=== PATIENT | female | born 1980 | race Caucasian/White ===

== ENCOUNTER 2016-12-29 05:55 | Day surgery (SDC) | payer OTHER ==
[~2016-12-29] VITALS: Ht 160 cm; Wt 85.3 kg
[~2016-12-29 05:55] MED LIST: CIPROFLOXACIN250 MG PO; DICYCLOMINE HCL10 MG PO; ESTRADIOL1 MG PO; FLOMAX0.4 MG PO; IMITREX100 MG PO; MIRENA1 EACH IY; MOTRIN800 MG PO; NORCO 5-325 TA1 EACH PO; NORCO 7.5-3251 EACH PO; NORTRIPTYLINE H10 MG PO; NUVARING VAGIN1 EACH VG; PERCOCET 5-3251 EACH PO; PRILOSEC20 MG PO; REMICADE100 MG/10 IV; SERTRALINE HCL100 MG PO; TRAMADOL HCL50 MG PO; VICODIN ES 7.51 EAC1 PO; ZOFRAN ODT4 MG SL
--- NOTE | 2016-12-29 08:59 | NUR ---
12/29/16 0859 Sally Lopez PT REPORTS REPORTS PAIN 12, TREATED WITH VERSED 2 MG PER ANESTESIA
--- NOTE | 2016-12-29 10:04 | NUR ---
PT TO DAY SURGERY WITH C/O 8-9\10 PAIN IN ABD. MORPHINE 4MG IV GIVEN SLOW PUSH.
[2016-12-29] MEDS ORDERED: PERCOCET 7.5-31 EACH PO (10:08)
[2016-12-29] MEDS ORDERED: IBUPROFEN800 MG PO (10:08)
--- NOTE | 2016-12-29 10:09 | NUR ---
PAIN RATED 6-7/10 IN ABD. PT STATES "IT GETTING BETTER."
--- NOTE | 2016-12-29 10:19 | NUR ---
PT EATING PUDDING AND DRINKS OF WATER TOLERATED.
--- NOTE | 2016-12-29 10:57 | NUR ---
ICE PACK PLACED TO LEFT ABD PER PT REQUEST. STATES "I HURT ON THE LEFT SIDE"
--- NOTE | 2016-12-29 12:22 | NUR ---
1200 SPOKE WITH LEIGH MELTON REGARDING PT LACK OF PAIN CONTROL. 1223 LEIGH IN WITH PT. PT PLACED ON THE MONITOR AND MOVED TO ROOM 11 FOR INFUSION.
--- NOTE | 2016-12-29 12:25 | NUR ---
PT RATES PAIN 9/10. CONSTANT, THROBBING PAIN THAT IS IN THE ABD, LEFT SIDE AND DOWN THE LEFT LEG.
--- NOTE | 2016-12-29 12:31 | NUR ---
INFUSION STARTED BY FAMILY CONSUMER SCIENCE FCS TEACHER
--- NOTE | 2016-12-29 12:49 | NUR ---
DR DIAZ IN TO SEE PATIENT AND . ORDER RECIEVED AND FAXED TO PHARMACY.
--- NOTE | 2016-12-29 12:52 | NUR ---
PT DROWSY TALKING WITH . RATES PAIN 07/23. STATES I FEEL SO GOOD.
--- NOTE | 2016-12-29 13:04 | NUR ---
PT RESTING IN BED ATTEMPTING TO USE PHONE. APPEARS DROWZY. RATES PAIN A 1-2/10.
--- NOTE | 2016-12-29 13:23 | NUR ---
INFUSION COMPLETED. PT RESTING WITH EYES CLOSED. RESP EVEN AND UNLABORED.
--- NOTE | 2016-12-29 13:28 | NUR ---
POWER SYSTEM DISPATCHER AT BEDSIDE
--- NOTE | 2016-12-29 14:20 | NUR ---
LEIGH IN TALKING WITH PT ABOUT INFUSION AND PAIN MEDICATIONS WHEN PT GOES HOME.
--- NOTE | 2016-12-29 15:02 | NUR ---
[address] DIAZ, UPDATED ON PT PAIN LEVEL AFTER INFUSION, CURRENT PAIN LEVEL OF 3/10. VOID, TOLERATING FOOD AND WATER. PT REQUESTING DC HOME. OKAY TO DC HOME. 1445 SPOKE WITH PT REGARDING KETAMINE INFUSION AND SIDE EFFECTS OF HALLUCINATION, DREAM LIKE STATE, LOSS OF APPETINE, NAUSEA, DOUBLE VISION AND THAT SHE SHOULD NOT DO ANYTHING OF IMPORTANCE. PT VERBALIZED UNDERSTANDING.
--- NOTE | 2017-01-22 07:55 | OR ---
[facility] [address] [place], [place] [address] Signed DATE OF SERVICE: 12/29/2016 SURGEON: Yoselin Garcia MD. SALES PROJECT ENGINEER: Frederick Guerrero DO. PREOPERATIVE DIAGNOSIS: Pelvic pain. POSTOPERATIVE DIAGNOSES: Pelvic pain, pelvic endometriosis. PROCEDURE PERFORMED: Laparoscopy with left oophorectomy, fulguration of endometriosis, and excision of endometriosis. ANESTHESIA: General ET. ESTIMATED BLOOD LOSS: Minimal. DRAINS: None. INDICATIONS AND FINDINGS: The patient is a 36-year-old female, who has been having worsening left-sided pelvic pain over the last 8 months. She is now requiring narcotics on a daily basis to manage her pain. She also has a history of ulcerative colitis, though it is not felt that her colitis has been active and she is on ongoing medication. Ultrasounds have not been helpful. She has undergone prior hysterectomy for benign indications. At the time of surgery, exam under anesthesia was completely normal. At the time of laparoscopy, the left ovary appeared normal. There was some endometriosis in the posterior cul-de-sac. There was also some endometriosis on the right posterior broad ligament. There also appeared to be endometriosis over both distal ureters. The right ovary appeared normal. DESCRIPTION OF PROCEDURE: The patient was prepped and draped in the dorsal lithotomy position. Sponge stick was placed in the vagina and a Aguilar catheter was placed at the beginning of the case. Attention was directed to the abdomen. The infraumbilical area was injected with 0.5% Marcaine plain. Incision made with a knife and each layer was then serially elevated and incised until the fascia could be opened and identified. Sutures of 0 Vicryl were placed. The peritoneum was then opened bluntly and a Roge cannula placed and tied into place. Placing the scope confirmed proper positioning. CO2 was then introduced into the abdomen. A 2nd port was placed just below the level of the umbilicus on the left side. This was placed fairly far laterally. This area was transilluminated and injected with the Marcaine and an incision made with a knife and the trocar placed under direct Electronically Signed By: YOSELIN GARCIA MD 01/22/17 0755 PATIENT NAME: JOSELIN FROST OPERATIVE REPORT DATE OF : 76 PHYSICIAN: YOSELIN GARCIA MD REPORT #: [id number] REPORT IS CONFIDENTIAL AND NOT TO BE RELEASED WITHOUT AUTHORIZATION [facility] [address] [place] [id number] Signed vision. The pelvis was visualized and the endometriosis was noted. The decision was made to proceed with the planned operation. A 2nd port was placed on the right side in the same area. This area was injected with the Marcaine incision made with a knife and then the Veress needle with the expandable trocar placed. This was followed by placement of a 10 port. Following this, the patient's left ovary was identified and was removed. The ureter could easily be seen at this level. The infundibulopelvic ligament was cauterized multiple times with [place] device and then excised and dropped to the posterior cul-de-sac. An Endoloop of 0 PDS was then placed to ensure hemostasis. Two loops were required as the 1st, unfortunately, trapped the forceps. Following this, the area appeared to be completely hemostatic and the ureter undamaged. Following this, the endometriosis of the cul-de-sac was treated with cautery using the Dolphin tip forceps. This was in central cul-de-sac as well as more on the right cul-de-sac below the uterosacral ligament. The endometriosis on the right posterior broad ligament was excised using the EndoShear. The specimen was sent. Unfortunately, there also appeared to be endometriosis overlying both ureters in the distal portions. This was not felt to be amenable for excision at this point. Following this, the pelvis was completely irrigated and inspected and there was no evidence of ongoing bleeding. Evicel was placed over the defects on the right posterior broad ligament to assist in hemostasis. The instruments were then removed from the abdomen after allowing as much CO2 as possible to escape. It should be noted that the left ovary was pulled through the 10 port prior to removal of the instruments. The fascial incision at the umbilicus was reidentified and closed with running suture of 0 Vicryl. The stay sutures had come out. The skin incisions were closed with subcuticular sutures of 3-0 Vicryl Rapide. Following this, the Aguilar catheter was removed as was the sponge stick. All sponge and needle counts were correct. She tolerated the procedure well and was taken to the recovery room in good condition. Yoselin Garcia MD PJW/Modl /[id number] cc: DO Dr. Sharif Still Electronically Signed By: YOSELIN GARCIA MD 01/22/17 0755 PATIENT NAME: JOSELIN FROST OPERATIVE REPORT DATE OF : 76 PHYSICIAN: YOSELIN GARCIA MD REPORT #: [id number] REPORT IS CONFIDENTIAL AND NOT TO BE RELEASED WITHOUT AUTHORIZATION
== END 2016-12-29 15:00 | disposition home or self-care (01) ==
LOC: DS 05:55
PROVIDERS: Obstetrics & Gynecology
PROC: 0U5B4ZZ Destruction of Endometrium, Percutaneous Endoscopic Approach (ICD-10-PCS; 2016-12-29)
PROC: 0UT14ZZ Resection of Left Ovary, Percutaneous Endoscopic Approach (ICD-10-PCS; principal; 2016-12-29 06:45)
DX: N80.3 Endometriosis of pelvic peritoneum (principal); N83.202 Unspecified ovarian cyst, left side; K58.9 Irritable bowel syndrome, unspecified; E66.9 Obesity, unspecified; F32.9 Major depressive disorder, single episode, unspecified; K21.9 Gastro-esophageal reflux disease without esophagitis; G43.009 Migraine without aura, not intractable, without status migrainosus; Z88.2 Allergy status to sulfonamides; Z87.442 Personal history of urinary calculi; Z90.49 Acquired absence of other specified parts of digestive tract; Z98.890 Other specified postprocedural states; Z79.899 Other long term (current) drug therapy; Z87.891 Personal history of nicotine dependence; Z68.33 Body mass index [BMI] 33.0-33.9, adult
CPT/HCPCS: 00840; J1100; J1170; J1644; J1885; J2250; J2270; J2370; J2405; J2704; J3010; J3475; J7120

== ENCOUNTER 2018-02-02 07:37 | Day surgery (SDC) | payer BC ==
[~2018-02-02] VITALS: Ht 160 cm; Wt 87.1 kg
[~2018-02-02 07:37] MED LIST changes: +IBUPROFEN800 MG PO; +MONO-LINYAH1 EACH PO; +PERCOCET 7.5-31 EACH PO; +PRILOSEC OTC20 MG PO
--- NOTE | 2018-02-02 08:04 | NUR ---
HEADACHE ONLY 5/10 PAIN
--- NOTE | 2018-02-02 08:18 | NUR ---
PT IS ALERT, ORIENTED AND SUPPORTED BY HER . SHE HAS HAD MANY SCOPES-WE AGREED THAT THIS ONE WELL WOULD SIMPLY BE "ROUTINE". EXTENDED A BLESSING, AND WILL FOLLOW NEEDED
--- NOTE | 2018-02-02 09:24 | NUR ---
02/02/18 0924 Rasheeda Armenta 6664-PATIENT ARRIVED TO PACU ON 3L OM O2 SAT 100% LAYING LEFT LATERAL. ABDOMEN ROUND AND SOFT. PATIENT REACTIVE TO VOICE SHAKES HEAD NO TO PAIN EYES CLOSED. GIVES THUMBS UP. RR EVEN.
--- NOTE | 2018-02-03 08:20 | OR ---
[facility] [address] [place], [place] [address] Signed DATE OF OPERATION: 02/02/2018 SURGEON: Alexander Pollock MD PREOPERATIVE DIAGNOSES: 1. Ulcerative colitis. 2. A paternal cousin with ulcerative colitis. 3. A maternal uncle with colon cancer and/or polyps. POSTOPERATIVE DIAGNOSIS: Unremarkable colonoscopy. PROCEDURES: Colonoscopy with multiple four quadrant cold biopsies throughout the colon and rectum. ESTIMATED BLOOD LOSS: None. INDICATIONS: Kami is a 37-year-old female, who was diagnosed with ulcerative colitis at age 11. It has been quite severe. She tried every drug including steroids and nothing was working. Finally, Remicade was started and she has been doing well ever since then. She continues to follow up with her operations officer afloat at [facility]. She continues to come every year for a colonoscopy with four-quadrant biopsies about every 10 cm or so looking for dysplasia. She returns this year and says she is doing great. This is the 3rd year she has used the Prepopik bowel prep with good results. Although, she had little cramping this year. Otherwise, she has been feeling well. She also understands the need for IV conscious sedation. She does do well with Versed and fentanyl, but she always needs a significant amount. She had expressed understanding and wished to proceed. PROCEDURE NOTE: Kami was taken into our endoscopy suite and placed in the left lateral decubitus position. She was given a total of 15 mg of Versed and 250 mcg of fentanyl to cover the entire case. A digital rectal exam was performed and this was unremarkable. The adult colonoscope was introduced and advanced all around into the cecum under direct visualization of the camera. Initially, our water was running through the scope and it was given some trouble. Once we amended that issue, it was much easier to pass the scope obviously. After this, we started withdrawal of the scope and we took multiple four quadrant biopsies throughout the entire colon and rectum. However, I saw no Electronically Signed By: ALEXANDER POLLOCK MD 02/03/18 0820 PATIENT NAME: KAMI FROST OPERATIVE REPORT DATE OF : 76 REPORT #: [id number] PHYSICIAN: ALEXANDER POLLOCK MD PCP: MONTY PATRICIO MD REPORT IS CONFIDENTIAL AND NOT TO BE RELEASED WITHOUT AUTHORIZATION [address] [address] Signed evidence of any inflammatory changes in her colon or rectum on this occasion. She often has an area in her left colon that bothers her. Upon retroflexion of the scope, there was no pathology above the anal canal. After this, the gas was suctioned out and the colonoscope removed. Kami tolerated the procedure quite well. RECOMMENDATIONS: I will see Kami back in my office in 7 to 14 days to review her results. MD CHRIS Kirby/BASIA /[id number] cc: MD Monty Salvador MD Andrew L Bower, MD Copies: Stevo Hart MD, RUSSELL BARR MD BOWER, ANDREW L MD ~ Electronically Signed By: ALEXANDER POLLOCK MD 02/03/18 0820 PATIENT NAME: KAMI FROST OPERATIVE REPORT DATE OF : 76 REPORT #: [id number] PHYSICIAN: ALEXANDER POLLOCK MD PCP: MONTY PATRICIO MD REPORT IS CONFIDENTIAL AND NOT TO BE RELEASED WITHOUT AUTHORIZATION
== END 2018-02-02 10:28 | disposition home or self-care (01) ==
LOC: DS 07:37 → OPS 07:37
PROVIDERS: Colon & Rectal Surgery
PROC: 0DBE8ZX Excision of Large Intestine, Via Natural or Artificial Opening Endoscopic, Diagnostic (ICD-10-PCS; 2018-02-02)
PROC: 0DBL8ZX Excision of Transverse Colon, Via Natural or Artificial Opening Endoscopic, Diagnostic (ICD-10-PCS; 2018-02-02)
PROC: 0DBP8ZX Excision of Rectum, Via Natural or Artificial Opening Endoscopic, Diagnostic (ICD-10-PCS; 2018-02-02)
PROC: 0DBH8ZX Excision of Cecum, Via Natural or Artificial Opening Endoscopic, Diagnostic (ICD-10-PCS; 2018-02-02)
PROC: 0DBK8ZX Excision of Ascending Colon, Via Natural or Artificial Opening Endoscopic, Diagnostic (ICD-10-PCS; principal; 2018-02-02 09:00)
DX: K51.90 Ulcerative colitis, unspecified, without complications (principal); F32.9 Major depressive disorder, single episode, unspecified; G43.909 Migraine, unspecified, not intractable, without status migrainosus; J32.9 Chronic sinusitis, unspecified; K21.9 Gastro-esophageal reflux disease without esophagitis; Z98.890 Other specified postprocedural states; Z87.891 Personal history of nicotine dependence; Z88.2 Allergy status to sulfonamides; Z79.899 Other long term (current) drug therapy
CPT/HCPCS: 99153; G0500; J2250; J3010

== ENCOUNTER 2019-10-11 08:36 | Emergency (ER) | payer BC ==
[~2019-10-11] VITALS: Ht 157.5 cm; Wt 87.1 kg
--- OUTSIDE RECORDS SUMMARY | ~2019-10-11 | XMS | Encounter Summary ---
Demographics + + + | Address | [address] | | | [place] [address] | + + + | Home Phone | | + + + | Preferred Language | Unknown | + + + | Marital Status | | + + + | Sikh Affiliation | Unknown | + + + | Race | White | + + + | Ethnic Group | Not or | + + + Author + + + | Author | [facility] | + + + | Organization | [facility] | + + + | Address | Unknown | + + + | Phone | Unavailable | + + + Support + + + + + | Name | Relationship | Address | Phone | + + + + + | Bob Benites | ECON | [address] | | | | | [place] | | | | | [address] | | + + + + + Care Team Providers + +------+ + | Care Energy Sales Broker Name | Role | Phone | + +------+ + | Rohit Ogluin MD | PCP | | + +------+ + Reason for Visit + + + | Reason | Comments | + + + | Medical Records | [facility] - OUTSIDE RECORDS: Progress Note 04/16/2014 (f/u colonoscopy) | | Review | | + + + Encounter Details +--------+ + + + + | Date | Type | Department | Care Team | Description | +--------+ + + + + | 04/19/ | Abstract | [facility]ive [facility] | Stevo Hart, | Medical Records | | 2013 | | [place] at [facility] [address] | MD | Review ([facility] - | | | | [address] | | OUTSIDE RECORDS: | | | | Mailcode: Center | | Progress Note | | | | for Health and | | 04/16/2014 (f/u | | | | Healing, [address] | | colonoscopy)) | | | | [place], [place] | | | | | | [address] | | | | | | [phone] | | | +--------+ + + + + Social History + +-------+ +--------+------+ | Tobacco Use | Types | Packs/Day | Years | Date | | | | | Used | | + +-------+ +--------+------+ | Former Smoker | | | | | + +-------+ +--------+------+ + +---+---+---+ | Smokeless Tobacco: | | | | | Never Used | | | | + +---+---+---+ + + | Comments: quit for 7 years; quit 6 years ago | + + + + +---------+ + | Alcohol Use | Drinks/Week | oz/Week | Comments | + + +---------+ + | Yes | | | rare | + + +---------+ + + + + | Sex Assigned at | Date Recorded | | | | + + + | Not on file | | + + + + + + + | Job Start Date | Occupation | Industry | + + + + | Not on file | Not on file | Not on file | + + + + + + + + | Travel History | Travel Start | Travel End | + + + + + + | No recent travel history available. | + + documented as of this encounter Plan of Treatment Not on filedocumented as of this encounter Visit Diagnoses Not on filedocumented in this encounter"
--- OUTSIDE RECORDS SUMMARY | ~2019-10-11 | XMS | Encounter Summary ---
Demographics + + + | Address | [address] | | | [place] [address] | + + + | Home Phone | | + + + | Preferred Language | Unknown | + + + | Marital Status | | + + + | Evangelical Affiliation | Unknown | + + + | Race | White | + + + | Ethnic Group | Not or | + + + Author + + + | Author | [facility] | + + + | Organization | [facility] | + + + | Address | Unknown | + + + | Phone | Unavailable | + + + Support + + + + + | Name | Relationship | Address | Phone | + + + + + | Bob Benites | ECON | [address] | | | | | [place] | | | | | [address] | | + + + + + Care Team Providers + +------+ + | Care Burial Vault Deliverer And Installer Name | Role | Phone | + +------+ + | Rohit Olguin MD | PCP | | + +------+ + Reason for Visit + + + | Reason | Comments | + + + | Refill Request | nortriptyline | + + + Encounter Details +--------+--------+ + + + | Date | Type | Department | Care Team | Description | +--------+--------+ + + + | 08/30/ | Refill | Dig[facility]ive Health | Stevo Hart, | Refill Request | | 2013 | | Center at [facility] [address] | MD | (nortriptyline ) | | | | [address] | | | | | | Mailcode: [place] | | | | | | [facility] and | | | | | | [place] [address] | | | | | | [place], [place] | | | | | | [address] | | | | | | [phone] | | | +--------+--------+ + + + Social History + +-------+ [...]
--- OUTSIDE RECORDS SUMMARY | ~2019-10-11 | XMS | Encounter Summary ---
Demographics + + + | Address | [address] | | | [place] [address] | + + + | Home Phone | | + + + | Preferred Language | Unknown | + + + | Marital Status | | + + + | Spiritism Affiliation | Unknown | + + + | Race | White | + + + | Ethnic Group | Not or | + + + Author + + + | Author | [facility] | + + + | Organization | [facility] | + + + | Address | Unknown | + + + | Phone | Unavailable | + + + Support + + + + + | Name | Relationship | Address | Phone | + + + + + | Bob Benites | ECON | [address] | | | | | [place] | | | | | [address] | | + + + + + Care Team Providers + +------+ + | Care Magazine Designer Name | Role | Phone | + [...] Description | +--------+--------+ + + + | 08/14/ | Refill | [facility]ive [facility] | Stevo Hart, | Refill Request | | 2016 | | Center at [facility] [address] | MD | (nortriptyline) | | | | [address] | | | | | | Mailcode: [place] | | | | | | [facility] and | | | | | | [facility], [place] [address] | | | | | | [place], [place] | | | | | | [address] | | | | | | [phone] | | | +--------+--------+ + + + [...]
--- OUTSIDE RECORDS SUMMARY | ~2019-10-11 | XMS | Encounter Summary ---
Demographics + + + | Address | [address] | | | [place] [address] | + + + | Home Phone | | + + + | Preferred Language | Unknown | + + + | Marital Status | | + + + | Yazdanism Affiliation | Unknown | + + + | Race | White | + + + | Ethnic Group | Not or | + + + Author + + + | Author | [facility] | + + + | Organization | [facility] | + + + | Address | Unknown | + + + | Phone | Unavailable | + + + Support + + + + + | Name | Relationship | Address | Phone | + + + + + | Bob Benites | ECON | [address] | | | | | [place] | | | | | [address] | | + + + + + Care Team Providers + +------+ + | Care Supervisor Product Inspection Name | Role | Phone | + +------+ + | Rohit Olguin MD | PCP | | + +------+ + Encounter Details +--------+ + + + + | Date | Type | Department | Care Team | Description | +--------+ + + + + | 09/20/ | Orders Only | Dig[facility]ive Health | Alcon Malcolm, | | | 2017 | | Center at [address] | SURFACE HYDROLOGIST [address] | | | | | [address] | [place], [place] | | | | | Mailcode: [place] | [address] | | | | | for Health and | [phone] | | | | | Healing, [address] | | | | | | [place], [place] | | | | | | [address] | | | | | | [phone] | | | +--------+ + + + [...]
--- OUTSIDE RECORDS SUMMARY | ~2019-10-11 | XMS | Encounter Summary ---
Demographics + + + | Address | [address] | | | [place] [address] | + + + | Home Phone | | + + + | Preferred Language | Unknown | + + + | Marital Status | | + + + | Uatsdin Affiliation | Unknown | + + + | Race | White | + + + | Ethnic Group | Not or | + + + Author + + + | Author | [facility] | + + + | Organization | [facility] | + + + | Address | Unknown | + + + | Phone | Unavailable | + + + Support + + + + + | Name | Relationship | Address | Phone | + + + + + | Bob Benites | ECON | [address] | | | | | [place] | | | | | [address] | | + + + + + Care Team Providers + +------+ + | Care Branch Assistant Name | Role | Phone | + +------+ + | Rohit Olguin MD | PCP | | + +------+ + Encounter Details +--------+ + + + + | Date | Type | Department | Care Team | Description | +--------+ + + + + | 06/13/ | MyChart | Dig[facility]ive Health | Stevo Hart, | RE: Blood work | | 2014 | Encounter | Center at [facility] [address] | MD | | | | | [address] | | | | | | Mailcode: [place] | | | | | | for Health and | | | | | | Healing, [address] | | | | | | [place], [place] | | | | | | [address] | | | | | | [phone] | | | +--------+ + + + [...]
--- OUTSIDE RECORDS SUMMARY | ~2019-10-11 | XMS | Encounter Summary ---
Demographics + + + | Address | [address] | | | [place] [address] | + + + | Home Phone | | + + + | Preferred Language | Unknown | + + + | Marital Status | | + + + | Bahai Affiliation | Unknown | + + + | Race | White | + + + | Ethnic Group | Not or | + + + Author + + + | Author | [facility] | + + + | Organization | [facility] | + + + | Address | Unknown | + + + | Phone | Unavailable | + + + Support + + + + + | Name | Relationship | Address | Phone | + + + + + | Bob Benites | ECON | [address] | | | | | [place] | | | | | [address] | | + + + + + Care Team Providers + +------+ + | Care Retail Banking Manager Name | Role | Phone | + +------+ + | Rohit Olguin MD | PCP | | + +------+ + Reason for Visit + + + | Reason | Comments | + + + | Insurance | Remicade approval - [employer] | | Authorization | | + + + Encounter Details +--------+ + + + + | Date | Type | Department | Care Team | Description | +--------+ + + + + | 06/28/ | Abstract | Dig[facility]ive Health | Briana Tellez MD | Insurance | | 2018 | | Center at [facility] [address] | [address] | Authorization | | | | [address] | [place], [place] | (Remicade approval - | | | | Mailcode: [place] | [phone] | [employer]) | | | | for Health and | [phone] | | | | | [place] [address] | | | | | | [place], [place] | | | | | | [address] | | | | | | [phone] | | | +--------+ + + + [...]
--- OUTSIDE RECORDS SUMMARY | ~2019-10-11 | XMS | Encounter Summary ---
Demographics + + + | Address | [address] | | | [place] [address] | + + + | Home Phone | | + + + | Preferred Language | Unknown | + + + | Marital Status | | + + + | Anglican Affiliation | Unknown | + + + | Race | White | + + + | Ethnic Group | Not or | + + + Author + + + | Author | [facility] | + + + | Organization | [facility] | + + + | Address | Unknown | + + + | Phone | Unavailable | + + + Support + + + + + | Name | Relationship | Address | Phone | + + + + + | Bob Benites | ECON | [address] | | | | | [place] | | | | | [address] | | + + + + + Care Team Providers + +------+ + | Care Product Marketing Analyst Name | Role | Phone | + +------+ + | Rohit Olguin MD | PCP | | + +------+ + Reason for Visit + + + | Reason | Comments | + + + | Blood Test Results | 11/07/2015 CRP, ESR - [facility] | + + + | Lab Results | 11/07/2015 Calprotectin - [facility] | + + + Encounter Details +--------+ + + + + | Date | Type | Department | Care Team | Description | +--------+ + + + + | 12/17/ | Documentati | Digestive Health | Stevo Hart, | Blood Test Results | | 2016 | on | Center at [facility] [address] | MD | (11/07/2015 CRP, ESR | | | | [address] | | - [facility]); Lab | | | | Mailcode: Center | | Results (11/07/2015 | | | | for Health and | | Calprotectin - [facility]) | | | | [place], [facility] | | | | | | [place], [place] | | | | | | [address] | | | | | | [phone] | | | +--------+ + + + [...] Not on filedocumented as of this encounter Procedures + +--------+ + + + | Procedure Name | Priori | Date/Time | Associated Diagnosis | Comments | | | ty | | | | + +--------+ + + + | C-REACTIVE PROTEIN | Routin | 11/07/2015 | | Results for this | | | e | 10:15 AM | | procedure are in the | | | | PDT | | results section. | + +--------+ + + + | SEDIMENTATION RATE | Routin | 11/07/2015 | | Results for this | | | e | 10:15 AM | | procedure are in the | | | | PDT | | results section. | + +--------+ + + + | CALPROTECTIN, FECAL | Routin | 11/07/2015 | | Results for this | | | e | 10:00 AM | | procedure are in the | | | | PDT | | results section. | + +--------+ + + + documented in this encounter Results SEDIMENTATION RATE (11/07/2015 10:15 AM PDT) + +-------+ + + + | Component | Value | Ref Range | Performed | Pathologist | | | | | At | Signature | + +-------+ + + + | SEDIMENTATI | 12 | 0 - 20 mm/hr | [facility] | | | ON RATE | | | LAB - | | | | | | [place] | | + +-------+ + + + + + | Specimen | + + | Blood - Blood | + + + + + + + | Performing | Address | City/State/Zipcode | Phone Number | | Organization | | | | + + + + + | [facility] - | [address] | [place], [place] | [phone] | | [place] | | | | + + + + + C-REACTIVE PROTEIN (11/07/2015 10:15 AM PDT) + +-------+ + + + | Component | Value | Ref Range | Performed | Pathologist | | | | | At | Signature | + +-------+ + + + | C-REACTIVE | 3.0 | 0 - 5 mg/dl | [facility] | | | PROTEIN | | | LAB - | | | | | | [place] | | + +-------+ + + + + + | Specimen | + + | Blood - Blood | + + + + + + + | Performing | Address | City/State/Zipcode | Phone Number | | Organization | | | | + + + + + | [facility] - | [address] | [place], [place] | [phone] | | [place] | | | | + + + + + CALPROTECTIN, FECAL (11/07/2015 10:00 AM PDT) + +-------+ + + + | Component | Value | Ref Range | Performed | Pathologist | | | | | At | Signature | + +-------+ + + + | CALPROTECTI | <16 | 0 - 50 ug/g | [facility] | | | N, FECAL | | | LABORATORIE | | | | | | S | | + +-------+ + + + + + | Specimen | + + | Stool - Rectum | + + + + + + + | Performing | Address | City/State/Zipcode | Phone Number | | Organization | | | | + + + + + | [facility] | [address] | [place], [place] | [phone] | | | | [address] | | + + + + + documented in this encounter Visit Diagnoses Not on filedocumented in this encounter"
--- OUTSIDE RECORDS SUMMARY | ~2019-10-11 | XMS | Encounter Summary ---
Demographics + + + | Address | [address] | | | [place] [address] | + + + | Home Phone | | + + + | Preferred Language | Unknown | + + + | Marital Status | | + + + | Worship Affiliation | Unknown | + + + | Race | White | + + + | Ethnic Group | Not or | + + + Author + + + | Author | [facility] | + + + | Organization | [facility] | + + + | Address | Unknown | + + + | Phone | Unavailable | + + + Support + + + + + | Name | Relationship | Address | Phone | + + + + + | Bob Benites | ECON | [address] | | | | | [place] | | | | | [address] | | + + + + + Care Team Providers + +------+ + | Care Photonics Engineer Name | Role | Phone | + [...] Description | +--------+--------+ + + + | 05/21/ | Refill | Digestive Health | Stevo Hart, | Refill Request | | 2015 | | Center at [facility] [address] | MD | (nortriptyline) | | | | [address] | | | | | | Mailcode: [place] | | | | | | [facility] and | | | | | | [facility], [place] [address] | | | | | | [place], [place] | | | | | | [address] | | | | | | [phone] | | | +--------+--------+ + + + [...]
--- OUTSIDE RECORDS SUMMARY | ~2019-10-11 | XMS | Encounter Summary ---
Demographics + + + | Address | [address] | | | [place] [address] | + + + | Home Phone | | + + + | Preferred Language | Unknown | + + + | Marital Status | | + + + | Adventism Affiliation | Unknown | + + + | Race | White | + + + | Ethnic Group | Not or | + + + Author + + + | Author | [facility] | + + + | Organization | [facility] | + + + | Address | Unknown | + + + | Phone | Unavailable | + + + Support + + + + + | Name | Relationship | Address | Phone | + + + + + | Bob Benites | ECON | [address] | | | | | [place] | | | | | [address] | | + + + + + Care Team Providers + +------+ + | Care Cell Phone Repair Technician Name | Role | Phone | + [...] Description | +--------+--------+ + + + | 08/27/ | Refill | Digestive Health | Stevo Hart, | Refill Request | | 2014 | | Center at [facility] [address] | MD | (nortriptyline) | | | | [address] | | | | | | Mailcode: [place] | | | | | | [facility] and | | | | | | [facility], [place] [address] | | | | | | [place], [place] | | | | | | [address] | | | | | | [phone] | | | +--------+--------+ + + + [...]
--- OUTSIDE RECORDS SUMMARY | ~2019-10-11 | XMS | Encounter Summary ---
Demographics + + + | Address | [address] | | | [place] [address] | + + + | Home Phone | | + + + | Preferred Language | Unknown | + + + | Marital Status | | + + + | Latter-Day Affiliation | Unknown | + + + | Race | White | + + + | Ethnic Group | Not or | + + + Author + + + | Author | [facility] | + + + | Organization | [facility] | + + + | Address | Unknown | + + + | Phone | Unavailable | + + + Support + + + + + | Name | Relationship | Address | Phone | + + + + + | Bob Benites | ECON | [address] | | | | | [place] | | | | | [address] | | + + + + + Care Team Providers + +------+ + | Care Traffic Recorder Name | Role | Phone | + +------+ + | Rohit Olguin MD | PCP | | + +------+ + Reason for Visit + + + | Reason | Comments | + + + | Insurance | Telma Tavares/CHANCE | | Authorization | | + + + Encounter Details +--------+ + + + + | Date | Type | Department | Care Team | Description | +--------+ + + + + | 03/18/ | Abstract | Digestive Health | Stevo Hart, | Insurance | | 2016 | | Center at [facility] [address] | MD | Authorization | | | | [address] | | (Remicade approval - | | | | Mailcode: [place] | | Anusha/CHANCE) | | | | for Health and | | | | | | [facility], [address] | | | | | | [place], [place] | | | | | | [address] | | | | | | [phone] | | | +--------+ + + + [...]
--- OUTSIDE RECORDS SUMMARY | ~2019-10-11 | XMS | Encounter Summary ---
Demographics + + + | Address | [address] | | | [place] [address] | + + + | Home Phone | | + + + | Preferred Language | Unknown | + + + | Marital Status | | + + + | Church Affiliation | Unknown | + + + | Race | White | + + + | Ethnic Group | Not or | + + + Author + + + | Author | [facility] | + + + | Organization | [facility] | + + + | Address | Unknown | + + + | Phone | Unavailable | + + + Support + + + + + | Name | Relationship | Address | Phone | + + + + + | Bob Benites | ECON | [address] | | | | | [place] | | | | | [address] | | + + + + + Care Team Providers + +------+ + | Care Assembly Inspector Name | Role | Phone | + +------+ + | Rohit Olguin MD | PCP | | + +------+ + Encounter Details +--------+ + + + + | Date | Type | Department | Care Team | Description | +--------+ + + + + | 03/26/ | MyChart | Digestive Health | Stevo Hart, | RE:RE: Cramping/Pain | | 2012 | Encounter | Center at [facility] [address] | MD | | | | | [address] | | | | | | Mailcode: Center | | | | | | for Health and | | | | | | Healing, [address] | | | | | | [place], [place] | | | | | | [address] | | | | | | [phone] | | | +--------+ + + + [...]
--- OUTSIDE RECORDS SUMMARY | ~2019-10-11 | XMS | Encounter Summary ---
Demographics + + + | Address | [address] | | | [place] [address] | + + + | Home Phone | | + + + | Preferred Language | Unknown | + + + | Marital Status | | + + + | Anabaptism Affiliation | Unknown | + + + | Race | White | + + + | Ethnic Group | Not or | + + + Author + + + | Author | [facility] | + + + | Organization | [facility] | + + + | Address | Unknown | + + + | Phone | Unavailable | + + + Support + + + + + | Name | Relationship | Address | Phone | + + + + + | Bob Benites | ECON | [address] | | | | | [place] | | | | | [address] | | + + + + + Care Team Providers + +------+ + | Care Bus And Trolley Dispatcher Name | Role | Phone | + +------+ + | Rohit Olguin MD | PCP | | + +------+ + Encounter Details +--------+ + + + + | Date | Type | Department | Care Team | Description | +--------+ + + + + | 11/01/ | MyChart | Digestive Health | Alcon Malcolm, | Remicade level | | 2018 | Encounter | Center at [facility] [address] | VENEER JOINER [address] | | | | | [address] | [place], [place] | | | | | Mailcode: Center | [address] | | | | | for Health and | [phone] | | | | | [facility] 2 | | | | | | [place], [place] | | | | | | [address] | | | | | | [phone] | | | +--------+ + + + [...]
--- OUTSIDE RECORDS SUMMARY | ~2019-10-11 | XMS | Encounter Summary ---
Demographics + + + | Address | [address] | | | [place] [address] | + + + | Home Phone | | + + + | Preferred Language | Unknown | + + + | Marital Status | | + + + | Samaritan Affiliation | Unknown | + + + | Race | White | + + + | Ethnic Group | Not or | + + + Author + + + | Author | [facility] | + + + | Organization | [facility] | + + + | Address | Unknown | + + + | Phone | Unavailable | + + + Support + + + + + | Name | Relationship | Address | Phone | + + + + + | Bob Benites | ECON | [address] | | | | | [place] | | | | | [address] | | + + + + + Care Team Providers + +------+ + | Care Face Hardener Name | Role | Phone | + +------+ + | Rohit Olguin MD | PCP | | + +------+ + Reason for Visit + + + | Reason | Comments | + + + | Refill Request | | + + + Encounter Details +--------+--------+ + + + | Date | Type | Department | Care Team | Description | +--------+--------+ + + + | 08/23/ | Refill | Digestive Health | Alcon Malcolm, | Refill Request | | 2020 | | Center at [facility] [address] | LANDSCAPE ARCHITECT [address] | | | | | [address] | [place], [place] | | | | | Mailcode: Center | [address] | | | | | for Health and | [phone] | | | | | [place] [address] | | | | | | [place], [place] | | | | | | [address] | | | | | | [phone] | | | +--------+--------+ + + + [...] filedocumented as of this encounter Visit Diagnoses + + | Diagnosis | + + | Other ulcerative colitis without complication (HCC) | + + | Encounter for long-term (current) use of high-risk medication Encounter for long-term | | (current) use of other medications | + + documented in this encounter"
--- OUTSIDE RECORDS SUMMARY | ~2019-10-11 | XMS | Encounter Summary ---
Demographics + + + | Address | [address] | | | [place] [address] | + + + | Home Phone | | + + + | Preferred Language | Unknown | + + + | Marital Status | | + + + | Presybeterian Affiliation | Unknown | + + + | Race | White | + + + | Ethnic Group | Not or | + + + Author + + + | Author | [facility] | + + + | Organization | [facility] | + + + | Address | Unknown | + + + | Phone | Unavailable | + + + Support + + + + + | Name | Relationship | Address | Phone | + + + + + | Bob Benites | ECON | [address] | | | | | [place] | | | | | [address] | | + + + + + Care Team Providers + +------+ + | Care Chief Catalyst Operator Name | Role | Phone | + [...] Description | +--------+--------+ + + + | 05/20/ | Refill | Digestive Health | Alcon Malcolm, | Refill Request | | 2019 | | Center at [facility] [address] | CORPORATION SECRETARY [address] | | | | | [address] | [place], [place] | | | | | Mailcode: Center | [address] | | | | | for Health and | [phone] | | | | | [place] [address] | | | | | | [place], [place] | | | | | | [address] | | | | | | [phone] | | | +--------+--------+ + + + [...]
--- OUTSIDE RECORDS SUMMARY | ~2019-10-11 | XMS | Encounter Summary ---
Demographics + + + | Address | [address] | | | [place] [address] | + + + | Home Phone | | + + + | Preferred Language | Unknown | + + + | Marital Status | | + + + | Confucianist Affiliation | Unknown | + + + | Race | White | + + + | Ethnic Group | Not or | + + + Author + + + | Author | [facility] | + + + | Organization | [facility] | + + + | Address | Unknown | + + + | Phone | Unavailable | + + + Support + + + + + | Name | Relationship | Address | Phone | + + + + + | Bob Benites | ECON | [address] | | | | | [place] | | | | | [address] | | + + + + + Care Team Providers + +------+ + | Care Horse Stud Worker Name | Role | Phone | + +------+ + | Rohit Olguin MD | PCP | | + +------+ + Encounter Details +--------+ + + + + | Date | Type | Department | Care Team | Description | +--------+ + + + + | 12/08/ | MyChart | Digestive Health | Stevo Hart, | RE: Severe Abdominal | | 2017 | Encounter | Center at [facility] [address] | MD | pain | | | | [address] | | | | | | Mailcode: Center | | | | | | for Health and | | | | | | Healing, [address] | | | | | | [place], [place] | | | | | | [address] | | | | | | [phone] | | | +--------+ + + + [...]
--- OUTSIDE RECORDS SUMMARY | ~2019-10-11 | XMS | Encounter Summary ---
Demographics + + + | Address | [address] [place] [address] | | | [place] [address] | + + + | Home Phone | | + + + | Preferred Language | Unknown | + + + | Marital Status | | + + + | Mosque Affiliation | Unknown | + + + | Race | White | + + + | Ethnic Group | Not or | + + + Author + + + | Author | [facility] | + + + | Organization | [facility] | + + + | Address | Unknown | + + + | Phone | Unavailable | + + + Support + + + + + | Name | Relationship | Address | Phone | + + + + + | Bob Benites | ECON | [address] | | | | | [place] | | | | | [address] | | + + + + + Care Team Providers + +------+ + | Care Asic Engineer Name | Role | Phone | + +------+ + | Rohit Olguin MD | PCP | | + +------+ + Reason for Visit + + + | Reason | Comments | + + + | Medical Records | 03/27/2015 Colonoscopy and pathology report - [facility] | | Review | Hospital | + + + Encounter Details +--------+ + + + + | Date | Type | Department | Care Team | Description | +--------+ + + + + | 04/02/ | Abstract | Digestive Health | Stevo Hart, | Medical Records | | 2014 | | [place] at [facility] [address] | MD | Review (03/27/2015 | | | | [address] | | Colonoscopy and | | | | Mailcode: Center | | pathology report - | | | | for [facility] and | | [facility] | | | | [facility] | | [facility]) | | | | [place], [place] | | | | | | [address] | | | | | | [phone] | | | +--------+ + + + [...]
--- OUTSIDE RECORDS SUMMARY | ~2019-10-11 | XMS | Encounter Summary ---
Demographics + + + | Address | [address] | | | [place] [address] | + + + | Home Phone | | + + + | Preferred Language | Unknown | + + + | Marital Status | | + + + | Jehovah'S Witness Affiliation | Unknown | + + + | Race | White | + + + | Ethnic Group | Not or | + + + Author + + + | Author | [facility] | + + + | Organization | [facility] | + + + | Address | Unknown | + + + | Phone | Unavailable | + + + Support + + + + + | Name | Relationship | Address | Phone | + + + + + | Bob Benites | ECON | [address] | | | | | [place] | | | | | [address] | | + + + + + Care Team Providers + +------+ + | Care Hogshead Inspector Name | Role | Phone | [...] | | 2013 | | Center at [facility] [address] | MD | (nortriptyline ) | | | | [address] | | | | | | Mailcode: [place] | | | | | | [facility] Health and | | | | | | [place] [address] | | | | | | [place], [place] | | | | | | [address] | | | | | | [phone] | | | +--------+--------+ + + + [...]
--- OUTSIDE RECORDS SUMMARY | ~2019-10-11 | XMS | Encounter Summary ---
Demographics + + + | Address | [address] | | | [place] [address] | + + + | Home Phone | | + + + | Preferred Language | Unknown | + + + | Marital Status | | + + + | Yarsanism Affiliation | Unknown | + + + | Race | White | + + + | Ethnic Group | Not or | + + + Author + + + | Author | [facility] | + + + | Organization | [facility] | + + + | Address | Unknown | + + + | Phone | Unavailable | + + + Support + + + + + | Name | Relationship | Address | Phone | + + + + + | Bob Benites | ECON | [address] | | | | | [place] | | | | | [address] | | + + + + + Care Team Providers + +------+ + | Care Hook Puller Name | Role | Phone | + +------+ + | Rohit Olguin MD | PCP | | + +------+ + Encounter Details +--------+ + + + + | Date | Type | Department | Care Team | Description | +--------+ + + + + | 09/30/ | Telephone | Digestive Health | Stevo Hart, | | | 2015 | | [place] at [facility] [address] | | | | | | [address] | | | | | | Mailcode: [place] | | | | | | for Health and | | | | | | [facility], [facility] 2 | | | | | | [place], [place] | | | | | | [address] | | | | | | [phone] | | | +--------+ + + + [...] + | Diagnosis | + + | Irritable bowel syndrome without diarrhea - Primary Irritable bowel syndrome | + + | Other ulcerative colitis without complication (HCC) | + + documented in this encounter"
--- OUTSIDE RECORDS SUMMARY | ~2019-10-11 | XMS | Encounter Summary ---
Demographics + + + | Address | [address] | | | [place] [address] | + + + | Home Phone | | + + + | Preferred Language | Unknown | + + + | Marital Status | | + + + | Episcopal Affiliation | Unknown | + + + [...] + | Bob Benites | ECON | [address] | | | | | [place] | | | | | [address] | | + + + + + Care Team Providers + +------+ + | Care Investigative Research Specialist Name | Role | Phone | + +------+ + | Rohit Olguin MD | PCP | | + +------+ + Encounter Details +--------+ + + + + | Date | Type | Department | Care Team | Description | +--------+ + + + + | 01/19/ | MyChart | Digestive Health | Alcon Malcolm, | Boat load of labs | | 2019 | Encounter | Center at [facility] [address] | COAT ROOM ATTENDANT [address] | | | | | [address] | [facility] [place] | | | | | Mailcode: Center | [address] | | | | | for Health and | [phone] | | | | | [facility] 2 | | | | | | [place], [place] | | | | | | [address] | | | | | | [phone] | | | +--------+ + + + [...]
--- OUTSIDE RECORDS SUMMARY | ~2019-10-11 | XMS | Encounter Summary ---
Demographics + + + | Address | [address] | | | [place] [address] | + + + | Home Phone | | + + + | Preferred Language | Unknown | + + + | Marital Status | | + + + | Hindu Affiliation | Unknown | + + + | Race | White | + + + | Ethnic Group | Not or | + + + Author + + + | Author | [facility] | + + + | Organization | [facility] | + + + | Address | Unknown | + + + | Phone | Unavailable | + + + Support + + + + + | Name | Relationship | Address | Phone | + + + + + | Bob Benites | ECON | [address] | | | | | [place] | | | | | [address] | | + + + + + Care Team Providers + +------+ + | Care Hvac Designer Name | Role | Phone | + +------+ + | Rohit Olguin MD | PCP | | + +------+ + Reason for Visit + + + | Reason | Comments | + + + | Medical Records | | | Review | | + + + Encounter Details +--------+ + + + + | Date | Type | Department | Care Team | Description | +--------+ + + + + | 03/19/ | Abstract | Digestive Health | Stevo Hart, | Medical Records | | 2016 | | [place] at [facility] [address] | | Review | | | | [address] | | | | | | Mailcode: [place] | | | | | | for Health and | | | | | | [facility], [facility] 2 | | | | | | [place], [place] | | | | | | [address] | | | | | | [phone] | | | +--------+ + + + [...]
--- OUTSIDE RECORDS SUMMARY | ~2019-10-11 | XMS | Encounter Summary ---
Demographics + + + | Address | [address] | | | [place] [address] | + + + | Home Phone [...] + + | Author | [facility] | + + + | Organization | [facility] | + + + | Address | Unknown | + + + | Phone | Unavailable | + + + Support + + + + + | Name | Relationship | Address | Phone | + + + + + | Bob Benites | ECON | [address] | | | | | [place] | | | | | [address] | | + + + + + Care Team Providers + +------+ + | Care Change Control Analyst Name | Role | Phone | + +------+ + | Rohit Olguin MD | PCP | | + +------+ + Reason for Visit + + + | Reason | Comments | + + + | Blood Test Results | 08/06/2015 HgA1c, CRP, ESR - [facility] | + + + Encounter Details +--------+ + + + + | Date | Type | Department | Care Team | Description | +--------+ + + + + | 08/12/ | Documentati | Digestive Health | Stevo Hart, | Blood Test Results | | 2016 | on | Center at [facility] [address] | MD | (08/06/2015 HgA1c, | | | | [address] | | CRP, ESR - | | | | Mailcode: Center | | [facility]) | | | | for Health and | | | | | | [facility], [facility] | | | | | | [place], [place] | | | | | | [address] | | | | | | [phone] | | | +--------+ + + + [...] + | C-REACTIVE PROTEIN | Routin | 08/06/2015 | | Results for this | | | e | 11:34 AM | | procedure are in the | | | | PDT | | results section. | + +--------+ + + + | SEDIMENTATION RATE | Routin | 08/06/2015 | | Results for this | | | e | 11:34 AM | | procedure are in the | | | | PDT | | results section. | + +--------+ + + + | HEMOGLOBIN A1C, | Routin | 08/06/2015 | | Results for this | | BLOOD | e | 11:34 AM | | procedure are in the | | | | PDT | | results section. | + +--------+ + + + | ALBUMIN, PLASMA | Routin | 08/06/2015 | | Results for this | | | e | 11:34 AM | | procedure are in the | | | | PDT | | results section. | + +--------+ + + + documented in this encounter Results ALBUMIN, PLASMA (08/06/2015 11:34 AM PDT) + +-------+ + + + | Component | Value | Ref Range | Performed | Pathologist | | | | | At | Signature | + +-------+ + + + | ALBUMIN, | 4.6 | 3.5 - 5.0 g/dL | [facility] | | | PLASMA | | | LAB - | | | (LAB) | | | [place] | | + +-------+ + + + + + | Specimen | + + | Blood - Blood | + + + + + + + | Performing | Address | City/State/Zipcode | Phone Number | | Organization | | | | + + + + + | [facility] - | [address] | [place] | [phone] | | [place] | | | | + + + + + SEDIMENTATION RATE (08/06/2015 11:34 AM PDT) + +-------+ + + + | Component | Value | Ref Range | Performed | Pathologist | | | | | At | Signature | + +-------+ + + + | SEDIMENTATI | 4 | 0 - 20 mm/hr | [facility] [...] + + | [facility] - | [address] | [place] | [phone] | | [place] | | | | + + + + + C-REACTIVE PROTEIN (08/06/2015 11:34 AM PDT) + +-------+ + + + | Component | Value | Ref Range | Performed | Pathologist | | | | | At | Signature | + +-------+ + + + | C-REACTIVE | 1.9 | 0 - 5 mg/dl | [facility] [...] + + | [facility] - | [address] | [place], [place] | [phone] | | [place] | | | | + + + + + HEMOGLOBIN A1C, BLOOD (08/06/2015 11:34 AM PDT) + +-------+ + + + | Component | Value | Ref Range | Performed | Pathologist | | | | | At | Signature | + +-------+ + + + | HEMOGLOBIN | 5.6 | 5.7 % | [facility] | | | A1C | | | LAB - | | [...] - | [address] | [place] | [phone] | | [place] | | | | + + + + + documented in this encounter Visit Diagnoses Not on filedocumented in this encounter"
--- OUTSIDE RECORDS SUMMARY | ~2019-10-11 | XMS | Encounter Summary ---
Demographics + + + | Address | [address] | | | [place] [address] | + + + | Home Phone [...] + | Bob Benites | ECON | [address] | | | | | [place] | | | | | [address] | | + + + + + Care Team Providers + +------+ + | Care Fisher Weir Name | Role | Phone | + [...] Description | +--------+--------+ + + + | 09/17/ | Refill | Digestive Health | Alcon Malcolm, | Refill Request | | 2020 | | Center at [facility] [address] | MENTAL TELEPATHIST [address] | | | | | [address] | [place], [place] | | | | | Mailcode: Center | [address] | | | | | for Health and | [phone] | | | | | [place] [address] | | | | | | [place], [place] | | | | | | [address] | | | | | | [phone] | | | +--------+--------+ + + + [...]
--- OUTSIDE RECORDS SUMMARY | ~2019-10-11 | XMS | Encounter Summary ---
Demographics + + + | Address | [address] | | | [place] [address] | + + + | Home Phone | | + + + | Preferred Language | Unknown | + + + | Marital Status | | + + + | Latter Day Affiliation | Unknown | + + + | Race | White | + + + | Ethnic Group | Not or | + + + Author + + + | Author | [facility] | + + + | Organization | [facility] | + + + | Address | Unknown | + + + | Phone | Unavailable | + + + Support + + + + + | Name | Relationship | Address | Phone | + + + + + | Bob Benites | ECON | [address] | | | | | [place] | | | | | [address] | | + + + + + Care Team Providers + +------+ + | Care Director Sterile Processing Name | Role | Phone | + +------+ + | Rohit Olguin MD | PCP | | + +------+ + Encounter Details +--------+ + + + + | Date | Type | Department | Care Team | Description | +--------+ + + + + | 03/21/ | MyChart | Digestive Health | Briana Tellez MD | RE: Authorization | | 2018 | Encounter | Center at [facility] [address] | [address] | for Remicade | | | | [address] | [place], [place] | | | | | Mailcode: Center | [address] | | | | | for Health and | [phone] | | | | | [facility] 2 | | | | | | [place], [place] | | | | | | [address] | | | | | | [phone] | | | +--------+ + + + [...]
--- OUTSIDE RECORDS SUMMARY | ~2019-10-11 | XMS | Encounter Summary ---
Demographics + + + | Address | [address] | | | [place] [address] | + + + | Home Phone | | + + + | Preferred Language | Unknown | + + + | Marital Status | | + + + | Caodaism Affiliation | Unknown | + + + | Race | White | + + + | Ethnic Group | Not or | + + + Author + + + | Author | [facility] | + + + | Organization | [facility] | + + + | Address | Unknown | + + + | Phone | Unavailable | + + + Support + + + + + | Name | Relationship | Address | Phone | + + + + + | Bob Benites | ECON | [address] | | | | | [place] | | | | | [address] | | + + + + + Care Team Providers + +------+ + | Care Ball Maker Name | Role | Phone | + +------+ + | Rohit Olguin MD | PCP | | + +------+ + Reason for Referral Consultation (Routine) + +--------+ + + + + | Status | Reason | Specialty | Diagnoses / | Referred By | Referred To | | | | | Procedures | Contact | Contact | + +--------+ + + + + | New Request | | Cardiology | Diagnoses | Gold, | | | | | | Chest pain, | [place] | | | | | | unspecified | [address] | | | | | | type | [address] | | | | | | Fatigue, | [place], [place] | | | | | | unspecified | [address] | | | | | | type SOB | Phone: | | | | | | (shortness | [phone] | | | | | | of breath) | Fax: | | | | | | on exertion | [phone] | | | | | | Procedures | | | | | | | CONSULT TO | | | | | | | CARDIOLOGY | | | + +--------+ + + + + Encounter Details +--------+ + + + + | Date | Type | Department | Care Team | Description | +--------+ + + + + | 01/12/ | 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, | 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, | | 2019 | | Center at [facility] [address]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
--- OUTSIDE RECORDS SUMMARY | ~2019-10-11 | XMS | Encounter Summary ---
Demographics + + + | Address | [address] | | | [place] [address] | + + + | Home Phone | | + + + | Preferred Language | Unknown | + + + | Marital Status | | + + + | Judaism Affiliation | Unknown | + + + | Race | White | + + + | Ethnic Group | Not or | + + + Author + + + | Author | [facility] | + + + | Organization | [facility] | + + + | Address | Unknown | + + + | Phone | Unavailable | + + + Support + + + + + | Name | Relationship | Address | Phone | + + + + + | Bob Benites | ECON | [address] | | | | | [place] | | | | | [address] | | + + + + + Care Team Providers + +------+ + | Care Body Die Maker Name | Role | Phone | + +------+ + | Rohit Olguin MD | PCP | | + +------+ + Reason for Visit + + + | Reason | Comments | + + + | Insurance | Telma magana - Tenzin | | Authorization | | + + + Encounter Details +--------+ + + + + | Date | Type | Department | Care Team | Description | +--------+ + + + + | 09/13/ | Abstract | Digestive Health | Stevo Hart, | Insurance | | 2017 | | Center at [facility] | MD | Authorization | | | | [address] | | (Remicade approval - | | | | Mailcode: Center | | [place]) | | | | for Health and | | | | | | [facility], [facility] 2 | | | | | | [place], [place] | | | | | | [address] | | | | | | [phone] | | | +--------+ + + + [...]
--- OUTSIDE RECORDS SUMMARY | ~2019-10-11 | XMS | Encounter Summary ---
Demographics + + + | Address | [address] | | | [place] [address] | + + + | Home Phone | | + + + | Preferred Language | Unknown | + + + | Marital Status | | + + + | Sabianism Affiliation | Unknown | + + + | Race | White | + + + | Ethnic Group | Not or | + + + Author + + + | Author | [facility] | + + + | Organization | [facility] | + + + | Address | Unknown | + + + | Phone | Unavailable | + + + Support + + + + + | Name | Relationship | Address | Phone | + + + + + | Bob Benites | ECON | [address] | | | | | [place] | | | | | [address] | | + + + + + Care Team Providers + +------+ + | Care Emergency Department Coordinator Name | Role | Phone | + +------+ + | Rohit Olguin MD | PCP | | + +------+ + Encounter Details +--------+------+ + + + | Date | Type | Department | Care Team | Description | +--------+------+ + + + | 09/19/ | Lab | Laboratory at [facility] | | Other ulcerative | | 2018 | | [address] | | colitis without | | | | [place], [place] | | complication (HCC); | | | | [address] | | Encounter for | | | | [phone] | | long-term (current) | | | | | | use of high-risk | | | | | | medication; Fatigue, | | | | | | unspecified type | +--------+------+ + + + Social History + +-------+ [...] | + +--------+ + + + | VITAMIN D, | Routin | 09/19/2017 | Other ulcerative | Results for this | | 25-HYDROXY, SERUM | e | 2:03 PM | colitis without | procedure are in the | | | | PDT | complication (HCC) | results section. | | | | | Encounter for | | | | | | long-term (current) | | | | | | use of high-risk | | | | | | medication | | + +--------+ + + + | C-REACTIVE PROTEIN | Routin | 09/19/2017 | Other ulcerative | Results for this | | | e | 2:03 PM | colitis without | procedure are in the | | | | PDT | complication (HCC) | results section. | | | | | Encounter for | | | | | | long-term (current) | | | | | | use of high-risk | | | | | | medication | | + +--------+ + + + | SEDIMENTATION RATE | Routin | 09/19/2017 | Other ulcerative | Results for this | | | e | 2:03 PM | colitis without | procedure are in the | | | | PDT | complication (HCC) | results section. | | | | | Encounter for | | | | | | long-term (current) | | | | | | use of high-risk | | | | | | medication | | + +--------+ + + + | FERRITIN | Routin | 09/19/2017 | Other ulcerative | Results for this | | | e | 2:03 PM | colitis without | procedure are in the | | | | PDT | complication ([facility]) | results section. | | | | | Encounter for | | | | | | long-term (current) | | | | | | use of high-risk | | | | | | medication Fatigue, | | | | | | unspecified type | | + +--------+ + + + | TSH | Routin | 09/19/2017 | Other ulcerative | Results for this | | | e | 2:03 PM | colitis without | procedure are in the | | | | PDT | complication (HCC) | results section. | | | | | Encounter for | | | | | | long-term (current) | | | | | | use of high-risk | | | | | | medication Fatigue, | | | | | | unspecified type | | + +--------+ + + + documented in this encounter Results TSH (09/19/2017 2:03 PM PDT) + +-------+ + + + | Component | Value | Ref Range | Performed | Pathologist | | | | | At | Signature | + +-------+ + + + | TSH | 1.08 | 0.44 - 4.75 | [facility] | | | | | mIU/L | LABORATORY | | | | | | SERVICES, | | | | | | CORE | | + +-------+ + + + + + | Specimen | + + | Blood - Blood | | (substance) | + + + + + | Narrative | Performed At | + + + | TSH reference ranges are influenced by a variety of environmental | [facility] | | influences, age, gender and ethnicity. The supplied reference limits | LABORATORY | | are based on published values utilizing a similar TSH assay, and | SERVICES, CORE | | should be interpreted with caution. | | + + + + + + + + | Performing | Address | City/State/Zipcode | Phone Number | | Organization | | | | + + + + + | [facility] | [address] | [place] [address] | | | SERVICES, CORE | [address] | | | + + + + + FERRITIN (09/19/2017 2:03 PM PDT) + + + + + + | Component | Value | Ref Range | Performed | Pathologist | | | | | At | Signature | + + + + + + | FERRITIN | 86Comment: Male and | 50 - 200 ng/mL | [facility] | | | | Female >18 years: | | LABORATORY | | | | <20 ng/mL: | | SERVICES, | | | | Consistant with iron | | CORE | | | | deficiency 21-50 | | | | | | ng/mL: Possible | | | | | | iron deficiency 51-99 | | | | | | ng/mL: Iron | | | | | | deficiency unlikely | | | | | | unless inflammation | | | | | | present or | | | | | | patient | | | | | | >65 years of age | | | | | | 100-200 ng/mL: | | | | | | Normal, not consistent | | | | | | with iron deficiency | | | | | | >200 ng/mL: If | | | | | | transferrin saturation | | | | | | >45%, consider | | | | | | hemochromatosis | | | | + + + + + + + + | Specimen | + + | Blood - Blood | | (substance) | + + + + + + + | Performing | Address | City/State/Zipcode | Phone Number | | Organization | | | | + + + + + | [facility] | [address] | [place] [address] | | | SERVICES, CORE | [address] | | | + + + + + VITAMIN D, 25-HYDROXY, SERUM (09/19/2017 2:03 PM PDT) + + + + + + | Component | Value | Ref Range | Performed | Pathologist | | | | | At | Signature | + + + + + + | VITAMIN D | 10.9 (L) | 30 - 80 ng/mL | [facility] | | | 25 HYDROXY | | | LABORATORY | | | | | | SERVICES, | | | | | | CORE | | + + + + + + + + | Specimen | + + | Blood - Blood | | (substance) | + + + + + | Narrative | Performed At | + + + | Reference Interval: 0-18years: Deficiency: <20 ng/mL | [facility] | | Optimum level: >or=20 ng/mL | LABORATORY | | >18years: Deficiency: <20 | SERVICES, CORE | | ng/mL Insufficiency: 20-29 ng/mL | | | Optimum Level: 30-80 ng/mL High: | | | 81-150 ng/ml Toxic: >150 ng/mL | | + + + + + + + + | Performing | Address | City/State/Zipcode | Phone Number | | Organization | | | | + + + + + | [facility] | [address] | [place] [address] | | | SERVICES, CORE | [address] | | | + + + + + C-REACTIVE PROTEIN (09/19/2017 2:03 PM PDT) + +-------+ + + + | Component | Value | Ref Range | Performed | Pathologist | | | | | At | Signature | + +-------+ + + + | C-REACTIVE | <2.9 | <10.0 mg/L | [facility] | | | PROTEIN | | | LABORATORY | | | | | | SERVICES, | | | | | | CORE | | + +-------+ + + + + + | Specimen | + + | Blood - Blood | | (substance) | + + + + + | Narrative | Performed At | + + + | New method, new reference range and new reporting units as of | [facility] | | 10/17/2013. | LABORATORY | | | SERVICES, CORE | + + + + + + + + | Performing | Address | City/State/Zipcode | Phone Number | | Organization | | | | + + + + + | [facility] | [address] | [place] [address] | | | SERVICES, CORE | [address] | | | + + + + + SEDIMENTATION RATE (09/19/2017 2:03 PM PDT) + +--------+ + + + | Component | Value | Ref Range | Performed | Pathologist | | | | | At | Signature | + +--------+ + + + | SEDIMENTATI | 24 (H) | 0 - 20 mm/hr | [facility] | | | ON RATE | | | LABORATORY | | | | | | SERVICES, | | | | | | CORE | | + +--------+ + + + + + | Specimen | + + | Blood - Blood | | (substance) | + + + + + | Narrative | Performed At | + + + | Conditions such as cold agglutinins, anemia, hemolysis, icterus or | [facility] | | lipemia may affect sedimentation rate. | LABORATORY | | | [facility] | + + + + + + + + | Performing | Address | City/State/Zipcode | Phone Number | | Organization | | | | + + + + + | [facility] | [address] | [place] [address] | | | SERVICES, JAH | [address] | | | + + + + + documented in this encounter Visit Diagnoses + + | Diagnosis | + + | Other ulcerative colitis without complication (HCC) | + + | Encounter for long-term (current) use of high-risk medication Encounter for long-term | | (current) use of other medications | + + | Fatigue, unspecified type | + + documented in this encounter"
--- OUTSIDE RECORDS SUMMARY | ~2019-10-11 | XMS | Encounter Summary ---
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
--- OUTSIDE RECORDS SUMMARY | ~2019-10-11 | XMS | Encounter Summary ---
Demographics + + + | Address | [address] | | | [place] [address] | + + + | Home Phone | | + + + | Preferred Language | Unknown | + + + | Marital Status | | + + + | Adventism Affiliation | Unknown | + + + | Race | White | + + + | Ethnic Group | Not or | + + + Author + + + | Author | [facility] | + + + | Organization | [facility] | + + + | Address | Unknown | + + + | Phone | Unavailable | + + + Support + + + + + | Name | Relationship | Address | Phone | + + + + + | Bob Benites | ECON | [address] | | | | | [place] | | | | | [address] | | + + + + + Care Team Providers + +------+ + | Care Equal Employment Opportunity Officer Name | Role | Phone | + +------+ + | Rohit Olguin MD | PCP | | + +------+ + Encounter Details +--------+ + + + + | Date | Type | Department | Care Team | Description | +--------+ + + + + | 11/11/ | MyChart | Digestive Health | Stevo Hart, | RE:lab results | | 2015 | Encounter | Center at [facility] [address] | MD | | | | | [address] | | | | | | Mailcode: Center | | | | | | for Health and | | | | | | Healing, Building [address] | | | | | | [place], [place] | | | | | | [address] | | | | | | [phone] | | | +--------+ + + + [...]
--- OUTSIDE RECORDS SUMMARY | ~2019-10-11 | XMS | Encounter Summary ---
Demographics + + + | Address | [address] | | | [place] [address] | + + + | Home Phone [...] + + + | Author | [facility] | + + + | Organization | [facility] | + + + | Address | Unknown | + + + | Phone | Unavailable | + + + Support + + + + + | Name | Relationship | Address | Phone | + + + + + | Bob Benites | ECON | [address] | | | | | [place] | | | | | [address] | | + + + + + Care Team Providers + +------+ + | Care Straddle Bug Name | Role | Phone | + +------+ + | Rohit Olguin MD | PCP | | + +------+ + Reason for Visit + + + | Reason | Comments | + + + | Refill Request | nortriptyline 10 mg oral capsule | + + + Encounter Details +--------+--------+ + + + | Date | Type | Department | Care Team | Description | +--------+--------+ + + + | 11/19/ | Refill | Digestive Health | Stevo Hart, | Refill Request | | 2015 | | Center at [facility] [address] | MD | (nortriptyline 10 mg | | | | [address] | | oral capsule) | | | | Mailcode: [place] | | | | | | [facility] Health and | | | | | | [facility], [place] [address] | | | | | | [place], [place] | | | | | | [address] | | | | | | [phone] | | | +--------+--------+ + + + [...]
--- OUTSIDE RECORDS SUMMARY | ~2019-10-11 | XMS | Encounter Summary ---
Demographics + + + | Address | [address] | | | [place] [address] | + + + | Home Phone | | + + + | Preferred Language | Unknown | + + + | Marital Status | | + + + | Congregational Affiliation | Unknown | + + + | Race | White | + + + | Ethnic Group | Not or | + + + Author + + + | Author | [facility] | + + + | Organization | [facility] | + + + | Address | Unknown | + + + | Phone | Unavailable | + + + Support + + + + + | Name | Relationship | Address | Phone | + + + + + | Bob Benites | ECON | [address] | | | | | [place] | | | | | [address] | | + + + + + Care Team Providers + +------+ + | Care Meter Maker Name | Role | Phone | [...] | +--------+ + + + + | 03/04/ | Abstract | Digestive Health | Stevo Hart, | Medical Records | | 2014 | | [place] [facility] [address] | | Review | | | | [address] | | | | | | Mailcode: [place] | | | | | | for Health and | | | | | | [facility] | | | | | | [place], [place] | | | | | | [address] | | | | | | [phone] | | | +--------+ + + + [...]
--- OUTSIDE RECORDS SUMMARY | ~2019-10-11 | XMS | Encounter Summary ---
Demographics + + + | Address | [address] | | | [place] [address] | + + + | Home Phone | | + + + | Preferred Language | Unknown | + + + | Marital Status | | + + + | Evangelical Affiliation | Unknown | + + + | Race | White | + + + | Ethnic Group | Not or | + + + Author + + + | Author | [facility] | + + + | Organization | [facility] | + + + | Address | Unknown | + + + | Phone | Unavailable | + + + Support + + + + + | Name | Relationship | Address | Phone | + + + + + | Bob Benites | ECON | [address] | | | | | [place] | | | | | [address] | | + + + + + Care Team Providers + +------+ + | Care Etl Developer Name | Role | Phone | + +------+ + | Rohit Olguin MD | PCP | | + +------+ + Reason for Visit +--------+ + | Reason | Comments | +--------+ + | Other | | +--------+ + Encounter Details +--------+ + + + + | Date | Type | Department | Care Team | Description | +--------+ + + + + | 02/03/ | Telephone | Digestive Health | Briana Tellez MD | Other | | 2017 | | Center at [facility] [address] | [address] | | | | | [address] | [place], [place] | | | | | Mailcode: [place] | [address] | | | | | for Health and | [phone] | | | | | [facility] 2 | | | | | | [place], [place] | | | | | | [address] | | | | | | [phone] | | | +--------+ + + + [...]
--- OUTSIDE RECORDS SUMMARY | ~2019-10-11 | XMS | Encounter Summary ---
Demographics + + + | Address | [address] | | | [place] [address] | + + + | Home Phone | | + + + | Preferred Language | Unknown | + + + | Marital Status | | + + + | Spiritism Affiliation | Unknown | + + + | Race | White | + + + | Ethnic Group | Not or | + + + Author + + + | Author | [facility] | + + + | Organization | [facility] | + + + | Address | Unknown | + + + | Phone | Unavailable | + + + Support + + + + + | Name | Relationship | Address | Phone | + + + + + | Bob Benites | ECON | [address] | | | | | [place] | | | | | [address] | | + + + + + Care Team Providers + +------+ + | Care Bioinformatics Support Specialist Name | Role | Phone | + +------+ + | Rohit Olguin MD | PCP | | + +------+ + Encounter Details +--------+ + + + + | Date | Type | Department | Care Team | Description | +--------+ + + + + | 08/13/ | MyChart | Digestive Health | Stevo Hart, | RE: Authorization | | 2013 | Encounter | Center at [facility] [address] | MD | for Remicade | | | | [address] | | | | | | Mailcode: Center | | | | | | for Health and | | | | | | Healing, [address] | | | | | | [place], [place] | | | | | | [address] | | | | | | [phone] | | | +--------+ + + + [...]
--- OUTSIDE RECORDS SUMMARY | ~2019-10-11 | XMS | Encounter Summary ---
Demographics + + + | Address | [address] | | | [place] [address] | + + + | Home Phone | | + + + | Preferred Language | Unknown | + + + | Marital Status | | + + + | Sikhism Affiliation | Unknown | + + + | Race | White | + + + | Ethnic Group | Not or | + + + Author + + + | Author | [facility] | + + + | Organization | [facility] | + + + | Address | Unknown | + + + | Phone | Unavailable | + + + Support + + + + + | Name | Relationship | Address | Phone | + + + + + | Bob Benites | ECON | [address] | | | | | [place] | | | | | [address] | | + + + + + Care Team Providers + +------+ + | Care [employer] Name | Role | Phone | + [...] Description | +--------+--------+ + + + | 11/28/ | Refill | Digestive Health | Stevo Hart, | Refill Request | | 2012 | | Center at [facility] [address] | MD | (nortriptyline ) | | | | [address] | | | | | | Mailcode: [place] | | | | | | [facility] Health and | | | | | | [place] [address] | | | | | | [place], [place] | | | | | | [address] | | | | | | [phone] | | | +--------+--------+ + + + [...]
--- OUTSIDE RECORDS SUMMARY | ~2019-10-11 | XMS | Encounter Summary ---
Demographics + + + | Address | [address] | | | [place] [address] | + + + | Home Phone [...] + | Bob Benites | ECON | [address] | | | | | [place] | | | | | [address] | | + + + + + Care Team Providers + +------+ + | Care Gear Setter Name | Role | Phone | + +------+ + | Rohit Olguin MD | PCP | | + +------+ + Reason for Visit + + + | Reason | Comments | + + + | Follow-up visit | ulcerative colitis | + + + Office Visit - E/M Services (Routine) +--------+ + + + + + | Status | Reason | Specialty | Diagnoses / | Referred By | Referred To | | | | | Procedures | Contact | Contact | +--------+ + + + + + | Closed | Specialty | Gastroenterol | Diagnoses | Sharif, | Hailey, | | | Services | ogandrea | Ulcerative | Rohit Aguilar, | MD Stevo | | | Required | | colitis | MD [address] | | | | | Procedures | [address] | | | | | [place] | [address] | [place], [place] | | | | | OFFICE/OUTPT | [place], | [address] | | | | | | [place] [address] | | | | | | VISIT,EST,LE | Phone: | | | | | | VL IV | [phone] | | | | | | | Fax: | | | | | | | [phone] | | +--------+ + + + + + Encounter Details +--------+---------+ + + + | Date | Type | Department | Care Team | Description | +--------+---------+ + + + | 10/18/ | Office | Digestive Health | Stevo Hart, | Other ulcerative | | 2017 | Visit | Center at [facility] [address] | MD | colitis without | | | | [address] | | complication (HCC) | | | | Mailcode: Center | | (Primary Dx); | | | | for Health and | | Irritable bowel | | | | Healing, [address] | | syndrome without | | | | [place], [place] | | diarrhea; Encounter | | | | [address] | | for long-term | | | | [phone] | | (current) use of | | | | | | medications | +--------+---------+ + + + Social History + +-------+ [...] + + documented as of this encounter Last Filed Vital Signs + + + + + | Vital Sign | Reading | Time Taken | Comments | + + + + + | Blood Pressure | 133/79 | 10/18/2016 1:27 PM | | | | | PDT | | + + + + + | Pulse | 91 | 10/18/2016 1:27 PM | | | | | PDT | | + + + + + | Temperature | 36.8 C (98.3 F) | 10/18/2016 1:27 PM | | | | | PDT | | + + + + + | Respiratory Rate | 18 | 10/18/2016 1:27 PM | | | | | PDT | | + + + + + | Oxygen Saturation | - | - | | + + + + + | Inhaled Oxygen | - | - | | | Concentration | | | | + + + + + | Weight | 85.3 kg (188 lb 1.6 | 10/18/2016 1:27 PM | | | | oz) | PDT | | + + + + + | Height | 160 cm (5' 3") | 10/18/2016 1:27 PM | | | | | PDT | | + + + + + | Body Mass Index | 33.32 | 10/18/2016 1:27 PM | | | | | PDT | | + + + + + documented in this encounter Progress Notes Stevo Hart MD - 10/18/2016 1:30 PM PDTFormatting of this note might be different fro m the original. [facility] ~ Follow-Up Visit Note Patient Identification: Kami Benites is a 36 y.o. female with a history of ulcerative c olitis and IBS who presents to the [facility] for right sided back an d flank pain. History of Present Illness: Kami was seen in clinic on 09/29/15 with flank/abdominal pain though secondary to breakthro ugh symptoms. Plans were made for routine labs. She was subsequently given nortriptyline. Colonoscopy 03/11/16: - no inflammation throughout entire colon or rectum BIOPSIES: no dysplasia Today, Kami reports stable GI symptoms and is happy with result of last colonoscopy. Feels her sxs have been in remission for 3.5 years since diagnosis 25 years ago. Continues Q 8 we ek Remicade infusions and tolerates this well aside from fatigue. She takes benadryl and tyl enol with each infusion (h/x of anaphylactic shock with infusions in the past). Had decreased flank pain in past 6 mo. Had 3 cm ovarian cyst in 04/30 that was found on sirisha ging for monitoring of kidney stone. Ovarian cyst ruptured and resolved on its own. Imaging noted scar tissue between ovary and sigmoid colon. Was having cyclic pain but this is well c ontrolled by OCP's. Pills have prevented ovulation which has silenced her pain. Has since started and trialed food elimination diets in order to identify triggering foods. By doing this she has lost weight but had improvement in GI symptoms. Does eat most foods i n moderation and doesn't feel like she's "missing out" on any foods. Did cut out all soda. Current GI/IBD Symptoms: Bowel Habits: 1 formed BM/day Abdominal Pain: resolved flank pain Weight loss: intentionally lost 25 lbs Nausea/vomiting: none Appetite: good Perianal symptoms: none Oral symptoms: none Fevers/chills/sweats: none NSAID Use: none Extraintestinal Symptoms (Joint, Eye,Skin): +joint pain in knees and ankles - unchanged fro m baseline; no rashes; no jaundice; no eye issues Past Medical History: I reviewed the history below with the patient and made any relevant u pdates or changes. 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 Allergies Allergen Reactions Sulfa (Sulfonamide Antibiotics) Physical Exam: BP 133/79 | Pulse 91 | Temp (Src) 36.8 C (98.3 F) (Oral) | RR 18 | Ht 1.6 m (5' 3") | W t 85.3 kg (188 lb 1.6 oz) | BMI 33.32 kg/(m^2) Appearance: no apparent distress. Psychological: Appropriate mood and affect. Lungs: breathing easily Abdomen: tender in bilateral flanks without rebound/guarding Skin: no rashes Back: no paraspinous pain, no palpable muscle spasm, no vertebral pain to palp Lymph: No neck lymphadenopathy. Eyes: Sclera anicteric without injection. IBD History and Data Review: The following history is maintained up-to-date for the purposes of medical decision making. Relevant sections were reviewed and updated as appropriate on today's visit. 1. Presentation, historic symptoms, previous endoscopic procedures and imaging, surgeries, recent hospitalizations: Kami was diagnosed at age 11 after she presented with abdominal pain and bloody stools aft er an episode of flu. Per the patient, her disease was prednisone dependent (particularly af ter her second 6 years ago) and she was doing very poorly by 02/2012. She reports a colonoscopy that showed severe disease. Biopsies, available to use in the form of a report , showed chronic active colitis at splenic flexure and rectum, with no activity at left colo n. Colectomy was discussed given severity of disease but Remicade was finally begun. Colonoscopy in 2012: By patient report and review of pictures by Dr. Hart, it showed quiescent disease with only subtle blurring of vasculature in certain segments. Biopsies, av ailable to us in the form of a report, showed normal right-sided and transverse colon biopsi es, with chronic IBD and no dysplasia in the left-sided biopsies. Colonoscopy 03/2014: Minimal inflammation in rectum and moderate inflammation from 35 to 4 5-cm. All path specimens were normal except for 35-45cm which showed chronic active colitis negative for dysplasia. Bxs from 5 to 25-cm showed mild surface erosion and early hyperpla stic changes, negative for colitis and dyplasia Colonoscopy 03/27/15- Imaging CT A/P w contrast 07/31/15 CT Abdomen w/contrast 04/09/15- 2. Current and prior therapies. Current IBD Meds: Remicade [id number] (started in 04/2012, was initially on it every 4 weeks b ut went to q8 weeks in August 2012; immediate response during induction doses; infusion react ion with second infusion; no breakthrough symptoms) Previously Tried: prednisone (1.5 years, last course of 4-5 months that stopped 2 weeks ago ; regularly for past 6 years); history of Asacol, Canasa, Rowasa, Hydrocortisone enemas, cor tifoam (last a few months ago); 6MP (when younger; for some time); no history of injectables 3. Labs: 11/08/15 CRP 3.0 ESR 12 Calprotectin <16 IFX 7.50 ug/mL Antibody negative Labs 08/09/15- CMP 07/18/15- Normal ESR- 9 Assessment: Kami Benites is a 36 y.o. female, who returns to the Infl[facility] Disease Clinic f or ongoing management of UC and IBS. Kami continues Q 8 week Remicade infusions and premedi cates with benadryl and tylenol. She has had decreased flank pain in the past 6 months and f eels her GI symptoms are very stable. Recently started OCP's to treat cyclic ovarian pain se condary to cyst. Most recent colonoscopy in 02/28 showed no inflammation throughout entire c olon or rectum and biopsies showed no dysplasia. She will continue Q 8 week Remicade for now . Discussed possible causes of joint pain and offer for referral to rheumatology, which she stephen an consider. Plan and Recommendations: A. IBD Diagnostics. 1. No further diagnostics at this time - repeat surveillance exam in 2-3 years B. IBD Therapy. 1. Continue Remicade q 8 weeks In addition, given Kami's current use of Remicade, yearly evaluation for Tb risk factors ( with subsequent repeat testing if any risk of exposure is noted) would be recommended. We previously discussed ways to reduce flares, including avoidance of NSAIDs and avoidance of antibiotics without clearly documented bacterial infection, and avoidance of tobacco. C. IBD-Specific Health Maintenance. Recommendations for PCP: 1. Vaccination: Patients should follow standard vaccination protocols for their age group. Patients on biologics should not receive live vaccines. --IBD patients should be vaccinated against hepatitis A and B --IBD patients should receive annual influenza vaccination --IBD patients should receive pneumococcal vaccination. Those who have not prev iously received PCV13 or PPSV23, should receive a dose of PCV13 first followed by a dose of PPSV23 at least 8 weeks later. A second PPSV23 dose is recommended 5 years after the first P PSV23 dose for persons aged 19 through 64 years with immunocompromising conditions --Tdap should be up to date with Td every 10 years --Zoster vaccination should be considered in all older patients with IBD who ar e not on biologic therapy or prednisone (> 20 mg daily). 2. Dermatologic examination: Patients with IBD, especially those on immunosuppressants an d biologics, are at increased risk for melanomas and non melanomatous skin cancers and shoul d have their skin checked annually and limit sun exposure. They should use appropriate sun p rotection at all times 3. Pap smears: Women on immunosuppressant and biologic therapy should have pap smears per ACOG guidelines for immunosuppressed patients. Men and women at risk should have anal pap sm ears. 4. Nutrition and Bone Health: --Bone density scans are recommended for patients with exposure to corticosteroids and non traumatic fractures as well as IBD patients over the age of 50. --Periodic monitoring of vitamin D levels should be done in patients with IBD. 5. Need for dysplasia surveillance colonoscopies: After 8 years of disease, patients with Ulcerative colitis and patients with Crohn's colitis should have surveillance colonoscopies every 1-2 years with biopsies or chromoendoscopy. The risk of colorectal cancer increases in patients who have had the disease at a younger age, and based on extent of disease, duratio n of disease, and family history of colorectal cancer. A history of primary sclerosing chola ngitis also increases risk and these patients need annual colonoscopy from diagnosis 6. Laboratory examinations: IBD patients should have annual labs including CRP, CBC, liver enzymes and creatinine. Patients on mesalamine should have annual renal function monitorin g. Patients on stable doses of biologic therapy, methotrexate or azathioprine/6MP should conroy ve at least every 3-6 month CBC, liver enzymes testing D. Joint pain: 1. Consider referral to rheumatology if symptoms worsen Follow-Up: [address] Tellez I am Hilda Cobb functioning as a scribe for Dr. Stevo Hart. I have reviewed, edited, and verified the above scribed note of my visit with this patient as recorded by Hilda Cobb. Stevo Hart MD [employer] teacher Division of Gastroenterology & Hepatology [facility] documented in this en counter Plan of Treatment Not on filedocumented as of this encounter Visit Diagnoses + + | Diagnosis | + + | Other ulcerative colitis without complication (HCC) - Primary | + + | Irritable bowel syndrome without diarrhea Irritable bowel syndrome | + + | Encounter for long-term (current) use of medications Encounter for long-term | | (current) use of other medications | + + documented in this encounter
--- OUTSIDE RECORDS SUMMARY | ~2019-10-11 | XMS | Encounter Summary ---
Demographics + + + | Address | [address] | | | [place] [address] | + + + | Home Phone | | + + + | Preferred Language | Unknown | + + + | Marital Status | | + + + | Protestant Affiliation | Unknown | + + + | Race | Unknown | + + + | Ethnic Group | Unknown | + + + Author + + + | Author | [facility] | | | and [place] | + + + | Organization | [facility] | | | and [place] | + + + | Address | Unknown | + + + | Phone | Unavailable | + + + Support + + +---------+ + | Name | Relationship | Address | Phone | + + +---------+ + | Bob Benites | ECON | Unknown | | + + +---------+ + Care Team Providers + +------+ + | Care Supervisor Hanging And Trimming Name | Role | Phone | + +------+ + PCP | Unavailable | + +------+ + Encounter Details +--------+ + + + + | Date | Type | Department | Care Team | Description | +--------+ + + + + | 11/15/ | Hospital | [facility] | [facility] | JOINT PAIN-FOREARM | | 2002 | Encounter | CONVERSION [address] | [address] | | | | | [address] | [place] [address] | | | | | [place], [place] | [phone] | | | | | [address] | | | | | | [phone] | | | +--------+ + + + + Social History + +-------+ +--------+------+ | Tobacco Use | Types | Packs/Day | Years | Date | | | | | Used | | + +-------+ +--------+------+ | Never Assessed | | | | | + +-------+ +--------+------+ + + + | Sex Assigned at [...] + | Diagnosis | + + | Pain in joint, forearm | + + documented in this encounter"
--- OUTSIDE RECORDS SUMMARY | ~2019-10-11 | XMS | Encounter Summary ---
Demographics + + + | Address | [address] | | | [place] [address] | + + + | Home Phone | | + + + | Preferred Language | Unknown | + + + | Marital Status | | + + + | Advent Affiliation | Unknown | + + + | Race | White | + + + | Ethnic Group | Not or | + + + Author + + + | Author | [facility] | + + + | Organization | [facility] | + + + | Address | Unknown | + + + | Phone | Unavailable | + + + Support + + + + + | Name | Relationship | Address | Phone | + + + + + | Bob Benites | ECON | [address] | | | | | [place] | | | | | [address] | | + + + + + Care Team Providers + +------+ + | Care Yolk Spray Drier Name | Role | Phone | + [...] Description | +--------+--------+ + + + | 11/26/ | Refill | Digestive Health | Stevo Hart, | Refill Request | | 2014 | | Center at [facility] [address] | MD | (nortriptyline) | | | | [address] | | | | | | Mailcode: [place] | | | | | | [facility] Health and | | | | | | [facility] [place] [address] | | | | | | [place], [place] | | | | | | [address] | | | | | | [phone] | | | +--------+--------+ + + + [...]
--- OUTSIDE RECORDS SUMMARY | ~2019-10-11 | XMS | Encounter Summary ---
Demographics + + + | Address | [address] | | | [place] [address] | + + + | Home Phone | | + + + | Preferred Language | Unknown | + + + | Marital Status | | + + + | Shinto Affiliation | Unknown | + + + | Race | White | + + + | Ethnic Group | Not or | + + + Author + + + | Author | [facility] | + + + | Organization | [facility] | + + + | Address | Unknown | + + + | Phone | Unavailable | + + + Support + + + + + | Name | Relationship | Address | Phone | + + + + + | Bob Benites | ECON | [address] | | | | | [place] | | | | | [address] | | + + + + + Care Team Providers + +------+ + | Care Crane Operator Cab Name | Role | Phone | + +------+ + | Rohit Olguin MD | PCP | | + +------+ + Encounter Details +--------+------+ + + + | Date | Type | Department | Care Team | Description | +--------+------+ + + + | 09/19/ | Lab | Laboratory at [facility] | | Other ulcerative | | 2018 | | [address] | | colitis without | | | | [place], [place] | | complication (HCC); | | | | [address] | | Encounter for | | | | [phone] | | long-term (current) | | | [...] | | | | PDT | complication ([facility]) | results section. | | | | [...] + + | [facility] | [address] | [place] [address] | | | SERVICES, CORE | PARK [...] [facility] | [address] | [place] [address] | | | SERVICES, CORE | PARK [...] [facility] | [address] | [place] [address] | | | SERVICES, CORE | PARK [...] [facility] | [address] | [place] [address] | | | SERVICES, CORE | PARK [...] [facility] | [address] | [place] [address] | | | SERVICES, JAH | GIOVANY [...]
--- OUTSIDE RECORDS SUMMARY | ~2019-10-11 | XMS | Encounter Summary ---
Demographics + + + | Address | [address] | | | [place] [address] | + + + | Home Phone | | + + + | Preferred Language | Unknown | + + + | Marital Status | | + + + | Temple Affiliation | Unknown | + + + | Race | White | + + + | Ethnic Group | Not or | + + + Author + + + | Author | [facility] | + + + | Organization | [facility] | + + + | Address | Unknown | + + + | Phone | Unavailable | + + + Support + + + + + | Name | Relationship | Address | Phone | + + + + + | Bob Benites | ECON | [address] | | | | | [place] | | | | | [address] | | + + + + + Care Team Providers + +------+ + | Care Workday Senior Associate Name | Role | Phone | + [...] 2019 | | Center at [facility] [address] | BATCH MAKER [address] | | | | | [address] | [place], [place] | | | | | Mailcode: Center | [address] | | | | | for Health and | [phone] | | | | | [place] [address] | | | | | | [place], [place] | | | | | | [address] | | | | | | [phone] | | | +--------+--------+ + + + [...]
--- OUTSIDE RECORDS SUMMARY | ~2019-10-11 | XMS | Encounter Summary ---
Demographics + + + | Address | [address] | | | [place] [address] | + + + | Home Phone | | + + + | Preferred Language | Unknown | + + + | Marital Status | | + + + | Christian Affiliation | Unknown | + + + [...] + | Bob Benites | ECON | [address] | | | | | [place] | | | | | [address] | | + + + + + Care Team Providers + +------+ + | Care Patient Coordinator Name | Role | Phone | [...] Description | +--------+--------+ + + + | 01/14/ | Refill | Digestive Health | Alcon Malcolm, | Refill Request | | 2018 | | Center at [facility] [address] | CORPORATE EVENTS DIRECTOR [address] | | | | | [address] | [place], [place] | | | | | Mailcode: Center | [address] | | | | | for Health and | [phone] | | | | | [place] [address] | | | | | | [place], [place] | | | | | | [address] | | | | | | [phone] | | | +--------+--------+ + + + [...]
--- OUTSIDE RECORDS SUMMARY | ~2019-10-11 | XMS | Encounter Summary ---
Demographics + + + | Address | [address] | | | [place] [address] | + + + | Home Phone | | + + + | Preferred Language | Unknown | + + + | Marital Status | | + + + | Orthodoxy Affiliation | Unknown | + + + | Race | White | + + + | Ethnic Group | Not or | + + + Author + + + | Author | [facility] | + + + | Organization | [facility] | + + + | Address | Unknown | + + + | Phone | Unavailable | + + + Support + + + + + | Name | Relationship | Address | Phone | + + + + + | Bob Benites | ECON | [address] | | | | | [place] | | | | | [address] | | + + + + + Care Team Providers + +------+ + | Care Armed Guard Name | Role | Phone | + +------+ + | Rohit Olguin MD | PCP | | + +------+ + Encounter Details +--------+ + + + + | Date | Type | Department | Care Team | Description | +--------+ + + + + | 09/02/ | MyChart | Digestive Health | Stevo Hart, | RE: Remicade | | 2016 | Encounter | Center at [facility] [address] | MD | Authorization and | | | | [address] | | orders | | | | Mailcode: Center | | | | | | for Health and | | | | | | Healing, [address] | | | | | | [place], [place] | | | | | | [address] | | | | | | [phone] | | | +--------+ + + + [...]
--- OUTSIDE RECORDS SUMMARY | ~2019-10-11 | XMS | Encounter Summary ---
Demographics + + + | Address | [address] | | | [place] [address] | + + + | Home Phone | | + + + | Preferred Language | Unknown | + + + | Marital Status | | + + + | Faith Affiliation | Unknown | + + + | Race | White | + + + | Ethnic Group | Not or | + + + Author + + + | Author | [facility] | + + + | Organization | [facility] | + + + | Address | Unknown | + + + | Phone | Unavailable | + + + Support + + + + + | Name | Relationship | Address | Phone | + + + + + | Bob Benites | ECON | [address] | | | | | [place] | | | | | [address] | | + + + + + Care Team Providers + +------+ + | Care Lab Rn Name | Role | Phone | + +------+ + | Rohit Olguin MD | PCP | | + +------+ + Reason for Visit + + + | Reason | Comments | + + + | Scheduling | | + + + | Prior Authorization | Infusion | | Request | | + + + Encounter Details +--------+ + + + + | Date | Type | Department | Care Team | Description | +--------+ + + + + | 09/07/ | Telephone | [facility] | Stevo Hart, | Scheduling; Prior | | 2016 | | [place] at [facility] [address] | MD | Authorization | | | | [address] | | Request (Infusion) | | | | Mailcode: [place] | | | | | | for Health and | | | | | | [facility], [facility] | | | | | | [place], [place] | | | | | | [address] | | | | | | [phone] | | | +--------+ + + + [...]
--- OUTSIDE RECORDS SUMMARY | ~2019-10-11 | XMS | Encounter Summary ---
Demographics + + + | Address | [address] | | | [place] [address] | + + + | Home Phone | | + + + | Preferred Language | Unknown | + + + | Marital Status | | + + + | Buddhism Affiliation | Unknown | + + + [...] + | Bob Benites | ECON | [address] | | | | | [place] | | | | | [address] | | + + + + + Care Team Providers + +------+ + | Care Circular Saw Operator Name | Role | Phone | + +------+ + | Rohit Olguin MD | PCP | | + +------+ + Reason for Visit + + + | Reason | Comments | + + + | Insurance | Remicade approval - [employer] | | Authorization | | + + + | Insurance | Updated Remicade approval - [employer] | | Authorization | | + + + Encounter Details +--------+ + + + + | Date | Type | Department | Care Team | Description | +--------+ + + + + | 03/09/ | Abstract | Dig[facility]ive [facility] | Briana Tellez MD | Insurance | | 2017 | | Center at [facility] [address] | [address] | Authorization | | | | [address] | [place], [place] | (Remicade approval - | | | | Mailcode: [place] | [phone] | Abhijeet/Carla); | | | | for Health and | [phone] | Insurance | | | | [place] [address] | | Authorization | | | | [place], [place] | | (Updated Remicade | | | | [address] | | approval - | | | | [phone] | | [employer]) | +--------+ + + + + Social [...]
--- OUTSIDE RECORDS SUMMARY | ~2019-10-11 | XMS | Encounter Summary ---
Demographics + + + | Address | [address] | | | [place] [address] | + + + | Home Phone | | + + + | Preferred Language | Unknown | + + + | Marital Status | | + + + | Adventism Affiliation | Unknown | + + + | Race | White | + + + | Ethnic Group | Not or | + + + Author + + + | Author | [facility] | + + + | Organization | [facility] | + + + | Address | Unknown | + + + | Phone | Unavailable | + + + Support + + + + + | Name | Relationship | Address | Phone | + + + + + | Bob Benites | ECON | [address] | | | | | [place] | | | | | [address] | | + + + + + Care Team Providers + +------+ + | Care Airplane Technician Name | Role | Phone | + +------+ + | Rohit Olguin MD | PCP | | + +------+ + Reason for Visit + + + | Reason | Comments | + + + | Follow-up visit | | + + + Encounter Details +--------+---------+ + + + | Date | Type | Department | Care Team | Description | +--------+---------+ + + + | 09/19/ | Office | Dig[facility]ive Health | Alcon Malcolm, | Other ulcerative | | 2018 | Visit | Center at [facility] [address] | CASHIER PAYMENTS RECEIVED [address] | colitis without | | | | [address] | [place], [place] | complication (HCC) | | | | Mailcode: Center | [address] | (Primary Dx); | | | | for Health and | [phone] | Encounter for | | | | Healing, Building [address] | | long-term (current) | | | | [place], [place] | | use of high-risk | | | | [address] | | medication; Fatigue, | | | | [phone] | | unspecified type | +--------+---------+ + + + Social History [...] + + + | Blood Pressure | 153/87 | 09/19/2017 1:00 PM | | | | | PDT | | + + + + + | Pulse | 101 | 09/19/2017 1:00 PM | | | | | PDT | | + + + + + | Temperature | 36.9 C (98.4 F) | 09/19/2017 1:00 PM | | | | | PDT | | + + + + + | Respiratory Rate | 16 | 09/19/2017 1:00 PM | | | | | PDT | | + + + + + | Oxygen Saturation | - | - | | + + + + + | Inhaled Oxygen | - | - | | | Concentration | | | | + + + + + | Weight | 87.5 kg (193 lb) | 09/19/2017 1:00 PM | | | | | PDT | | + + + + + | Height | 160 cm (5' 3") | 09/19/2017 1:00 PM | | | | | PDT | | + + + + + | Body Mass Index | 34.19 | 09/19/2017 1:00 PM | | | | | PDT | | + + + + + documented in this encounter Patient Instructions Patient Instructions Alcon Malcolm FNP - 09/19/2017 1:10 PM PDTIt was very nice to see you today! 1. We should check some blood work today 2. I will ask Tangela to work on getting a Remicade level before your next infusion 3. We should plan on getting your next colonoscopy sometime this Summer, both for cancer zavala rveillance and to look at disease activity - I will have our recommendations sent out for th em 4. Let's try omeprazole for your evening time pill problems and see if that helps 5. I will send a message to Dr. Olguin to have a bone density scan done as well as the va ccinations we recommend documented in this encounter Progress Notes Alcon Malcolm FNP - 09/19/2017 1:10 PM PDTFormatting of this note might be different f rom the original. Inflammatory Bowel Disease Clinic [facility] ~ Follow-Up Visit Note 09/19/2017 Patient Identification: Kami Benites is a 37 y.o. female with right-sided ulcerative co litis and IBS. History of Present Illness: Interval History: Kami was last seen in IBD clinic on 10/18/2016. At that time she was doing well on Remicade 5mg/kg q8w for her UC,and nortriptyline for flank/abdominal pain. She gets her colonoscopies closer to home with Dr. 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 H er most recent was on 03/25/2016, which didn't show inflammation or any dysplasia on biopsy. Today Kami is doing relatively well, although she has noticed worse symptoms over the past 3 weeks. Her last infusion was 08/26/2017. She's noticed more frequency (up to 2 from a very stable one BM a day) and a lot more urgency with BMs. She's backed off on foods to safer ch oices for her. She notes that her body knows the Remicade cycle very well, and that 3 weeks before infusio ns she goes from her regular level of fatigue to much worse. She gets infusions on Tuesday, a nd is even more run down all weekend. Fatigue has been very bothersome, and makes it hard to do extra things like exercise. 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 Kami also notes that over the past 2 months she's noticed that her evening nortriptyline p ills sometimes get caught in her throat if she doesn't drink a lot of water before swallowin g and after. She feels burning in her sinuses from the medication refluxing up. She has had some reflux in the past, and been on Prilosec, but nothing recent. She doesn't have this sen sation of sticking with food, fluids, or other medications. Kami also reports that she continues to have chronic kidney stones, one about every 15 mon ths. She says that they're quite painful, but have always passed without intervention. Current GI/IBD Symptoms reviewed with the patient today: Bowel Habits: 2x/day (significant change), looser, urgency, some blood with wiping BRB, no nocturnal Abdominal Pain: side cramping, more tender Weight loss: none - hard to have energy to be active Nausea/vomiting: none, never had with UC Appetite/Diet: good; going back to "be careful" - avoiding dairy, breads (big trigger), daniel ons Perianal Symptoms: none Oral ulcers: none Other Symptoms: F/C/Sweats: none Extraintestinal Symptoms: Joint pain (any change from baseline): ankles - also hurt when started Eye pain, redness, or visual changes: none New rashes or skin lesions: none Meds: Missed doses: none NSAIDs: try to avoid Habits: Alcohol: none Tobacco: none Marijuana: none Ilicit: none Review of Systems: Comprehensive ROS performed, with pertinent findings as per HPI. All or carroll systems negative except as noted. Past Medical History: I reviewed the history below with the patient and made any relevant u pdates or changes. 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 Current Outpatient Prescriptions Medication INFLIXIMAB (REMICADE IV) MONO-LINYAH 0.25-35 mg-mcg oral tablet nortriptyline 50 mg oral capsule omeprazole 40 mg oral capsule,delayed release(DR/EC) SUMATRIPTAN 100 mg Oral tablet No current facility-administered medications for this visit. Allergies: Allergies Allergen Reactions Sulfa (Sulfonamide Antibiotics) Headache Physical Exam: BP 153/87 | Pulse 101 | Temp (Src) 36.9 C (98.4 F) (Oral) | RR 16 | Ht 1.6 m (5' 3") | Wt 87.5 kg (193 lb) | BMI 34.19 kg/(m^2) Appearance: Pleasant female who appears comfortable and in no apparent distress. Psychological: Appropriate mood and affect. Eyes: Sclera anicteric without injection. HENT: Oropharynx visualized and benign without visible ulceration. Neck: No cervical lymphadenopathy. Lung: Clear to Auscultation Bilaterally. CV: Regular Rate and Rhythm. Extremities: No edema. Musculoskeletal: No joint induration or tenderness appreciated. Skin: No lesions or rashes noted. Abdomen: + Bowel Sounds, Soft, Nondistended, Nontender to palpation IBD History and Data Review: The following history is maintained up-to-date for the purposes of medical decision making. Relevant sections were reviewed and updated as appropriate on today's visit. 1. Presentation, historic symptoms, surgeries, recent hospitalizations: Kami was diagnosed at age 11 after she presented with abdominal pain and bloody stools aft er an episode of flu. Per the patient, her disease was prednisone dependent (particularly af ter her second 6 years ago) and she was doing very poorly by 02/2012. She reports a colonoscopy that showed severe disease. Biopsies showed chronic active colitis at splenic flexure and rectum, with no activity at left colon. Colectomy was discussed given severity o f disease but Remicade was finally begun. 2. Current IBD Meds: Remicade [id number] (started in 04/2012, was initially on it every 4 week s but went to q8 weeks in August 2012; immediate response during induction doses; infusion re action with second infusion; no breakthrough symptoms) Previously Tried: prednisone (1.5 years, last course of 4-5 months that stopped 2 weeks ago ; regularly for past 6 years); history of Asacol, Canasa, Rowasa, Hydrocortisone enemas, cor tifoam (last a few months ago); 6MP (when younger; for some time); no history of injectables 3. Endoscopic Evaluation and Surgical Pathology: 03/25/2016 Colonoscopy: no evidence of inflammation in entire colon and rectum Path: 03/27/15 Colonoscopy: Unremarkable colonoscopy except small erythematous patch at 10cm in r ectum Path: 03/2014 Colonoscopy: Minimal inflammation in rectum and moderate inflammation from 35 to 4 5-cm. All path specimens were normal except for 35-45cm which showed chronic active colitis negative for dysplasia. Bxs from 5 to 25-cm showed mild surface erosion and early hyperpla stic changes, negative for colitis and dyplasia 2012 Colonoscopy: By patient report and review of pictures by Dr. Hart, it showed christiano escent disease with only subtle blurring of vasculature in certain segments. Biopsies, avail able to us in the form of a report, showed normal right-sided and transverse colon biopsies, with chronic IBD and no dysplasia in the left-sided biopsies. 4. Imagin07/30/2015 CT Abdomen/Pelvis: 04/09/2015 CT Abdomen w/contrast: 2. Current and prior therapies. 5. Labs: Include Historic labs: (ie, ESR, CRP, calprotectin, Albumin, WBC/bands, HGB, MCV, IBD serol ogies, QuantiFERON, Hep B, Celiac panel, stool studies, vitamin D) Historical labs: 11/08/15 IFX 7.50 ug/mL Antibody negative 08/26/2017: Inflammatory markers: CALPROTECTIN, FECAL (ug/g) Date Value 11/07/2015 <16 C-REACTIVE PROTEIN Date Value 11/07/2015 3.0 mg/dl 08/06/2015 1.9 mg/dl 03/30/2013 0.7 mg/dL SEDIMENTATION RATE (mm/hr) Date Value 11/07/2015 12 08/06/2015 4 03/30/2013 21 (H) ESR (SED RATE) (mm/hr) Date Value 07/18/2015 9 Iron studies: FERRITIN (ng/mL) Date Value 03/30/2013 21 (L) Assessment: Kami Benites is a 37 y.o. female, who presents to the Inflammatory [facility]el Disease Clinic for evaluation and management of right-sided ulcerative colitis and IBS. Her recent weeks of worsening symptoms (frequency, urgency, ankle pain) are concerning for potentially losing s ome response to her Remicade, as is her recent history of worsening fatigue 3 weeks before i nfusions. Will get a Remicade level before her next infusion to see where she is at and if s he has developed neutralizing antibodies. She is due for dysplasia surveillance, and this wi ll be a good opportunity to see disease activity as well, so will prefer to get that done so ramiro rather than later. I'm unclear as to the cause of her nortyptaline problems, but there aren't any red flags th at would push for a EGD to evaluate. Will try a trial of PPI and see if that improves this t o start with. With her ongoing fatigue, will also check a TSH and ferritin along with the routine inflamm ation markers and vitamin D level. She's never had a DEXA and could benefit from some recommended vaccinations, so will send t hose to her PCP to get done closer to home. Plan and Recommendations: A. IBD Diagnostics. 1. Annual IBD labs: CRP, ESR, vitamin D today 2. Check Remicade level before next infusion 3. Colonoscopy this summer for dysplasia surveillance and disease activity 4. Needs q3-6month CBC, LFTs while on Remicade. B. IBD Therapy. 1. Continue Remicade 5mg/kg q8w C. Other. 1. Continue nortriptyline 100mg gHS 2. TSH, ferratin for fatigue D. IBD-Specific Health Maintenance - recommendations for PCP 1. Vaccinations: - Annual seasonal influenza when available - Hepatitis A series - Hepatitis B series - done - Prevnar (PCV13) followed by Pneumovax (PSV23) 8 weeks later, with Pneumovax booster 5y after - Tetanus booster every 10y - needs next year - No live vaccines 2. Nutrition and bone health: - Recommend DEXA given steroid exposure - Recommend vitamin D3 supplementation, pending level 3. Skin cancer screening: recommend yearly skin exam by PCP or dermatology 4. Colon dysplasia surveillance: 1-3y surveillance colonoscopies, next this summer Follow-Up: 6-12 months Counseling Time: I spent a total of 50 minutes with this patient, of which greater than 50 % of the time was spent in counseling. Specific issues that were discussed included medical management of ulcerative colitis, loss of response to biologic medications, dysplasia surve illance, and health maintenance recommendations for IBD patients. Glenn Malcolm DNP, AUDELIA-C Instructor, Division of Gastroenterology and Hepatology [facility] documented in this encounter Plan of Treatment Not on filedocumented as of this encounter Results TSH (09/19/2017 2:03 PM [...] | + + + + + | [facility] | [address] | [place] [address] | | | JAH URBINA | [address] | | | + [...] | + + + + + | [facility] | [address] | [place] [address] | | | SERVICES, CORE | [address] | | | + + + + [...] LABORATORY | | >18years: Deficiency: <20 | CIARA, CORE | | ng/mL Insufficiency: 20-29 ng/mL | | | Optimum Level: 30-80 ng/mL High: | | | 81-150 ng/ml Toxic: >150 ng/mL | | + + + + + + + + | Performing | Address | City/State/Zipcode | Phone Number | | Organization | | | | + + + + + | [facility] | [address] | [place] [address] | | | JAH URBINA | [address] | | | + [...] and new reporting units as of | [facility] | | 10/17/2013. | LABORATORY | | | SERVICES, CORE | + + + + + + + + | Performing | Address | City/State/Zipcode | Phone Number | | Organization | | | | + + + + + | [facility] | [address] | [place] [address] | | | SERVICES, CORE | [address] | | | + [...] sedimentation rate. | LABORATORY | | | SERVICES, CORE | + + + + + + + + | Performing | Address | City/State/Zipcode | Phone Number | | Organization | | | | + + + + + | [facility] | [address] | [place] [address] | | | SERVICES, CORE | [address] | | | + + + + + documented in this encounter Visit Diagnoses + + | Diagnosis | + + | Other ulcerative colitis without complication (HCC) - Primary | + + | Encounter for long-term (current) use of high-risk medication Encounter for long-term | | (current) use of other medications | + + | Fatigue, unspecified type | + + documented in this encounter
--- OUTSIDE RECORDS SUMMARY | ~2019-10-11 | XMS | Encounter Summary ---
Demographics + + + | Address | [address] | | | [place] [address] | + + + | Home Phone | | + + + | Preferred Language | Unknown | + + + | Marital Status | | + + + | Shinto Affiliation | Unknown | + + + | Race | White | + + + | Ethnic Group | Not or | + + + Author + + + | Author | [facility] | + + + | Organization | [facility] | + + + | Address | Unknown | + + + | Phone | Unavailable | + + + Support + + + + + | Name | Relationship | Address | Phone | + + + + + | Bob Benites | ECON | [address] | | | | | [place] | | | | | [address] | | + + + + + Care Team Providers + +------+ + | Care Italian Teacher Name | Role | Phone | + [...] | 2013 | Encounter | Center at [facility] [address] | MD | for Remicade | | | | [address] | | | | | | Mailcode: Center | | | | | | for Health and | | | | | | Healing, Building [address] | | | | | | [place], [place] | | | | | | [address] | | | | | | [phone] | | | +--------+ + + + [...]
--- OUTSIDE RECORDS SUMMARY | ~2019-10-11 | XMS | Encounter Summary ---
Demographics + + + | Address | [address] | | | [place] [address] | + + + | Home Phone | | + + + | Preferred Language | Unknown | + + + | Marital Status | | + + + | Congregation Affiliation | Unknown | + + + | Race | White | + + + | Ethnic Group | Not or | + + + Author + + + | Author | [facility] | + + + | Organization | [facility] | + + + | Address | Unknown | + + + | Phone | Unavailable | + + + Support + + + + + | Name | Relationship | Address | Phone | + + + + + | Bob Benites | ECON | [address] | | | | | [place] | | | | | [address] | | + + + + + Care Team Providers + +------+ + | Care Rotary Drum Tanner Name | Role | Phone | + [...] | 2016 | on | Center at [facility] [address] | MD | (08/06/2015 HgA1c, | | | | [address] | | CRP, ESR - | | | | Mailcode: Center | | [facility]) | | | | for Health and | | | | | | [facility] | | | | | | [place], [place] | | | | | | [address] | | | | | | [phone] | | | +--------+ + + + [...] [address] | [place] | [phone] | | [place] | | | | [...] + + | [facility] - | [address] | [place] | [phone] | | [place] | | | | [...] + + | [facility] - | [address] | [place], [place] | [phone] | | [place] | | | | [...] [address] | [place] | [phone] | | [place] | | | | + + + + + documented in this encounter Visit Diagnoses Not on filedocumented in this encounter"
--- OUTSIDE RECORDS SUMMARY | ~2019-10-11 | XMS | Encounter Summary ---
Demographics + + + | Address | [address] | | | [place] [address] | + + + | Home Phone | | + + + | Preferred Language | Unknown | + + + | Marital Status | | + + + | Sabianist Affiliation | Unknown | + + + | Race | White | + + + | Ethnic Group | Not or | + + + Author + + + | Author | [facility] | + + + | Organization | [facility] | + + + | Address | Unknown | + + + | Phone | Unavailable | + + + Support + + + + + | Name | Relationship | Address | Phone | + + + + + | Bob Benites | ECON | [address] | | | | | [place] | | | | | [address] | | + + + + + Care Team Providers + +------+ + | Care Hem Marker Name | Role | Phone | + +------+ + | Rohit Olguin MD | PCP | | + +------+ + Reason for Visit + + + | Reason | Comments | + + + | Blood Test Results | | + + + Encounter Details +--------+ + + + + | Date | Type | Department | Care Team | Description | +--------+ + + + + | 10/25/ | Abstract | Dig[facility]ive Health | Briana Tellez MD | Blood Test Results | | 2018 | | Center at [facility] [address] | [address] | | | | | [address] | [place], [place] | | | | | Mailcode: Center | [address] | | | | | for Health and | [phone] | | | | | [place] [address] | | | | | | [facility] [place] | | | | | | [address] | | | | | | [phone] | | | +--------+ + + + [...]
--- OUTSIDE RECORDS SUMMARY | ~2019-10-11 | XMS | Encounter Summary ---
Demographics + + + | Address | [address] | | | [place] [address] | + + + | Home Phone [...] + | Bob Benites | ECON | [address] | | | | | [place] | | | | | [address] | | + + + + + Care Team Providers + +------+ + | Care Legal Support Assistant Name | Role | Phone | + +------+ + | Rohit Olguin MD | PCP | | + +------+ + Encounter Details +--------+ + + + + | Date | Type | Department | Care Team | Description | +--------+ + + + + | 10/17/ | MyChart | Digestive Health | Alcon Malcolm, | RE:Remicade Level | | 2018 | Encounter | Center at [facility] [address] | TIPPLE WORKER [address] | | | | | [address] | [facility] [place] | | | | | Mailcode: Center | [address] | | | | | for Health and | [phone] | | | | | [facility] | | | | | | [place], [place] | | | | | | [address] | | | | | | [phone] | | | +--------+ + + + [...]
--- OUTSIDE RECORDS SUMMARY | ~2019-10-11 | XMS | Encounter Summary ---
Demographics + + + | Address | [address] | | | [place] [address] | + + + | Home Phone [...] + | Bob Benites | ECON | [address] | | | | | [place] | | | | | [address] | | + + + + + Care Team Providers + +------+ + | Care Aviation Project Engineer Name | Role | Phone | + +------+ + | Rohit Olguin MD | PCP | | + +------+ + Encounter Details +--------+ + + + + | Date | Type | Department | Care Team | Description | +--------+ + + + + | 04/18/ | MyChart | Digestive Health | Zelda Hinojosa, | Appt 04/19 | | 2013 | Encounter | Center at [facility] [address] | [address] | | | | | [address] | | | | | | Mailcode: Center | | | | | | for Health and | | | | | | Healing, Building [address] | | | | | | [place], [place] | | | | | | [address] | | | | | | [phone] | | | +--------+ + + + [...]
--- OUTSIDE RECORDS SUMMARY | ~2019-10-11 | XMS | Encounter Summary ---
Demographics + + + | Address | [address] | | | [place] [address] | + + + | Home Phone | | + + + | Preferred Language | Unknown | + + + | Marital Status | | + + + | Scientologist Affiliation | Unknown | + + + | Race | White | + + + | Ethnic Group | Not or | + + + Author + + + | Author | [facility] | + + + | Organization | [facility] | + + + | Address | Unknown | + + + | Phone | Unavailable | + + + Support + + + + + | Name | Relationship | Address | Phone | + + + + + | Bob Benites | ECON | [address] | | | | | [place] | | | | | [address] | | + + + + + Care Team Providers + +------+ + | Care Tower Climber Name | Role | Phone | + [...] and | | | | | | [facility] | | | | | | [place], [place] | | | | | | [address] | | | | | | [phone] | | | +--------+ + + + [...]
--- OUTSIDE RECORDS SUMMARY | ~2019-10-11 | XMS | Encounter Summary ---
Demographics + + + | Address | [address] | | | [place] [address] | + + + | Home Phone | | + + + | Preferred Language | Unknown | + + + | Marital Status | | + + + | Mandaeism Affiliation | Unknown | + + + | Race | White | + + + | Ethnic Group | Not or | + + + Author + + + | Author | [facility] | + + + | Organization | [facility] | + + + | Address | Unknown | + + + | Phone | Unavailable | + + + Support + + + + + | Name | Relationship | Address | Phone | + + + + + | Bob Benites | ECON | [address] | | | | | [place] | | | | | [address] | | + + + + + Care Team Providers + +------+ + | Care Lens Cutter Name | Role | Phone | + +------+ + | Rohit Olguin MD | PCP | | + +------+ + Reason for Visit + + + | Reason | Comments | + + + | Discussion | New auth for Remicade | + + + Encounter Details +--------+ + + + + | Date | Type | Department | Care Team | Description | +--------+ + + + + | 08/27/ | Telephone | Digestive Health | Stevo Hart, | Discussion (New auth | | 2015 | | Center at [facility] [address] | MD | for Remicade) | | | | [address] | | | | | | Mailcode: [place] | | | | | | for Health and | | | | | | Healing, [address] | | | | | | [place], [place] | | | | | | [address] | | | | | | [phone] | | | +--------+ + + + [...]
--- OUTSIDE RECORDS SUMMARY | ~2019-10-11 | XMS | Clinical Summary ---
Demographics + + + | Address | [address] | | | [place] [address] | + + + | Home Phone | | + + + | Preferred Language | Unknown | + + + | Marital Status | | + + + | Worship Affiliation | Unknown | + + + | Race | White | + + + | Ethnic Group | Not or | + + + Author + + + | Author | [facility] | + + + | Organization | [facility] | + + + | Address | Unknown | + + + | Phone | Unavailable | + + + Support + + + + + | Name | Relationship | Address | Phone | + + + + + | Bob Benites | ECON | [address] | | | | | [place] | | | | | [address] | | + + + + + Care Team Providers + +------+ + | Care Last Marker Name | Role | Phone | + +------+ + | Rohit Olguin MD | PCP | | + +------+ + Source Comments ANNALISE is fully live on both EpicCare Ambulatory and EpicCare InPatient[facility] Allergies + + + + + + | Active Allergy | Reactions | Severity | Noted | Comments | | | | | Date | | + + + + + + | Sulfa (Sulfonamide | Headache | Medium | 11/07/19 | | | Antibiotics) | | | 13 | | + + + + + + Medications + + + +---------+------+------+-------+ | Medication | Sig | Dispensed | Refills | Star | End | Statu | | | | | | t | Date | s | | | | | | Date | | | + + + +---------+------+------+-------+ | SUMATRIPTAN 100 mg | | | 0 | 06/0 | | Activ | | Oral tablet | | | | 7/20 | | e | | | | | | 13 | | | + + + +---------+------+------+-------+ | INFLIXIMAB | Inject into the | | 0 | | | Activ | | (REMICADE IV) | vein (IV) every | | | | | e | | | eight weeks. | | | | | | + + + +---------+------+------+-------+ | MONO-LINYAH | | | 0 | 06/0 | | Activ | | 0.25-35 mg-mcg oral | | | | 2/20 | | e | | tablet | | | | 17 | | | + + + +---------+------+------+-------+ | nortriptyline 50 | 100 mg. | | 0 | 04/1 | | Activ | | mg oral capsule | | | | 120 | | e | | | | | | 18 | | | + + + +---------+------+------+-------+ | CHOLECALCIFEROL | take 1 capsule by | 30 | 5 | 11/0 | | Activ | | (VITAMIN D3) 5,000 | mouth once daily | capsule | | 420 | | e | | unit oral capsule | | | | 19 | | | + + + +---------+------+------+-------+ | OMEPRAZOLE 40 mg | take 1 capsule by | 30 | 3 | 05/0 | | Activ | | oral capsule,delayed | mouth once daily | capsule | | 5/20 | | e | | | | | | 20 | | | | release(DR/EC)Indica | | | | | | | | tions: Other | | | | | | | | ulcerative colitis | | | | | | | | without complication | | | | | | | | (HCC), Encounter | | | | | | | | for long-term | | | | | | | | (current) use of | | | | | | | | high-risk medication | | | | | | | + + + +---------+------+------+-------+ Active Problems + + + | Problem | Noted Date | + + + | Irritable bowel syndrome (IBS) | 11/06/2012 | + + + | Ulcerative colitis | 11/06/2012 | + + + | Encounter for long-term (current) use of medications | 11/06/2012 | + + + + + | Overview: ICD10 | + + Encounters +--------+ + + + + | Date | Type | Specialty | Care Team | Description | +--------+ + + + + | 09/17/ | Refill | Gastroenterology | Alcon Malcolm, | Refill Request | | 2020 | | | LOGISTIC SPECIALIST | | +--------+ + + + + | 08/23/ | Refill | Gastroenterology | Alcon Malcolm, | Refill Request | | 2020 | | | LOGISTIC SPECIALIST | | +--------+ + + + + | 08/02/ | MyChart | Gastroenterology | Alcon Malcolm, | RE: Should I be | | 2020 | Encounter | | LOGISTIC SPECIALIST | concerned? | +--------+ + + + + from Last 3 Months Family History + + +------+ + | Medical History | Relation | Name | Comments | + + +------+ + | GI | Sister | | UC, diagnosed ~2015 | + + +------+ + + +------+--------+ + | Relation | Name | Status | Comments | + +------+--------+ + | Sister | | | | + +------+--------+ + Social History + +-------+ +--------+------+ | [...] recent travel history available. | + + Last Filed Vital Signs + + + + + | Vital Sign | Reading | Time Taken | Comments | + + + + + | Blood Pressure | 130/84 | 01/10/2019 1:08 PM | | | | | PDT | | + + + + + | Pulse | 106 | 01/10/2019 1:08 PM | | | | | PDT | | + + + + + | Temperature | 36.9 C (98.4 F) | 01/10/2019 1:08 PM | | | | | PDT | | + + + + + | Respiratory Rate | 16 | 01/10/2019 1:08 PM | | | | | PDT | | + + + + + | Oxygen Saturation | 97% | 01/10/2019 1:08 PM | | | | | PDT | | + + + + + | Inhaled Oxygen | - | - | | | Concentration | | | | + + + + + | Weight | 91.6 kg (202 lb) | 01/10/2019 1:08 PM | | | | | PDT | | + + + + + | Height | 160 cm (5' 3") | 01/10/2019 1:08 PM | | | | | PDT | | + + + + + | Body Mass Index | 35.78 | 01/10/2019 1:08 PM | | | | | PDT | | + + + + + Plan of Treatment + + + + + | Health Maintenance | Due Date | Last Done | Comments | + + + + + | Pneumococcal | | | | | vaccination (1 of 3 | 5 | | | | - PCV13) | | | | + + + + + | Influenza (Flu) | | | | | vaccination (Season | 0 | | | | Ended) | | | | + + + + + Results Not on filefrom Last 3 Months Insurance + +--------+ +--------+ + +------+ | Payer | Benefi | Subscriber | Effect | Phone | Address | Type | | | t Plan | ID | vega | | | | | | / | | Dates | | | | | | Group | | | | | | + +--------+ +--------+ + +------+ | [employer] | PREMER | [phone] | 05/16/19 | [phone] | [address] | PPO | | | A OF | x | 18-Pre | 1 | [id number] | | | | [place] | | sent | | [place], | | | | [place] | | | | [place] [address] | | + +--------+ +--------+ + +------+ + +--------+ +--------+ + + | Guarantor Name | Accoun | Relation to | Date | Phone | Billing Address | | | t Type | Patient | of | | | | | | | | | | + +--------+ +--------+ + + | Kami Benites | Person | Self [birth year] | [address] | | | al/Fam | | 1981 | [phone] | [place] | | | jarrett | | | 2 (Home) | [address] | | | | | | [phone] | | | | | | | 4 (Work) | | + +--------+ +--------+ + +
--- OUTSIDE RECORDS SUMMARY | ~2019-10-11 | XMS | Encounter Summary ---
Demographics + + + | Address | [address] | | | [place] [address] | + + + | Home Phone | | + + + | Preferred Language | Unknown | + + + | Marital Status | | + + + | Religion Affiliation | Unknown | + + + | Race | White | + + + | Ethnic Group | Not or | + + + Author + + + | Author | [facility] | + + + | Organization | [facility] | + + + | Address | Unknown | + + + | Phone | Unavailable | + + + Support + + + + + | Name | Relationship | Address | Phone | + + + + + | Bob Benites | ECON | [address] | | | | | [place] | | | | | [address] | | + + + + + Care Team Providers + +------+ + | Care Oxyacetylene Welder Name | Role | Phone | + +------+ + | Rohit Olguin MD | PCP | | + +------+ + Encounter Details +--------+ + + + + | Date | Type | Department | Care Team | Description | +--------+ + + + + | 09/14/ | MyChart | Digestive Health | Stevo Hart, | RE: Side effect of | | 2016 | Encounter | Center at [facility] [address] | MD | Remicade? | | | | [address] | | | | | | Mailcode: Center | | | | | | for Health and | | | | | | Healing, [address] | | | | | | [place], [place] | | | | | | [address] | | | | | | [phone] | | | +--------+ + + + [...]
--- OUTSIDE RECORDS SUMMARY | ~2019-10-11 | XMS | Encounter Summary ---
Demographics + + + | Address | [address] | | | [place] [address] | + + + | Home Phone [...] + | Bob Benites | ECON | [address] | | | | | [place] | | | | | [address] | | + + + + + Care Team Providers + +------+ + | Care Library Acquisitions Technician Name | Role | Phone | + +------+ + | Rohit Olguin MD | PCP | | + +------+ + Reason for Referral Consultation (Routine) +--------+--------+ + + + + | Status | Reason | Specialty | Diagnoses / | Referred By | Referred To | | | | | Procedures | Contact | Contact | +--------+--------+ + + + + | Closed | | Pain | Diagnoses | Micaela | Amandeep, | | | | Management | Ulcerative | Zelda Goodman PA-C | SOFI Mcarthur | | | | | colitis | [address] | | | | | ([facility]) | [address] | [address] | | | | | Abdominal | [place], [place] | [place], [place] | | | | | pain | [address] | [address] | | | | | Irritable | | | | | | | bowel | | | | | | | syndrome | | | | | | | (IBS) | | | | | | | Procedures | | | | | | | CONSULT TO | | | | | | | PAIN CENTER | | | +--------+--------+ + + + + Reason for Visit + + + | Reason | Comments | + + + | Follow-up visit | | + + + Office Visit - E/M Services (Routine) +--------+ + + + + + | Status | Reason | Specialty | Diagnoses / | Referred By | Referred To | | | | | Procedures | Contact | Contact | +--------+ + + + + + | Closed | Specialty | Gastroenterol | Diagnoses | Sharif, | Gas [facility] | | | Services | ogy | Ulcerative | Rohit Aguilar, | [facility] [address] | | | Required | | colitis | MD [address] | | | | | Procedures | [place] | Mailcode: | | | | | CONSULT TO | [address] | Center for | | | | | GASTROENTERO | STEVE, | Health and | | | | | [place] | [place] [address] | Healing, | | | | | Consult for | Phone: | [address] | | | | | 2nd opinion | [phone] | [place], [place] | | | | | | Fax: | [address] | | | | | | [phone] | Phone: | | | | | | | [phone] | | | | | | | Fax: | | | | | | | [phone] | +--------+ + + + + + Encounter Details +--------+---------+ + + + | Date | Type | Department | Care Team | Description | +--------+---------+ + + + | 03/30/ | Office | Digestive Health | Zelda Hinojosa, | Abdominal pain | | 2012 | Visit | Center at [facility] [address] | PA-C | (Primary Dx); | | | | [address] | | Ulcerative colitis | | | | Mailcode: Center | | ([facility]); Irritable | | | | for Health and | | bowel syndrome (IBS) | | | | [facility] [address] | | | | | | [place], [place] | | | | | | [address] | | | | | | [phone] | | | +--------+---------+ + + + Social History [...] + + + | Blood Pressure | 116/71 | 03/30/2013 11:59 AM | | | | | PST | | + + + + + | Pulse | 88 | 03/30/2013 11:59 AM | | | | | PST | | + + + + + | Temperature | 36.9 C (98.4 F) | 03/30/2013 11:59 AM | | | | | PST | | + + + + + | Respiratory Rate | 16 | 03/30/2013 11:59 AM | | | | | PST | | + + + + + | Oxygen Saturation | - | - | | + + + + + | Inhaled Oxygen | - | - | | | Concentration | | | | + + + + + | Weight | 95.5 kg (210 lb 9.6 | 03/30/2013 11:59 AM | | | | oz) | PST | | + + + + + | Height | 160 cm (5' 3") | 03/30/2013 11:59 AM | | | | | PST | | + + + + + | Body Mass Index | 37.31 | 03/30/2013 11:59 AM | | | | | PST | | + + + + + documented in this encounter Progress Notes Zelda Hinojosa PA-C - 03/30/2013 12:09 PM PSTFormatting of this note might be different fro m the original. Inflammatory Bowel Disease Clinic [facility] ~ Follow-Up Visit Note Patient Identification: Kami Benites is a 32 year old female with a history of ulcerati ve colitis and IBS who presents to the [facility] Disease Clinic on an urgent basis due to persistent and increasing abdominal pain. History of Present Illness: Interval History: Since establishing care with Dr. Hart in October she seemed to do carmen r from an IBS standpoint, upon reflection noting that a boss at work who caused her a lot of stress left in November. However she still has dealt with daily abdominal pain that she has tr eated with 2 Vicodin per day. She is having trouble getting this prescription which is part ially why she is here today. She is on the verge of going to the ED given the pain level. Her bowel habits haven't changed in the past 5 months and they remain non-bloody. She does note new left-sided abd pain that she attributes to her colitis, so this visit was also made to determine etiology of her current pain. She denies recent antibiotics or NSAIDs. She p assed 3 kidney stones since last seen (December). Current GI/IBD Symptoms reviewed with the patient today: Bowel Habits: ranges from 2-3 to 10x per day. Rare nocturnal episodes. No bleeding. Abdominal Pain: Two types. One is right sided and is very typical of her IBS pain. This c omes and goes but will peak and has almost caused her to go to ED. She uses vicodin (2 pill s per day/night) for this. Over the past 2 weeks a new pain has started on her left side, w hich she states is typical of her colitis pain. Weight loss: No N/V/F/C/Sweats: No f/c. Very fatigued x 2 weeks. Notices several weeks of vaginal bleedin g - seeing ROUTE SERVICE MANAGER for this. Other - Perianal, oral, etc.: No NSAID Use: No Extraintestinal Symptoms (Joint, Eye,Skin): No oral ulcers, eye complaints or rashes, and n o new joint issues Review of Systems: Comprehensive ROS performed, with pertinent findings as per HPI. All or carroll systems negative except as noted. Past Medical History: I reviewed the history below with the patient and made any relevant u pdates or changes. 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 Current Outpatient Prescriptions Medication DICYCLOMINE 10 mg Oral capsule HYDROCODONE-ACETAMINOPHEN 7.5-325 mg Oral tablet nortriptyline 10 mg Oral capsule OMEPRAZOLE 20 mg Oral capsule,delayed release(DR/EC) SERTRALINE 100 mg Oral tablet SUMATRIPTAN 100 mg Oral tablet No current facility-administered medications for this visit. Allergies: Allergies Allergen Reactions Sulfa (Sulfonamide Antibiotics) Physical Exam: BP 116/71 | Pulse 88 | Temp (Src) 36.9 C (98.4 F) (Oral) | RR 16 | Ht 1.6 m (5' 3") | W t 95.528 kg (210 lb 9.6 oz) | BMI 37.32 kg/(m^2) Appearance: Actually appears quite well and in no apparent distress. Psychological: Appropriate mood and affect. Eyes: Sclera anicteric without injection. Extremities: No edema. Skin: No lesions or rashes noted. Abdomen: + Bowel Sounds, Soft, Nondistended, exquisitely tender to very light palpation ove r mid-right abd really preventing me from doing a good exam. Less TTP over left abd but sti ll tender. No epigastric or periumbilical tenderness. IBD History and Data Review: The following [...] of disease but Remicade was finally begun. Kami reports that her last colonoscopy was one week ago. I do not have the report for revi ew but the pictures show quiescent disease with only subtle blurring of vasculature in certa in segments. Biopsies, available to us in the form of a report, showed normal right-sided an d transverse colon biopsies, with chronic IBD and no dysplasia in the left-sided biopsies. 2. Current and prior therapies. Current IBD Meds: Remicade q3lumgt (started in 04/2012, was initially on it [...] for some time); no history of injectables For IBS: Pt placed on nortriptyline 20mg (titrated up from 10mg) by Dr. Hart after la st visit. She contacted the office one month later stating she developed intense cramping a nd worsening diarrhea so she stopped it. She is using dicyclomine 10mg 2x per day and this does help her - she tolerates it well. She has always used Imodium and doesn't get much teja efit from it, though does use it before going out to an event, etc. 3. Labs: None available for review, though pt states a "general panel and thyroid test" was done 3 w eeks ago and she was told she was almost anemic but otherwise tests were normal. Assessment: Kami Benites is a 32 y.o. female, who returns to the Inflammatory Bowel Disease Clinic f or ongoing management of ulcerative colitis and superimposed IBS. The patient is here on an urgent basis due to abdominal pain. Her exam suggests her pain is largely due to IBS as ve ry light palpation caused her to wince in pain. Over the past week or two she is having a n ew left-sided pain which she reports is more like her colitis pain, however she denies any b lood per rectum which has been present with pervious UC flares. She is having diarrhea but it is watery with mucous (likely IBS). We will do some testing as we need to document evide nce of colitis activity to help with treatment decisions. Extensive discussion was held wit h her about her chronic pain and IBS. She wants it to be known that she is not addicted to narcotics but feels she really needs them to stay out of the ED, and I explained that our go al is for her to manage her IBS pain in a non-narcotic fashion and a pain center consult was suggested to help determine the best way to do this. Plan and Recommendations: A. IBD Diagnostics. 1. ESR, CRP, fecal calprotectin, CBC, ferritin (the CBC and ferritin are for severe fatigu e x 2-3 weeks, which may be due to iron deficiency from blood loss secondary to 15+ weeks of vaginal bleeding) 2. Needs intermittent monitoring of CBC, LFTs while on stable dose of Remicade. Patient d oes not believe these labs are being drawn with Remicade infusion. Would recommend that MD that is ordering Remicade locally make sure that these labs are drawn every infusion or at m inimum every other infusion. B. IBD Therapy. 1. Continue Remicade every 8 weeks. If studies today reveal inflammatory activity, will c onsider decreasing Remicade infusion interval to q6 or 7 weeks. C. IBD-Specific Health Maintenance. 1. Did not discuss today D. Other / non-IBD. For IBS, she should: 1. continue to use dicyclomine prn. 2. Use prn Imodium 3. Retry nortriptyline 20mg qhs. Her reported side effects of diarrhea and increase in ab dominal pain when trying this sounds more likely to be related to IBS exacerbation than TCA side effect. Of course she should stop this if again she has these symptoms after taking it . She has chronic abd pain for which she is using Vicodin and she also has difficulty sleep ing at night. As such, nortriptyline would be an excellent alternative to hopefully treat I BS-related chronic abd pain as well as her sleep difficulties. 4. Consult to pain center will be entered. She is unsure she wants to pursue this but I w ill enter it any way. They can make some other suggestions in terms of pain management that is non-narcotic (our preference). Follow-Up: Dr. Hart in 3-6 months. She has local GI provider that she can see for [facility] care. Counseling Time: I spent a total of 30 minutes with this patient, of which greater than 50 % of the time was spent in counseling and coordination of care. Specific issues that were d iscussed included difference between IBS and IBD, need for modification of her pain regimen, possible need for modification of Remicade infusions. documented in this en counter Plan of Treatment Not on filedocumented as of this encounter Results C-REACT PRTN (FOR INFLAMMATION) (03/30/2013 12:47 PM PST) + +-------+ + + + | Component | Value | Ref Range | Performed | Pathologist | | | | | At | Signature | + +-------+ + + + | C-REACTIVE | 0.7 | <=0.8 mg/dL | [facility] | | | [facility] | | | [facility] | | | | | | [place] | | + +-------+ + + + + + | Specimen | + + | Blood - Blood | + + + + + + + | Performing | Address | City/State/Zipcode | Phone Number | | Organization | | | | + + + + + | [facility] | [address] | [place] [address] | | | [place] | | | | + + + + + SEDIMENTATION RATE (03/30/2013 12:47 PM PST) + +--------+ + + + | Component | Value | Ref Range | Performed | Pathologist | | | | | At | Signature | + +--------+ + + + | [facility] | 21 (H) | 0 - 20 mm/hr | [...] | + + + + + | [facility] | [address] | [place] [address] | | | SERVICES, CORE | [address] | | | + + + + + FERRITIN, SERUM (03/30/2013 12:47 PM PST) + + + + + + | Component | Value | Ref Range | Performed | Pathologist | | | | | At | Signature | + + + + + + | [facility] | 21 (L)Comment: Male and | 50 - 200 ng/mL [...] Blood | + + + + + | Narrative | Performed At | + + + | New reporting units and pediatric reference ranges effective | [facility] | | 10/04/2012. | LABORATORY | | | [facility] | + + + + + + + + | Performing | Address | City/State/Zipcode | Phone Number | | Organization | | | | + + + + + | [facility] | [address] | [place] [address] | | | [facility] | [address] | | | + + + + + documented in this encounter Visit Diagnoses + + | Diagnosis | + + | Abdominal pain - Primary | + + | Ulcerative colitis (HCC) Ulcerative colitis, unspecified | + + | Irritable bowel syndrome (IBS) Irritable bowel syndrome | + + documented in this encounter
--- OUTSIDE RECORDS SUMMARY | ~2019-10-11 | XMS | Encounter Summary ---
Demographics + + + | Address | [address] | | | [place] [address] | + + + | Home Phone [...] + | Bob Benites | ECON | [address] | | | | | [place] | | | | | [address] | | + + + + + Care Team Providers + +------+ + | Care Vp Product Management Name | Role | Phone | + +------+ + | Rohit Olguin MD | PCP | | + +------+ + Encounter Details +--------+---------+ + + + | Date | Type | Department | Care Team | Description | +--------+---------+ + + + | 02/09/ | Office | Digestive Health | Stevo Hart, | Other ulcerative | | 2016 | Visit | Center at [facility] [address] | MD | colitis without | | | | [address] | | complication (HCC) | | | | Mailcode: Center | | (Primary Dx) | | | | for Health and | | | | | | Healing, [address] | | | | | | [place], [place] | | | | | | [address] | | | | | | [phone] | | | +--------+---------+ + + + [...] + + documented as of this encounter Progress Notes Stevo Hart MD - 02/10/2016 3:58 PM PDTNo show documented in this encounter Plan of Treatment Not on filedocumented as of this encounter Visit Diagnoses + + | Diagnosis | + + | Other ulcerative colitis without complication (HCC) - Primary | + + documented in this encounter"
--- OUTSIDE RECORDS SUMMARY | ~2019-10-11 | XMS | Encounter Summary ---
Demographics + + + | Address | [address] | | | [place] [address] | + + + | Home Phone [...] + | Bob Benites | ECON | [address] | | | | | [place] | | | | | [address] | | + + + + + Care Team Providers + +------+ + | Care Airport Traffic Controller Name | Role | Phone | + [...] Description | +--------+--------+ + + + | 02/24/ | Refill | Digestive Health | Stevo Hart, | Refill Request | | 2014 | | Center at [facility] [address] | MD | (nortriptyline) | | | | [address] | | | | | | Mailcode: [place] | | | | | | [facility] | | | | | | [facility], [place] [address] | | | | | | [place], [place] | | | | | | [address] | | | | | | [phone] | | | +--------+--------+ + + + [...]
--- OUTSIDE RECORDS SUMMARY | ~2019-10-11 | XMS | Encounter Summary ---
Demographics + + + | Address | [address] | | | [place] [address] | + + + | Home Phone | | + + + | Preferred Language | Unknown | + + + | Marital Status | | + + + | Nondenominational Affiliation | Unknown | + + + [...] + | Bob Benites | ECON | [address] | | | | | [place] | | | | | [address] | | + + + + + Care Team Providers + +------+ + | Care Real Estate Recruiter Name | Role | Phone | + [...] | +--------+ + + + + | 09/08/ | Abstract | Digestive Health | Briana Tellez MD | Insurance | | 2018 | | Center at [facility] [address] | [address] | Authorization | | | | [address] | [place], [place] | (Remicade approval - | | | | Mailcode: [place] | [phone] | [employer]) | | | | for Health and | [phone] | | | | | [place] [address] | | | | | | [place], [place] | | | | | | [address] | | | | | | [phone] | | | +--------+ + + + [...]
--- OUTSIDE RECORDS SUMMARY | ~2019-10-11 | XMS | Encounter Summary ---
Demographics + + + | Address | [address] | | | [place] [address] | + + + | Home Phone | | + + + | Preferred Language | Unknown | + + + | Marital Status | | + + + | Muslim Affiliation | Unknown | + + + | Race | White | + + + | Ethnic Group | Not or | + + + Author + + + | Author | [facility] | + + + | Organization | [facility] | + + + | Address | Unknown | + + + | Phone | Unavailable | + + + Support + + + + + | Name | Relationship | Address | Phone | + + + + + | Bob Benites | ECON | [address] | | | | | [place] | | | | | [address] | | + + + + + Care Team Providers + +------+ + | Care Mobility Scooter Repairer Name | Role | Phone | + [...] | | 2016 | | Center at [facility] [address] | MD | Authorization | | | | [address] | | (Remicade approval - | | | | Mailcode: [place] | | [facility]) | | | | for Health and | | | | | | [facility], [address] | | | | | | [place], [place] | | | | | | [address] | | | | | | [phone] | | | +--------+ + + + [...]
--- OUTSIDE RECORDS SUMMARY | ~2019-10-11 | XMS | Encounter Summary ---
Demographics + + + | Address | [address] | | | [place] [address] | + + + | Home Phone | | + + + | Preferred Language | Unknown | + + + | Marital Status | | + + + | Gnosticism Affiliation | Unknown | + + + [...] + | Bob Benites | ECON | [address] | | | | | [place] | | | | | [address] | | + + + + + Care Team Providers + +------+ + | Care Seaming Machine Operator Name | Role | Phone | [...] 2019 | Encounter | Center at [facility] [address] | DATABASE DEVELOPMENT PROJECT MANAGER [address] | Authorization | | | | [address] | [place], [place] | | | | | Mailcode: Center | [address] | | | | | for Health and | [phone] | | | | | [facility] [address] | | | | | | [place], [place] | | | | | | [address] | | | | | | [phone] | | | +--------+ + + + [...]
--- OUTSIDE RECORDS SUMMARY | ~2019-10-11 | XMS | Encounter Summary ---
Demographics + + + | Address | [address] | | | [place] [address] | + + + | Home Phone | | + + + | Preferred Language | Unknown | + + + | Marital Status | | + + + | Zoroastrianism Affiliation | Unknown | + + + | Race | White | + + + | Ethnic Group | Not or | + + + Author + + + | Author | [facility] | + + + | Organization | [facility] | + + + | Address | Unknown | + + + | Phone | Unavailable | + + + Support + + + + + | Name | Relationship | Address | Phone | + + + + + | Bob Benites | ECON | [address] | | | | | [place] | | | | | [address] | | + + + + + Care Team Providers + +------+ + | Care Sleeping Room Cleaner Name | Role | Phone | + [...] | | | | | Procedures | [place] | Ave | | | | | CONSULT TO | [address] | [place], [place] | | | | | [place] | [place], | [address] | | | | | [place] | [place] [address] | | | | | | Consult for | Phone: | | | | | | 2nd opinion | [phone] | | | | | | | Fax: | | | | | | | [phone] | | +--------+ + + + + + Encounter Details +--------+---------+ + + + | Date | Type | Department | Care Team | Description | +--------+---------+ + + + | 09/28/ | Office | Digestive Health | Stevo Hart, | Other ulcerative | | 2016 | Visit | Center at [facility] [address] | MD | colitis without | | | | [address] | | complication (HCC) | | | | Mailcode: Center | | (Primary Dx); | | | | for Health and | | Encounter for | | | | Healing, [address] | | long-term (current) | | | | [place], [place] | | use of medications; | | | | [address] | | Flank pain | | | | [phone] | | | +--------+---------+ + + + [...] + + + | Blood Pressure | 142/81 | 09/29/2015 9:47 AM | | | | | PDT | | + + + + + | Pulse | 96 | 09/29/2015 9:47 AM | | | | | PDT | | + + + + + | Temperature | 37.1 C (98.8 F) | 09/29/2015 9:47 AM | | | | | PDT | | + + + + + | Respiratory Rate | 18 | 09/29/2015 9:47 AM | | | | | PDT | | + + + + + | Oxygen Saturation | 100% | 09/29/2015 9:47 AM | | | | | PDT | | + + + + + | Inhaled Oxygen | - | - | | | Concentration | | | | + + + + + | Weight | 96.8 kg (213 lb 4.8 | 09/29/2015 9:47 AM | | | | oz) | PDT | | + + + + + | Height | 158.8 cm (5' 2.5") | 09/29/2015 9:47 AM | | | | | PDT | | + + + + + | Body Mass Index | 38.39 | 09/29/2015 9:47 AM | | | | | PDT | | + + + + + documented in this encounter Progress Notes Stevo Hart MD - 09/29/2015 9:50 AM PDTFormatting of this note might be different fro m the original. [facility] ~ Follow-Up Visit Note Patient Identification: Kami Benites is a 35 y.o. female with a history of ulcerative c olitis and IBS who presents to the [facility] for right sided back an d flank pain. History of Present Illness: Kami was seen in clinic on 08/11/15 with new onset right back pain radiating to flank and R UQ, particularly in association with Remicade infusions. The pain was felt to be possible b e neuropathic or musculoskeletal. Her nortriptyline was increased to 30mg daily. Kami received Remicade on 09/12/15 (after delaying infusion for 2 weeks due to insurance au thorization). She subsequently noted worsened right flank and stomach/rib pain. This appoi ntment was made to follow-up. Today, Kami notes continued flank/abdominal pain. Her stools are more formed with nortrip tyline 30mg daily and she wishes to maintain this dose. Current GI/IBD Symptoms: Bowel Habits: 1 formed BM/day (routinely between 3-5pm) Abdominal Pain: bilateral flank pain Weight loss: none Nausea/vomiting: none Appetite: somewhat diminished since recent Remicade infusion Perianal symptoms: none Oral symptoms: none Fevers/chills/sweats: none NSAID Use: none Extraintestinal Symptoms (Joint, Eye,Skin): achy joints; no rashes; no jaundice; no eye iss ues Past Medical History: I reviewed the history below with the patient and made any relevant u pdates or changes. 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 Allergies Allergen Reactions Sulfa (Sulfonamide Antibiotics) Physical Exam: BP 142/81 | Pulse 96 | Temp (Src) 37.1 C (98.8 F) (Oral) | RR 18 | Ht 1.588 m (5' 2.5") | Wt 96.752 kg (213 lb 4.8 oz) | SpO2 100% | BMI 38.37 kg/(m^2) Appearance: no apparent distress. Psychological: Appropriate mood and affect. Lungs: CTA Heart: RRR Abdomen: tender in bilateral flanks without rebound/guarding [...] and prior therapies. Current IBD Meds: Remicade b2mgmrs (started in 04/2012, was initially on it [...] time); no history of injectables 3. Labs: Labs 08/09/15- CMP 07/18/15- Normal ESR- 9 Assessment: Kami Benites is a 35 y.o. female, who returns to the [facility] f or ongoing management of UC and IBS and for further evaluation of new onset right back pain that radiates around her flank to RUQ x 5 weeks, worsened by Remicade. Kami's symptoms cou ld reflect an unusual reaction to Remicade. The other possibility is breakthrough inflammat ion given symptoms at the end of Remicade infusions. To evaluate further, we can consider e valuations of inflammation and Remicade status (levels/antibodies) at trough of Remicade. Plan and Recommendations: A. IBD Diagnostics. 1. Labs before next Remicade: ESR, CRP, calprotectin, IFX level/antibody B. IBD Therapy. 1. Continue Remicade q 8 weeks C. IBD-Specific Health Maintenance. 1. Patient is Immunosuppressed - Recommendations for PCP: Vaccination: Pneumovax (2 shots by 5 years), Annual Flu Shot, and ensure up-t o-date on Tetanus. Strong consideration for Hep A/B vaccination. Avoid live vaccines. Recommend annual skin exam by PCP or application penetration tester, and use of sunscreen. PAP screening per ACOG guidelines for immunosuppressed patients. 2. Need for dysplasia surveillance colonoscopies: up to date D. Other / non-IBD. 1. IBS is well-controlled. Follow-Up: 7 weeks documented in this en counter Plan of Treatment Not on filedocumented as of this encounter Visit Diagnoses + + | Diagnosis | + + | Other ulcerative colitis without complication (HCC) - Primary | + + | Encounter for long-term (current) use of medications Encounter for long-term | | (current) use of other medications | + + | Flank pain Abdominal pain, unspecified site | + + documented in this encounter
--- OUTSIDE RECORDS SUMMARY | ~2019-10-11 | XMS | Encounter Summary ---
Demographics + + + | Address | [address] | | | [place] [address] | + + + | Home Phone | | + + + | Preferred Language | Unknown | + + + | Marital Status | | + + + | Christianity Affiliation | Unknown | + + + | Race | White | + + + | Ethnic Group | Not or | + + + Author + + + | Author | [facility] | + + + | Organization | [facility] | + + + | Address | Unknown | + + + | Phone | Unavailable | + + + Support + + + + + | Name | Relationship | Address | Phone | + + + + + | Bob Benites | ECON | [address] | | | | | [place] | | | | | [address] | | + + + + + Care Team Providers + +------+ + | Care Head Well Puller Name | Role | Phone | + +------+ + | Rohit Olguin MD | PCP | | + +------+ + Encounter Details +--------+ + + + + | Date | Type | Department | Care Team | Description | +--------+ + + + + | 09/03/ | MyChart | Digestive Health | Stevo Hart, | RE:RE: Authorization | | 2013 | Encounter | Center at [facility] [address] | MD | for Remicade | | | | [address] | | | | | | Mailcode: Center | | | | | | for Health and | | | | | | Healing, [address] | | | | | | [place], [place] | | | | | | [address] | | | | | | [phone] | | | +--------+ + + + [...]
--- OUTSIDE RECORDS SUMMARY | ~2019-10-11 | XMS | Encounter Summary ---
Demographics + + + | Address | [address] | | | [place] [address] | + + + | Home Phone | | + + + | Preferred Language | Unknown | + + + | Marital Status | | + + + | Synagogue Affiliation | Unknown | + + + | Race | White | + + + | Ethnic Group | Not or | + + + Author + + + | Author | [facility] | + + + | Organization | 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 | Role | Phone | + +------+ + | Rohit Olguin MD | PCP | | + +------+ + Encounter Details +--------+ + + + + | Date | Type | Department | Care Team | Description | +--------+ + + + + | 12/18/ | MyChart | [facility] | Alcon Malcolm, | RE: Side effects | | 2019 | Encounter | [facility] | 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 [address] | | | | | [address] | [place], [place] | | | | | Mailcode: Center | [address] | | | | | for [facility] and | [phone] | | | | | [facility] | | | | | | [place], [place] | | | | | | [address] | | | | | | [phone] | | | +--------+ + + + [...] as of this encounter Plan of Treatment + +------+--------+ + + | Name | Type | Priori | Associated Diagnoses | Order Schedule | | | | ty | | | + +------+--------+ + + | CBC, WITH | Lab | Routin | Other ulcerative | Expected: 12/22/2018 | | DIFFERENTIAL | | e | colitis without | (Approximate), | | | | | complication (HCC) | Expires: 01/23/2020 | | | | | Fatigue, unspecified | | | | | | type | | + +------+--------+ + + | COMPLETE METABOLIC | Lab | Routin | Other ulcerative | Expected: 12/22/2018 | | SET | | e | colitis without | (Approximate), | | (NA,K,CL,CO2,BUN,CRE | | | complication (HCC) | Expires: 01/23/2020 | | AT,GLUC,CA,AST,ALT,B | | | Fatigue, unspecified | | | JARRED TOTAL,ALK | | | type | | | PHOS,ALB,PROT TOTAL) | | | | | + +------+--------+ + + | SEDIMENTATION RATE | Lab | Routin | Other ulcerative | Expected: 12/22/2018 | | | | e | colitis without | (Approximate), | | | | | complication (HCC) | Expires: 01/23/2020 | | | | | Fatigue, unspecified | | | | | | type | | + +------+--------+ + + | C-REACTIVE PROTEIN | Lab | Routin | Other ulcerative | Expected: 12/22/2018 | | | | e | colitis without | (Approximate), | | | | | complication (HCC) | Expires: 01/23/2020 | | | | | Fatigue, unspecified | | | | | | type | | + +------+--------+ + + | VITAMIN D, | Lab | Routin | Other ulcerative | Expected: 12/22/2018 | | 25-HYDROXY, SERUM | | e | colitis without | (Approximate), | | | | | complication (HCC) | Expires: 01/23/2020 | | | | | Fatigue, unspecified | | | | | | type | | + +------+--------+ + + | FERRITIN | Lab | Routin | Other ulcerative | Expected: 12/22/2018 | | | | e | colitis without | (Approximate), | | | | | complication (HCC) | Expires: 01/23/2020 | | | | | Fatigue, unspecified | | | | | | type | | + +------+--------+ + + | TSH | Lab | Routin | Other ulcerative | Expected: 12/22/2018 | | | | e | colitis without | (Approximate), | | | | | complication (HCC) | Expires: 01/23/2020 | | | | | Fatigue, unspecified | | | | | | type | | + +------+--------+ + + documented as of this encounter Procedures + +--------+ + + + | Procedure Name | Priori | Date/Time | Associated Diagnosis | Comments | | | ty | | | | + +--------+ + + + | CBC, WITH | Routin | 12/28/2018 | | Results for this | | DIFFERENTIAL | e | 7:11 AM | | procedure are in the | | | | PDT | | results section. | + +--------+ + + + | VITAMIN D, | Routin | 12/28/2018 | | Results for this | | 25-HYDROXY, SERUM | e | 7:11 AM | | procedure are in the | | | | PDT | | results section. | + +--------+ + + + | COMPLETE METABOLIC | Routin | 12/28/2018 | | Results for this | | SET | e | 7:11 AM | | procedure are in the | | (NA,K,CL,CO2,BUN,CRE | | PDT | | results section. | | AT,GLUC,CA,AST,ALT,B | | | | | | JARRED TOTAL,ALK | | | | | | PHOS,ALB,PROT TOTAL) | | | | | + +--------+ + + + | C-REACTIVE PROTEIN | Routin | 12/28/2018 | | Results for this | | | e | 7:11 AM | | procedure are in the | | | | PDT | | results section. | + +--------+ + + + | SEDIMENTATION RATE | Routin | 12/28/2018 | | Results for this | | | e | 7:11 AM | | procedure are in the | | | | PDT | | results section. | + +--------+ + + + | FERRITIN | Routin | 12/28/2018 | | Results for this | | | e | 7:11 AM | | procedure are in the | | | | PDT | | results section. | + +--------+ + + + | TSH | Routin | 12/28/2018 | | Results for this | | | e | 7:11 AM | | procedure are in the | | | | PDT | | results section. | + +--------+ + + + | CBC, WITH | Routin | 10/20/2018 | | Results for this | | DIFFERENTIAL | e | 10:15 AM | | procedure are in the | | | | PDT | | results section. | + +--------+ + + + | COMPLETE METABOLIC | Routin | 10/20/2018 | | Results for this | | SET | e | 10:15 AM | | procedure are in the | | (NA,K,CL,CO2,BUN,CRE | | PDT | | results section. | | AT,GLUC,CA,AST,ALT,B | | | | | | JARRED TOTAL,ALK | | | | | | PHOS,ALB,PROT TOTAL) | | | | | + +--------+ + + + | CBC, WITH | Routin | 08/18/2018 | | Results for this | | DIFFERENTIAL | e | 1:10 PM | | procedure are in the | | | | PDT | | results section. | + +--------+ + + + | COMPLETE METABOLIC | Routin | 08/18/2018 | | Results for this | | SET | e | 1:10 PM | | procedure are in the | | (NA,K,CL,CO2,BUN,CRE | | PDT | | results section. | | AT,GLUC,CA,AST,ALT,B | | | | | | JARRED TOTAL,ALK | | | | | | PHOS,ALB,PROT TOTAL) | | | | | + +--------+ + + + | CBC, WITH | Routin | 06/23/2018 | | Results for this | | DIFFERENTIAL | e | 11:15 AM | | procedure are in the | | | | PST | | results section. | + +--------+ + + + | COMPLETE METABOLIC | Routin | 06/23/2018 | | Results for this | | SET | e | 11:15 AM | | procedure are in the | | (NA,K,CL,CO2,BUN,CRE | | PST | | results section. | | AT,GLUC,CA,AST,ALT,B | | | | | | JARRED TOTAL,ALK | | | | | | PHOS,ALB,PROT TOTAL) | | | | | + +--------+ + + + documented in this encounter Results COMPLETE METABOLIC SET (NA,K,CL,CO2,BUN,CREAT,GLUC,CA,AST,ALT,BILI TOTAL,ALK PHOS,ALB,PROT TOTAL) (12/28/2018 7:11 AM PDT) + +---------+ + + + | Component | Value | Ref Range | Performed | Pathologist | | | | | At | Signature | + +---------+ + + + | GLUCOSE, | 102 (A) | 70 - 100 mg/dL | [facility] | | | [facility] | | | LAB - | | | (LAB) | | | [place] | | + +---------+ + + + | BUN, PLASMA | 18 | 6 - 23 mg/dL | [facility] | | | (LAB) | | | LAB - | | | | | | [place] | | + +---------+ + + + | CREATININE | 0.90 | 0.60 - 1.35 | [facility] | | | [facility] | | mg/dL | LAB - | | | (LAB) | | | [place] | | + +---------+ + + + | ALBUMIN, | 4.6 | 3.5 - 5.0 g/dL | [facility] | | | PLASMA | | | LAB - | | | (LAB) | | | [place] | | + +---------+ + + + | BILIRUBIN | 0.4 | 0.0 - 1.2 | [facility] | | | TOTAL | | Transcutaneous | LAB - | | | | | Bilirubinometer | [place] | | + +---------+ + + + | ALK PHOS | 63 | 31 - 130 U/L | [facility] | | | | | | LAB - | | | | | | [place] | | + +---------+ + + + | AST(SGOT) | 28 | 13 - 39 U/L | [facility] | | | | | | LAB - | | | | | | [place] | | + +---------+ + + + | SODIUM, | 137 | 132 - 143 | [facility] | | | PLASMA | | mmol/L | LAB - | | | (LAB) | | | [place] | | + +---------+ + + + | POTASSIUM, | 4.3 | 3.6 - 5.1 | [facility] | | | PLASMA | | mmol/L | LAB - | | | (LAB) | | | [place] | | + +---------+ + + + | ALT (SGPT) | 47 | 7 - 52 U/L | [facility] | | | | | | LAB - | | | | | | [place] | | + +---------+ + + + + + | Specimen | + + | Blood - Blood | | (substance) | + + + + + + + | Performing | Address | City/State/Zipcode | Phone Number | | Organization | | | | + + + + + | [facility] - | [address] | [place] | [phone] | | [place] | | | | + + + + + FERRITIN (12/28/2018 7:11 AM PDT) + +-------+ + + + | Component | Value | Ref Range | Performed | Pathologist | | | | | At | Signature | + +-------+ + + + | FERRITIN | 130.4 | 13 - 150 ng/mL | [facility] | | | | | | LAB - | | [address] | [place], [place] | [phone] | | [place] | | | | + + + + + TSH (12/28/2018 7:11 AM PDT) + +-------+ + + + | Component | Value | Ref Range | Performed | Pathologist | | | | | At | Signature | + +-------+ + + + | TSH | 1.10 | 0.270 - 4.20 | [facility] | | | | | uIU/ml | LAB - | | | | [...] | [facility] - | [address] | [place], [place] | [phone] | | [place] | | | | + + + + + C-REACTIVE PROTEIN (12/28/2018 7:11 AM PDT) + +-------+ + + + | Component | Value | Ref Range | Performed | Pathologist | | | | | At | Signature | + +-------+ + + + | C-REACTIVE | 3.1 | 0 - 5 mg/dl | [facility] [...] [address] | [place] | [phone] | | [place] | | | | + + + + + VITAMIN D, 25-HYDROXY, SERUM (12/28/2018 7:11 AM PDT) + +-------+ + + + | Component | Value | Ref Range | Performed | Pathologist | | | | | At | Signature | + +-------+ + + + | VITAMIN D | 42 | 30 - 100 ng/mL | [facility] | | | 25 HYDROXY | | | LAB - | | [...] [address] | [place], [place] | [phone] | | [place] | | | | + + + + + CBC, WITH DIFFERENTIAL (12/28/2018 7:11 AM PDT) + + + + + + | Component | Value | Ref Range | Performed | Pathologist | | | | | At | Signature | + + + + + + | WHITE CELL | 6.8 | 4.5 - 11.0 K/cu | [facility] | | | COUNT | | mm | LAB - | | | | | | [place] | | + + + + + + | HEMOGLOBIN | 13.2 | 12.0 - 16.0 | [facility] | | | | | g/dL | LAB - | | | | | | [place] | | + + + + + + | HEMATOCRIT | 39.6 | 35 - 45 % | [facility] | | | | | | LAB - | | | | | | [place] | | + + + + + + | PLATELET | 339 | 140 - 440 K/cu | [facility] | | | COUNT | | mm | LAB - | | | | | | [place] | | + + + + + + | NEUTROPHIL | 47.4 | 39 - 80 % | [facility] | | | % | | | LAB - | | | | | | [place] | | + + + + + + | LYMPHOCYTE | 45.0 (A) | 24 - 44 % | [facility] | | | % | | | LAB - | | | | | | [place] | | + + + + + + + + | Specimen | + + | Blood - Blood | | (substance) | + + + + + + + | Performing | Address | City/State/Zipcode | Phone Number | | Organization | | | | + + + + + | [facility] - | [address] | [place], [place] | [phone] | | [place] | | | | + + + + + SEDIMENTATION RATE (12/28/2018 7:11 AM PDT) + +-------+ + + + | Component | Value | Ref Range | Performed | Pathologist | | | | | At | Signature | + +-------+ + + + | SEDIMENTATI | 15 | 0 - 20 mm/hr | [facility] [...] - | [address] | [place] | [phone] | | [place] | | | | + + + + + CBC, WITH DIFFERENTIAL (10/20/2018 10:15 AM PDT) + +-------+ + + + | Component | Value | Ref Range | Performed | Pathologist | | | | | At | Signature | + +-------+ + + + | WHITE CELL | 7.3 | 4.5 - 11.0 K/cu | [facility] | | | COUNT | | mm | [facility]OSPITAL | | + +-------+ + + + | HEMOGLOBIN | 12.5 | 12.0 - 16.0 | [facility] | | | | | g/dL | HOSPITAL | | + +-------+ + + + | HEMATOCRIT | 38.1 | 35 - 45 % | [facility] | | | | | | [facility] | | + +-------+ + + + | PLATELET | 335 | 140 - 440 K/cu | [facility] | | | COUNT | | mm | HOSPITAL | | + +-------+ + + + | NEUTROPHIL | 48.5 | 39 - 80 % | [facility] | | | % | | | [facility] | | + +-------+ + + + | LYMPHOCYTE | 42.6 | 24 - 44 % | [facility] | | | % | | | [facility] | | + +-------+ + + + + + | Specimen | + + | Blood - Blood | | (substance) | + + + +---------+ + + | Performing | Address | City/State/Zipcode | Phone Number | | Organization | | | | + +---------+ + + | [facility] | | | [phone] | | [facility] | | | | + +---------+ + + | [facility] | | [place], [place] | [phone] | | [facility]OSPITAL | | | | + +---------+ + + COMPLETE METABOLIC SET (NA,K,CL,CO2,BUN,CREAT,GLUC,CA,AST,ALT,BILI TOTAL,ALK PHOS,ALB,PROT TOTAL) (10/20/2018 10:15 AM PDT) + +---------+ + + + | Component | Value | Ref Range | Performed | Pathologist | | | | | At | Signature | + +---------+ + + + | GLUCOSE, | 109 (A) | 70 - 100 mg/dL | [facility] | | | [facility] | | | [facility] | | | (LAB) | | | | | + +---------+ + + + | BUN, PLASMA | 15 | 6 - 23 mg/dL | [facility] | | | (LAB) | | | [facility] | | + +---------+ + + + | CREATININE | 0.77 | 0.60 - 1.35 | [facility] | | | [facility] | | mg/dL | [facility]OSPITAL | | | (LAB) | | | | | + +---------+ + + + | ALBUMIN, | 4.5 | 3.5 - 5.0 g/dL | [facility] | | | [facility] | | | [facility] | | | (LAB) | | | | | + +---------+ + + + | BILIRUBIN | 0.3 | 0.0 - 1.2 | [facility] | | | TOTAL | | Transcutaneous | HOSPITAL | | | | | Bilirubinometer | | | + +---------+ + + + | ALK PHOS | 65 | 31 - 130 U/L | [facility] | | | | | | [facility] | | + +---------+ + + + | AST(SGOT) | 25 | 13 - 39 U/L | [facility] | | | | | | [facility] | | + +---------+ + + + | SODIUM, | 136 | 132 - 143 | [facility] | | | PL[facility] | | mmol/L | HOSPITAL | | | (LAB) | | | | | + +---------+ + + + | POTASSIUM, | 4.6 | 3.6 - 5.1 | [facility] | | | [facility] | | mmol/L | HOSPITAL | | | (LAB) | | | | | + +---------+ + + + | ALT (SGPT) | 35 | 7 - 52 U/L | [facility] | | | | | | [facility] | | + +---------+ + + + + + | Specimen | + + | Blood - Blood | | (substance) | + + + +---------+ + + | Performing | Address | City/State/Zipcode | Phone Number | | Organization | | | | + +---------+ + + | [facility] | | | [phone] | | [facility] | | | | + +---------+ + + | [facility] | | [place] | [phone] | | HOSPITAL | | | | + +---------+ + + COMPLETE METABOLIC SET (NA,K,CL,CO2,BUN,CREAT,GLUC,CA,AST,ALT,BILI TOTAL,ALK PHOS,ALB,PROT TOTAL) (08/18/2018 1:10 PM PDT) + +-------+ + + + | Component | Value | Ref Range | Performed | Pathologist | | | | | At | Signature | + +-------+ + + + | GLUCOSE, | 98 | 70 - 100 mg/dL | [facility] | | | [facility] | | | [facility] | | | (LAB) | | | | | + +-------+ + + + | BUN, PLASMA | 17 | 6 - 23 mg/dL | [facility] | | | (LAB) | | | [facility] | | + +-------+ + + + | CREATININE | 0.79 | 0.60 - 1.35 | [facility] | | | PL[facility] | | mg/dL | HOSPITAL | | | (LAB) | | | | | + +-------+ + + + | ALBUMIN, | 4.7 | 3.5 - 5.0 g/dL | [facility] | | | [facility] | | | [facility] | | | (LAB) | | | | | + +-------+ + + + | BILIRUBIN | 0.3 | 0.0 - 1.2 | [facility] | | | TOTAL | | Transcutaneous | HOSPITAL | | | | | Bilirubinometer | | | + +-------+ + + + | ALK PHOS | 74 | 31 - 130 U/L | [facility] | | | | | | [facility] | | + +-------+ + + + | AST(SGOT) | 24 | 13 - 39 U/L | [facility] | | | | | | [facility] | | + +-------+ + + + | SODIUM, | 135 | 132 - 143 | [facility] | | | PL[facility]MA | | mmol/L | HOSPITAL | | | (LAB) | | | | | + +-------+ + + + | POTASSIUM, | 3.9 | 3.6 - 5.1 | [facility] | | | PL[facility] | | mmol/L | HOSPITAL | | | (LAB) | | | | | + +-------+ + + + | ALT (SGPT) | 47 | 7 - 52 U/L | [facility] | | | | | | [facility] | | + +-------+ + + + + + | Specimen | + + | Blood - Blood | | (substance) | + + + +---------+ + + | Performing | Address | City/State/Zipcode | Phone Number | | Organization | | | | + +---------+ + + | [facility] | | | [phone] | | [facility] | | | | + +---------+ + + | [facility] | | [place], [place] | [phone] | | [facility]OSPITAL | | | | + +---------+ + + CBC, WITH DIFFERENTIAL (08/18/2018 1:10 PM PDT) + +-------+ + + + | Component | Value | Ref Range | Performed | Pathologist | | | | | At | Signature | + +-------+ + + + | WHITE CELL | 8.7 | 4.5 - 11.0 K/cu | [facility] | | | COUNT | | mm | HOSPITAL | | + +-------+ + + + | HEMOGLOBIN | 13.1 | 12.0 - 16.0 | [facility] | | | | | g/dL | HOSPITAL | | + +-------+ + + + | HEMATOCRIT | 39.7 | 35 - 45 % | [facility] | | | | | | [facility] | | + +-------+ + + + | PLATELET | 346 | 140 - 440 K/cu | [facility] | | | COUNT | | mm | HOSPITAL | | + +-------+ + + + | NEUTROPHIL | 50.9 | 39 - 80 % | [facility] | | | % | | | [facility]OS[facility]ITAL | | + +-------+ + + + | LYMPHOCYTE | 41.3 | 24 - 44 % | [facility] | | | % | | | [facility] | | + +-------+ + + + + + | Specimen | + + | Blood - Blood | | (substance) | + + + +---------+ + + | Performing | Address | City/State/Zipcode | Phone Number | | Organization | | | | + +---------+ + + | [facility] | | | [phone] | | [facility]ITAL | | | | + +---------+ + + | [facility] | | [place] | [phone] | | HOSPITAL | | | | + +---------+ + + COMPLETE METABOLIC SET (NA,K,CL,CO2,BUN,CREAT,GLUC,CA,AST,ALT,BILI TOTAL,ALK PHOS,ALB,PROT TOTAL) (06/23/2018 11:15 AM PST) + +---------+ + + + | Component | Value | Ref Range | Performed | Pathologist | | | | | At | Signature | + +---------+ + + + | GLUCOSE, | 104 (A) | 70 - 100 mg/dL | [facility] | | | [facility] | | | [facility] | | | (LAB) | | | | | + +---------+ + + + | BUN, PLASMA | 17 | 6 - 23 mg/dL | [facility] | | | (LAB) | | | [facility] | | + +---------+ + + + | CREATININE | 0.81 | 0.60 - 1.35 | [facility] | | | PL[facility] | | mg/dL | HOSPITAL | | | (LAB) | | | | | + +---------+ + + + | ALBUMIN, | 4.5 | 3.5 - 5.0 g/dL | [facility] | | | PL[facility] | | | [facility] | | | (LAB) | | | | | + +---------+ + + + | BILIRUBIN | 0.3 | 0.0 - 1.2 | [facility] | | | TOTAL | | Transcutaneous | HOSPITAL | | | | | Bilirubinometer | | | + +---------+ + + + | ALK PHOS | 67 | 31 - 130 U/L | [facility] | | | | | | [facility] | | + +---------+ + + + | AST(SGOT) | 19 | 13 - 39 U/L | [facility] | | | | | | [facility] | | + +---------+ + + + | SODIUM, | 137 | 132 - 143 | [facility] | | | PL[facility] | | mmol/L | HOSPITAL | | | (LAB) | | | | | + +---------+ + + + | POTASSIUM, | 3.9 | 3.6 - 5.1 | [facility] | | | [facility] | | mmol/L | HOSPITAL | | | (LAB) | | | | | + +---------+ + + + | ALT (SGPT) | 28 | 7 - 52 U/L | [facility] | | | | | | [facility] | | + +---------+ + + + + + | Specimen | + + | Blood - Blood | | (substance) | + + + +---------+ + + | Performing | Address | City/State/Zipcode | Phone Number | | Organization | | | | + +---------+ + + | [facility] | | | [phone] | | [facility]ITAL | | | | + +---------+ + + | [facility] | | [place], [place] | [phone] | | HOSPITAL | | | | + +---------+ + + CBC, WITH DIFFERENTIAL (06/23/2018 11:15 AM PST) + + + + + + | Component | Value | Ref Range | Performed | Pathologist | | | | | At | Signature | + + + + + + | WHITE CELL | 6.6 | 4.5 - 11.0 K/cu | [facility] | | | COUNT | | mm | HOSPITAL | | + + + + + + | HEMOGLOBIN | 12.6 | 12.0 - 16.0 | [facility] | | | | | g/dL | HOSPITAL | | + + + + + + | HEMATOCRIT | 38.2 | 35 - 45 % | [facility] | | | | | | [facility] | | + + + + + + | PLATELET | 345 | 140 - 440 K/cu | [facility] | | | COUNT | | mm | HOSPITAL | | + + + + + + | NEUTROPHIL | 43.0 | 39 - 80 % | [facility] | | | % | | | [facility]OS[facility]ITAL | | + + + + + + | LYMPHOCYTE | 50.1 (A) | 24 - 44 % | [facility] | | | % | | | [facility] | | + + + + + + + + | Specimen | + + | Blood - Blood | | (substance) | + + + +---------+ + + | Performing | Address | City/State/Zipcode | Phone Number | | Organization | | | | + +---------+ + + | [facility] | | | [phone] | | [facility]ITAL | | | | + +---------+ + + | [facility] | | [place] | [phone] | | HOSPITAL | | | | + +---------+ + + documented in this encounter Visit Diagnoses + + | Diagnosis | + + | Other ulcerative colitis without complication (HCC) - Primary | + + | Fatigue, unspecified type | + + documented in this encounter"
--- OUTSIDE RECORDS SUMMARY | ~2019-10-11 | XMS | Encounter Summary ---
Demographics + + + | Address | [address] | | | [place] [address] | + + + | Home Phone | | + + + | Preferred Language | Unknown | + + + | Marital Status | | + + + | Christianity Affiliation | Unknown | + + + | Race | White | + + + | Ethnic Group | Not or | + + + Author + + + | Author | [facility] | + + + | Organization | [facility] | + + + | Address | Unknown | + + + | Phone | Unavailable | + + + Support + + + + + | Name | Relationship | Address | Phone | + + + + + | Bob Benites | ECON | [address] | | | | | [place] | | | | | [address] | | + + + + + Care Team Providers + +------+ + | Care Coffee Roaster Helper Name | Role | Phone | + +------+ + | Rohit Olguin MD | PCP | | + +------+ + Reason for Visit + + + | Reason | Comments | + + + | Insurance | Remicade approval - [employer] | | Authorization | | + + + Encounter Details +--------+ + + + + | Date | Type | Department | Care Team | Description | +--------+ + + + + | 09/08/ | Abstract | [facility] | Stevo Hart, | Insurance | | 2015 | | [facility] at [facility] [id number] | MD | Authorization | | | | [address] | | (Remicade approval - | | | | Mailcode: Center | | [employer]) | | | | for Health and | | | | | | [facility] [address] | | | | | | [place], [place] | | | | | | [address] | | | | | | [phone] | | | +--------+ + + + [...]
--- OUTSIDE RECORDS SUMMARY | ~2019-10-11 | XMS | Encounter Summary ---
Demographics + + + | Address | [address] | | | [place] [address] | + + + | Home Phone | | + + + | Preferred Language | Unknown | + + + | Marital Status | | + + + | Alevism Affiliation | Unknown | + + + [...] + | Bob Benites | ECON | [address] | | | | | [place] | | | | | [address] | | + + + + + Care Team Providers + +------+ + | Care Car Tracer Name | Role | Phone | + +------+ + | Rohit Olguin MD | PCP | | + +------+ + Reason for Visit + + + | Reason | Comments | + + + | Medical Records | 07/28/2015 UA; 07/18/2015 CMP, ESR; 07/31/2015 CT A/P, 07/15/2015 XR | | Review | Abdomen, 04/09/2015 CT Abdomen - [facility] | + + + | Blood Test Results | HERMAN#[id number] | + + + Encounter Details +--------+ + + + + | Date | Type | Department | Care Team | Description | +--------+ + + + + | 08/05/ | Abstract | [facility] | Stevo Hart, | Medical Records | | 2016 | | [facility] at [facility] [address] | MD | Review (07/28/2015 | | | | [address] | | UA; 07/18/2015 CMP, | | | | Mailcode: [place] | | ESR; 07/31/2015 CT | | | | for Health and | | A/P, 07/15/2015 XR | | | | Healing, [address] | | Abdomen, 04/09/2015 | | | | [place], [place] | | CT Abdomen - St | | | | [address] | | [place]; Blood Test | | | | [phone] | | Results | | | | | | (IA#[id number]) | +--------+ + + + + Social [...] + | COMPLETE METABOLIC | Routin | 07/18/2015 | | Results for this | | SET | e | 9:47 AM | | procedure are in the | | (NA,K,CL,CO2,BUN,CRE | | PST | | results section. | | AT,GLUC,CA,AST,ALT,B | | | | | | JARRED TOTAL,ALK | | | | | | PHOS,ALB,PROT TOTAL) | | | | | + +--------+ + + + | SEDIMENTATION RATE | Routin | 07/18/2015 | | Results for this | | | e | 9:47 AM | | procedure are in the | | | | PST | | results section. | + +--------+ + + + documented in this encounter Results SEDIMENTATION RATE (07/18/2015 9:47 AM PST) + +-------+ + + + | Component | Value | Ref Range | Performed | Pathologist | | | | | At | Signature | + +-------+ + + + | ESR (SED | 9 | 0 - 20 mm/hr | [facility] | | | RATE) | | | [facility] | | + +-------+ + + + + + | Specimen | + + | Blood - Blood | + + + +---------+ + + | Performing | Address | City/State/Zipcode | Phone Number | | Organization | | | | + +---------+ + + | [facility] | | | [phone] | | [facility] | | | | + +---------+ + + | [facility] | | [place], [place] | [phone] | | [facility]OSPITAL | | | | + +---------+ + + COMPLETE METABOLIC SET (NA,K,CL,CO2,BUN,CREAT,GLUC,CA,AST,ALT,BILI TOTAL,ALK PHOS,ALB,PROT TOTAL) (07/18/2015 9:47 AM PST) + +---------+ + + + | Component | Value | Ref Range | Performed | Pathologist | | | | | At | Signature | + +---------+ + + + | GLUCOSE, | 101 (A) | 70 - 100 mg/dL | [facility] | | | PLASMA | | | [facility]OSPITAL | | | (LAB) | | | | | + +---------+ + + + | BUN, PLASMA | 13 | 6 - 23 mg/dL | [facility] | | | (LAB) | | | [facility]OS[facility]ITAL | | + +---------+ + + + | CREATININE | 0.74 | 0.60 - 1.35 | [facility] | | | PLASMA | | mg/dL | HOSPITAL | | | (LAB) | | | | | + +---------+ + + + | ALBUMIN, | 4.8 | 3.5 - 5.0 g/dL | [facility] | | | PLASMA | | | HOSPITAL | | | (LAB) | | | | | + +---------+ + + + | BILIRUBIN | 0.4 | 0.0 - 1.2 | [facility] | | | TOTAL | | Transcutaneous | HOSPITAL | | | | | Bilirubinometer | | | + +---------+ + + + | ALK PHOS | 58 | 30 - 128 U/L | [facility] | | | | | | [facility]OS[facility] | | + +---------+ + + + | AST(SGOT) | 20 | 13 - 39 U/L | [facility] | | | | | | [facility]ITAL | | + +---------+ + + + | SODIUM, | 136 | 132 - 143 | [facility] | | | PLASMA | | mmol/L | HOSPITAL | | | (LAB) | | | | | + +---------+ + + + | POTASSIUM, | 4.1 | 3.6 - 5.1 | [facility] | | | PLASMA | | mmol/L | HOSPITAL | | | (LAB) | | | | | + +---------+ + + + | ALT (SGPT) | 22 | 7 - 52 U/L | [facility] | | | | | | [facility] | | + +---------+ + + + + + | Specimen | + + | Blood - Blood | + + + +---------+ + + | Performing | Address | City/State/Zipcode | Phone Number | | Organization | | | | + +---------+ + + | [facility] | | | [phone] | | [facility] | | | | + +---------+ + + | [facility] | | [place], [place] | [phone] | | HOSPITAL | | | | + +---------+ + + documented in this encounter Visit Diagnoses Not on filedocumented in this encounter"
--- OUTSIDE RECORDS SUMMARY | ~2019-10-11 | XMS | Encounter Summary ---
Demographics + + + | Address | [address] | | | [place] [address] | + + + | Home Phone | | + + + | Preferred Language | Unknown | + + + | Marital Status | | + + + | Judaism Affiliation | Unknown | + + + | Race | White | + + + | Ethnic Group | Not or | + + + Author + + + | Organization | Unknown | + + + | Address | Unknown | + + + | Phone | Unavailable | + + + Support + + + + + | Name | Relationship | Address | Phone | + + + + + | Bob Benites | ECON | [address] | | | | | [place] | | | | | [address] | | + + + + + Care Team Providers + +------+ + | Care Oil Expert Name | Role | Phone | + +------+ + | Rohit Olguin MD | PCP | | + +------+ + Encounter Details +--------+--------+ + + + | Date | Type | Department | Care Team | Description | +--------+--------+ + + + | 01/10/ | Travel | | | | | 2019 | | | | | +--------+--------+ + + + [...]
--- OUTSIDE RECORDS SUMMARY | ~2019-10-11 | XMS | Encounter Summary ---
Demographics + + + | Address | [address] | | | [place] [address] | + + + | Home Phone [...] + | Bob Benites | ECON | [address] | | | | | [place] | | | | | [address] | | + + + + + Care Team Providers + +------+ + | Care Brazing Machine Tender Name | Role | Phone | + [...] | | 2014 | | Center at [facility] [address] | MD | (nortriptyline) | | | | [address] | | | | | | Mailcode: [place] | | | | | | [facility] Health and | | | | | | [facility], [place] [address] | | | | | | [place], [place] | | | | | | [address] | | | | | | [phone] | | | +--------+--------+ + + + [...]
--- OUTSIDE RECORDS SUMMARY | ~2019-10-11 | XMS | Encounter Summary ---
Demographics + + + | Address | [address] | | | [place] [address] | + + + | Home Phone | | + + + | Preferred Language | Unknown | + + + | Marital Status | | + + + | Amish Affiliation | Unknown | + + + [...] + | Bob Benites | ECON | [address] | | | | | [place] | | | | | [address] | | + + + + + Care Team Providers + +------+ + | Care Political Science Instructor Name | Role | Phone | + +------+ + | Rohit Olguin MD | PCP | | + +------+ + Reason for Visit + + + | Reason | Comments | + + + | Prior Authorization | | | Request - Medication | | + + + Encounter Details +--------+ + + + + | Date | Type | Department | Care Team | Description | +--------+ + + + + | 11/03/ | Telephone | Digestive Health | Stevo Hart, | Prior Authorization | | 2017 | | Center at [facility] [address] | MD | Request - Medication | | | | [address] | | | | | | Mailcode: [place] | | | | | | [facility] Health and | | | | | | [facility] [address] | | | | | | [place], [place] | | | | | | [address] | | | | | | [phone] | | | +--------+ + + + [...]
--- OUTSIDE RECORDS SUMMARY | ~2019-10-11 | XMS | Encounter Summary ---
Demographics + + + | Address | [address] | | | [place] [address] | + + + | Home Phone | | + + + | Preferred Language | Unknown | + + + | Marital Status | | + + + | Quaker Affiliation | Unknown | + + + | Race | White | + + + | Ethnic Group | Not or | + + + Author + + + | Author | [facility] | + + + | Organization | [facility] | + + + | Address | Unknown | + + + | Phone | Unavailable | + + + Support + + + + + | Name | Relationship | Address | Phone | + + + + + | Bob Benites | ECON | [address] | | | | | [place] | | | | | [address] | | + + + + + Care Team Providers + +------+ + | Care Client Support Administrator Name | Role | Phone | + +------+ + | Rohit Olguin MD | PCP | | + +------+ + Encounter Details +--------+------+ + + + | Date | Type | Department | Care Team | Description | +--------+------+ + + + | 03/30/ | Lab | Laboratory at [facility] | | Ulcerative colitis | | 2012 | | [address] | | [facility] Abdominal | | | | [place], [place] | | pain | | | | [address] | | | | | | [phone] | | | +--------+------+ + + + Social History [...] | + +--------+ + + + | CBC AND AUTO DIFF | Routin | 03/30/2013 | Ulcerative colitis | Results for this | | | e | 12:47 PM | (HCC) Abdominal | procedure are in the | | | | PST | pain | results section. | + +--------+ + + + | CBC, WITH | Routin | 03/30/2013 | Ulcerative colitis | Results for this | | DIFFERENTIAL | e | 12:47 PM | (HCC) Abdominal | procedure are in the | | | | PST | pain | results section. | + +--------+ + + + | C-REACTIVE PROTEIN | Routin | 03/30/2013 | Ulcerative colitis | Results for this | | | e | 12:47 PM | ([facility] Abdominal | procedure are in the | | | | PST | pain | results section. | + +--------+ + + + | SEDIMENTATION RATE | Routin | 03/30/2013 | Ulcerative colitis | Results for this | | | e | 12:47 PM | ([facility]) Abdominal | procedure are in the | | | | PST | pain | results section. | + +--------+ + + + | FERRITIN | Routin | 03/30/2013 | Ulcerative colitis | Results for this | | | e | 12:47 PM | (HCC) Abdominal | procedure are in the | | | | PST | pain | results section. | + +--------+ + + + documented in this encounter Results CBC AND AUTO DIFF (03/30/2013 12:47 PM PST) + + + + + + | Component | Value | Ref Range | Performed | Pathologist | | | | | At | Signature | + + + + + + | WHITE CELL | 10.15 | 4.40 - 11.00 | [facility] | | | COUNT | | K/cu mm | LABORATORY | | | | | | SERVICES, | | | | | | CORE | | + + + + + + | RED CELL | 4.82 | 4.00 - 5.20 | [facility] | | | COUNT | | M/cu mm | LABORATORY | | | | | | SERVICES, | | | | | | CORE | | + + + + + + | HEMOGLOBIN | 12.6 | 12.0 - 16.0 | [facility] | | | | | g/dL | LABORATORY | | | | | | SERVICES, | | | | | | CORE | | + + + + + + | HEMATOCRIT | 39.8 | 36.0 - 46.0 % | [facility] | | | | | | LABORATORY | | | | | | SERVICES, | | | | | | CORE | | + + + + + + | MCV | 82.6 | 80.0 - 96.0 fL | [facility] | | | | | | LABORATORY | | | | | | SERVICES, | | | | | | CORE | | + + + + + + | MCHC | 31.7 (L) | 33.0 - 35.5 | [facility] | | | | | g/dL | LABORATORY | | | | | | SERVICES, | | | | | | CORE | | + + + + + + | RDW SD | 42.0 | 35.1 - 46.3 fL | [facility] | | | | | | LABORATORY | | | | | | SERVICES, | | | | | | CORE | | + + + + + + | PLATELET | 336 | 150 - 400 K/cu | [facility] | | | COUNT | | mm | LABORATORY | | | | | | SERVICES, | | | | | | CORE | | + + + + + + | MPV | 10.1 | 9.7 - 12.3 fL | [facility] | | | | | | LABORATORY | | | | | | SERVICES, | | | | | | CORE | | + + + + + + | NRBC% | 0.0 | 0.0 - 0.3 % | [facility] | | | | | | LABORATORY | | | | | | SERVICES, | | | | | | CORE | | + + + + + + | NRBC# | 0.00 | 0.00 - 0.02 | [facility] | | | | | K/cu mm | LABORATORY | | | | | | SERVICES, | | | | | | CORE | | + + + + + + | NEUTROPHIL | 47.0 (L) | 50.0 - 70.0 % | [facility] | | | % | | | LABORATORY | | | | | | SERVICES, | | | | | | CORE | | + + + + + + | LYMPHOCYTE | 43.9 (H) | 18.0 - 42.0 % | [facility] | | | % | | | LABORATORY | | | | | | SERVICES, | | | | | | CORE | | + + + + + + | MONOCYTE % | 7.2 | 3.5 - 9.0 % | [facility] | | | | | | LABORATORY | | | | | | SERVICES, | | | | | | CORE | | + + + + + + | EOS % | 1.2 | 1.0 - 3.0 % | [facility] | | | | | | LABORATORY | | | | | | SERVICES, | | | | | | CORE | | + + + + + + | BASO % | 0.4 | 0.0 - 2.0 % | [facility] | | | | | | LABORATORY | | | | | | SERVICES, | | | | | | CORE | | + + + + + + | IG% | 0.3 | 0.0 - 0.6 % | [facility] | | | | | | LABORATORY | | | | | | SERVICES, | | | | | | CORE | | + + + + + + | NEUTROPHIL | 4.77 | 1.80 - 7.70 | [facility] | | | # | | K/cu mm | LABORATORY | | | | | | SERVICES, | | | | | | CORE | | + + + + + + | LYMPHOCYTE | 4.46 | 1.00 - 4.80 | [facility] | | | # | | K/cu mm | LABORATORY | | | | | | SERVICES, | | | | | | CORE | | + + + + + + | MONOCYTE # | 0.73 | 0.10 - 0.90 | [facility] | | | | | K/cu mm | LABORATORY | | | | | | SERVICES, | | | | | | CORE | | + + + + + + | EOS # | 0.12 | 0.00 - 0.50 | [facility] | | | | | K/cu mm | LABORATORY | | | | | | SERVICES, | | | | | | CORE | | + + + + + + | BASO # | 0.04 | 0.00 - 0.10 | [facility] | | | | | K/cu mm | LABORATORY | | | | | | SERVICES, | | | | | | CORE | | + + + + + + | IG# | 0.03 | 0.00 - 0.03 | [facility] | | | | | K/cu mm | LABORATORY | | | | | | SERVICES, | | | | | | CORE | | + + + + + + + + | Specimen | + + | Blood - Blood | + + + + + | Narrative | Performed At | + + + | Immature Granulocyes (IG) include metamyelocytes, myelocytes | [facility] | | and promyelocytes. Bands are not included in the IG count. New | LABORATORY | | methodology and reference ranges for some CBC/Differential analytes in | [facility], CORE | | effect on 12/01/12. | | + + + + + + + + | Performing | Address | City/State/Zipcode | Phone Number | | Organization | | | | + + + + + | [facility] | [address] | [place] [address] | | | SERVICES, CORE | [address] | | | + + + + + C-REACT PRTN (FOR INFLAMMATION) (03/30/2013 12:47 PM [...] + | [facility] - | [address] | [place] [address] | | | [place] | | | | + + + [...] | + + + + + | [facility] | [address] | [place] [address] | | | SERVICES, CORE | [address] [...] [facility] | [address] | [place] [address] | | | [address] | [address] | | | + + + + + documented in this encounter Visit Diagnoses + + | Diagnosis | + + | Ulcerative colitis (HCC) Ulcerative colitis, unspecified | + + | Abdominal pain | + + documented in this encounter"
--- OUTSIDE RECORDS SUMMARY | ~2019-10-11 | XMS | Encounter Summary ---
Demographics + + + | Address | [address] | | | [place] [address] | + + + | Home Phone [...] + | Bob Benites | ECON | [address] | | | | | [place] | | | | | [address] | | + + + + + Care Team Providers + +------+ + | Care Community Services Manager Name | Role | Phone | + +------+ + | Rohit Olguin MD | PCP | | + +------+ + Encounter Details +--------+ + + + + | Date | Type | Department | Care Team | Description | +--------+ + + + + | 09/19/ | Abstract | Dig[facility]ive Health | Clinic, | | | 2012 | | [facility] [address] | Gastroenterology | | | | | [address] | | | | | | Mailcode: [facility] | | | | | | for Health and | | | | | | Healing, [address] | | | | | | [place], [place] | | | | | | [address] | | | | | | [phone] | | | +--------+ + + + [...]
--- OUTSIDE RECORDS SUMMARY | ~2019-10-11 | XMS | Clinical Summary ---
Demographics + + + | Address | [address] | | | [place] [address] | + + + | Home Phone | | + + + | Preferred Language | Unknown | + + + | Marital Status | | + + + | Gnosticism Affiliation | Unknown | + + + | Race | Unknown | + + + | Ethnic Group | Unknown | + + + Author + + + | Author | [facility] | | | and [place] | + + + | Organization | [facility] | | | and [...] Team Providers + +------+ + | Care Hot Repairman Name | Role | Phone | + +------+ + | Rohit Olguin MD | PCP | | + +------+ + Allergies Not on File Medications Not on file Active Problems Not on file Family History + + +------+ + | Medical History | Relation | Name | Comments | + + +------+ + | Diabetes, NIDDM | Father | | | + + +------+ + | Diabetes, NIDDM | Maternal | | | | | Grandfath | | | | | er | | | + + +------+ + | Other (see comment) | Maternal | | Renal Disease | | | Grandfath | | | | | er | | | + + +------+ + | Hypertension | Maternal | | | | | Grandmoth | | | | | er | | | + + +------+ + | Stroke | Maternal | | | | | Grandmoth | | | | | er | | | + + +------+ + | Anxiety disorder | Mother | | | + + +------+ + | Depression | Mother | | | + + +------+ + | Hypertension | Mother | | | + + +------+ + | Endometriosis | Sister | | | + + +------+ + | Urolithiasis | Sister | | | + + +------+ + | Endometriosis | Sister | | | + + +------+ + | Endometriosis | Sister | | | + + +------+ + | Endometriosis | Sister | | | + + +------+ + | Endometriosis | Sister | | | + + +------+ + + +------+ + + | Relation | Name | Status | Comments | + +------+ + + | Brother | | Alive | | + +------+ + + | Father | | Alive | | + +------+ + + | Father | | | | + +------+ + + | Maternal Grandfather | | | | + +------+ + + | Maternal Grandfather | | | | + +------+ + + | Maternal Grandmother | | | | + +------+ + + | Maternal Grandmother | | | | + +------+ + + | Mother | | Alive | | + +------+ + + | Mother | | | | + +------+ + + | Paternal Grandfather | | | | + +------+ + + | Paternal Grandmother | | | | + +------+ + + | Sister | | Alive | | + +------+ + + | Sister | | Alive | | + +------+ + + | Sister | | Alive | | + +------+ + + | Sister | | Alive | | + +------+ + + | Sister | | Alive | | + +------+ + + | Sister | | | | + +------+ + + | Sister | | | | + +------+ + + | Sister | | | | + +------+ + + | Sister | | | | + +------+ + + | Sister | | | | + +------+ + + | Son | | Alive | | + +------+ + + | Son | | Alive | | + +------+ + + Social History + +-------+ +--------+------+ | Tobacco Use | Types | Packs/Day | Years | Date | | | | | Used | | + +-------+ +--------+------+ | Never Smoker | | | | | + [...] + + + | Blood Pressure | 127/82 | 10/08/2015 11:29 AM | | | | | PDT | | + + + + + | Pulse | 91 | 10/08/2015 11:29 AM | | | | | PDT | | + + + + + | Temperature | 36.4 C (97.5 F) | 10/08/2015 11:29 AM | | | | | PDT | | + + + + + | Respiratory Rate | - | - | | + + + + + | Oxygen Saturation | - | - | | + + + + + | Inhaled Oxygen | - | - | | | Concentration | | | | + + + + + | Weight | 95.7 kg (211 lb) | 10/08/2015 11:29 AM | | | | | PDT | | + + + + + | Height | - | - | | + + + + + | Body Mass Index | - | - | | + + + + + Plan of Treatment + + + + + | Health Maintenance | Due Date | Last Done | Comments | + + + + + | Vaccine: | | | | | Dtap/Tdap/Td (1 - | 0 | | | | Tdap) | | | | + + + + + | Cervical Cancer | | | | | Screening (Pap) | 9 | | | + + + + + | Vaccine: Influenza | | | | | (Season Ended) | 0 | | | + + + + + Results Not on filefrom Last 3 Months Insurance +---------+--------+ +--------+ +---------+------+ | Payer | Benefi | Subscriber | Effect | Phone | Address | Type | | | t Plan | ID | vega | | | | | | / | | Dates | | | | | | Group | | | | | | +---------+--------+ +--------+ +---------+------+ | PREMERA | PREMER | [id number] | 05/16/19 | [phone] | | PPO | | | A | 3 | 18-Pre | 0 | | | | | PREFER | | sent | | | | | | RED | | | | | | +---------+--------+ +--------+ +---------+------+ | BCBS | BCBS | [id number] | 05/16/19 | | | PPO | | | OOS | 3 | 18-Pre | | | | | | PPO | | sent | | | | +---------+--------+ +--------+ +---------+------+ + +--------+ +--------+ + + | Guarantor Name | Accoun | Relation to | Date | Phone | Billing Address | | | t Type | Patient | of | | | | | | | | | | + +--------+ +--------+ + + | Kami Benites | Person | Self [birth year] | [address] | | | al/Fam | | 1980 | | [place] | | | [place] | | | 2 (Home) | [phone] | + +--------+ +--------+ + + | Kami Benites | Person | Self | [birth year] | [address] | | | al/Fam | | 1980 | | [place] | | | [place] | | | 2 (Home) | [phone] | | | | | | [phone] | | | | | | | 4 (Work) | | + +--------+ +--------+ + + Advance Directives + + + + + | Type | Date Recorded | Patient | Explanation | | | | Local [employer] | | + + + + + | Power of | | | | | Sandblast [employer] Shotblast Equipment Tender | | | | + + + + + | Advance | | | | | Directive | | | | + + + + +"
--- OUTSIDE RECORDS SUMMARY | ~2019-10-11 | XMS | Encounter Summary ---
Demographics + + + | Address | [address] | | | [place] [address] | + + + | Home Phone | | + + + | Preferred Language | Unknown | + + + | Marital Status | | + + + | Sikh Affiliation | Unknown | + + + | Race | Unknown | + + + | Ethnic Group | Unknown | + + + Author + + + | Author | [facility] | | | and [place] | + + + | Organization | [facility] | | | and [...] Team Providers + +------+ + | Care Regional Sales Director Name | Role | Phone | + +------+ + PCP | Unavailable | + +------+ + Encounter Details +--------+ + + + + | Date | Type | Department | Care Team | Description | +--------+ + + + + | 09/27/ | Hospital | [facility] | | | | 2007 | Encounter | MED CTR GENERIC OP | | | | | | CONV DEPT [address] | | | | | | [address], | | | | | | [place] [address] | | | | | | [phone] | | | +--------+ + + + [...]
--- OUTSIDE RECORDS SUMMARY | ~2019-10-11 | XMS | Encounter Summary ---
Demographics + + + | Address | [address] | | | [place] [address] | + + + | Home Phone [...] + | Bob Benites | ECON | [address] | | | | | [place] | | | | | [address] | | + + + + + Care Team Providers + +------+ + | Care Instructor Dramatic Arts Name | Role | Phone | + [...] | 2016 | on | Center at [facility] [address] | MD | (11/07/2015 CRP, ESR | | | | [address] | | - [facility]); Lab | | | | Mailcode: Center | | Results (11/07/2015 | | | | for Health and | | Calprotectin - [facility]) | | | | [place], [facility] [address] | | | | | | [place], [place] | | | | | | [address] | | | | | | [phone] | | | +--------+ + + + [...] - | [address] | [place], [place] | [phone] | | [place] | | | | [...] [address] | [place], [place] | [phone] | | [place] | | | | [...] | + + + + + | [facility] | [address] | [place], [place] | [phone] | | | | [address] | | + + + + + documented in this encounter Visit Diagnoses Not on filedocumented in this encounter"
--- OUTSIDE RECORDS SUMMARY | ~2019-10-11 | XMS | Encounter Summary ---
Demographics + + + | Address | [address] | | | [place] [address] | + + + | Home Phone | | + + + | Preferred Language | Unknown | + + + | Marital Status | | + + + | Evangelical Affiliation | Unknown | + + + | Race | White | + + + | Ethnic Group | Not or | + + + Author + + + | Author | [facility] | + + + | Organization | [facility] | + + + | Address | Unknown | + + + | Phone | Unavailable | + + + Support + + + + + | Name | Relationship | Address | Phone | + + + + + | Bob Benites | ECON | [address] | | | | | [place] | | | | | [address] | | + + + + + Care Team Providers + +------+ + | Care Renal Medicine Specialist Name | Role | Phone | [...] Description | +--------+--------+ + + + | 03/17/ | Refill | Digestive Health | [place], | Refill Request | | 2018 | | Center at [facility] [address] | TOOL RADIAL DRILL PRESS SET UP OPERATOR [address] | | | | | [address] | [place], [place] | | | | | Mailcode: Center | [address] | | | | | for Health and | [phone] | | | | | [place] [address] | | | | | | [place], [place] | | | | | | [address] | | | | | | [phone] | | | +--------+--------+ + + + [...]
--- OUTSIDE RECORDS SUMMARY | ~2019-10-11 | XMS | Encounter Summary ---
Demographics + + + | Address | [address] | | | [place] [address] | + + + | Home Phone [...] + | Bob Benites | ECON | [address] | | | | | [place] | | | | | [address] | | + + + + + Care Team Providers + +------+ + | Care Community Health Promoter Name | Role | Phone | + +------+ + | Rohit Olguin MD | PCP | | + +------+ + Reason for Visit + + + | Reason | Comments | + + + | Medical Records | 04/02/2014 Surgical Pathology Report - [facility] | | Review | | + + + Encounter Details +--------+ + + + + | Date | Type | Department | Care Team | Description | +--------+ + + + + | 04/18/ | Abstract | Digestive Health | Stevo Hart, | Medical Records | | 2013 | | [place] [id number] | MD | Review (04/02/2014 | | | | Jose Roman | | Surgical Pathology | | | | Mailcode: [facility] | | Report - Blue | | | | for Health and | | [facility]) | | | | [facility], [address] | | | | | | [place], [place] | | | | | | [address] | | | | | | [phone] | | | +--------+ + + + [...]
--- OUTSIDE RECORDS SUMMARY | ~2019-10-11 | XMS | Encounter Summary ---
Demographics + + + | Address | [address] | | | [place] [address] | + + + | Home Phone | | + + + | Preferred Language | Unknown | + + + | Marital Status | | + + + | Mosque Affiliation | Unknown | + + + | Race | Unknown | + + + | Ethnic Group | Unknown | + + + Author + + + | Author | [facility] | | | and Damionana | + + + | Organization | [facility] | | | and [...] Team Providers + +------+ + | Care Abseiling Instructor Name | Role | Phone | [...] | | | | [address] | [place] [address] | | | | | [place], [place] | [phone] | | | | | [address] | | | | | | [phone] | | | +--------+ + + + [...]
--- OUTSIDE RECORDS SUMMARY | ~2019-10-11 | XMS | Encounter Summary ---
Demographics + + + | Address | [address] | | | [place] [address] | + + + | Home Phone [...] Author | [facility] | + + + | Organization | [facility] | + + + | Address | Unknown | + + + | Phone | Unavailable | + + + Support + + + + + | Name | Relationship | Address | Phone | + + + + + | Bob Benites | ECON | [address] | | | | | [place] | | | | | [address] | | + + + + + Care Team Providers + +------+ + | Care Kiln Remover Name | Role | Phone | + +------+ + | Rohit Olguin MD | PCP | | + +------+ + Reason for Visit + + + | Reason | Comments | + + + | Refill Request | Nortriptyline | + + + Encounter Details +--------+--------+ + + + | Date | Type | Department | Care Team | Description | +--------+--------+ + + + | 02/15/ | Refill | Digestive Health | Stevo Hart, | Refill Request | | 2015 | | Center at [facility] [address] | MD | (Nortriptyline) | | | | [address] | | | | | | Mailcode: [place] | | | | | | [facility] Health and | | | | | | [facility], [place] [address] | | | | | | [place], [place] | | | | | | [address] | | | | | | [phone] | | | +--------+--------+ + + + [...]
--- OUTSIDE RECORDS SUMMARY | ~2019-10-11 | XMS | Encounter Summary ---
Demographics + + + | Address | [address] | | | [place] [address] | + + + | Home Phone [...] + + + | Author | [facility] | + + + | Organization | 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
--- OUTSIDE RECORDS SUMMARY | ~2019-10-11 | XMS | Encounter Summary ---
Demographics + + + | Address | [address] | | | [place] [address] | + + + | Home Phone | | + + + | Preferred Language | Unknown | + + + | Marital Status | | + + + | Mandaen Affiliation | Unknown | + + + | Race | White | + + + | Ethnic Group | Not or | + + + Author + + + | Author | [facility] | + + + | Organization | [facility] | + + + | Address | Unknown | + + + | Phone | Unavailable | + + + Support + + + + + | Name | Relationship | Address | Phone | + + + + + | Bob Benites | ECON | [address] | | | | | [place] | | | | | [address] | | + + + + + Care Team Providers + +------+ + | Care Reel Tender Name | Role | Phone | [...] | 2013 | Encounter | Center at [facility] [address] | MD | for Remicade | | | | [address] | | | | | | Mailcode: Center | | | | | | for Health and | | | | | | Healing, [address] | | | | | | [place], [place] | | | | | | [address] | | | | | | [phone] | | | +--------+ + + + [...]
--- OUTSIDE RECORDS SUMMARY | ~2019-10-11 | XMS | Encounter Summary ---
Demographics + + + | Address | [address] | | | [place] [address] | + + + | Home Phone [...] + | Bob Benites | ECON | [address] | | | | | [place] | | | | | [address] | | + + + + + Care Team Providers + +------+ + | Care Steel Heater Name | Role | Phone | + +------+ + | Rohit Olguin MD | PCP | | + +------+ + Encounter Details +--------+ + + + + | Date | Type | Department | Care Team | Description | +--------+ + + + + | 11/04/ | MyChart | Digestive Health | Stevo Hart, | RE: Flank pain | | 2015 | Encounter | Center at [facility] [address] | MD | | | | | [address] | | | | | | Mailcode: Center | | | | | | for Health and | | | | | | Healing, [address] | | | | | | [facility] [place] | | | | | | [address] | | | | | | [phone] | | | +--------+ + + + [...]
--- OUTSIDE RECORDS SUMMARY | ~2019-10-11 | XMS | Encounter Summary ---
Demographics + + + | Address | [address] | | | [place] [address] | + + + | Home Phone [...] + | Bob Benites | ECON | [address] | | | | | [place] | | | | | [address] | | + + + + + Care Team Providers + +------+ + | Care Data Communications Technician Name | Role | Phone | [...] 2019 | Encounter | Center at [facility] [address] | BACTERIOLOGIST SOIL [address] | | | | | [address] | [facility] [place], [place] | | | | | Mailcode: Center | [address] | | | | | for Health and | [phone] | | | | | [facility] [address] | | | | | | [place], [place] | | | | | | [address] | | | | | | [phone] | | | +--------+ + + + [...]
--- OUTSIDE RECORDS SUMMARY | ~2019-10-11 | XMS | Encounter Summary ---
Demographics + + + | Address | [address] | | | [place] [address] | + + + | Home Phone [...] + | Bob Benites | ECON | [address] | | | | | [place] | | | | | [address] | | + + + + + Care Team Providers + +------+ + | Care Engineer Automated Equipment Name | Role | Phone | + +------+ + | Rohit Olguin MD | PCP | | + +------+ + Encounter Details +--------+ + + + + | Date | Type | Department | Care Team | Description | +--------+ + + + + | 03/17/ | MyChart | Digestive Health | Stevo Hart, | RE: Prior | | 2016 | Encounter | Center at [facility] [address] | MD | Authorization | | | | [address] | | | | | | Mailcode: Center | | | | | | for Health and | | | | | | Healing, [address] | | | | | | [place], [place] | | | | | | [address] | | | | | | [phone] | | | +--------+ + + + [...]
--- OUTSIDE RECORDS SUMMARY | ~2019-10-11 | XMS | Encounter Summary ---
Demographics + + + | Address | [address] | | | [place] [address] | + + + | Home Phone [...] + + + | Author | [facility] | + + + | Organization | [facility] | + + + | Address | Unknown | + + + | Phone | Unavailable | + + + Support + + + + + | Name | Relationship | Address | Phone | + + + + + | Bob Benites | ECON | [address] | | | | | [place] | | | | | [address] | | + + + + + Care Team Providers + +------+ + | Care Armature Tester Name | Role | Phone | + [...] 2015 | | Center at [facility] [address] | MD | Authorization | | | | [address] | | (Remicade approval - | | | | Mailcode: Center | | [facility]) | | | | for Health and | | | | | | [facility] [address] | | | | | | [place], [place] | | | | | | [address] | | | | | | [phone] | | | +--------+ + + + [...]
--- OUTSIDE RECORDS SUMMARY | ~2019-10-11 | XMS | Encounter Summary ---
Demographics + + + | Address | [address] | | | [place] [address] | + + + | Home Phone | | + + + | Preferred Language | Unknown | + + + | Marital Status | | + + + | Druze Affiliation | Unknown | + + + [...] + | Bob Benites | ECON | [address] | | | | | [place] | | | | | [address] | | + + + + + Care Team Providers + +------+ + | Care E Business Project Manager Name | Role | Phone | + +------+ + | Rohit Olguin MD | PCP | | + +------+ + Reason for Visit + + + | Reason | Comments | + + + | Lab Results | 08/26/2017-11/04/2016 lab results - [facility] | + + + | Blood Test Results | FRANCOISIA#[id number] | + + + Encounter Details +--------+ + + + + | Date | Type | Department | Care Team | Description | +--------+ + + + + | 09/19/ | Abstract | Digestive Health | Alcon Malcolm, | Lab Results | | 2018 | | Center at [facility] [address] | [facility] [address] | (08/26/2017-11/04/2016 | | | | [address] | [facility] [place] | lab results - | | | | Mailcode: Center | [id number] | [facility] ); Blood | | | | for Health and | [phone] | Test Results | | | | [facility], [address] | | ([facility]#[id number]) | | | | [place], [place] | | | | | | [address] | | | | | | [phone] | | | +--------+ + + + [...] + | COMPLETE METABOLIC | Routin | 08/26/2017 | | Results for this | | SET | e | 1:58 PM | | procedure are in the | | (NA,K,CL,CO2,BUN,CRE | | PDT | | results section. | | AT,GLUC,CA,AST,ALT,B | | | | | | JARRED TOTAL,ALK | | | | | | PHOS,ALB,PROT TOTAL) | | | | | + +--------+ + + + | CBC ONLY | Routin | 08/26/2017 | | Results for this | | | e | 1:58 PM | | procedure are in the | | | | PDT | | results section. | + +--------+ + + + | CBC, WITH | Routin | 07/01/2017 | | Results for this | | DIFFERENTIAL | e | 12:45 PM | | procedure are in the | | | | PST | | results section. | + +--------+ + + + | COMPLETE METABOLIC | Routin | 07/01/2017 | | Results for this | | SET | e | 12:45 PM | | procedure are in the | | (NA,K,CL,CO2,BUN,CRE | | PST | | results section. | | AT,GLUC,CA,AST,ALT,B | | | | | | JARRED TOTAL,ALK | | | | | | PHOS,ALB,PROT TOTAL) | | | | | + +--------+ + + + | COMPLETE METABOLIC | Routin | 04/29/2017 | | Results for this | | SET | e | 2:20 PM | | procedure are in the | | (NA,K,CL,CO2,BUN,CRE | | PST | | results section. | | AT,GLUC,CA,AST,ALT,B | | | | | | JARRED TOTAL,ALK | | | | | | PHOS,ALB,PROT TOTAL) | | | | | + +--------+ + + + | CBC ONLY | Routin | 04/29/2017 | | Results for this | | | e | 2:20 PM | | procedure are in the | | | | PST | | results section. | + +--------+ + + + | COMPLETE METABOLIC | Routin | 01/06/2017 | | Results for this | | SET | e | 10:00 AM | | procedure are in the | | (NA,K,CL,CO2,BUN,CRE | | PDT | | results section. | | AT,GLUC,CA,AST,ALT,B | | | | | | JARRED TOTAL,ALK | | | | | | PHOS,ALB,PROT TOTAL) | | | | | + +--------+ + + + | CBC ONLY | Routin | 01/06/2017 | | Results for this | | | e | 10:00 AM | | procedure are in the | | | | PDT | | results section. | + +--------+ + + + | COMPLETE METABOLIC | Routin | 12/20/2016 | | Results for this | | SET | e | 2:52 PM | | procedure are in the | | (NA,K,CL,CO2,BUN,CRE | | PDT | | results section. | | AT,GLUC,CA,AST,ALT,B | | | | | | JARRED TOTAL,ALK | | | | | | PHOS,ALB,PROT TOTAL) | | | | | + +--------+ + + + | CBC ONLY | Routin | 12/20/2016 | | Results for this | | | e | 2:52 PM | | procedure are in the | | | | PDT | | results section. | + +--------+ + + + | COMPLETE METABOLIC | Routin | 11/04/2016 | | Results for this | | SET | e | 12:50 PM | | procedure are in the | | (NA,K,CL,CO2,BUN,CRE | | PDT | | results section. | | AT,GLUC,CA,AST,ALT,B | | | | | | JARRED TOTAL,ALK | | | | | | PHOS,ALB,PROT TOTAL) | | | | | + +--------+ + + + | CBC ONLY | Routin | 11/04/2016 | | Results for this | | | e | 12:50 PM | | procedure are in the | | | | PDT | | results section. | + +--------+ + + + documented in this encounter Results CBC ONLY (08/26/2017 1:58 PM PDT) + + + + + + | Component | Value | Ref Range | Performed | Pathologist | | | | | At | Signature | + + + + + + | WHITE CELL | 7.5 | 4.5 - 11.0 K/cu | [facility] | | | COUNT | | mm | LAB - | | | | | | [place] | | + + + + + + | HEMOGLOBIN | 13.1 | 12.0 - 16.0 | [facility] | | | | | g/dL | LAB - | | | | | | [place] | | + + + + + + | HEMATOCRIT | 38.9 | 35 - 45 % | [facility] | | | | | | LAB - | | | | | | [place] | | + + + + + + | PLATELET | 380 | 140 - 440 K/cu | [facility] | | | COUNT | | mm | LAB - | | | | | | [place] | | + + + + + + | NEUTROPHIL | 41.9 | 39 - 80 % | [facility] | | | % | | | LAB - | | | | | | [place] | | + + + + + + | LYMPHOCYTE | 49.7 (A) | 24 - 44 % | [...] [address] | [place], [place] | [phone] | | [place] | | | | + + + + + COMPLETE METABOLIC SET (NA,K,CL,CO2,BUN,CREAT,GLUC,CA,AST,ALT,BILI TOTAL,ALK PHOS,ALB,PROT TOTAL) (08/26/2017 1:58 PM PDT) + +-------+ + + + | Component | Value | Ref Range | Performed | Pathologist | | | | | At | Signature | + +-------+ + + + | GLUCOSE, | 97 | 70 - 100 mg/dL | [facility] | | | PLASMA | | | LAB - | | | (LAB) | | | [place] | | + +-------+ + + + | BUN, PLASMA | 16 | 6 - 23 mg/dL | [facility] | | | (LAB) | | | LAB - | | | | | | [place] | | + +-------+ + + + | CREATININE | 0.77 | 0.60 - 1.36 | [facility] | | | PLASMA | | mg/dL | LAB - | | | (LAB) | | | [place] | | + +-------+ + + + | ALBUMIN, | 4.1 | 3.5 - 5.0 g/dL | [facility] | | | PLASMA | | | LAB - | | | (LAB) | | | [place] | | + +-------+ + + + | BILIRUBIN | 0.3 | 0.0 - 1.2 | [facility] | | | TOTAL | | Transcutaneous | LAB - | | | | | Bilirubinometer | [place] | | + +-------+ + + + | ALK PHOS | 47 | 31 - 130 U/L | [facility] | | | | | | LAB - | | | | | | [place] | | + +-------+ + + + | AST(SGOT) | 20 | 13 - 39 U/L | [facility] | | | | | | LAB - | | | | | | [place] | | + +-------+ + + + | SODIUM, | 135 | 132 - 143 | [facility] | | | PLASMA | | mmol/L | LAB - | | | (LAB) | | | [place] | | + +-------+ + + + | POTASSIUM, | 4.5 | 3.6 - 5.1 | [facility] | | | PLASMA | | mmol/L | LAB - | | | (LAB) | | | [place] | | + +-------+ + + + | ALT (SGPT) | 23 | 7 - 52 U/L | [facility] [...] - | [address] | [place] | [phone] | | [place] | | | | + + + + + CBC, WITH DIFFERENTIAL (07/01/2017 12:45 PM PST) + + + + + + | Component | Value | Ref Range | Performed | Pathologist | | | | | At | Signature | + + + + + + | WHITE CELL | 7.4 | 4.5 - 11.0 K/cu | [facility] | | | COUNT | | mm | LAB - | | | | | | [place] | | + + + + + + | HEMOGLOBIN | 11.8 (A) | 12.0 - 16.0 | [facility] | | | | | g/dL | LAB - | | | | | | [place] | | + + + + + + | HEMATOCRIT | 33.7 (A) | 35 - 45 % | [facility] | | | | | | LAB - | | | | | | [place] | | + + + + + + | PLATELET | 360 | 140 - 440 K/cu | [facility] | | | COUNT | | mm | LAB - | | | | | | [place] | | + + + + + + | NEUTROPHIL | 43.1 | 39 - 80 % | [facility] [...] [address] | [place], [place] | [phone] | | [place] | | | | + + + + + COMPLETE METABOLIC SET (NA,K,CL,CO2,BUN,CREAT,GLUC,CA,AST,ALT,BILI TOTAL,ALK PHOS,ALB,PROT TOTAL) (07/01/2017 12:45 PM PST) + +--------+ + + + | Component | Value | Ref Range | Performed | Pathologist | | | | | At | Signature | + +--------+ + + + | GLUCOSE, | 85 | 70 - 100 mg/dL | [facility] | | | PLASMA | | | LAB - | | | (LAB) | | | [place] | | + +--------+ + + + | BUN, PLASMA | 12 | 6 - 23 mg/dL | [facility] | | | (LAB) | | | LAB - | | | | | | [place] | | + +--------+ + + + | CREATININE | 0.70 | 0.60 - 1.35 | [facility] | | | PLASMA | | mg/dL | LAB - | | | (LAB) | | | [place] | | + +--------+ + + + | ALBUMIN, | 4.0 | 3.5 - 5.0 g/dL | [facility] | | | PLASMA | | | LAB - | | | (LAB) | | | [place] | | + +--------+ + + + | BILIRUBIN | 0.3 | 0.0 - 1.2 | [facility] | | | TOTAL | | Transcutaneous | LAB - | | | | | Bilirubinometer | [place] | | + +--------+ + + + | ALK PHOS | 43 | 31 - 130 U/L | [facility] | | | | | | LAB - | | | | | | [place] | | + +--------+ + + + | AST(SGOT) | 10 (A) | 13 - 39 U/L | [facility] | | | | | | LAB - | | | | | | [place] | | + +--------+ + + + | SODIUM, | 136 | 132 - 143 | [facility] | | | PLASMA | | mmol/L | LAB - | | | (LAB) | | | [place] | | + +--------+ + + + | POTASSIUM, | 4.0 | 3.6 - 5.1 | [facility] | | | PLASMA | | mmol/L | LAB - | | | (LAB) | | | [place] | | + +--------+ + + + | ALT (SGPT) | 9 | 7 - 52 U/L | [facility] | | | | | | LAB - | | | | | | [place] | | + +--------+ + + + + + | Specimen | + + | Blood - Blood | | (substance) | + + + + + + + | Performing | Address | City/State/Zipcode | Phone Number | | Organization | | | | + + + + + | [facility] - | [address] | [place], [place] | [phone] | | [place] | | | | + + + + + CBC ONLY (04/29/2017 2:20 PM PST) + + + + + + | Component | Value | Ref Range | Performed | Pathologist | | | | | At | Signature | + + + + + + | WHITE CELL | 7.2 | 4.5 - 11.0 K/cu | [facility] | | | COUNT | | mm | LAB - | | | | | | [place] | | + + + + + + | HEMOGLOBIN | 13.1 | 12.0 - 16.0 | [facility] | | | | | g/dL | LAB - | | | | | | [place] | | + + + + + + | HEMATOCRIT | 40.2 | 35 - 45 % | [facility] | | | | | | LAB - | | | | | | [place] | | + + + + + + | PLATELET | 348 | 140 - 440 K/cu | [facility] | | | COUNT | | mm | LAB - | | | | | | [place] | | + + + + + + | NEUTROPHIL | 45.2 | 39 - 80 % | [facility] | | | % | | | LAB - | | | | | | [place] | | + + + + + + | LYMPHOCYTE | 47.7 (A) | 24 - 44 % | [...] - | [address] | [place], [place] | [phone] | | [place] | | | | + + + + + COMPLETE METABOLIC SET (NA,K,CL,CO2,BUN,CREAT,GLUC,CA,AST,ALT,BILI TOTAL,ALK PHOS,ALB,PROT TOTAL) (04/29/2017 2:20 PM PST) + +---------+ + + + | Component | Value | Ref Range | Performed | Pathologist | | | | | At | Signature | + +---------+ + + + | GLUCOSE, | 110 (A) | 70 - 100 mg/dL | [facility] | | | PLASMA | | | LAB - | | | (LAB) | | | [place] | | + +---------+ + + + | BUN, PLASMA | 15 | 6 - 23 mg/dL | [facility] | | | (LAB) | | | LAB - | | | | | | [place] | | + +---------+ + + + | CREATININE | 0.81 | 0.60 - 1.35 | [facility] | | | PLASMA | | mg/dL | LAB - | | | (LAB) | | | [place] | | + +---------+ + + + | ALBUMIN, | 4.4 | 3.5 - 5.0 g/dL | [facility] | | | PLASMA | | | LAB - | | | (LAB) | | | [place] | | + +---------+ + + + | BILIRUBIN | 0.3 | 0.0 - 1.2 | [facility] | | | TOTAL | | Transcutaneous | LAB - | | | | | Bilirubinometer | [place] | | + +---------+ + + + | ALK PHOS | 43 | 31 - 130 U/L | [facility] | | | | | | LAB - | | | | | | [place] | | + +---------+ + + + | AST(SGOT) | 15 | 13 - 39 U/L | [facility] | | | | | | LAB - | | | | | | [place] | | + +---------+ + + + | SODIUM, | 136 | 132 - 143 | [facility] | | | PLASMA | | mmol/L | LAB - | | | (LAB) | | | [place] | | + +---------+ + + + | POTASSIUM, | 3.7 | 3.6 - 5.1 | [facility] | | | PLASMA | | mmol/L | LAB - | | | (LAB) | | | [place] | | + +---------+ + + + | ALT (SGPT) | 16 | 7 - 52 U/L | [facility] [...] - | [address] | [place], [place] | [phone] | | [place] | | | | + + + + + CBC ONLY (01/06/2017 10:00 AM PDT) + +-------+ + + + | Component | Value | Ref Range | Performed | Pathologist | | | | | At | Signature | + +-------+ + + + | WHITE CELL | 7.2 | 4.5 - 11.0 K/cu | [facility] | | | COUNT | | mm | LAB - | | | | | | [place] | | + +-------+ + + + | HEMOGLOBIN | 12.4 | 12.0 - 16.0 | [facility] | | | | | g/dL | LAB - | | | | | | [place] | | + +-------+ + + + | HEMATOCRIT | 36.0 | 35 - 45 % | [facility] | | | | | | LAB - | | | | | | [place] | | + +-------+ + + + | PLATELET | 333 | 140 - 440 K/cu | [facility] | | | COUNT | | mm | LAB - | | | | | | [place] | | + +-------+ + + + | NEUTROPHIL | 55.8 | 39 - 80 % | [facility] | | | % | | | LAB - | | | | | | [place] | | + +-------+ + + + | LYMPHOCYTE | 37.2 | 24 - 44 % | [facility] [...] [address] | [place], [place] | [phone] | | [place] | | | | + + + + + COMPLETE METABOLIC SET (NA,K,CL,CO2,BUN,CREAT,GLUC,CA,AST,ALT,BILI TOTAL,ALK PHOS,ALB,PROT TOTAL) (01/06/2017 10:00 AM PDT) + +---------+ + + + | Component | Value | Ref Range | Performed | Pathologist | | | | | At | Signature | + +---------+ + + + | GLUCOSE, | 160 (A) | 70 - 100 mg/dL | [facility] | | | PLASMA | | | LAB - | | | (LAB) | | | [place] | | + +---------+ + + + | BUN, PLASMA | 9 | 6 - 23 mg/dL | [facility] | | | (LAB) | | | LAB - | | | | | | [place] | | + +---------+ + + + | CREATININE | 0.70 | 0.60 - 1.35 | [facility] | | | PLASMA | | mg/dL | LAB - | | | (LAB) | | | [place] | | + +---------+ + + + | ALBUMIN, | 4.0 | 3.5 - 5.0 g/dL | [facility] [...] + + + | ALK PHOS | 43 | 31 - 130 U/L | [facility] | | | | | | LAB - | | | | | | [place] | | + +---------+ + + + | AST(SGOT) | 12 (A) | 13 - 39 U/L | [facility] [...] +---------+ + + + | POTASSIUM, | 3.7 | 3.6 - 5.1 | [facility] | | | PLASMA | | mmol/L | LAB - | | | (LAB) | | | [place] | | + +---------+ + + + | ALT (SGPT) | 12 | 7 - 52 U/L | [facility] [...] - | [address] | [place], [place] | [phone] | | [place] | | | | + + + + + CBC ONLY (12/20/2016 2:52 PM PDT) + + + + + + | Component | Value | Ref Range | Performed | Pathologist | | | | | At | Signature | + + + + + + | WHITE CELL | 8.0 | 4.5 - 11.0 K/ul | [facility] | | | COUNT | | | LAB - | | | | | | [place] | | + + + + + + | HEMOGLOBIN | 12.6 | 12.0 - 16.0 | [facility] | | | | | g/dL | LAB - | | | | | | [place] | | + + + + + + | HEMATOCRIT | 37.2 | 35 - 45 % | [facility] | | | | | | LAB - | | | | | | [place] | | + + + + + + | PLATELET | 319 | 140 - 440 K/cu | [facility] | | | COUNT | | mm | LAB - | | | | | | [place] | | + + + + + + | NEUTROPHIL | 42.1 | 39 - 80 % | [facility] | | | % | | | LAB - | | | | | | [place] | | + + + + + + | LYMPHOCYTE | 51.8 (A) | 24 - 44 % | [address] | [place] | [phone] | | [place] | | | | + + + + + COMPLETE METABOLIC SET (NA,K,CL,CO2,BUN,CREAT,GLUC,CA,AST,ALT,BILI TOTAL,ALK PHOS,ALB,PROT TOTAL) (12/20/2016 2:52 PM PDT) + +---------+ + + + | [...] + + + | BUN, PLASMA | 10 | 6 - 23 mg/dL | [facility] | | | (LAB) | | | LAB - | | | | | | [place] | | + +---------+ + + + | CREATININE | 0.66 | 0.60 - 1.35 | [facility] | | | PLASMA | | mg/dL | LAB - | | | (LAB) | | | [place] | | + +---------+ + + + | ALBUMIN, | 4.2 | 3.5 - 5.0 g/dL | [facility] | | | PLASMA | | | LAB - | | | (LAB) | | | [place] | | + +---------+ + + + | BILIRUBIN | 0.2 | 0.0 - 1.2 | [facility] | | | TOTAL | | Transcutaneous | LAB - | | | | | Bilirubinometer | [place] | | + +---------+ + + + | ALK PHOS | 44 | 31 - 130 U/L | [facility] | | | | | | LAB - | | | | | | [place] | | + +---------+ + + + | AST(SGOT) | 13 | 13 - 39 U/L | [facility] [...] +---------+ + + + | POTASSIUM, | 3.7 | 3.6 - 5.1 | [facility] | | | PLASMA | | mmol/L | LAB - | | | (LAB) | | | [place] | | + +---------+ + + + | ALT (SGPT) | 11 | 7 - 52 U/L | [facility] [...] - | [address] | [place], [place] | [phone] | | [place] | | | | + + + + + CBC ONLY (11/04/2016 12:50 PM PDT) + + + + + + | Component | Value | Ref Range | Performed | Pathologist | | | | | At | Signature | + + + + + + | WHITE CELL | 7.3 | 4.5 - 11.0 K/cu | [facility] | | | COUNT | | mm | LAB - | | | | | | [place] | | + + + + + + | HEMOGLOBIN | 12.9 | 12.0 - 16.0 | [facility] | | | | | g/dL | LAB - | | | | | | [place] | | + + + + + + | HEMATOCRIT | 38.2 | 35 - 45 % | [facility] | | | | | | LAB - | | | | | | [place] | | + + + + + + | PLATELET | 311 | 140 - 440 K/cu | [facility] | | | COUNT | | mm | LAB - | | | | | | [place] | | + + + + + + | NEUTROPHIL | 45.4 | 39 - 80 % | [facility] | | | % | | | LAB - | | | | | | [place] | | + + + + + + | LYMPHOCYTE | 49.2 (A) | 24 - 44 % | [...] - | [address] | [place], [place] | [phone] | | [place] | | | | + + + + + COMPLETE METABOLIC SET (NA,K,CL,CO2,BUN,CREAT,GLUC,CA,AST,ALT,BILI TOTAL,ALK PHOS,ALB,PROT TOTAL) (11/04/2016 12:50 PM PDT) + +---------+ + + + | Component | Value | Ref Range | Performed | Pathologist | | | | | At | Signature | + +---------+ + + + | GLUCOSE, | 142 (A) | 70 - 100 mg/dL | [facility] | | | PLASMA | | | LAB - | | | (LAB) | | | [place] | | + +---------+ + + + | BUN, PLASMA | 14 | 6 - 23 mg/dL | [facility] | | | (LAB) | | | LAB - | | | | | | [place] | | + +---------+ + + + | CREATININE | 0.72 | 0.60 - 1.35 | [facility] | | | PLASMA | | mg/dL | LAB - | | | (LAB) | | | [place] | | + +---------+ + + + | ALBUMIN, | 4.0 | 3.5 - 5.0 g/dL | [facility] [...] + + + | ALK PHOS | 46 | 31 - 130 U/L | [facility] | | | | | | LAB - | | | | | | [place] | | + +---------+ + + + | AST(SGOT) | 13 | 13 - 39 U/L | [facility] | | | | | | LAB - | | | | | | [place] | | + +---------+ + + + | SODIUM, | 133 | 132 - 143 | [facility] | | | PLASMA | | mmol/L | LAB - | | | (LAB) | | | [place] | | + +---------+ + + + | POTASSIUM, | 3.7 | 3.6 - 5.1 | [facility] | | | PLASMA | | mmol/L | LAB - | | | (LAB) | | | [place] | | + +---------+ + + + | ALT (SGPT) | 11 | 7 - 52 U/L | [facility] [...] | + + + + + | [facility] - | [address] | [place], [place] | [phone] | | [place] | | | | + + + + + documented in this encounter Visit Diagnoses Not on filedocumented in this encounter"
--- OUTSIDE RECORDS SUMMARY | ~2019-10-11 | XMS | Encounter Summary ---
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 | | | | | | [facility] [place] [address] | | | | | | [place], [place] | | | | | | [address] | | | | | | [phone] | | | +--------+--------+ + + + [...]
--- OUTSIDE RECORDS SUMMARY | ~2019-10-11 | XMS | Encounter Summary ---
Demographics + + + | Address | [address] | | | [place] [address] | + + + | Home Phone | | + + + | Preferred Language | Unknown | + + + | Marital Status | | + + + | [employer] Affiliation | Unknown | + + + | Race | White | + + + | Ethnic Group | Not or | + + + Author + + + | Author | [facility] | + + + | Organization | [facility] | + + + | Address | Unknown | + + + | Phone | Unavailable | + + + Support + + + + + | Name | Relationship | Address | Phone | + + + + + | Bob Benites | ECON | [address] | | | | | [place] | | | | | [address] | | + + + + + Care Team Providers + +------+ + | Care Bar Captain Name | Role | Phone | + +------+ + | Rohit Olguin MD | PCP | | + +------+ + Encounter Details +--------+ + + + + | Date | Type | Department | Care Team | Description | +--------+ + + + + | 03/31/ | MyChart | [facility] | Zelda Hinojosa, | results | | 2012 | Encounter | Center at [facility] [address] | [address] | | | | | [address] | | | | | | Mailcode: Center | | | | | | [facility] | | | | | | [facility], [address] | | | | | | [place], [place] | | | | | | [address] | | | | | | [phone] | | | +--------+ + + + [...]
--- OUTSIDE RECORDS SUMMARY | ~2019-10-11 | XMS | Encounter Summary ---
Demographics + + + | Address | [address] | | | [place] [address] | + + + | Home Phone [...] + | Bob Benites | ECON | [address] | | | | | [place] | | | | | [address] | | + + + + + Care Team Providers + +------+ + | Care Bridge Tender Name | Role | Phone | + +------+ + | Rohit Olguin MD | PCP | | + +------+ + Reason for Visit + + + | Reason | Comments | + + + | New Patient Visit | Ulcerative colitis | + + + Consultation (Routine) +--------+ + + + + + | Status | Reason | Specialty | Diagnoses / | Referred By | Referred To | | | | | Procedures | Contact | Contact | +--------+ + + + + + | Closed | Specialty | Gastroenterol | Diagnoses | Sharif, | [facility] | | | Services | ogy | Ulcerative | Rohit B, | [address] | | | Required | | colitis | MD [address] | | | | | Procedures | [place] | Mailcode: | | | | | CONSULT TO | [address] | Center for | | | | | GASTROENTERO | ST[place], | [facility] and | | | | | [place] | [place] [address] | Healing, | | | | | Consult for | Phone: | [address] | | | | | 2nd opinion | [phone] | [place], [place] | | | | | | Fax: | [address] | | | | | | [phone] | Phone: | | | | | | | [phone] | | | | | | | Fax: | | | | | | | [phone] | +--------+ + + + + + Encounter Details +--------+---------+ + + + | Date | Type | Department | Care Team | Description | +--------+---------+ + + + | 11/06/ | Office | Digestive Health | Stevo Hart, | Irritable bowel | | 2012 | Visit | Center at [facility] [address] | MD | syndrome (IBS) | | | | [address] | | (Primary Dx); | | | | Mailcode: Center | | Ulcerative colitis | | | | for Health and | | ([facility]); Encounter for | | | | Healing, [address] | | long-term (current) | | | | [place], [place] | | use of other | | | | [address] | | medications | | | | [phone] | | | +--------+---------+ + + + [...] + + + | Blood Pressure | 97/60 | 11/06/2012 1:55 PM | | | | | PDT | | + + + + + | Pulse | 128 | 11/06/2012 1:55 PM | | | | | PDT | | + + + + + | Temperature | 36.9 C (98.4 F) | 11/06/2012 1:55 PM | | | | | PDT | | + + + + + | Respiratory Rate | 16 | 11/06/2012 1:55 PM | | | | | PDT | | + + + + + | Oxygen Saturation | - | - | | + + + + + | Inhaled Oxygen | - | - | | | Concentration | | | | + + + + + | Weight | 102.4 kg (225 lb | 11/06/2012 1:55 PM | | | | 11.2 oz) | PDT | | + + + + + | Height | 160 cm (5' 3") | 11/06/2012 1:55 PM | | | | | PDT | | + + + + + | Body Mass Index | 39.98 | 11/06/2012 1:55 PM | | | | | PDT | | + + + + + documented in this encounter Progress Notes Stevo Hart MD - 11/06/2012 2:06 PM PDTFormatting of this note might be different fro m the original. Inflammatory Bowel Disease Clinic [facility] ~ Initial Consultation Referring Physician: Rohit Olguin MD Primary Speech Professor: Joan Bhatia IV, MD Patient Identification: Kami Benites is a pleasant 32 year old female with a history of ulcerative colitis who presents to the Inflammatory [facility]el Disease Clinic for evaluation and treatment recommendations for pain and diarrhea, and to establish care in our clinic. History of Present Illness: Kami's IBD history will be reviewed below. More recently, she has achieved mucosal healin g with Remicade (per a recent endoscopy). However, she continues to have symptoms. Specifi onel, she notes abdominal pain for which she takes pain medications at night. In addition, she notes "whole body" aches, with pain in her hips, knees, ankles and back. This pain was present before she started Remicade. She has tried amitriptyline for pain and notes lethar gy. Dicyclomine appears to have improved the pain. In conjunction with pain, Kami notes significant bloating. She denies being a fast eater and also denies consumption of gum, artificial sweeteners. She denies any improvement with previous antibiotics though she notes intolerance to dairy and gluten. I have conducted the following review of systems relevant to IBD with the patient: Current GI Symptoms: Bowel Habits: no blood; 10/day (before dicyclomine taken immediately before eating), now 3- 6/day; energy is still poor Abdominal Pain: RUQ, LLQ/LUQ; constant; intensifies with BMs/eating Weight loss: 75# weight gain over 3 years (on prednisone) Nausea/vomiting: none Appetite: somewhat poor Perianal Symptoms: none Oral ulcers: none Other Symptoms: F/C/Sweats: no f/c; drenching night sweats (especially this past winter) Extraintestinal Symptoms: Joint pain (any change from baseline): knees, hips, ankles, back Eye pain, redness, or visual changes: none New rashes or skin lesions: none Liver disease/jaundice: none I have also reviewed the following symptoms with the patient: Review of Systems: Constitutional: poor energy level, with fatigue ENT: no pain with swallowing or problem swallowing CV: no murmur, chest pain, palpitations Resp: no cough, no shortness of breath GI: as above : nephrolithiasis, last > 1 year; history of calcium stones; no history of urology work-u p Hem/lymph: no LAD; no history of anemia or transfusions IBD Data Review: The following was obtained from the available medical records and reviewed in detail for th e purposes of decision-making. 1. Presentation, historic symptoms, previous endoscopic procedures and imaging, surgeries, recent hospitalizations: Kami was diagnosed at age 11 after she presented with abdominal pain and bloody stools aft er an episode of flu. Per the patient, her disease was prednisone dependent (particularly a fter her second 6 years ago) and she was doing very poorly by 02/2012. She report s a colonoscopy that showed severe disease. Biopsies, available to use in the form of a rep ort, showed chronic active colitis at splenic flexure and rectum, with no activity at left c olon. Colectomy was discussed given severity of disease but Remicade was finally begun. Kami reports that her last colonoscopy was one week ago. I do not have the report for rev iew but the pictures show quiescent disease with only subtle blurring of vasculature in cert ain segments. Biopsies, available to us in the form of a report, showed normal right-sided and transverse colon biopsies, with chronic IBD and no dysplasia in the left-sided biopsies. 2. Current and prior therapies. Current IBD Meds: Remicade [id number] (started in 04/2012, last on 09/30/12; immediate response during induction doses; infusion reaction with second infusion; no breakthrough symptoms) Previously Tried: prednisone (1.5 years, last course of 4-5 months that stopped 2 weeks ago ; regularly for past 6 years); history of Asacol, Canasa, Rowasa, Hydrocortisone enemas, cor tifoam (last a few months ago); 6MP (when younger; for some time); no history of injectables 3. Labs: None available for review Past Medical, Family & Social History: I reviewed the history below with the patient and made any relevant updates or changes in t he medical record. 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 Social History Main Topics Smoking status: Former Smoker Smokeless tobacco: Never Used Comment: quit for 7 years; quit 6 years ago Alcohol Use: Yes rare Drug Use: No Sexually Active: Not on file Other Topics Concern Not on file Social History Narrative with 2 children Allergies Allergen Reactions Sulfa (Sulfonamide Antibiotics) Current Outpatient Prescriptions Medication DICYCLOMINE 10 mg Oral capsule HYDROCODONE-ACETAMINOPHEN 7.5-325 mg Oral tablet nortriptyline 10 mg Oral capsule OMEPRAZOLE 20 mg Oral capsule,delayed release(DR/EC) PROPRANOLOL 40 mg Oral tablet SERTRALINE 100 mg Oral tablet SUMATRIPTAN 100 mg Oral tablet No current facility-administered medications for this visit. Physical Exam: BP 97/60 | Pulse 128 | Temp (Src) 36.9 C (98.4 F) (Oral) | RR 16 | Ht 1.6 m (5' 3") | W t 102.377 kg (225 lb 11.2 oz) | BMI 39.99 kg/(m^2) Appearance: Pleasant female who appears comfortable and in no apparent distress. Psychological: Appropriate mood and affect, occasionally tearful. Eyes: Sclera anicteric without injection. HENT: Oropharynx visualized and benign without visible ulceration. Neck: No cervical lymphadenopathy. Lung: Clear to Auscultation Bilaterally. CV: Regular Rate and Rhythm. No murmurs. Extremities: No edema. Musculoskeletal: No joint induration or tenderness appreciated. No SI joint tenderness. Skin: No lesions or rashes noted. Abdomen: Normoactive bowel Sounds, Soft, Obese; no hepatosplenomegaly, tender to palpation in LUQ, LLQ, RLQ without rebound/guarding Assessment: Kami Benites is a pleasant 32 year old female, who presents to the [facility] for evaluation of persistent symptoms. Per the recent colonoscopy biopsies (an d pictures), Kami appears to be in endoscopic remission. However, she continues to have ab dominal pain and diarrhea, that has somewhat responded to dicyclomine. I suspect that her s ymptoms are largely related to a functional disorder, with intestinal spasm, visceral hypers ensitivity, rapid transit, and mismanagement of gas. Plan and Recommendations: 1. IBD Diagnosis. Kami will not need any further diagnostic tests at this time. She will be due for a surveillance colonoscopy, as outlined below, in the next 1-1.5 years. I would recommend periodic monitoring of CBC and CRP as clues to recurrence. 2. IBD Therapy. Kami seems to have accomplished mucosal healing with Remicade. I recomme nd that she continue therapy every 8 weeks and stay on a fixed schedule to maintain remissio n. We briefly discussed the risks of Remicade therapy, including infusions reaction, infect ion risk, and minimally increase lymphoma risk. Given previous breakthrough symptoms, it ma y be reasonable to checks infliximab and iltlpepu-uq-asurrfujfx (ATI) levels before the next infusion. If ATIs are present (which I do not suspect, a switch to Humira may be considere d. The goal infliximab concentration should be above 10-12 mcg/mL. Given high likelihood of functional disorder (e.g. D-IBS), we discussed management includin g antispasmotics, mediations targeting visceral hypersensitivity, antidiarrheals, and gas ma nagement. We will begin low-dose nortriptyline (started 10mg qhs, ok to increased to 20mg q hs). Kami will also pursue dietary modification and will keep a food diary. We also discussed ways to reduce flares, including avoidance of NSAIDs and avoidance of ant ibiotics without clearly documented bacterial infection, and avoidance of tobacco. 3. Colorectal cancer surveillance. Given more than 8 years of colitis, I would recommend jennifer Mcclure continue to undergo dysplasia surveillance, with colonoscopies every 1-2 years. 4. Bone Health. Given extensive prednisone use, I would recommend a baseline DEXA scan if this has not already been done. Depending on the results, the patient may benefit from calc ium, vitamin D, or bisphosphonate supplementation, as well as repeat examination to evaluate improvement in bone density. 5. Nephrolithiasis. Kami has had multiple episodes of nephrolithiasis. While this could be secondary to hypercalciuria, she may also have hyperoxaluria (e.g. Possibly related to il eal inflammation though no evidence). If she has another episode, I would recommend work-up (including 24 hours urine collection and urology referral). 6. Nutrition. Given residence in the [facility], I would recommend periodic monitor ing of vitamin D levels. 7. Healthcare maintenance. While on Remicade, I recommend flu shots yearly and pneumovax ( 2 shots by 5 years) to reduce the risk of developing severe flu or pneumonia. Given history of IBD, I would also recommend yearly skin examinations by his PCP or by a de rmatologist given higher risk of non-melanoma skin cancer. In addition, given current use of Remicade, yearly evaluation for Tb risk factors (with sub sequent repeat testing if any risk of exposure is noted) would be recommended. 8. Fatigue. The cause of Kami's fatigue is unclear. I have no labs available but I would recommend monitoring CBC and TSH. It is unclear whether the vicodin or propranolol could be contributors. Follow-Up: 4 months Counseling Time: I spent a total of 60 minutes with this patient, of which greater than 50 % of the time was spent in counseling. Specific issues that were discussed included a revie w of the disease, diagnostic tools that help in our management plans for the patient's sympt oms, and goals for treatment. We discussed the prevalence of IBS in IBD and its management. We also discussed health maintenance. documented in this en counter Plan of Treatment Not on filedocumented as of this encounter Procedures + +--------+ + + + | Procedure Name | Priori | Date/Time | Associated Diagnosis | Comments | | | ty | | | | + +--------+ + + + | PATHOLOGY | | 10/30/2012 | | Results for this | | | | 12:00 AM | | procedure are in the | | | | PDT | | results section. | + +--------+ + + + documented in this encounter Results PATHOLOGY (10/30/2012 12:00 AM PDT) + + + | Narrative | Performed At | + + + | | | | | | + + + + + | Procedure Note | + + | Cale Wolff - 11/14/2012 1:00 PM PDT | + + documented in this encounter Visit Diagnoses + + | Diagnosis | + + | Irritable bowel syndrome (IBS) - Primary Irritable bowel syndrome | + + | Ulcerative colitis (HCC) Ulcerative colitis, unspecified | + + | Encounter for long-term (current) use of other medications | + + documented in this encounter
--- OUTSIDE RECORDS SUMMARY | ~2019-10-11 | XMS | Encounter Summary ---
Demographics + + + | Address | [address] | | | [place] [address] | + + + | Home Phone | | + + + | Preferred Language | Unknown | + + + | Marital Status | | + + + | Holiness Affiliation | Unknown | + + + [...] + | Bob Benites | ECON | [address] | | | | | [place] | | | | | [address] | | + + + + + Care Team Providers + +------+ + | Care Tank Operator Name | Role | Phone | [...] Medical Records | | 2016 | | [place] [facility] [address] | | Review | | | | [address] | | | | | | Mailcode: [place] | | | | | | for Health and | | | | | | [facility], [facility] | | | | | | [place], [place] | | | | | | [address] | | | | | | [phone] | | | +--------+ + + + [...]
--- OUTSIDE RECORDS SUMMARY | ~2019-10-11 | XMS | Encounter Summary ---
Demographics + + + | Address | [address] | | | [place] [address] | + + + | Home Phone [...] + | Bob Benites | ECON | [address] | | | | | [place] | | | | | [address] | | + + + + + Care Team Providers + +------+ + | Care Furnace Firer Name | Role | Phone | + +------+ + | Rohit Olguin MD | PCP | | + +------+ + Encounter Details +--------+ + + + + | Date | Type | Department | Care Team | Description | +--------+ + + + + | 11/29/ | MyChart | Digestive Health | Stevo Hart, | RE: Issues | | 2012 | Encounter | Center at [facility] [address] | MD | | | | | [address] | | | | | | Mailcode: Center | | | | | | for Health and | | | | | | Healing, [address] | | | | | | [place], [place] | | | | | | [address] | | | | | | [phone] | | | +--------+ + + + [...]
--- OUTSIDE RECORDS SUMMARY | ~2019-10-11 | XMS | Encounter Summary ---
Demographics + + + | Address | [address] | | | [place] [address] | + + + | Home Phone | | + + + | Preferred Language | Unknown | + + + | Marital Status | | + + + | Rastafari Affiliation | Unknown | + + + [...] + | Bob Benites | ECON | [address] | | | | | [place] | | | | | [address] | | + + + + + Care Team Providers + +------+ + | Care Cma Or Lpn Name | Role | Phone | + [...] | | 2019 | | Center at [facility] [address] | MINE INSPECTOR FEDERAL [address] | | | | | [address] | [place], [place] | | | | | Mailcode: Center | [address] | | | | | for Health and | [phone] | | | | | [place] [address] | | | | | | [place], [place] | | | | | | [address] | | | | | | [phone] | | | +--------+--------+ + + + [...]
--- OUTSIDE RECORDS SUMMARY | ~2019-10-11 | XMS | Encounter Summary ---
Demographics + + + | Address | [address] | | | [place] [address] | + + + | Home Phone | | + + + | Preferred Language | Unknown | + + + | Marital Status | | + + + | Sikh Affiliation | Unknown | + + + | Race | Unknown | + + + | Ethnic Group | Unknown | + + + Author + + + | Author | [facility] | | | and [place] | + + + | Organization | [facility] | | | [...] Team Providers + +------+ + | Care Echocardiography Tech Name | Role | Phone | + +------+ + | Rohit Olguin MD | PCP | | + +------+ + Encounter Details +--------+ + + + + | Date | Type | Department | Care Team | Description | +--------+ + + + + | 08/24/ | Orders Only | [facility] | Conversion | | | 2015 | | NEPRHOLOGY [place] | Transaction, | | | | | [address] | Provider Unknown | | | | | [address] | [phone] | | | | | [address] | | | | | | [phone] | | | +--------+ + + + [...] | + +--------+ + + + | EXTERNAL LAB: CBC | Routin | 08/25/2015 | | Results for this | | | e | 12:00 AM | | procedure are in the | | | | PDT | | results section. | + +--------+ + + + | BASIC METABOLIC | Routin | 08/25/2015 | | Results for this | | PANEL | e | 12:00 AM | | procedure are in the | | | | PDT | | results section. | + +--------+ + + + documented in this encounter Results External Lab: [facility] (08/25/2015 12:00 AM PDT) + + + + + + | Component | Value | Ref Range | Performed | Pathologist | | | | | At | Signature | + + + + + + | WBC | 6.8 | 4.5 - 11.0 10 | EXTERNAL | | | | | | LAB | | + + + + + + | Red Blood | 4.57 | 3.8 - 5.1 10 | EXTERNAL | | | Cells | | | LAB | | | Counted | | | | | + + + + + + | Hemoglobin | 12.5 | 12.0 - 16.0 | EXTERNAL | | | | | g/dL | LAB | | + + + + + + | Hematocrit, | 38.1 | 35 - 45 % | EXTERNAL | | | POC | | | LAB | | + + + + + + | MCV | 83.4 | 81 - 99 fL | EXTERNAL | | | | | | LAB | | + + + + + + | MCH | 27 | 27 - 33 pg | EXTERNAL | | | | | | LAB | | + + + + + + | MCHC | 33 | 30 - 36 g/dL | EXTERNAL | | | | | | LAB | | + + + + + + | Platelet | 300 | 140 - 440 K/ L | EXTERNAL | | | Count | | | LAB | | | Plasma | | | | | + + + + + + | RDW-CV | 14.2 | 10.5 - 15.0 % | EXTERNAL | | | | | | LAB | | + + + + + + | MPV | | fL | EXTERNAL | | | | | | LAB | | + + + + + + | Differentia | | | EXTERNAL | | | l Type | | | LAB | | + + + + + + | % Segmented | 48.2 | 39 - 80 % | EXTERNAL | | | | | | LAB | | | Neutrophils | | | | | + + + + + + | % | 44.5 (A) | 24 - 44 % | EXTERNAL | | | Lymphocytes | | | LAB | | + + + + + + | % Monocytes | 5.9 | 0 - 12 % | EXTERNAL | | | | | | LAB | | + + + + + + | % | 1.1 | 0 - 6 % | EXTERNAL | | | Eosinophils | | | LAB | | + + + + + + | % Basophils | 0.3 | 0 - 2 % | EXTERNAL | | | | | | LAB | | + + + + + + | Absolute | | / L | EXTERNAL | | | Segmented | | | LAB | | | Neutrophils | | | | | + + + + + + | Absolute | | / L | EXTERNAL | | | Lymphocytes | | | LAB | | + + + + + + | Absolute | | / L | EXTERNAL | | | Monocytes | | | LAB | | + + + + + + | Absolute | | / L | EXTERNAL | | | Eosinophils | | | LAB | | + + + + + + | Absolute | | / L | EXTERNAL | | | Basophils | | | LAB | | + + + + + + + + | Specimen | + + | Blood specimen | | (specimen) | + + + +---------+ + + | Performing | Address | City/State/Zipcode | Phone Number | | Organization | | | | + +---------+ + + | EXTERNAL LAB | | | | + +---------+ + + Basic Metabolic Panel (08/25/2015 12:00 AM PDT) + +-------+ + + + | Component | Value | Ref Range | Performed | Pathologist | | | | | At | Signature | + +-------+ + + + | Glucose, | 84 | 70 - 100 mg/dL | EXTERNAL | | | Fasting | | | LAB | | + +-------+ + + + | BUN | 15 | 6 - 23 mg/dL | EXTERNAL | | | | | | LAB | | + +-------+ + + + | Creatinine | 0.67 | 0.60 - 1.35 | EXTERNAL | | | | | mg/dL | LAB | | + +-------+ + + + | BUN/Creatin | 22.4 | 6.0 - 28.6 | EXTERNAL | | | ine Ratio | | | LAB | | + +-------+ + + + | Calcium | 10.0 | 8.4 - 10.2 | EXTERNAL | | | | | mg/dL | LAB | | + +-------+ + + + | Na | 135 | 132 - 143 | EXTERNAL | | | | | mmol/L | LAB | | + +-------+ + + + | K | 3.7 | 3.6 - 5.1 | EXTERNAL | | | | | mmol/L | LAB | | + +-------+ + + + | Cl | 102 | 95 - 112 mmol/L | EXTERNAL | | | | | | LAB | | + +-------+ + + + | CO2 | 23 | 19 - 31 mmol/L | EXTERNAL | | | | | | LAB | | + +-------+ + + + | Anion Gap | 13.7 | 7 - 21 mmol/L | EXTERNAL | | | | | | LAB | | + +-------+ + + + | Estimated | 99 | mg/dL | EXTERNAL | | | GFR | | | LAB | | + +-------+ + + + + + | Specimen | + + | Blood specimen | | (specimen) | + + + +---------+ + + | Performing | Address | City/State/Zipcode | Phone Number | | Organization | | | | + +---------+ + + | EXTERNAL LAB | | | | + +---------+ + + documented in this encounter Visit Diagnoses Not on filedocumented in this encounter"
--- OUTSIDE RECORDS SUMMARY | ~2019-10-11 | XMS | Encounter Summary ---
Demographics + + + | Address | [address] | | | [place] [address] | + + + | Home Phone [...] + + | Author | [facility] | + + + | Organization | [facility] | + + + | Address | Unknown | + + + | Phone | Unavailable | + + + Support + + + + + | Name | Relationship | Address | Phone | + + + + + | Bob Benites | ECON | [address] | | | | | [place] | | | | | [address] | | + + + + + Care Team Providers + +------+ + | Care In School Suspension Aide Name | Role | Phone | + +------+ + | Rohit Olguin MD | PCP | | + +------+ + Reason for Visit + + + | Reason | Comments | + + + | Insurance | Remicade Renewal | | Authorization | | + + + Encounter Details +--------+ + + + + | Date | Type | Department | Care Team | Description | +--------+ + + + + | 03/03/ | Documentati | Digestive Health | Briana Tellez MD | Insurance | | 2017 | on | Center at [facility] [address] | [address] | Authorization | | | | [address] | [place], [place] | (Remicade Renewal) | | | | Mailcode: Center | [address] | | | | | for Health and | [phone] | | | | | [facility] [address] | | | | | | [place], [place] | | | | | | [address] | | | | | | [phone] | | | +--------+ + + + [...]
--- OUTSIDE RECORDS SUMMARY | ~2019-10-11 | XMS | Encounter Summary ---
Demographics + + + | Address | [address] | | | [place] [address] | + + + | Home Phone | | + + + | Preferred Language | Unknown | + + + | Marital Status | | + + + | Jain Affiliation | Unknown | + + + | Race | White | + + + | Ethnic Group | Not or | + + + Author + + + | Author | [facility] | + + + | Organization | [facility] | + + + | Address | Unknown | + + + | Phone | Unavailable | + + + Support + + + + + | Name | Relationship | Address | Phone | + + + + + | Bob Benites | ECON | [address] | | | | | [place] | | | | | [address] | | + + + + + Care Team Providers + +------+ + | Care Carton Machine Operator Name | Role | Phone | + +------+ + | Rohit Olguin MD | PCP | | + +------+ + Encounter Details +--------+ + + + + | Date | Type | Department | Care Team | Description | +--------+ + + + + | 04/19/ | MyChart | Digestive Health | Zelda Hinojosa, | RE: Colored images | | 2013 | Encounter | Center at [facility] [address] | [place] | | | | | [address] | | | | | | Mailcode: Center | | | | | | for Health and | | | | | | Healing, [address] | | | | | | [place], [place] | | | | | | [address] | | | | | | [phone] | | | +--------+ + + + [...]
--- OUTSIDE RECORDS SUMMARY | ~2019-10-11 | XMS | Encounter Summary ---
Demographics + + + | Address | [address] | | | [place] [address] | + + + | Home Phone | | + + + | Preferred Language | Unknown | + + + | Marital Status | | + + + | Yazidi Affiliation | Unknown | + + + | Race | White | + + + | Ethnic Group | Not or | + + + Author + + + | Author | [facility] | + + + | Organization | [facility] | + + + | Address | Unknown | + + + | Phone | Unavailable | + + + Support + + + + + | Name | Relationship | Address | Phone | + + + + + | Bob Benites | ECON | [address] | | | | | [place] | | | | | [address] | | + + + + + Care Team Providers + +------+ + | Care Aviation Engineer Name | Role | Phone | + +------+ + | Rohit Olguin MD | PCP | | + +------+ + Encounter Details +--------+ + + + + | Date | Type | Department | Care Team | Description | +--------+ + + + + | 11/02/ | MyChart | Dig[facility]ive Health | Stevo Hart, | RE: Tests prior to | | 2016 | Encounter | Center at [facility] [address] | MD | Remicade | | | | [address] | | | | | | Mailcode: Center | | | | | | for Health and | | | | | | Healing, Building [address] | | | | | | [place], [place] | | | | | | [address] | | | | | | [phone] | | | +--------+ + + + [...]
--- OUTSIDE RECORDS SUMMARY | ~2019-10-11 | XMS | Encounter Summary ---
Demographics + + + | Address | [address] | | | [place] [address] | + + + | Home Phone | | + + + | Preferred Language | Unknown | + + + | Marital Status | | + + + | Jainism Affiliation | Unknown | + + + [...] + | Bob Benites | ECON | [address] | | | | | [place] | | | | | [address] | | + + + + + Care Team Providers + +------+ + | Care Electric Motor Repairman Name | Role | Phone | [...] | +--------+ + + + + | 03/11/ | Telephone | Dig[facility]ive Health | Stevo Hart, | Prior Authorization | | 2015 | | Center at [facility] 3485 | MD | Request - Medication | | | | [address] | | | | | | Mailcode: [place] | | | | | | [facility] Health and | | | | | | [facility], [facility] 2 | | | | | | [place], [place] | | | | | | [address] | | | | | | [phone] | | | +--------+ + + + [...]
--- OUTSIDE RECORDS SUMMARY | ~2019-10-11 | XMS | Encounter Summary ---
Demographics + + + | Address | [address] | | | [place] [address] | + + + | Home Phone | | + + + | Preferred Language | Unknown | + + + | Marital Status | | + + + | Pentecostal Affiliation | Unknown | + + + [...] [place] | | | | | [address] | | + + + + + Care Team Providers + +------+ + | Care Ob Tech Name | Role | Phone | + +------+ + | Rohit Olguin MD | PCP | | + +------+ + Encounter Details +--------+ + + + + | Date | Type | Department | Care Team | Description | +--------+ + + + + | 03/07/ | Telephone | Dig[facility]ive Health | Briana Tellez MD | | | 2017 | | Center at [facility] [address] | [address] | | | | | [address] | [place], [place] | | | | | Mailcode: [place] | [address] | | | | | for Health and | [phone] | | | | | [facility], [facility] 2 | | | | | | [place], [place] | | | | | | [address] | | | | | | [phone] | | | +--------+ + + + [...]
--- OUTSIDE RECORDS SUMMARY | ~2019-10-11 | XMS | Encounter Summary ---
Demographics + + + | Address | [address] | | | [place] [address] | + + + | Home Phone | | + + + | Preferred Language | Unknown | + + + | Marital Status | | + + + | Lutheran Affiliation | Unknown | + + + | Race | White | + + + | Ethnic Group | Not or | + + + Author + + + | Author | [facility] | + + + | Organization | [facility] | + + + | Address | Unknown | + + + | Phone | Unavailable | + + + Support + + + + + | Name | Relationship | Address | Phone | + + + + + | Bob Benites | ECON | [address] | | | | | [place] | | | | | [address] | | + + + + + Care Team Providers + +------+ + | Care Time Clock Inspector Name | Role | Phone | [...] Medical Records | | 2014 | | [place] at [facility] [address] | MD | Review (03/27/2015 | | | | [address] | | Colonoscopy and | | | | Mailcode: Center | | pathology report - | | | | for [facility] and | | [facility] | | | | [facility] 2 | | [facility]) | | | | [place], [place] | | | | | | [address] | | | | | | [phone] | | | +--------+ + + + [...]
--- OUTSIDE RECORDS SUMMARY | ~2019-10-11 | XMS | Encounter Summary ---
Demographics + + + | Address | [address] | | | [place] [address] | + + + | Home Phone [...] + | Bob Benites | ECON | [address] | | | | | [place] | | | | | [address] | | + + + + + Care Team Providers + +------+ + | Care Syrup Mixer Name | Role | Phone | + +------+ + | Rohit Olguin MD | PCP | | + +------+ + Reason for Visit + + + | Reason | Comments | + + + | Return Patient | | + + + Encounter Details +--------+---------+ + + + | Date | Type | Department | Care Team | Description | +--------+---------+ + + + | 08/10/ | Office | Digestive Health | Stevo Hart, | Right flank pain | | 2016 | Visit | Center at [facility] [address] | MD | (Primary Dx); Other | | | | [address] | | ulcerative colitis | | | | Mailcode: Center | | without complication | | | | for Health and | | ([facility]); Irritable | | | | Healing, Building 2 | | bowel syndrome | | | | [place], [place] | | without diarrhea | | | | [address] | | | | | | [phone] | | | +--------+---------+ + + + [...] + + + | Blood Pressure | 121/79 | 08/11/2015 4:02 PM | | | | | PDT | | + + + + + | Pulse | 89 | 08/11/2015 4:02 PM | | | | | PDT | | + + + + + | Temperature | 36.9 C (98.4 F) | 08/11/2015 4:02 PM | | | | | PDT | | + + + + + | Respiratory Rate | 16 | 08/11/2015 4:02 PM | | | | | PDT | | + + + + + | Oxygen Saturation | 99% | 08/11/2015 4:02 PM | | | | | PDT | | + + + + + | Inhaled Oxygen | - | - | | | Concentration | | | | + + + + + | Weight | 96.5 kg (212 lb 12.8 | 08/11/2015 4:02 PM | | | | oz) | PDT | | + + + + + | Height | 160 cm (5' 3") | 08/11/2015 4:02 PM | | | | | PDT | | + + + + + | Body Mass Index | 37.7 | 08/11/2015 4:02 PM | | | | | PDT | | + + + + + documented in this encounter Progress Notes Stefany Wilson PA-C - 08/11/2015 7:32 AM PDTFormatting of this note might be different fro m the original. [facility] ~ Follow-Up Visit Note Patient Identification: Kami Benites is a 35 y.o. female with a history of ulcerative c olitis and IBS who presents to the [facility] for right sided back an d flank pain. History of Present Illness: Interval History: Kami was last seen 05/03/14 5 weeks ago developed right low lumbar bear k pain that radiated to right flank, Lying on right side caused pain, no back injury or stre nous exercise, felt bloated, had hand swelling, thought she was passing a kidney stone ( has had 11 in the past), now radiates to epigastric region/ruq with skin sensitivity to touch, loss of appetite. Saw exploration driller had transvaginal told normal, normal CT A/P contrast scan, UA w as negative for blood or infection. Upped amitrypyline from 20 mg to 30 mg for 2 nights and that seemed to helped as well as heating pad Current GI/IBD Symptoms reviewed with the patient today: Bowel Habits: 1 formed, can be loose related to eating. Abdominal Pain: as above Weight loss: none N/V/F/C/Sweats: none Other - Perianal, oral, etc.: no NSAID Use: none Extraintestinal Symptoms (Joint, Eye,Skin): no Review of Systems: Comprehensive ROS performed, with [...] D&c (dilatation and curettage) 08/2011 Elbow surgery [id number] Relevant family or social history: no changes Family History Problem Relation GI Neg Hx [...] Data Review below. Current Outpatient Prescriptions Medication HYDROCODONE-ACETAMINOPHEN 7.5-325 mg Oral tablet INFLIXIMAB (REMICADE IV) nortriptyline 10 mg oral capsule SERTRALINE 100 mg Oral tablet SUMATRIPTAN 100 mg Oral tablet No current facility-administered medications for this visit. Allergies: Allergies Allergen Reactions Sulfa (Sulfonamide Antibiotics) Physical Exam: BP 121/79 | Pulse 89 | Temp (Src) 36.9 C (98.4 F) (Oral) | RR 16 | Ht 1.6 m (5' 3") | W t 96.525 kg (212 lb 12.8 oz) | SpO2 99% | BMI 37.71 kg/(m^2) Appearance: no apparent distress. Psychological: Appropriate mood and affect. Lungs: CTA Heart: RRR Abdomen; skin is tender to touch following approx T8 or T9 dermatome. No masses, rebound or gaurding Skin: no rashes Back: no paraspinous pain, [...] hyperpla stic changes, negative for colitis and dypslasia Colonoscopy 03/27/15- Imaging CT A/P w contrast 07/31/15 CT Abdomen w/contrast 04/09/15- 2. Current and prior therapies. Current IBD Meds: Remicade [id number] (started in 04/2012, was initially on it [...] around her flank to RUQ x [address]. [address] scan A/P did not show ev idence of colitis or obstruction, labs including inflammatory markers were normal, her colon oscopy back in 03/2015 showed mucosal healing and deep remission. She has no other symptoms outside of pain at this time that would suggest UC flare. Her pain temporarily resolved for 2 days by increasing nortriptyline from 20 mg to 30 mg suggesting some type of possible neur opathic pain and/or musculoskeletal etiology. Kidney stone remains on the ddx but I can not explain how skin hypersensitivity to touch relates to a kidney stone. She hasn't developed a ny rash such as zoster and this pain is different from her usually IBS pain. Given that her pain is improved on slightly higher dose of nortriptyline we decided on a 2 week trial at th e higher dose. If her pain persist consider non contrast renal colic CT. If her pain resolve s no further workup indicated. Plan and Recommendations: A. IBD Diagnostics. 1. Needs CBC, LFTs while on stable dose Remicade. B. IBD Therapy. 1. Continue Remicade q 8 weeks C. IBD-Specific Health Maintenance. 1. If Patient is Immunosuppressed - Recommendations for PCP: Vaccination: Pneumovax (2 shots by 5 years), Annual Flu Shot, and ensure up-t o-date on Tetanus. Strong consideration for Hep A/B vaccination. Avoid live vaccines. Recommend annual skin exam by PCP or carpentry foreman, and use of sunscreen. If Female--> PAP screening per ACOG guidelines for immunosuppressed patients. 2. Need for dysplasia surveillance colonoscopies: up to date D. Other / non-IBD. 1. IBS is well-controlled. Follow-Up: 6 months or sooner prn continued problems Counseling Time: I spent a total of 30 minutes with this patient, of which greater than 50 % of the time was spent in counseling. Specific issues that were discussed included changes to medication, discussing nerve pain and symptoms of colitis flare documented in this en counter Plan of Treatment Not on filedocumented as of this encounter Visit Diagnoses + + | Diagnosis | + + | Right flank pain - Primary Abdominal pain, unspecified site | + + | Other ulcerative colitis without complication (HCC) | + + | Irritable bowel syndrome without diarrhea Irritable bowel syndrome | + + documented in this encounter
--- OUTSIDE RECORDS SUMMARY | ~2019-10-11 | XMS | Encounter Summary ---
Demographics + + + | Address | [address] | | | [place] [address] | + + + | Home Phone | | + + + | Preferred Language | Unknown | + + + | Marital Status | | + + + | Judaism Affiliation | Unknown | + + + | Race | White | + + + | Ethnic Group | Not or | + + + Author + + + | Author | [facility] | + + + | Organization | [facility] | + + + | Address | Unknown | + + + | Phone | Unavailable | + + + Support + + + + + | Name | Relationship | Address | Phone | + + + + + | Bob Benites | ECON | [address] | | | | | [place] | | | | | [address] | | + + + + + Care Team Providers + +------+ + | Care Water Plant Maintenance Mechanic Name | Role | Phone | + +------+ + | Rohit Olguin MD | PCP | | + +------+ + Encounter Details +--------+ + + + + | Date | Type | Department | Care Team | Description | +--------+ + + + + | 01/22/ | MyChart | Dig[facility]ive Health | Alcon Malcolm, | RE:Lab results | | 2019 | Encounter | Center at [facility] [address] | SAMPLE HAND [address] | | | | | [address] | [place], [place] | | | | | Mailcode: Center | [address] | | | | | for Health and | [phone] | | | | | [facility] 2 | | | | | | [place], [place] | | | | | | [address] | | | | | | [phone] | | | +--------+ + + + [...]
--- OUTSIDE RECORDS SUMMARY | ~2019-10-11 | XMS | Encounter Summary ---
Demographics + + + | Address | [address] | | | [place] [address] | + + + | Home Phone | | + + + | Preferred Language | Unknown | + + + | Marital Status | | + + + | Methodist Affiliation | Unknown | + + + [...] + | Bob Benites | ECON | [address] | | | | | [place] | | | | | [address] | | + + + + + Care Team Providers + +------+ + | Care Natural History Collections Curator Name | Role | Phone | + +------+ + | Rohit Olguin MD | PCP | | + +------+ + Encounter Details +--------+ + + + + | Date | Type | Department | Care Team | Description | +--------+ + + + + | 02/02/ | MyChart | Dig[facility]ive Health | Alcon Malcolm, | RE: Contact info | | 2018 | Encounter | Center at [facility] [address] | AIR BRAKE RIGGER [address] | | | | | [address] | [place], [place] | | | | | Mailcode: Center | [address] | | | | | for Health and | [phone] | | | | | [facility] 2 | | | | | | [place], [place] | | | | | | [address] | | | | | | [phone] | | | +--------+ + + + [...]
--- OUTSIDE RECORDS SUMMARY | ~2019-10-11 | XMS | Encounter Summary ---
Demographics + + + | Address | [address] | | | [place] [address] | + + + | Home Phone [...] + | Bob Benites | ECON | [address] | | | | | [place] | | | | | [address] | | + + + + + Care Team Providers + +------+ + | Care Health Information Internship Name | Role | Phone | + +------+ + | Rohit Olguin MD | PCP | | + +------+ + Encounter Details +--------+ + + + + | Date | Type | Department | Care Team | Description | +--------+ + + + + | 02/08/ | MyChart | Dig[facility]ive Health | Alcon Malcolm, | RE:Your recent | | 2018 | Encounter | Center at [facility] [address] | FRONT OFFICE DIRECTOR [address] | colonoscopy | | | | [address] | [place], [place] | | | | | Mailcode: Center | [address] | | | | | for Health and | [phone] | | | | | [facility] 2 | | | | | | [place], [place] | | | | | | [address] | | | | | | [phone] | | | +--------+ + + + [...]
--- OUTSIDE RECORDS SUMMARY | ~2019-10-11 | XMS | Encounter Summary ---
Demographics + + + | Address | [address] | | | [place] [address] | + + + | Home Phone [...] + | Bob Benites | ECON | [address] | | | | | [place] | | | | | [address] | | + + + + + Care Team Providers + +------+ + | Care Material Planner Name | Role | Phone | + [...] | +--------+ + + + + | 06/22/ | MyChart | Dig[facility]ive Health | Briana Tellez MD | RE: Authorization | | 2018 | Encounter | Center at [facility] [address] | [address] | for Remicade needed. | | | | [address] | [place], [place] | Insurance changed | | | | Mailcode: Center | [address] | | | | | for Health and | [phone] | | | | | [facility] 2 | | | | | | [place], [place] | | | | | | [address] | | | | | | [phone] | | | +--------+ + + + [...]
--- OUTSIDE RECORDS SUMMARY | ~2019-10-11 | XMS | Encounter Summary ---
Demographics + + + | Address | [address] | | | [place] [address] | + + + | Home Phone | | + + + | Preferred Language | Unknown | + + + | Marital Status | | + + + | Roman Catholic Affiliation | Unknown | + + + [...] + | Bob Benites | ECON | [address] | | | | | [place] | | | | | [address] | | + + + + + Care Team Providers + +------+ + | Care Broom Handle Dipper Name | Role | Phone | + [...] Scheduling; Prior | | 2016 | | [facility] [address] | MD | Authorization | | | | [address] | | Request (Infusion) | | | | Mailcode: [place] | | | | | | for Health and | | | | | | [facility], [facility] 2 | | | | | | [place], [place] | | | | | | [address] | | | | | | [phone] | | | +--------+ + + + [...]
--- OUTSIDE RECORDS SUMMARY | ~2019-10-11 | XMS | Encounter Summary ---
Demographics + + + | Address | [address] | | | [place] [address] | + + + | Home Phone | | + + + | Preferred Language | Unknown | + + + | Marital Status | | + + + | Catholic Affiliation | Unknown | + + + | Race | White | + + + | Ethnic Group | Not or | + + + Author + + + | Author | [facility] | + + + | Organization | [facility] | + + + | Address | Unknown | + + + | Phone | Unavailable | + + + Support + + + + + | Name | Relationship | Address | Phone | + + + + + | Bob Benites | ECON | [address] | | | | | [place] | | | | | [address] | | + + + + + Care Team Providers + +------+ + | Care Processing Tech Name | Role | Phone | [...] | 2017 | Encounter | Center at [facility] [address] | MD | pain | | | | [address] | | | | | | Mailcode: Center | | | | | | for Health and | | | | | | Healing, Building 2 | | | | | | [place], [place] | | | | | | [address] | | | | | | [phone] | | | +--------+ + + + [...]
--- OUTSIDE RECORDS SUMMARY | ~2019-10-11 | XMS | Encounter Summary ---
Demographics + + + | Address | [address] | | | [place] [address] | + + + | Home Phone [...] + | Bob Benites | ECON | [address] | | | | | [place] | | | | | [address] | | + + + + + Care Team Providers + +------+ + | Care Professor Of Pathology Name | Role | Phone | + [...] | | | | | unspecified | [address] | | | | | | type SOB | Phone: | | | | | | (shortness | [phone] | | | | | | of breath) | Fax: | | | | | | on exertion | [phone] | | | | | | Procedures | | | | | | | CONSULT TO | | | | | | | CARDIOLOGY | | | + +--------+ + + + + Encounter Details +--------+ + + + + | Date | Type | Department | Care Team | Description | +--------+ + + + + | 01/12/ | Shift Lab Technician | Digestive Health | Alcon Malcolm, | Chest pain, | | 2019 | | Center at [facility] [address] | GAME FARM HELPER [address] | unspecified type | | | | [address] | [place], [place] | (Primary Dx); | | | | Mailcode: Center | [address] | Fatigue, unspecified | | | | for Health and | [phone] | type; SOB | | | | Healing, Building 2 | | (shortness of | | | | [place], [place] | | breath) on exertion | | | | [address] | | | | | | [phone] | | | +--------+ + + + [...]
--- OUTSIDE RECORDS SUMMARY | ~2019-10-11 | XMS | Encounter Summary ---
Demographics + + + | Address | [address] | | | [place] [address] | + + + | Home Phone [...] + + + | Author | [facility] | + + + | Organization | [facility] | + + + | Address | Unknown | + + + | Phone | Unavailable | + + + Support + + + + + | Name | Relationship | Address | Phone | + + + + + | Bob Benites | ECON | [address] | | | | | [place] | | | | | [address] | | + + + + + Care Team Providers + +------+ + | Care Drier Feeder Name | Role | Phone | + +------+ + | Rohit Olguin MD | PCP | | + +------+ + Encounter Details +--------+ + + + + | Date | Type | Department | Care Team | Description | +--------+ + + + + | 06/04/ | MyChart | Dig[facility]ive Health | Alcon Malcolm, | RE: Issues | | 2020 | Encounter | [facility] at [facility] [address] | CORPORATE JOB TITLES [address] | | | | | [address] | [place], [place] | | | | | Mailcode: Center | [address] | | | | | for Health and | [phone] | | | | | Healing, Building [address] | | | | | | [place], [place] | | | | | | [address] | | | | | | [phone] | | | +--------+ + + + [...]
--- OUTSIDE RECORDS SUMMARY | ~2019-10-11 | XMS | Encounter Summary ---
Demographics + + + | Address | [address] | | | [place] [address] | + + + | Home Phone | | + + + | Preferred Language | Unknown | + + + | Marital Status | | + + + | Adventist Affiliation | Unknown | + + + | Race | White | + + + | Ethnic Group | Not or | + + + Author + + + | Author | [facility] | + + + | Organization | [facility] | + + + | Address | Unknown | + + + | Phone | Unavailable | + + + Support + + + + + | Name | Relationship | Address | Phone | + + + + + | Bob Benites | ECON | [address] | | | | | [place] | | | | | [address] | | + + + + + Care Team Providers + +------+ + | Care Wholesale Representative Name | Role | Phone | + [...] Description | +--------+--------+ + + + | 09/19/ | Refill | Dig[facility]ive Health | Alcon Malcolm, | Refill Request | | 2019 | | Center at [facility] [address] | EXCELSIOR PICKER [address] | | | | | [address] | [place], [place] | | | | | Mailcode: Center | [address] | | | | | for Health and | [phone] | | | | | [place] [address] | | | | | | [place], [place] | | | | | | [address] | | | | | | [phone] | | | +--------+--------+ + + + [...]
--- OUTSIDE RECORDS SUMMARY | ~2019-10-11 | XMS | Encounter Summary ---
Demographics + + + | Address | [address] | | | [place] [address] | + + + | Home Phone | | + + + | Preferred Language | Unknown | + + + | Marital Status | | + + + | Moravian Affiliation | Unknown | + + + [...] + | Bob Benites | ECON | [address] | | | | | [place] | | | | | [address] | | + + + + + Care Team Providers + +------+ + | Care Checkout Operator Name | Role | Phone | [...] | 2013 | Encounter | Center at [facility] [address] | [facility] | | | | | [address] | | | | | | Mailcode: Center | | | | | | for Health and | | | | | | Healing, Building [address] | | | | | | [place], [place] | | | | | | [address] | | | | | | [phone] | | | +--------+ + + + [...]
--- OUTSIDE RECORDS SUMMARY | ~2019-10-11 | XMS | Encounter Summary ---
Demographics + + + | Address | [address] | | | [place] [address] | + + + | Home Phone | | + + + | Preferred Language | Unknown | + + + | Marital Status | | + + + | Episcopalian Affiliation | Unknown | + + + [...] + + + + + | Bob Bneites | ECON | [address] | | | | | [place] | | | | | [address] | | + + + + + Care Team Providers + +------+ + | Care Gas Station Cashier Name | Role | Phone | + [...] Center at [facility] [address] | MD | | | | | [address] | | | | | | Mailcode: Center | | | | | | for Health and | | | | | | Healing, Building [address] | | | | | | [place], [place] | | | | | | [address] | | | | | | [phone] | | | +--------+ + + + [...]
--- OUTSIDE RECORDS SUMMARY | ~2019-10-11 | XMS | Encounter Summary ---
Demographics + + + | Address | [address] | | | [place] [address] | + + + | Home Phone [...] + | Bob Benites | ECON | [address] | | | | | [place] | | | | | [address] | | + + + + + Care Team Providers + +------+ + | Care Light Truck Driver Name | Role | Phone | + +------+ + | Rohit Olguin MD | PCP | | + +------+ + Encounter Details +--------+ + + + + | Date | Type | Department | Care Team | Description | +--------+ + + + + | 11/19/ | MyChart | Dig[facility]ive Health | Stevo Hart, | Refill Nortryptline | | 2016 | Encounter | Center at [facility] [address] | MD | | | | | [address] | | | | | | Mailcode: Center | | | | | | for Health and | | | | | | Healing, Building [address] | | | | | | [place], [place] | | | | | | [address] | | | | | | [phone] | | | +--------+ + + + [...]
--- OUTSIDE RECORDS SUMMARY | ~2019-10-11 | XMS | Encounter Summary ---
Demographics + + + | Address | [address] | | | [place] [address] | + + + | Home Phone | | + + + | Preferred Language | Unknown | + + + | Marital Status | | + + + | Yarsanism Affiliation | Unknown | + + + | Race | White | + + + | Ethnic Group | Not or | + + + Author + + + | Author | [facility] | + + + | Organization | [facility] | + + + | Address | Unknown | + + + | Phone | Unavailable | + + + Support + + + + + | Name | Relationship | Address | Phone | + + + + + | Bob Benites | ECON | [address] | | | | | [place] | | | | | [address] | | + + + + + Care Team Providers + +------+ + | Care Bellmaker Name | Role | Phone | + +------+ + | Rohit Olguin MD | PCP | | + +------+ + Reason for Visit + + + | Reason | Comments | + + + | Medical Records | 02/02/2018 Colonoscopy - [facility] | | Review | | + + + | Medical Records | 02/02/2018 Pathology - [facility] | | Review | | + + + Encounter Details +--------+ + + + + | Date | Type | Department | Care Team | Description | +--------+ + + + + | 02/07/ | Abstract | Digestive Health | Alcon Malcolm, | Medical Records | | 2018 | | Center at [facility] | DATA DELIVERABLES MANAGER [address] | Review (02/02/2018 | | | | [address] | [place], [place] | Colonoscopy - [facility] | | | | Mailcode: Center | [address] | [facility]); | | | | for Health and | [phone] | Medical Records | | | | [facility], [address] | | Review (02/02/2018 | | | | [place], [place] | | Pathology - [facility] | | | | [address] | | [facility]ostics) | | | | [phone] | | | +--------+ + + + [...]
--- OUTSIDE RECORDS SUMMARY | ~2019-10-11 | XMS | Encounter Summary ---
Demographics + + + | Address | [address] | | | [place] [address] | + + + | Home Phone | | + + + | Preferred Language | Unknown | + + + | Marital Status | | + + + | Hinduism Affiliation | Unknown | + + + | Race | White | + + + | Ethnic Group | Not or | + + + Author + + + | Author | [facility] | + + + | Organization | [facility] | + + + | Address | Unknown | + + + | Phone | Unavailable | + + + Support + + + + + | Name | Relationship | Address | Phone | + + + + + | Bob Benites | ECON | [address] | | | | | [place] | | | | | [address] | | + + + + + Care Team Providers + +------+ + | Care Senior Corporate Strategy Manager Name | Role | Phone | [...] | Encounter | Center at [facility] [address] | MD | | | | | [address] | | | | | | Mailcode: Center | | | | | | for Health and | | | | | | Healing, [address] | | | | | | [place], [place] | | | | | | [address] | | | | | | [phone] | | | +--------+ + + + [...]
--- OUTSIDE RECORDS SUMMARY | ~2019-10-11 | XMS | Encounter Summary ---
Demographics + + + | Address | [address] | | | [place] [address] | + + + | Home Phone [...] + | Bob Benites | ECON | [address] | | | | | [place] | | | | | [address] | | + + + + + Care Team Providers + +------+ + | Care Painter And Decorator Apprentice Name | Role | Phone | + [...] | +--------+ + + + + | 03/16/ | Abstract | Digestive Health | Gold, Al[place], | Insurance | | 2018 | | Center at [facility] [address] | BATCH TRUCKER [address] | Authorization | | | | [address] | [place], [place] | (Remicade approval - | | | | Mailcode: [place] | [phone] | [employer]) | | | | for Health and | [phone] | | | | | [place] [address] | | | | | | [place], [place] | | | | | | [address] | | | | | | [phone] | | | +--------+ + + + [...]
--- OUTSIDE RECORDS SUMMARY | ~2019-10-11 | XMS | Encounter Summary ---
Demographics + + + | Address | [address] | | | [place] [address] | + + + | Home Phone | | + + + | Preferred Language | Unknown | + + + | Marital Status | | + + + | Orthodox Affiliation | Unknown | + + + | Race | White | + + + | Ethnic Group | Not or | + + + Author + + + | Author | [facility] | + + + | Organization | [facility] | + + + | Address | Unknown | + + + | Phone | Unavailable | + + + Support + + + + + | Name | Relationship | Address | Phone | + + + + + | Bob Benites | ECON | [address] | | | | | [place] | | | | | [address] | | + + + + + Care Team Providers + +------+ + | Care Sap Business Objects Developer Name | Role | Phone | [...] | [address] | | ([facility]); Abdominal | | | | [place], [place] | | pain | | | | [address] | | | | | | [phone] | | | +--------+------+ + + + [...] | | e | 12:47 PM | ([facility]) Abdominal | procedure are in the | | | | PST | pain | results section. | + +--------+ + + + | SEDIMENTATION RATE | Routin | 03/30/2013 | Ulcerative colitis | Results for this | | | e | 12:47 PM | ([facility]) Abdominal | procedure are in the | [...] ranges for some CBC/Differential analytes in | [facility], CORE | | effect on 12/01/12. | | + + + + + + + + | Performing | Address | City/State/Zipcode | Phone Number | | Organization | | | | + + + + + | [facility] | [address] | [place] [address] | | | SERVICES, CORE | [address] [...] + | MORIN - AIRPORT - | [address] | [place] [address] | | | MANASSAS | | | | + + + [...] + + + + + | [facility] | [address] | [place] [address] | | | SERVICES, CORE | [address]OV[address] [...] [facility] | [address] | [place] [address] | | | JAH URBINA | [address] | | | + + + + + documented in this encounter Visit Diagnoses + + | Diagnosis | + + | Ulcerative colitis (HCC) Ulcerative colitis, unspecified | + + | Abdominal pain | + + documented in this encounter"
--- OUTSIDE RECORDS SUMMARY | ~2019-10-11 | XMS | Encounter Summary ---
Demographics + + + | Address | [address] | | | [place] [address] | + + + | Home Phone [...] + + + | Author | [facility] | + + + | Organization | [facility] | + + + | Address | Unknown | + + + | Phone | Unavailable | + + + Support + + + + + | Name | Relationship | Address | Phone | + + + + + | Bob Benites | ECON | [address] | | | | | [place] | | | | | [address] | | + + + + + Care Team Providers + +------+ + | Care Marketing Information Manager Name | Role | Phone | [...] | 2017 | on | Center at [facility] [address] | [address] | Authorization | | | | [address] | [place], [place] | (Remicade Renewal) | | | | Mailcode: Center | [address] | | | | | for Health and | [phone] | | | | | [facility] 2 | | | | | | [place], [place] | | | | | | [address] | | | | | | [phone] | | | +--------+ + + + [...]
--- OUTSIDE RECORDS SUMMARY | ~2019-10-11 | XMS | Encounter Summary ---
Demographics + + + | Address | [address] | | | [place] [address] | + + + | Home Phone [...] + | Bob Benites | ECON | [address] | | | | | [place] | | | | | [address] | | + + + + + Care Team Providers + +------+ + | Care Cdl Dedicated Truck Driver Name | Role | Phone [...] 2018 | Encounter | Center at [facility] [address] | AUTOMATION QA TESTER [address] | | | | | [address] | [place], [place] | | | | | Mailcode: Center | [address] | | | | | for Health and | [phone] | | | | | [facility] 2 | | | | | | [place], [place] | | | | | | [address] | | | | | | [phone] | | | +--------+ + + + [...]
--- OUTSIDE RECORDS SUMMARY | ~2019-10-11 | XMS | Encounter Summary ---
Demographics + + + | Address | [address] | | | [place] [address] | + + + | Home Phone [...] + | Bob Benites | ECON | [address] | | | | | [place] | | | | | [address] | | + + + + + Care Team Providers + +------+ + | Care Garage Hand Name | Role | Phone | + +------+ + | Rohit Olguin MD | PCP | | + +------+ + Reason for Visit + + + | Reason | Comments | + + + | Medical Records | 02/02/2018 Colonoscopy - [facility] | | Review | | + + [...] | | 2018 | | Center at [facility] 3485 | STRAPPER OPERATOR [address] | Review (02/02/2018 | | | | [address] | [place], [place] | Colonoscopy - [facility] | | | | Mailcode: Center | [address] | [facility]); | | | | for Health and | [phone] | Medical Records | | | | [facility], [address] | | Review (02/02/2018 | | | | [place], [place] | | Pathology - [facility] | | | | [address] | | Diagnostics) | | | | [phone] | | | +--------+ + + + [...]
--- OUTSIDE RECORDS SUMMARY | ~2019-10-11 | XMS | Encounter Summary ---
Demographics + + + | Address | [address] | | | [place] [address] | + + + | Home Phone [...] + | Bob Benites | ECON | [address] | | | | | [place] | | | | | [address] | | + + + + + Care Team Providers + +------+ + | Care Shank Archer Name | Role | Phone | + [...] | | | | | Procedures | [address] | | | | | [address] | [address] | [place], [place] | | | | | OFFICE/OUTPT | [place], | [address] | | | | | | [place] [address] | | | | | | VISIT,EST,LE | Phone: | | | | | | VL IV | [phone] | | | | | | | Fax: | | | | | | | [phone] | | +--------+ + + + + + Encounter Details +--------+---------+ + + + | Date | Type | Department | Care Team | Description | +--------+---------+ + + + | 10/18/ | Office | Digestive Health | Stevo Hart, | Other ulcerative | | 2017 | Visit | Center at [facility] 3485 | MD | colitis without | | | | [address] | | complication (HCC) | | | | Mailcode: Center | | (Primary Dx); | | | | for Health and | | Irritable bowel | | | | Healing, Building [address] | | syndrome without | | | | [place], [place] | | diarrhea; Encounter | | | | [address] | | for long-term | | | | [phone] | | (current) use of | | [...] m the original. 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 Current IBD Meds: Remicade [id number] (started in 04/2012, was initially on it [...] recorded by Hilda Cobb. Stevo Hart MD Retail Pos Specialisthand icer Division of Gastroenterology & Hepatology [facility] documented in this en counter Plan of [...]
--- OUTSIDE RECORDS SUMMARY | ~2019-10-11 | XMS | Encounter Summary ---
Demographics + + + | Address | [address] | | | [place] [address] | + + + | Home Phone [...] + | Bob Benites | ECON | [address] | | | | | [place] | | | | | [address] | | + + + + + Care Team Providers + +------+ + | Care Clam Shucking Machine Tender Name | Role | Phone | + +------+ + | Rohit Olguin MD | PCP | | + +------+ + Encounter Details +--------+ + + + + | Date | Type | Department | Care Team | Description | +--------+ + + + + | 09/19/ | Abstract | Digestive Health | Clinic, | | | 2012 | | [facility] [address] | Gastroenterology | | | | | [address] | | | | | | Mailcode: [facility] | | | | | | for Health and | | | | | | Healing, [address] | | | | | | [place], [place] | | | | | | [address] | | | | | | [phone] | | | +--------+ + + + [...]
--- OUTSIDE RECORDS SUMMARY | ~2019-10-11 | XMS | Encounter Summary ---
Demographics + + + | Address | [address] | | | [place] [address] | + + + | Home Phone [...] + | Bob Benites | ECON | [address] | | | | | [place] | | | | | [address] | | + + + + + Care Team Providers + +------+ + | Care Shake Packer Name | Role | Phone | + +------+ + | Rohit Olguin MD | PCP | | + +------+ + Reason for Visit + + + | Reason | Comments | + + + | Medical Records | 04/02/2014 Surgical Pathology Report - [facility] | | Review | | + + + Encounter Details +--------+ + + + + | Date | Type | Department | Care Team | Description | +--------+ + + + + | 04/18/ | Abstract | Digestive Health | Stevo Hart, | Medical Records | | 2013 | | [place] [address] [address] | MD | Review (04/02/2014 | | | | [address] | | Surgical Pathology | | | | Mailcode: [place] | | Report - Blue | | | | for Health and | | [facility]) | | | | [facility], [address] | | | | | | [place], [place] | | | | | | [address] | | | | | | [phone] | | | +--------+ + + + [...]
--- OUTSIDE RECORDS SUMMARY | ~2019-10-11 | XMS | Encounter Summary ---
Demographics + + + | Address | [address] | | | [place] [address] | + + + | Home Phone | | + + + | Preferred Language | Unknown | + + + | Marital Status | | + + + | Catholic Affiliation | Unknown | + + + | Race | Unknown | + + + | Ethnic Group | Unknown | + + + Author + + + | Author | [facility] | | | and [place] | + + + | Organization | [facility] | | [...] Team Providers + +------+ + | Care Recreation Therapy Aides Teacher Name | Role | Phone | + +------+ + | Rohit Olguin MD | PCP | | + +------+ + Encounter Details +--------+ + + + + | Date | Type | Department | Care Team | Description | +--------+ + + + + | 10/02/ | Orders Only | [facility] | Conversion | | | 2015 | | NEPHROLOGY [place] | Transaction, | | | | | [address] | Provider Unknown | | | | | [address] | [phone] | | | | | [address] | | | | | | [phone] | | | +--------+ + + + [...] | EXTERNAL LAB: CBC | Routin | 10/03/2015 | | Results for this | | | e | 12:00 AM | | procedure are in the | | | | PDT | | results section. | + +--------+ + + + | URINALYSIS WITH | Routin | 10/03/2015 | | Results for this | | MICROSCOPIC WITH | e | 12:00 AM | | procedure are in the | | CULTURE IF INDICATED | | PDT | | results section. | + +--------+ + + + | PROTEIN/CREATININE | Routin | 10/03/2015 | | Results for this | | RATIO, URINE | e | 12:00 AM | | procedure are in the | | | | PDT | | results section. | + +--------+ + + + | URIC ACID | Routin | 10/03/2015 | | Results for this | | | e | 12:00 AM | | procedure are in the | | | | PDT | | results section. | + +--------+ + + + | BASIC METABOLIC | Routin | 10/03/2015 | | Results for this | | PANEL | e | 12:00 AM | | procedure are in the | | | | PDT | | results section. | + +--------+ + + + documented in this encounter Results Urinalysis with Microscopic with Culture if Indicated (10/03/2015 12:00 AM PDT) + + + + + + | Component | Value | Ref Range | Performed | Pathologist | | | | | At | Signature | + + + + + + | Color | Yellow | | EXTERNAL | | | | | | LAB | | + + + + + + | Clarity | Clear | | EXTERNAL | | | | | | LAB | | + + + + + + | Spec Grav, | 1.017 | | EXTERNAL | | | Fluid | | | LAB | | + + + + + + | Leukocyte | Negative | | EXTERNAL | | | Esterase, | | | LAB | | | Urine | | | | | + + + + + + | Nitrite, | Negative | | EXTERNAL | | | Urine | | | LAB | | + + + + + + | Urobilinoge | Normal | | EXTERNAL | | | n, Urine | | | LAB | | + + + + + + | Total | negative | | EXTERNAL | | | Protein | | | LAB | | + + + + + + | pH, Urine | 5 | | EXTERNAL | | | | | | LAB | | + + + + + + | Blood, | Negative | | EXTERNAL | | | Urine | | | LAB | | + + + + + + | Ketones | negative | | EXTERNAL | | | | | | LAB | | + + + + + + | Bilirubin, | Negative | | EXTERNAL | | | Urine | | | LAB | | + + + + + + | Glucose, | Negative | | EXTERNAL | | | Urine | | | LAB | | + + + + + + | WBC, UA | 0 | | EXTERNAL | | | | | | LAB | | + + + + + + | RBC, UA | 0 | | EXTERNAL | | | | | | LAB | | + + + + + + | Epithelial | 1 | | EXTERNAL | | | Cells | | | LAB | | + + + + + + | Bacteria, | 1-5Comment: 1 | | EXTERNAL | | | UA | | | LAB | | + + + + + + | HYALINE | | | EXTERNAL | | | CASTS UA | | | LAB | | + + + + + + + + | Specimen | + + | | + + + +---------+ + + | Performing | Address | City/State/Zipcode | Phone Number | | Organization | | | | + +---------+ + + | EXTERNAL LAB | | | | + +---------+ + + Protein/Creatinine Ratio, Urine (10/03/2015 12:00 AM PDT) + +-------+ + + + | Component | Value | Ref Range | Performed | Pathologist | | | | | At | Signature | + +-------+ + + + | Protein/Cre | 67.4 | 0 - 150 | EXTERNAL | | | at Ratio | | | LAB | | + +-------+ + + + + + | Specimen | + + | Urine specimen | | (specimen) | + + + +---------+ + + | Performing | Address | City/State/Zipcode | Phone Number | | Organization | | | | + +---------+ + + | EXTERNAL LAB | | | | + +---------+ + + External Lab: CBC (10/03/2015 12:00 AM PDT) + +-------+ + + + | Component | Value | Ref Range | Performed | Pathologist | | | | | At | Signature | + +-------+ + + + | WBC | 8.6 | 4.5 - 11.0 10 | EXTERNAL | | | | | | LAB | | + +-------+ + + + | Red Blood | 4.72 | 3.8 - 5.1 10 | EXTERNAL | | | Cells | | | LAB | | | Counted | | | | | + +-------+ + + + | Hemoglobin | 12.7 | 12.0 - 16.0 | EXTERNAL | | | | | g/dL | LAB | | + +-------+ + + + | Hematocrit, | 39.6 | 35 - 45 % | EXTERNAL | | | POC | | | LAB | | + +-------+ + + + | MCV | 83.8 | 81 - 99 fL | EXTERNAL | | | | | | LAB | | + +-------+ + + + | MCH | 27 | 27 - 33 pg | EXTERNAL | | | | | | LAB | | + +-------+ + + + | MCHC | 32 | 30 - 36 g/dL | EXTERNAL | | | | | | LAB | | + +-------+ + + + | Platelet | 308 | 140 - 440 K/ L | EXTERNAL | | | Count | | | LAB | | | Plasma | | | | | + +-------+ + + + | RDW-CV | 14.3 | 10.5 - 15.0 % | EXTERNAL | | | | | | LAB | | + +-------+ + + + | MPV | | fL | EXTERNAL | | | | | | LAB | | + +-------+ + + + | Differentia | | | EXTERNAL | | | l Type | | | LAB | | + +-------+ + + + | % Segmented | 52.9 | 39 - 80 % | EXTERNAL | | | | | | LAB | | | Neutrophils | | | | | + +-------+ + + + | % | 39.4 | 24 - 44 % | EXTERNAL | | | Lymphocytes | | | LAB | | + +-------+ + + + | % Monocytes | 6.1 | 0 - 12 % | EXTERNAL | | | | | | LAB | | + +-------+ + + + | % | 1.1 | 0 - 6 % | EXTERNAL | | | Eosinophils | | | LAB | | + +-------+ + + + | % Basophils | 0.5 | 0 - 2 % | EXTERNAL | | | | | | LAB | | + +-------+ + + + | Absolute | | / L | EXTERNAL | | | Segmented | | | LAB | | | Neutrophils | | | | | + +-------+ + + + | Absolute | | / L | EXTERNAL | | | Lymphocytes | | | LAB | | + +-------+ + + + | Absolute | | / L | EXTERNAL | | | Monocytes | | | LAB | | + +-------+ + + + | Absolute | | / L | EXTERNAL | | | Eosinophils | | | LAB | | + +-------+ + + + | Absolute | | [...] | | | + +---------+ + + Uric Acid (10/03/2015 12:00 AM PDT) + +-------+ + + + | Component | Value | Ref Range | Performed | Pathologist | | | | | At | Signature | + +-------+ + + + | Uric Acid | 5.1 | 2.3 - 6.6 | EXTERNAL | | | | | [...] + +---------+ + + Basic Metabolic Panel (10/03/2015 12:00 AM PDT) + +---------+ + + + | Component | Value | Ref Range | Performed | Pathologist | | | | | At | Signature | + +---------+ + + + | Glucose, | 116 (A) | 70 - 100 mg/dL | EXTERNAL | | | Fasting | | | LAB | | + +---------+ + + + | BUN | 14 | 6 - 23 mg/dL | EXTERNAL | | | | | | LAB | | + +---------+ + + + | Creatinine | 0.63 | 0.60 - 1.35 | EXTERNAL | | | | | mg/dL | LAB | | + +---------+ + + + | BUN/Creatin | 22.2 | 6.0 - 28.6 | EXTERNAL | | | ine Ratio | | | LAB | | + +---------+ + + + | Calcium | 9.8 | 8.4 - 10.2 | EXTERNAL | | | | | mg/dL | LAB | | + +---------+ + + + | Na | 134 | 132 - 143 | EXTERNAL | | | | | mmol/L | LAB | | + +---------+ + + + | K | 4.2 | 3.6 - 5.1 | EXTERNAL | | | | | mmol/L | LAB | | + +---------+ + + + | Cl | 101 | 95 - 112 mmol/L | EXTERNAL | | | | | | LAB | | + +---------+ + + + | CO2 | 24 | 19 - 31 mmol/L | EXTERNAL | | | | | | LAB | | + +---------+ + + + | Anion Gap | 13.2 | 7 - 21 mmol/L | EXTERNAL | | | | | | LAB | | + +---------+ + + + | Estimated | 106 | mg/dL | EXTERNAL | | | GFR | | | LAB | | + +---------+ + + + [...]
--- OUTSIDE RECORDS SUMMARY | ~2019-10-11 | XMS | Encounter Summary ---
Demographics + + + | Address | [address] | | | [place] [address] | + + + | Home Phone [...] + | Bob Benites | ECON | [address] | | | | | [place] | | | | | [address] | | + + + + + Care Team Providers + +------+ + | Care Telemarketing Agent Name | Role | Phone | + +------+ + | Rohit Olguin MD | PCP | | + +------+ + Encounter Details +--------+ + + + + | Date | Type | Department | Care Team | Description | +--------+ + + + + | 09/20/ | MyChart | Digestive Health | Alcon Malcolm, | RE:Your recent lab | | 2018 | Encounter | Center at [facility] [address] | FLOOR WINDER [address] | results | | | | [address] | [place], [place] | | | | | Mailcode: [place] | [address] | | | | | for Health and | [phone] | | | | | [facility] 2 | | | | | | [place], [place] | | | | | | [address] | | | | | | [phone] | | | +--------+ + + + [...]
--- OUTSIDE RECORDS SUMMARY | ~2019-10-11 | XMS | Encounter Summary ---
Demographics + + + | Address | [address] | | | [place] [address] | + + + | Home Phone [...] + | Bob Benites | ECON | [address] | | | | | [place] | | | | | [address] | | + + + + + Care Team Providers + +------+ + | Care Leather Sprayer Name | Role | Phone | + [...] | 2012 | Encounter | Center at [facility] [address] | [facility] | | | | | [address] | | | | | | Mailcode: Center | | | | | | for Health and | | | | | | Healing, [address] | | | | | | [place], [place] | | | | | | [address] | | | | | | [phone] | | | +--------+ + + + [...]
--- OUTSIDE RECORDS SUMMARY | ~2019-10-11 | XMS | Encounter Summary ---
Demographics + + + | Address | [address] | | | [place] [address] | + + + | Home Phone [...] + | Bob Benites | ECON | [address] | | | | | [place] | | | | | [address] | | + + + + + Care Team Providers + +------+ + | Care Drip Molder Name | Role | Phone | + [...] | | 2017 | | Center at [facility] [address] | [address] | Authorization | | | | [address] | [place], [place] | (Remicade approval - | | | | Mailcode: [place] | [phone] | Abhijeet/Carla); | | | | for Health and | [phone] | Insurance | | | | [place] [address] | | Authorization | | | | [place], [place] | | (Updated Remicade | | | | [address] | | approval - | | | | [phone] | | Abh[employer]et[employer]) | +--------+ + + [...]
--- OUTSIDE RECORDS SUMMARY | ~2019-10-11 | XMS | Encounter Summary ---
Demographics + + + | Address | [address] | | | [place] [address] | + + + | Home Phone [...] + | Bob Benites | ECON | [address] | | | | | [place] | | | | | [address] | | + + + + + Care Team Providers + +------+ + | Care Pressroom Supervisor Name | Role | Phone | + +------+ + | Rohit Olguin MD | PCP | | + +------+ + Reason for Visit + + + | Reason | Comments | + + + | Lab Order | With every other Remicade | + + + Encounter Details +--------+ + + + + | Date | Type | Department | Care Team | Description | +--------+ + + + + | 05/03/ | Telephone | Digestive Health | Zelda Hinojosa, | Lab Order (With | | 2013 | | [facility] at [facility] [address] | PA-C | every other | | | | [address] | | Remicade) | | | | Mailcode: [place] | | | | | | for Health and | | | | | | [facility], [facility] 2 | | | | | | [place], [place] | | | | | | [address] | | | | | | [phone] | | | +--------+ + + + [...]
--- OUTSIDE RECORDS SUMMARY | ~2019-10-11 | XMS | Encounter Summary ---
Demographics + + + | Address | [address] | | | [place] [address] | + + + | Home Phone [...] [place] | | | | | [address] | | + + + + + Care Team Providers + +------+ + | Care Helper [employer] [place] Name | Role | Phone | + [...] Description | +--------+--------+ + + + | 05/19/ | Refill | Digestive Health | Alcon Malcolm, | Refill Request | | 2020 | | Center at [facility] 34[address] | CORN CUTTER [address] | | | | | [address] | [place], [place] | | | | | Mailcode: Center | [address] | | | | | for Health and | [phone] | | | | | [place] [address] | | | | | | [place], [place] | | | | | | [address] | | | | | | [phone] | | | +--------+--------+ + + + [...]
--- OUTSIDE RECORDS SUMMARY | ~2019-10-11 | XMS | Encounter Summary ---
Demographics + + + | Address | [address] | | | [place] [address] | + + + | Home Phone | | + + + | Preferred Language | Unknown | + + + | Marital Status | | + + + | Tenriism Affiliation | Unknown | + + + [...] + | Bob Benites | ECON | [address] | | | | | [place] | | | | | [address] | | + + + + + Care Team Providers + +------+ + | Care Major Donor Coordinator Name | Role | Phone | + +------+ + | Rohit Olguin MD | PCP | | + +------+ + Reason for Visit + + + | Reason | Comments | + + + | Follow-up visit | | + + + Office Visit - E/M Services (Routine) +--------+--------+ + + + + | Status | Reason | Specialty | Diagnoses / | Referred By | Referred To | | | | | Procedures | Contact | Contact | +--------+--------+ + + + + | Closed | | Gastroenterol | Diagnoses | Non-[facility] | [facility] | | | | ogy | Other | Epic Dept | [facility] [address] | | | | | ulcerative | | [address] | | | | | colitis | | Mailcode: | | | | | without | | Center for | | | | | complication | | Health and | | | | | s | | Healing, | | | | | Procedures | | [address] | | | | | [place] | | [place], [place] | | | | | OFFICE/OUTPT | | [address] | | | | | | | Phone: | | | | | VISIT,MATILDE WALKER | | [phone] | | | | | VL IV | | Fax: | | | | | | | [phone] | +--------+--------+ + + + + Encounter Details +--------+---------+ + + + | Date | Type | Department | Care Team | Description | +--------+---------+ + + + | 01/10/ | Office | Digestive Health | Gold, Alcon, | Other ulcerative | | 2019 | Visit | Center at [facility] [address] | DIRECTOR CARD [address] | colitis with rectal | | | | [address] | [place], [place] | bleeding (HCC) | | | | Mailcode: Center | [address] | (Primary Dx); | | | | for Health and | [phone] | Encounter for | | | | Healing, Building [address] | | long-term (current) | | | | [place], [place] | | use of high-risk | | | | [address] | | medication; | | | | [phone] | | Irritable bowel | | | | | | syndrome, | | | | | | unspecified type; | | | | | | Fatigue, unspecified | | | | | | type; Generalized | | | | | | body aches; Chest | | | | | | pain, unspecified | | | | | | type | +--------+---------+ + + + Social [...] Instructions Patient Instructions Alcon Malcolm FNP - 01/10/2019 1:00 PM PDTIt was very nice to see you today! 1. Let's check blood work today - I'm looking in particular for a drug-induced lupus, which can rarely occur with Remicade 2. I will ask Tangela to touch base about Remicade levels - this can be done whenever as I'm looking for the neutralizing antibodies and not really the drug level 3. I will also refer you to cardiology - Janiya should touch base about that. 4. Continue to keep us in the loop with how you're doing, how things are changing.Johnleila onel signed by AUDELIA Samuel at 01/10/2019 1:42 PM PDT documented in this encounter Progress Notes Artemio Persaud - 01/10/2019 1:00 PM PDTPatient presents for blood draw per Providers order Site: RIGHT A/C Time: 13:55 Patient tolerated well; ONE ATTEMPT lcon Malcolm FNP - 1:00 PM PDT [facility] Disease Clinic [facility] ~ Follow-Up Visit Note 01/10/2019 Patient Identification: Kami Benites is a 38 y.o. female with right-sided ulcerative co litis, originally diagnosed at age 11, c/b IBS. History of Present Illness: Interval History: Kami was last seen in IBD clinic on 09/19/2017, and at that time continued to do relatively well on Remicade monotherapy, but had seen more urgency and looseness in her bowel movements , along with a lot of fatigue. Plans were made to update labs (mild anemia, low vitamin D, m ildly elevated ESR), get infliximab levels before next infusion (excellent at 15.2), and get surveillance colonoscopy later that year (was done 02/07/2018 and showed endoscopic remissio n and normal surveillance biopsies). She contacted the clinic earlier this month to report some problems that she was having. Ba ck in July she had an episode of chest pain while getting a manicure while visiting her fam jarrett in [place]. This started mid chest and was referred through to her back, and she had shortness of breath and dizziness with this. This resolved after about 15 minutes. She's had multiple other similar episodes in the intervening months, none quite as severe. They have not been associated with obvious anxiety nor exertion, but come out of the blue. She notes that she's always had more fatigue since starting Remicade, but this has become s ignificantly worse over this period as well. She also gets winded climbing stairs, which is new. After her last Remicade infusion she returned home exhausted, and slept quite a bit ove r that weekend. Through this she also had global myalgias that gradually improved. We asked her to get some labs for us when she contacted us, and CBC, CMP, inflammatory spring ers, and micronutrients were all reassuring. She reports that she had an EKG with her PCP th at was normal (not experiencing symptoms at that time), and had stress test (interpretted as normal, she notes that she did have some chest pain during it). She remains in symptomatic remission from her colitis, and not having any real GI symptoms currently. She also notes that nortriptyline has been very effective at controlling IBS symp toms, and that if she misses a dose she has to be much more careful about what she eats. Current GI/IBD Symptoms reviewed with the patient today: Bowel Habits: daily, formed, no blood, no nocturnal Abdominal Pain: none Weight loss: none Nausea/vomiting: none Appetite/Diet: good, no current avoidances Perianal Symptoms: none Oral ulcers: none Other Symptoms: F/C/Sweats: none Extraintestinal Symptoms: Joint pain (any change from baseline): ankles more sore, longstanding problem Eye pain, redness, or visual changes: none [...] D&c (dilatation and curettage) 08/2011 Elbow surgery 2456-6245 Endoscopic excision of left ovary Left 12/2016 Hysterectomy Relevant family or social history: Family History Problem Relation GI Sister UC, diagnosed ~2015 Social History Socioeconomic History Marital status: Spouse name: Not on file Number of children: Not on file Years of education: Not on file Highest education level: Not on file Occupational History 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: [employer]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 Social Needs Financial resource strain: Not on file Food insecurity: Worry: Not on file Inability: Not on file Transportation needs: Medical: Not on file Non-medical: Not on file Tobacco Use Smoking status: Former Smoker Smokeless tobacco: Never Used Tobacco comment: quit for 7 years; quit 6 years ago Substance and Sexual Activity Alcohol use: Yes Comment: rare Drug use: No Sexual activity: Not on file Lifestyle Physical activity: Days per week: Not on file Minutes per session: Not on file Stress: Not on file Relationships Social connections: Talks on phone: Not on file Gets together: Not on file Attends yarsani service: Not on file Active member of club or organization: Not on file Attends meetings of clubs or organizations: Not on file Relationship status: Not on file Other Topics Concern Not on file Social History Narrative with 2 children Medications: IBD Medication as per IBD Data Review below. Current Outpatient Medications Medication CHOLECALCIFEROL (VITAMIN D3) 5,000 unit oral capsule INFLIXIMAB (REMICADE IV) MONO-LINYAH 0.25-35 mg-mcg oral tablet nortriptyline 50 mg oral capsule OMEPRAZOLE 40 mg oral capsule,delayed release(DR/EC) SUMATRIPTAN 100 mg Oral tablet No current facility-administered medications for this visit. Allergies: Allergies Allergen Reactions Sulfa (Sulfonamide Antibiotics) Headache Physical Exam: BP 130/84 (BP Location: Left upper arm, Patient Position: Sitting) | Pulse 106 | Temp 36. 9 C (98.4 F) (Oral) | Resp 16 | Ht 1.6 m (5' 3") | Wt 91.6 kg (202 lb) | SpO2 97% | BMI 35.78 kg/m | BSA 2.02 m Appearance: Pleasant female who appears comfortable and [...] finally begun. 2. Current IBD Meds: Remicade [id number] (started in 04/2012, was initially on it [...] injectables 3. Endoscopic Evaluation and Surgical Pathology: 02/02/2018 Colonoscopy: normal to cecum, all surveillance biopsies (quadrants every 10cm) ne gative for colitis, ischemia, and dysplasia 03/25/2016 Colonoscopy: no evidence of inflammation in [...] panel, stool studies, vitamin D) Historical labs: 10/21/2017 Infliximab level 15.2, no neutralizing antibodies 11/08/2015 IFX 7.50 ug/mL Antibody negative Most recent CBC: Lab Results Component Value Date WBC 6.8 12/28/2018 RBC 4.82 03/30/2013 HB 13.2 12/28/2018 HCT 39.6 12/28/2018 MCV 82.6 03/30/2013 MCHC 31.7 03/30/2013 PLT 339 12/28/2018 Most recent Differential: Lab Results Component Value Date NEUTROPERC 47.4 12/28/2018 LYMPHPERC 45.0 12/28/2018 MONOPERC 7.2 03/30/2013 EOSPERC 1.2 03/30/2013 BASOPERC 0.4 03/30/2013 NEUTROPHILCO 4.77 03/30/2013 LYMPHSABS 4.46 03/30/2013 MONOCYTECO 0.73 03/30/2013 EOSCO 0.12 03/30/2013 BASOPHILCO 0.04 03/30/2013 CBC trend: Recent Labs 06/23/18 1115 08/18/18 1310 10/20/18 1015 12/28/18 0711 WBC 6.6 8.7 7.3 6.8 HB 12.6 13.1 12.5 13.2 HCT 38.2 39.7 38.1 39.6 PLT 345 346 335 339 Most recent metabolic panel: Lab Results Component Value Date NA 137 12/28/2018 K 4.3 12/28/2018 BUN 18 12/28/2018 CR 0.90 12/28/2018 GLU 102 12/28/2018 AST 28 12/28/2018 ALT 47 12/28/2018 TBILI 0.4 12/28/2018 AP 63 12/28/2018 ALB 4.6 12/28/2018 LFT Trend: Recent Labs 08/18/18 1310 10/20/18 1015 12/28/18 0711 AST 24 25 28 ALT 47 35 47 TBILI 0.3 0.3 0.4 AP 74 65 63 ALB 4.7 4.5 4.6 Inflammatory markers: CALPROTECTIN, FECAL (ug/g) Date Value 11/07/2015 <16 C-REACTIVE PROTEIN Date Value 12/28/2018 3.1 mg/dl 09/19/2017 <2.9 mg/L 11/07/2015 3.0 mg/dl 08/06/2015 1.9 mg/dl 03/30/2013 0.7 mg/dL SEDIMENTATION RATE (mm/hr) Date Value 12/28/2018 15 09/19/2017 24 (H) 11/07/2015 12 08/06/2015 4 03/30/2013 21 (H) ESR (SED RATE) (mm/hr) Date Value 07/18/2015 9 Iron studies: FERRITIN (ng/mL) Date Value 12/28/2018 130.4 09/19/2017 86 03/30/2013 21 (L) Last Vitamin D/B12: VITAMIN D 25 HYDROXY (ng/mL) Date Value 12/28/2018 42 09/19/2017 10.9 (L) Assessment: Kami Benites is a 38 y.o. female, who presents to the [facility] for evaluation and management of right-sided ulcerative colitis and IBS. I am concerned about her new constellation of symptoms. Cardiac workup to date sounds reass uring, but I will refer her to Cardiology to more definitively rule out a cardiovascular cau se for her worsening fatigue, exercise intolerance, and intermittent chest pain. Given fatigue and myalgias after her last infusion, I'll also check for development of neut ralizing antibodies to Remicade as well as check for a drug induced lupus (which I think is less likely but want to exclude). Plan and Recommendations: A. IBD Diagnostics. 1. Remicade level as planned 2. MITRA, anti-histone, antineutrophil cyto 3. CBC, LFTs with Remicade infusions B. IBD Therapy. 1. Continue Remicade 5mg/kg q8w C. Other. 1. Continue nortriptyline 100mg gHS 2. Cardiology referral Colon Dysplasia Surveillance Should have q1-2y surveillance colonoscopies, next late 2020 IBD-Specific Health Maintenance Recommendations for PCP: (Consider review of Am J Gastroenterol 2017; 112:241 258; doi:10.1038/ajg.2016.537 for ev idence basis of recommendations) ? Vaccinations (avoid live vaccines): X Annual influenza Hepatitis A series X Hepatitis B series Td in past 10y Prevnar (PCV13) 8 weeks prior to PSV23 if possible Pneumovax (PSV23) Pneumovax santiago ster at 5y ? Annual cervical Pap exam ? Annual skin cancer screening by PCP or cold rolling supervisor, recommend use of sunscreen and limi tation of sun exposure ? Bone health and nutrition: ? Recommend DEXA scan ? Test for and replete deficiencies in vitamin D and vitamin B12 Follow-Up: pending course Counseling Time: I spent a total of 40 minutes with this patient, of which greater than 50 % of the time was spent in counseling. Specific issues that were discussed included medical management of ulcerative colitis, loss of response to biologic medications, dysplasia surve illance, and health maintenance recommendations for IBD patients. Glenn Malcolm DNP, DIRECTOR CARD-C Instructor, Division of Gastroenterology and Hepatology [facility] documented in this encounter Plan of Treatment + + +--------+ + + | Name | Type | Priori | Associated Diagnoses | Order Schedule | | | | ty | | | + + +--------+ + + | ROUTINE | Procedures | Routin | Other ulcerative | Ordered: 01/10/2019 | | VENIPUNCTURE, | | e | colitis with rectal | | | VENOUS-BACK OFFICE | | | bleeding (HCC) | | | | | | Encounter for | | | | | | long-term (current) | | | | | | use of high-risk | | | | | | medication | | | | | | Irritable bowel | | | | | | syndrome, | | | | | | unspecified type | | | | | | Fatigue, unspecified | | | | | | type Generalized | | | | | | body aches | | + + +--------+ + + documented as of this encounter Procedures + +--------+ + + + | Procedure Name | Priori | Date/Time | Associated Diagnosis | Comments | | | ty | | | | + +--------+ + + + | ANTINUCLEAR AB, | Routin | 01/10/2019 | Other ulcerative | Results for this | | SINGLE PATTERN | e | 2:00 PM | colitis with rectal | procedure are in the | | | | PDT | bleeding (HCC) | results section. | | | | | Fatigue, unspecified | | | | | | type Generalized | | | | | | body aches | | + +--------+ + + + | DSDNA AB, IGG | Routin | 01/10/2019 | Other ulcerative | Results for this | | W/REFLEX TO IFA | e | 2:00 PM | colitis with rectal | procedure are in the | | TITER | | PDT | bleeding (HCC) | results section. | | | | | Fatigue, unspecified | | | | | | type Generalized | | | | | | body aches | | + +--------+ + + + | MITRA BY SHASHANK | Routin | 01/10/2019 | Other ulcerative | Results for this | | W/REFLEX TO IFA | e | 2:00 PM | colitis with rectal | procedure are in the | | PATTERN & AB ID WHEN | | PDT | bleeding (HCC) | results section. | | INDICATED | | | Fatigue, unspecified | | | | | | type Generalized | | | | | | body aches | | + +--------+ + + + | ANTI-NUCLEAR AB, IGG | Routin | 01/10/2019 | Other ulcerative | Results for this | | BY IFA | e | 2:00 PM | colitis with rectal | procedure are in the | | | | PDT | bleeding (HCC) | results section. | | | | | Fatigue, unspecified | | | | | | type Generalized | | | | | | body aches | | + +--------+ + + + | SSB AB | Routin | 01/10/2019 | Other ulcerative | Results for this | | | e | 2:00 PM | colitis with rectal | procedure are in the | | | | PDT | bleeding ([facility]) | results section. | | | | | Fatigue, unspecified | | | | | | type Generalized | | | | | | body aches | | + +--------+ + + + | SSA AB | Routin | 01/10/2019 | Other ulcerative | Results for this | | | e | 2:00 PM | colitis with rectal | procedure are in the | | | | PDT | bleeding ([facility]) | results section. | | | | | Fatigue, unspecified | | | | | | type Generalized | | | | | | body aches | | + +--------+ + + + | SM AB | Routin | 01/10/2019 | Other ulcerative | Results for this | | | e | 2:00 PM | colitis with rectal | procedure are in the | | | | PDT | bleeding (HCC) | results section. | | | | | Fatigue, unspecified | | | | | | type Generalized | | | | | | body aches | | + +--------+ + + + | SCL-70 AB | Routin | 01/10/2019 | Other ulcerative | Results for this | | | e | 2:00 PM | colitis with rectal | procedure are in the | | | | PDT | bleeding ([facility]) | results section. | | | | | Fatigue, unspecified | | | | | | type Generalized | | | | | | body aches | | + +--------+ + + + | SAND CONTROL WORKER AB | Routin | 01/10/2019 | Other ulcerative | Results for this | | | e | 2:00 PM | colitis with rectal | procedure are in the | | | | PDT | bleeding ([facility]) | results section. | | | | | Fatigue, unspecified | | | | | | type Generalized | | | | | | body aches | | + +--------+ + + + | JUSTYNA-1 AB | Routin | 01/10/2019 | Other ulcerative | Results for this | | | e | 2:00 PM | colitis with rectal | procedure are in the | | | | PDT | bleeding ([facility]) | results section. | | | | | Fatigue, unspecified | | | | | | type Generalized | | | | | | body aches | | + +--------+ + + + | HISTONE ANTIBODY, | Routin | 01/10/2019 | Other ulcerative | Results for this | | SERUM | e | 2:00 PM | colitis with rectal | procedure are in the | | | | PDT | bleeding (HCC) | results section. | | | | | Fatigue, unspecified | | | | | | type Generalized | | | | | | body aches | | + +--------+ + + + | ANTI NEUTROPHIL | Routin | 01/10/2019 | Other ulcerative | Results for this | | CYTOPLASMIC AB SCN, | e | 2:00 PM | colitis with rectal | procedure are in the | | SERUM | | PDT | bleeding (HCC) | results section. | | | | | Fatigue, unspecified | | | | | | type Generalized | | | | | | body aches | | + +--------+ + + + documented in this encounter Results JUSTYNA-1 AB (01/10/2019 2:00 PM PDT) + + + + + + | Component | Value | Ref Range | Performed | Pathologist | | | | | At | Signature | + + + + + + | JUSTYNA-1 | 0Comment: INTERPRETIVE | 0 - 40 AU/mL | [facility] | | | (HISTIDYL-T | INFORMATION: Justyna-1 | | REG UNIV | | | RNA | Antibody, IgG 29 | | PTH - [facility] | | | SYNTHETASE) | AU/mL or | | | | | AB, IGG | less.........Negative | | | | | | 30-40 | | | | | | AU/mL..............Equiv | | | | | | ocal 41 AU/mL or | | | | | | greater......PositivePer | | | | | | formed by [facility] | | | | | | [facility],[address] | | | | | | [place] [address] | | | | | | [phone]. | | | | | | Adrian galan MD, | | | | | | Lab. Director | | | | + + + + + + + + | Specimen | + + | Blood - Blood | | (substance) | + + + + + + + | Performing | Address | City/State/Zipcode | Phone Number | | Organization | | | | + + + + + | [facility] | [address] | [place], [place] | | | UNIV PTH - [facility] | | [address] | | + + + + + SCL-70 AB (01/10/2019 2:00 PM PDT) + + + + + + | Component | Value | Ref Range | Performed | Pathologist | | | | | At | Signature | + + + + + + | SCL-70 AB | 1Comment: INTERPRETIVE | 0 - 40 AU/mL | [facility] | | | | INFORMATION: Scleroderma | | REG UNIV | | | | (Scl-70) (GINGER) Ab, IgG | | PTH - [facility] | | | | 29 AU/mL or Less | | | | | | ............. Negative | | | | | | 30 - 40 AU/mL | | | | | | ................ | | | | | | Equivocal 41 AU/mL or | | | | | | Greater .......... | | | | | | Positive The presence of | | | | | | Scl-70 antibodies (also | | | | | | referred to as | | | | | | topoisomerase I, filomena-I | | | | | | or MADHAVI) is considered | | | | | | diagnostic for systemic | | | | | | sclerosis (SSc). Scl-70 | | | | | | antibodies alone are | | | | | | detected in about 20 | | | | | | percent of SSc patients | | | | | | and are associated with | | | | | | the diffuse form of the | | | | | | disease, which may | | | | | | include specific organ | | | | | | involvement and poor | | | | | | prognosis. Scl-70 | | | | | | antibodies have also | | | | | | been reported in a | | | | | | varying percentage of | | | | | | patients with systemic | | | | | | lupus erythematosus | | | | | | (SLE). Scl-70 (filomena-1) | | | | | | is a DNA binding protein | | | | | | and anti-DNA/DNA | | | | | | complexes in the sera of | | | | | | SLE patients may bind | | | | | | to filomena-I, leading to a | | | | | | false-positive result. | | | | | | The presence of Scl-70 | | | | | | antibody in sera may | | | | | | also be due to | | | | | | contamination of | | | | | | recombinant Scl-70 with | | | | | | DNA derived from | | | | | | cellular material used | | | | | | in immunoassays. Strong | | | | | | clinical correlation is | | | | | | recommended if both | | | | | | Scl-70 and dsDNA | | | | | | antibodies are detected. | | | | | | Negative results do | | | | | | not necessarily rule out | | | | | | the presence of SSc. If | | | | | | clinical suspicion | | | | | | remains, consider | | | | | | further testing for | | | | | | centromere, RNA | | | | | | polymerase III and | | | | | | U3-SAND CONTROL WORKER, PM/Scl, or Th/To | | | | | | antibodies.Performed by | | | | | | [facility],[address] | | | | | | [facility], [facility] [place] | | | | | | [address] | | | | | | [phone]. | | | | | | Adrian galan MD, | | | | | | Lab. Director | | | | + + + + + + + + | Specimen | + + | Blood - Blood | | (substance) | + + + + + + + | Performing | Address | City/State/Zipcode | Phone Number | | Organization | | | | + + + + + | [facility] | [address] | [place], [place] | | | UNIV P[facility] - [facility] | | [address] | | + + + + + DSDNA AB, IGG W/REFLEX TO IFA TITER (01/10/2019 2:00 PM PDT) + + + + + + | Component | Value | Ref Range | Performed | Pathologist | | | | | At | Signature | + + + + + + | DS-DNA AB, | None DetectedComment: | None Detected | [facility] | | | IGG SHASHANK | INTERPRETIVE | | REG UNIV | | | | INFORMATION: | | PTH - INT[facility] | | | | Double-Stranded DNA | | | | | | (dsDNA) Antibody, IgG by | | | | | | SHASHANK Positivity for | | | | | | anti-double stranded DNA | | | | | | (anti-dsDNA) IgG | | | | | | antibody is a diagnostic | | | | | | criterion of systemic | | | | | | lupus erythematosus | | | | | | (SLE). Specimens are | | | | | | initially screened by | | | | | | enzyme-linked | | | | | | immunosorbent assay | | | | | | (SHASHANK). All SHASHANK | | | | | | results reported as | | | | | | "detected" (positive) | | | | | | are confirmed by a | | | | | | highly specific IFA | | | | | | titer (Crithidia | | | | | | luciliae indirect | | | | | | fluorescent test | | | | | | [CHEMO]). Some patients | | | | | | with early or inactive | | | | | | SLE may be positive for | | | | | | anti-dsDNA IgG by SHASHANK | | | | | | but negative by CHEMO. | | | | | | If the patient is | | | | | | negative by CHEMO but | | | | | | positive by SHASHANK and | | | | | | clinical suspicion | | | | | | remains, consider | | | | | | antinuclear antibody | | | | | | (MITRA) testing by IFA. | | | | | | Additional information | | | | | | and recommendations for | | | | | | testing may be found at | | | | | | [email or web address] | | | | | | [email or web address] | | | | | | [email or web address]. | | | | | | html.Performed by [facility] | | | | | | [facility],[address] | | | | | | [place], [place] [address] | | | | | | [phone]. | | | | | | Adrian galan MD, | | | | | | Lab. Director | | | | + + + + + + + + | Specimen | + + | Blood - Blood | | (substance) | + + + + + + + | Performing | Address | City/State/Zipcode | Phone Number | | Organization | | | | + + + + + | [facility] | [address] | [place], [place] | | | UNIV P[facility] | | [address] | | + + + + + SSB AB (01/10/2019 2:00 PM PDT) + + + + + + | Component | Value | Ref Range | Performed | Pathologist | | | | | At | Signature | + + + + + + | SSB ([place]) | 0Comment: INTERPRETIVE | 0 - 40 AU/mL | [facility] | | | AB, IGG | INFORMATION: SSB ([place]) | | REG UNIV | | | | (GINGER) Ab, IgG 29 | | PTH - [facility] | | | | AU/mL or Less | | | | | | ............. Negative | | | | | | 30 - 40 AU/mL | | | | | | ................ | | | | | | Equivocal 41 AU/mL or | | | | | | Greater .......... | | | | | | Positive SSB ([place]) | | | | | | antibody is seen in | | | | | | 50-60% of Sjogren | | | | | | syndrome cases and is | | | | | | specific if it is the | | | | | | only GINGER antibody | | | | | | present. 15-25% of | | | | | | patients with systemic | | | | | | lupus erythematosus | | | | | | (SLE) and 5-10% of | | | | | | patients with | | | | | | progressive systemic | | | | | | sclerosis (PSS) also | | | | | | have this | | | | | | antibody.Performed by | | | | | | [facility],[address] | | | | | | [address] [facility] [place] | | | | | | [address] | | | | | | [phone]. | | | | | | Adrian galan MD, | | | | | | Lab. Director | | | | + + + + + + + + | Specimen | + + | Blood - Blood | | (substance) | + + + + + + + | Performing | Address | City/State/Zipcode | Phone Number | | Organization | | | | + + + + + | [facility] | [address] | [place], [place] | | | UNIV PTH - INTFC | | [address] | | + + + + + SSA AB (01/10/2019 2:00 PM PDT) + + + + + + | Component | Value | Ref Range | Performed | Pathologist | | | | | At | Signature | + + + + + + | SSA 52 (RO) | 0Comment: INTERPRETIVE | 0 - 40 AU/mL | [facility] | | | AB, IGG | INFORMATION: SSA-52 | | REG UNIV | | | | (Ro52) (GINGER) Antibody, | | PTH - INTFC | | | | IgG 29 AU/mL or Less | | | | | | ............. Negative | | | | | | 30 - 40 AU/mL | | | | | | ................ | | | | | | Equivocal 41 AU/mL or | | | | | | Greater .......... | | | | | | Positive SSA-52 (Ro52) | | | | | | and/or SSA-60 (Ro60) | | | | | | antibodies are | | | | | | associated with a | | | | | | diagnosis of Sjogren | | | | | | syndrome, systemic lupus | | | | | | erythematosus (SLE), | | | | | | and systemic sclerosis. | | | | | | SSA-52 antibody overlaps | | | | | | significantly with the | | | | | | major SSc-related | | | | | | antibodies. SSA-52 | | | | | | (Ro52) antibody occurs | | | | | | frequently in patients | | | | | | with inflammatory | | | | | | myopathies, often in the | | | | | | presence of | | | | | | interstitial lung | | | | | | disease. | | | | + + + + + + | SSA 60 (RO) | 0Comment: REFERENCE | 0 - 40 AU/mL | [facility] | | | (GINGER) | INTERVAL: SSA-60 (Ro60) | | REG UNIV | | | ANTIBODY, | (GINGER) Antibody, IgG | | PTH - INTFC | | | IGG | 29 AU/mL or Less | | | | | | ............. Negative | | | | | | 30 - 40 AU/mL | | | | | | ................ | | | | | | Equivocal 41 AU/mL or | | | | | | Greater .......... | | | | | | PositivePerformed by | | | | | | [facility],[address] | | | | | | [address], [facility] [place] | | | | | | [address] | | | | | | [phone]. | | | | | | Adrian galan MD, | | | | | | Lab. Director | | | | + + + + + + + + | Specimen | + + | Blood - Blood | | (substance) | + + + + + + + | Performing | Address | City/State/Zipcode | Phone Number | | Organization | | | | + + + + + | [facility] | [address] | [place], [place] | | | UN[facility] P[facility] INT[facility] | | [address] | | + + + + + SM AB (01/10/2019 2:00 PM PDT) + + + + + + | Component | Value | Ref Range | Performed | Pathologist | | | | | At | Signature | + + + + + + | TATE AB, | 0Comment: INTERPRETIVE | 0 - 40 AU/mL | [facility] | | | IGG | INFORMATION: Tate (GINGER) | | REG UNIV | | | | Antibody, IgG 29 | | PTH - INTFC | | | | AU/mL or Less | | | | | | ............. Negative | | | | | | 30 - 40 AU/mL | | | | | | ................ | | | | | | Equivocal 41 AU/mL or | | | | | | Greater .......... | | | | | | Positive Tate antibody | | | | | | is highly specific | | | | | | (greater than 90 | | | | | | percent) for systemic | | | | | | lupus erythematosus | | | | | | (SLE) but only occurs in | | | | | | 30-35 percent of SLE | | | | | | cases. The presence of | | | | | | antibodies to Tate has | | | | | | variable associations | | | | | | with SLE clinical | | | | | | manifestations.Performed | | | | | | by [facility] | | | | | | [facility],[address] [facility] | | | | | | [place] [address] | | | | | | [phone]. | | | | | | Adrian galan MD, | | | | | | Lab. Director | | | | + + + + + + + + | Specimen | + + | Blood - Blood | | (substance) | + + + + + + + | Performing | Address | City/State/Zipcode | Phone Number | | Organization | | | | + + + + + | [facility] | [address] | [place], [place] | | | UN[facility] P[facility] | | [address] | | + + + + + SAND CONTROL WORKER AB (01/10/2019 2:00 PM PDT) + + + + + + | Component | Value | Ref Range | Performed | Pathologist | | | | | At | Signature | + + + + + + | TATE/SAND CONTROL WORKER | 1Comment: INTERPRETIVE | 0 - 40 AU/mL | [facility] | | | (GINGER) AB, | INFORMATION: Tate/SAND CONTROL WORKER | | REG UNIV | | | IGG | (GINGER) Antibody, IgG | | PTH - INTFC | | | | 29 AU/mL or Less | | | | | | ............. Negative | | | | | | 30 - 40 AU/mL | | | | | | ................ | | | | | | Equivocal 41 AU/mL or | | | | | | Greater .......... | | | | | | Positive Tate/SAND CONTROL WORKER | | | | | | antibodies are | | | | | | frequently seen in | | | | | | patients with mixed | | | | | | connective tissue | | | | | | disease (MCTD) and are | | | | | | also associated with | | | | | | other systemic | | | | | | autoimmune rheumatic | | | | | | diseases (SARDs) such as | | | | | | systemic lupus | | | | | | erythematosus (SLE), | | | | | | systemic sclerosis, and | | | | | | myositis. Antibodies | | | | | | targeting the Tate/SAND CONTROL WORKER | | | | | | antigenic complex also | | | | | | recognize Tate | | | | | | antigens, therefore, the | | | | | | Tate antibody response | | | | | | must be considered when | | | | | | interpreting these | | | | | | results.Performed by | | | | | | [facility],[address] | | | | | | [place] | | | | | | [address] | | | | | | [phone]. | | | | | | Adrian galan MD, | | | | | | Lab. Director | | | | + + + + + + + + | Specimen | + + | Blood - Blood | | (substance) | + + + + + + + | Performing | Address | City/State/Zipcode | Phone Number | | Organization | | | | + + + + + | [facility] | [address] | [place], [place] | | | UN[facility] P[facility] | | [address] | | + + + + + ANTINUCLEAR AB, SINGLE PATTERN (01/10/2019 2:00 PM PDT) + + + + + + | Component | Value | Ref Range | Performed | Pathologist | | | | | At | Signature | + + + + + + | MITRA PATTERN | Homogeneous (A) | | [facility] | | | | | | REG UNIV | | | | | | PTH - INTFC | | + + + + + + | MITRA TITER | >1:2560 (H)Comment: | | [facility] | | | | Extractable Nuclear | | REG UNIV | | | | Antigen Antibodies (SAND CONTROL WORKER, | | PTH - INTFC | | | | Tate, SSA 52, SSA 60, | | | | | | Scleroderma, Justyna-1, and | | | | | | SSB), and Double | | | | | | Stranded DNA (dsDNA) | | | | | | Antibody IgG to | | | | | | follow.Performed by [facility] | | | | | | [facility],[address] | | | | | | [address], [facility] [place] | | | | | | [address] | | | | | | [email or web address]. | | | | | | Adrian galan MD, | | | | | | Lab. Director | | | | + + + + + + + + | Specimen | + + | Blood - Blood | | (substance) | + + + + + + + | Performing | Address | City/State/Zipcode | Phone Number | | Organization | | | | + + + + + | [facility] | [address] | [place], [place] | | | UN[facility] PTH [facility] INT[facility] | | [address] | | + + + + + ANTI-NUCLEAR AB, IGG BY IFA (01/10/2019 2:00 PM PDT) + + + + + + | Component | Value | Ref Range | Performed | Pathologist | | | | | At | Signature | + + + + + + | ANTI-NUCLEA | Detected (H) | <1:80 | [facility] | | | R AB(MITRA), | | | REG UNIV | | | IGG BY IFA | | | PTH - INTFC | | + + + + + + | MITRA | See NoteComment: | | [facility] | | | INTERPRETAT | Homogeneous | | REG UNIV | | | ION | PatternClinical | | PTH - INTFC | | | | associations: SLE, | | | | | | drug-induced SLE or CARLOS. | | | | | | Main autoantibodies: | | | | | | Anti-dsDNA, | | | | | | anti-histones or | | | | | | anti-chromatin | | | | | | (anti-nucleosome) | | | | | | Clinical | | | | | | RelevanceAntisynthetase | | | | | | syndrome (ARS), chronic | | | | | | active hepatitis (CAH), | | | | | | inflammatory | | | | | | myopathies (IM) | | | | | | [dermatomyositis (DM), | | | | | | polymyositis (PM), | | | | | | necrotizing autoimmune | | | | | | myopathy (NAM)], | | | | | | interstitial lung | | | | | | disease (ILD), juvenile | | | | | | idiopathic arthritis | | | | | | (CARLOS), mixed connective | | | | | | tissue disease (MCTD), | | | | | | primary biliary | | | | | | cholangitis (PBC), | | | | | | rheumatoid arthritis | | | | | | (RA), systemic | | | | | | autoimmune rheumatic | | | | | | diseases (SARD), Sjogren | | | | | | syndrome (SjS), | | | | | | systemic lupus | | | | | | erythematosus (SLE), | | | | | | systemic sclerosis | | | | | | (SSc), undifferentiated | | | | | | connective tissue | | | | | | disease | | | | | | (UCTD).INTERPRETIVE | | | | | | INFORMATION: MITRA | | | | | | Interpretive Comment | | | | | | Presence of antinuclear | | | | | | antibodies (MITRA) is a | | | | | | hallmark feature of | | | | | | systemic autoimmune | | | | | | rheumatic diseases | | | | | | (SARD). MITRA lacks | | | | | | diagnostic specificity | | | | | | and is associated with a | | | | | | variety of diseases | | | | | | (cancers, autoimmune, | | | | | | infectious, and | | | | | | inflammatory conditions) | | | | | | and may also occur in | | | | | | healthy individuals in | | | | | | varying prevalence. The | | | | | | lack of diagnostic | | | | | | specificity requires | | | | | | confirmation of positive | | | | | | MITRA by more-specific | | | | | | serologic tests. MITRA | | | | | | (nuclear reactivity) | | | | | | positive patterns | | | | | | reported include | | | | | | centromere, homogeneous, | | | | | | nuclear dots, | | | | | | nucleolar, or speckled. | | | | | | Cytoplasmic pattern is | | | | | | reported as MITRA | | | | | | negative. All patterns | | | | | | are reported to endpoint | | | | | | titers (1:2560). | | | | | | Reported patterns may | | | | | | help guide differential | | | | | | diagnosis, although they | | | | | | may not be specific for | | | | | | individual antibodies | | | | | | or diseases. Negative | | | | | | results do not | | | | | | necessarily rule out | | | | | | SARD.Performed by [facility] | | | | | | [facility],[address] | | | | | | [place], [facility] [place] [address] | | | | | | [phone]. | | | | | | Adrian galan MD, | | | | | | Lab. Director | | | | + + + + + + + + | Specimen | + + | Blood - Blood | | (substance) | + + + + + + + | Performing | Address | City/State/Zipcode | Phone Number | | Organization | | | | + + + + + | [facility] | [address] | [place], [place] | | | UN[facility] P[facility] INT[facility] | | [address] | | + + + + + ANTI NEUTROPHIL CYTOPLASMIC AB SCN, SERUM (01/10/2019 2:00 PM PDT) + + + + + + | Component | Value | Ref Range | Performed | Pathologist | | | | | At | Signature | + + + + + + | ANCA | <1:20Comment: The ANCA | <1:20 | [facility] | | | -NEUTROPHIL | IFA is <1:20; therefore, | | REG UNIV | | | | no further testing will | | PTH - INTFC | | | CYTOPLASMIC | be | | | | | IGG, SERUM | performed.INTERPRETIVE | | | | | | INFORMATION: | | | | | | Anti-Neutrophil Cyto Ab, | | | | | | IgG Neutrophil | | | | | | Cytoplasmic Antibodies | | | | | | (C-ANCA = granular | | | | | | cytoplasmic staining, | | | | | | P-ANCA = perinuclear | | | | | | staining) are found in | | | | | | the serum of over 90 | | | | | | percent of patients with | | | | | | certain necrotizing | | | | | | systemic vasculitides, | | | | | | and usually in less than | | | | | | 5 percent of patients | | | | | | with collagen vascular | | | | | | disease or | | | | | | arthritis.Performed by | | | | | | [facility],[address] | | | | | | [address], [facility] [place] | | | | | | [address] | | | | | | [phone]. | | | | | | Adrian galan MD, | | | | | | Lab. Director | | | | + + + + + + + + | Specimen | + + | Blood - Blood | | (substance) | + + + + + + + | Performing | Address | City/State/Zipcode | Phone Number | | Organization | | | | + + + + + | [facility] | [address] | [place], [place] | | | UN[facility] P[facility] INT[facility] | | [address] | | + + + + + HISTONE ANTIBODY, SERUM (01/10/2019 2:00 PM PDT) + + + + + + | Component | Value | Ref Range | Performed | Pathologist | | | | | At | Signature | + + + + + + | ANTI-HISTON | 0.8Comment: INTERPRETIVE | 0.0 - 0.9 Units | [facility] | | | E AB TEST | INFORMATION: Histone | | REG UNIV | | | | Ab, IgG 0.9 Units or | | PTH - INTFC | | | | less ............ | | | | | | Negative 1.0 - 1.5 | | | | | | Units .............. | | | | | | Weak Positive 1.6 - | | | | | | 2.5 Units .............. | | | | | | Moderate Positive 2.6 | | | | | | Units or greater | | | | | | ......... Strong | | | | | | PositivePerformed by | | | | | | [facility],[address] | | | | | | [address], [place] | | | | | | [address] | | | | | | [phone]. | | | | | | Adrian galan MD, | | | | | | Lab. Director | | | | + + + + + + + + | Specimen | + + | Blood - Blood | | (substance) | + + + + + + + | Performing | Address | City/State/Zipcode | Phone Number | | Organization | | | | + + + + + | [facility] | [address] | [place], [place] | | | UNIV P[facility] - INT[facility] | | [address] | | + + + + + MITRA BY SHASHANK W/REFLEX TO IFA PATTERN & AB ID WHEN INDICATED (01/10/2019 2:00 PM PDT) + + + + + + | Component | Value | Ref Range | Performed | Pathologist | | | | | At | Signature | + + + + + + | ANTI-NUCLEA | Detected (A)Comment: | None Detected | [facility] | | | R AB(MITRA), | Antibodies to | | REG UNIV | | | IGG BY | Anti-Nuclear Antibodies | | PTH - INTFC | | | SHASHANK | (MITRA) detected. | | | | | | Additional testing to | | | | | | follow.INTERPRETIVE | | | | | | INFORMATION: | | | | | | Anti-Nuclear Antibodies | | | | | | (MITAR), IgG by SHASHANK | | | | | | Antinuclear Antibodies | | | | | | (MITRA), IgG by SHASHANK: MITRA | | | | | | specimens are screened | | | | | | using enzyme-linked | | | | | | immunosorbent assay | | | | | | (SHASHANK) methodology. All | | | | | | SHASHANK results reported | | | | | | as Detected are further | | | | | | tested by indirect | | | | | | fluorescent assay (IFA) | | | | | | using HEp-2 substrate | | | | | | with an IgG-specific | | | | | | conjugate. The MITRA SHASHANK | | | | | | screen is designed to | | | | | | detect antibodies | | | | | | against dsDNA, histones, | | | | | | SS-A (Ro), SS-B (La), | | | | | | Tate, Tate/SAND CONTROL WORKER, | | | | | | Scl-70, Justyna-1, | | | | | | centromeric proteins, | | | | | | other antigens extracted | | | | | | from the HEp-2 cell | | | | | | nucleus. MITRA SHASHANK | | | | | | assays have been | | | | | | reported to have lower | | | | | | sensitivities than MITRA | | | | | | IFA for systemic | | | | | | autoimmune rheumatic | | | | | | diseases (SARD). | | | | | | Negative results do not | | | | | | necessarily rule out | | | | | | SARD.Performed by [facility] | | | | | | [facility],[address] | | | | | | [place], [facility] [place] [address] | | | | | | [phone]. | | | | | | [facility], | | | | | | Lab. Director | | | | + + + + + + + + | Specimen | + + | Blood - Blood | | (substance) | + + + + + + + | Performing | Address | City/State/Zipcode | Phone Number | | Organization | | | | + + + + + | [facility] | [address] | [place], [place] | | | CLA[address]IO [address] [place] | | [address] | | + + + + + documented in this encounter Visit Diagnoses + + | Diagnosis | + + | Other ulcerative colitis with rectal bleeding (HCC) - Primary | + + | Encounter for long-term (current) use of high-risk medication Encounter for long-term | | (current) use of other medications | + + | Irritable bowel syndrome, unspecified type | + + | Fatigue, unspecified type | + + | Generalized body aches | + + | Chest pain, unspecified type | + + documented in this encounter
--- OUTSIDE RECORDS SUMMARY | ~2019-10-11 | XMS | Encounter Summary ---
Demographics + + + | Address | [address] | | | [place] [address] | + + + | Home Phone [...] + | Bob Benites | ECON | [address] | | | | | [place] | | | | | [address] | | + + + + + Care Team Providers + +------+ + | Care Hide Selector Name | Role | Phone | + [...] Description | +--------+--------+ + + + | 01/16/ | Refill | Digestive Health | Alcon Malcolm, | Refill Request | | 2019 | | Center at [facility] [address] | CHICKEN CATCHER [address] | | | | | [address] | [place], [place] | | | | | Mailcode: Center | [address] | | | | | for Health and | [phone] | | | | | [place] [address] | | | | | | [place], [place] | | | | | | [address] | | | | | | [phone] | | | +--------+--------+ + + + [...]
--- OUTSIDE RECORDS SUMMARY | ~2019-10-11 | XMS | Encounter Summary ---
Demographics + + + | Address | [address] | | | [place] [address] | + + + | Home Phone [...] + | Bob Benites | ECON | [address] | | | | | [place] | | | | | [address] | | + + + + + Care Team Providers + +------+ + | Care Accounting/Finance Tutor Name | Role | Phone | + +------+ + | Rohit Olguin MD | PCP | | + +------+ + Encounter Details +--------+ + + + + | Date | Type | Department | Care Team | Description | +--------+ + + + + | 01/10/ | Telephone | Digestive Health | Alcon Malcolm, | | | 2019 | | Center at [facility] [address] | CONTRACT AGENT [address] | | | | | [address] | [place], [place] | | | | | Mailcode: Center | [address] | | | | | for Health and | [phone] | | | | | [facility], [address] | | | | | | [place], [place] | | | | | | [address] | | | | | | [phone] | | | +--------+ + + + [...]
--- OUTSIDE RECORDS SUMMARY | ~2019-10-11 | XMS | Encounter Summary ---
Demographics + + + | Address | [address] | | | [place] [address] | + + + | Home Phone [...] + | Bob Benites | ECON | [address] | | | | | [place] | | | | | [address] | | + + + + + Care Team Providers + +------+ + | Care Service Desk Agent Name | Role | Phone | [...] | | 2014 | | Center at [facility] [address] | MD | (nortriptyline) | | | | [address] | | | | | | Mailcode: [place] | | | | | | [facility] and | | | | | | [facility], [place] [address] | | | | | | [place], [place] | | | | | | [address] | | | | | | [phone] | | | +--------+--------+ + + + [...]
--- OUTSIDE RECORDS SUMMARY | ~2019-10-11 | XMS | Encounter Summary ---
Demographics + + + | Address | [address] | | | [place] [address] | + + + | Home Phone | | + + + | Preferred Language | Unknown | + + + | Marital Status | | + + + | Hoahaoism Affiliation | Unknown | + + + | Race | White | + + + | Ethnic Group | Not or | + + + Author + + + | Author | [facility] | + + + | Organization | [facility] | + + + | Address | Unknown | + + + | Phone | Unavailable | + + + Support + + + + + | Name | Relationship | Address | Phone | + + + + + | Bob Benites | ECON | [address] | | | | | [place] | | | | | [address] | | + + + + + Care Team Providers + +------+ + | Care Gas Plumber Name | Role | Phone | + +------+ + | Rohit Olguin MD | PCP | | + +------+ + Encounter Details +--------+ + + + + | Date | Type | Department | Care Team | Description | +--------+ + + + + | 06/13/ | MyChart | Digestive Health | tSevo Hart, | RE: Blood work | | 2014 | Encounter | Center at [facility] [address] | MD | | | | | [address] | | | | | | Mailcode: [place] | | | | | | for Health and | | | | | | Healing, [address] | | | | | | [place], [place] | | | | | | [address] | | | | | | [phone] | | | +--------+ + + + [...]
--- OUTSIDE RECORDS SUMMARY | ~2019-10-11 | XMS | Encounter Summary ---
Demographics + + + | Address | [address] | | | [place] [address] | + + + | Home Phone | | + + + | Preferred Language | Unknown | + + + | Marital Status | | + + + | Restoration Affiliation | Unknown | + + + [...] + | Bob Benites | ECON | [address] | | | | | [place] | | | | | [address] | | + + + + + Care Team Providers + +------+ + | Care Residential Leasing Agent Name | Role | Phone | + +------+ + | Rohit Olguin MD | PCP | | + +------+ + Encounter Details +--------+ + + + + | Date | Type | Department | Care Team | Description | +--------+ + + + + | 03/23/ | MyChart | Digestive Health | Briana Tellez MD | appointment | | 2017 | Encounter | Center at [facility] [address] | [address] | | | | | [address] | [place], [place] | | | | | Mailcode: Center | [address] | | | | | for Health and | [phone] | | | | | Healing, [address] | | | | | | [place], [place] | | | | | | [address] | | | | | | [phone] | | | +--------+ + + + [...]
--- OUTSIDE RECORDS SUMMARY | ~2019-10-11 | XMS | Encounter Summary ---
Demographics + + + | Address | [address] | | | [place] [address] | + + + | Home Phone [...] + | Bob Benites | ECON | [address] | | | | | [place] | | | | | [address] | | + + + + + Care Team Providers + +------+ + | Care Gin Feeder Name | Role | Phone | [...] 2018 | Encounter | Center at [facility] [address] | PLUMBER APPRENTICE [address] | | | | | [address] | [place], [place] | | | | | Mailcode: Center | [address] | | | | | for Health and | [phone] | | | | | [facility] [address] | | | | | | [place], [place] | | | | | | [address] | | | | | | [phone] | | | +--------+ + + + [...]
--- OUTSIDE RECORDS SUMMARY | ~2019-10-11 | XMS | Encounter Summary ---
Demographics + + + | Address | [address] | | | [place] [address] | + + + | Home Phone | | + + + | Preferred Language | Unknown | + + + | Marital Status | | + + + | Scientology Affiliation | Unknown | + + + | Race | White | + + + | Ethnic Group | Not or | + + + Author + + + | Author | [facility] | + + + | Organization | [facility] | + + + | Address | Unknown | + + + | Phone | Unavailable | + + + Support + + + + + | Name | Relationship | Address | Phone | + + + + + | Bob Benites | ECON | [address] | | | | | [place] | | | | | [address] | | + + + + + Care Team Providers + +------+ + | Care Secy Name | Role | Phone | + [...] | | 2018 | | Center at [facility] [address] | GRAPHITE GRINDER [address] | | | | | [address] | [place], [place] | | | | | Mailcode: Center | [address] | | | | | for Health and | [phone] | | | | | [place] [address] | | | | | | [place], [place] | | | | | | [address] | | | | | | [phone] | | | +--------+--------+ + + + [...]
--- OUTSIDE RECORDS SUMMARY | ~2019-10-11 | XMS | Encounter Summary ---
Demographics + + + | Address | [address] | | | [place] [address] | + + + | Home Phone | | + + + | Preferred Language | Unknown | + + + | Marital Status | | + + + | Baptism Affiliation | Unknown | + + + [...] + | Bob Benites | ECON | [address] | | | | | [place] | | | | | [address] | | + + + + + Care Team Providers + +------+ + | Care Paunch Trimmer Name | Role | Phone | + [...] + + | Blood Test Results | HERMAN#[id number] | + + + Encounter Details +--------+ [...] 07/18/2015 CMP, | | | | Mailcode: [place] | | ESR; 07/31/2015 CT | | | | for Health and | | A/P, 07/15/2015 XR | | | | Healing, [address] | | Abdomen, 04/09/2015 | | | | [place], [place] | | [place] Abdomen - St | | | | [address] | | Rory; Blood Test | | | | [phone] | | Results | | | | | | (IA#[id number]) | +--------+ + + + + Social [...] + | [facility] | | | [phone] | | [facility] | | | | + +---------+ + + | [facility] | | [place], [place] | [phone] | | HOSPITAL | | | | [...] + | [facility] | | | [phone] | | HOSPITAL | | | | + +---------+ + + | [facility] | | [place], [place] | [phone] | | HOSPITAL | | | | + +---------+ + + documented in this encounter Visit Diagnoses Not on filedocumented in this encounter"
--- OUTSIDE RECORDS SUMMARY | ~2019-10-11 | XMS | Encounter Summary ---
Demographics + + + | Address | [address] | | | [place] [address] | + + + | Home Phone [...] + + + | Author | [facility] | + + + | Organization | [facility] | + + + | Address | Unknown | + + + | Phone | Unavailable | + + + Support + + + + + | Name | Relationship | Address | Phone | + + + + + | Bob Benites | ECON | [address] | | | | | [place] | | | | | [address] | | + + + + + Care Team Providers + +------+ + | Care Leader Tier Name | Role | Phone | + [...] | | 2018 | | Center at [facility] [address] | [address] | Authorization | | | | [address] | [place], [place] | ([employer] approval - | | | | Mailcode: Melissa | [phone] | [facility]) | | | | for [facility] and | [phone] | | | | | [address] [address] | | | | | | [place], [place] | | | | | | [address] | | | | | | [phone] | | | +--------+ + + + [...]
--- OUTSIDE RECORDS SUMMARY | ~2019-10-11 | XMS | Encounter Summary ---
Demographics + + + | Address | [address] | | | [place] [address] | + + + | Home Phone [...] + | Bob Benites | ECON | [address] | | | | | [place] | | | | | [address] | | + + + + + Care Team Providers + +------+ + | Care Tractor Driver Teamster Name | Role | Phone | + [...] | Telephone | Digestive Health | Stevo aHrt, | Discussion (New auth | | 2015 | | Center at [facility] 3485 | MD | for Remicade) | | | | [address] | | | | | | Mailcode: [place] | | | | | | for Health and | | | | | | Healing, Building 2 | | | | | | [place], [place] | | | | | | [address] | | | | | | [phone] | | | +--------+ + + + [...]
--- OUTSIDE RECORDS SUMMARY | ~2019-10-11 | XMS | Encounter Summary ---
Demographics + + + | Address | [address] | | | [place] [address] | + + + | Home Phone [...] + | Bob Benites | ECON | [address] | | | | | [place] | | | | | [address] | | + + + + + Care Team Providers + +------+ + | Care Fixing Carpenter Name | Role | Phone | + [...] | 2012 | Encounter | Center at [facility] [address] | MD | | | | | [address] | | | | | | Mailcode: Center | | | | | | for Health and | | | | | | Healing, [address] | | | | | | [place], [place] | | | | | | [address] | | | | | | [phone] | | | +--------+ + + + [...]
--- OUTSIDE RECORDS SUMMARY | ~2019-10-11 | XMS | Encounter Summary ---
Demographics + + + | Address | [address] | | | [place] [address] | + + + | Home Phone [...] + | Bob Benites | ECON | [address] | | | | | [place] | | | | | [address] | | + + + + + Care Team Providers + +------+ + | Care Grid Casting Machine Operator Helper Name | Role | Phone | + +------+ + | Rohit Olguin MD | PCP | | + +------+ + Reason for Visit + + + | Reason | Comments | + + + | Lab Results | 08/26/2017-11/04/2016 lab results - [facility] | + + + | Blood Test Results | FRANCOISIA#[id number] | + + + Encounter Details +--------+ + + + + | Date | Type | Department | Care Team | Description | +--------+ + + + + | 09/19/ | Abstract | Digestive Health | Alcon Malcolm, | Lab Results | | 2018 | | Center at [facility] 3485 | COMPUTER NUMERICAL CONTROL GRINDER [address] | (08/26/2017-11/04/2016 | | | | [address] | [facility] [place] | lab results - | | | | Mailcode: Center | [address] | [facility] ); Blood | | | | for Health and | [phone] | Test Results | | | | [facility], Building 2 | | ([facility]#[id number]) | | | | [place], [place] | | | | | | [address] | | | | | | [phone] | | | +--------+ + + + [...] [address] | [place], [place] | [phone] | | [place] | | | | [...] [address] | [place] | [phone] | | [place] | | | | [...] [address] | [place], [place] | [phone] | | [place] | | | | [...] [address] | [place], [place] | [phone] | | [place] | | | | [...] - | [address] | [place], [place] | [phone] | | [place] | | | | [...] | | | | | Bilirubinometer | S[place] | | + +---------+ + + + [...] [address] | [place], [place] | [phone] | | [place] | | | | [...] [address] | [place], [place] | [phone] | | [place] | | | | [...] - | [address] | [place], [place] | [phone] | | [place] | | | | [...] [address] | [place] | [phone] | | [place] | | | | [...] - | [address] | [place], [place] | [phone] | | [place] | | | | [...] - | [address] | [place], [place] | [phone] | | [place] | | | | [...] [address] | [place], [place] | [phone] | | [place] | | | | + + + + + documented in this encounter Visit Diagnoses Not on filedocumented in this encounter"
--- OUTSIDE RECORDS SUMMARY | ~2019-10-11 | XMS | Encounter Summary ---
Demographics + + + | Address | [address] | | | [place] [address] | + + + | Home Phone [...] + | Bob Benites | ECON | [address] | | | | | [place] | | | | | [address] | | + + + + + Care Team Providers + +------+ + | Care Telecommunications Cable Jointer Name | Role | Phone | + [...] 2018 | Encounter | Center at [facility] [address] | LOTTERY SALES CLERK [address] | colonoscopy | | | | [address] | [place], [place] | | | | | Mailcode: Center | [address] | | | | | for Health and | [phone] | | | | | [facility] 2 | | | | | | [place], [place] | | | | | | [address] | | | | | | [phone] | | | +--------+ + + + [...]
--- OUTSIDE RECORDS SUMMARY | ~2019-10-11 | XMS | Encounter Summary ---
Demographics + + + | Address | [address] | | | [place] [address] | + + + | Home Phone [...] [place] | | | | | [address] | | + + + + + Care Team Providers + +------+ + | Care Neuroradiologist Name | Role | Phone | + [...] Description | +--------+--------+ + + + | 05/18/ | Refill | Digestive Health | Stevo Hart, | Refill Request | | 2016 | | Center at [facility] 3485 | MD | (nortriptyline) | | | | [address] | | | | | | Mailcode: [place] | | | | | | [facility] Health and | | | | | | [facility], [place] [address] | | | | | | [place], [place] | | | | | | [address] | | | | | | [phone] | | | +--------+--------+ + + + [...]
--- OUTSIDE RECORDS SUMMARY | ~2019-10-11 | XMS | Encounter Summary ---
Demographics + + + | Address | [address] | | | [place] [address] | + + + | Home Phone | | + + + | Preferred Language | Unknown | + + + | Marital Status | | + + + | Taoism Affiliation | Unknown | + + + [...] + | Bob Benites | ECON | [address] | | | | | [place] | | | | | [address] | | + + + + + Care Team Providers + +------+ + | Care Observation Nurse Name | Role | Phone | + [...] | +--------+ + + + + | 04/14/ | Abstract | Digestive Health | Stevo Hart, | Medical Records | | 2016 | | [place] [facility] 3485 | | Review | | | | [address] | | | | | | Mailcode: [place] | | | | | | for Health and | | | | | | [facility], [facility] 2 | | | | | | [place], [place] | | | | | | [address] | | | | | | [phone] | | | +--------+ + + + [...]
--- OUTSIDE RECORDS SUMMARY | ~2019-10-11 | XMS | Encounter Summary ---
Demographics + + + | Address | [address] | | | [place] [address] | + + + | Home Phone [...] + | Bob Benites | ECON | [address] | | | | | [place] | | | | | [address] | | + + + + + Care Team Providers + +------+ + | Care Miner Pick Name | Role | Phone | + [...] | | 2016 | | Center at [facility] 3485 | MD | (nortriptyline) | | | | [address] | | | | | | Mailcode: [place] | | | | | | [facility] Health and | | | | | | [facility], [place] [address] | | | | | | [place], [place] | | | | | | [address] | | | | | | [phone] | | | +--------+--------+ + + + [...]
--- OUTSIDE RECORDS SUMMARY | ~2019-10-11 | XMS | Encounter Summary ---
Demographics + + + | Address | [address] | | | [place] [address] | + + + | Home Phone [...] + | Bob Benites | ECON | [address] | | | | | [place] | | | | | [address] | | + + + + + Care Team Providers + +------+ + | Care Anesthesiology Medical Doctor Name | Role | Phone | + [...] Medical Records | | 2013 | | [place] at [facility] 3485 | MD | Review ([facility] - | | | | [address] | | OUTSIDE RECORDS: | | | | Mailcode: Center | | Progress Note | | | | for Health and | | 04/16/2014 (f/u | | | | Healing, Building 2 | | colonoscopy)) | | | | [place], [place] | | | | | | [address] | | | | | | [phone] | | | +--------+ + + + [...]
--- OUTSIDE RECORDS SUMMARY | ~2019-10-11 | XMS | Encounter Summary ---
Demographics + + + | Address | [address] | | | [place] [address] | + + + | Home Phone [...] + | Bob Benites | ECON | [address] | | | | | [place] | | | | | [address] | | + + + + + Care Team Providers + +------+ + | Care Preformer Impregnated Fabrics Name | Role | Phone | + [...] | | | [address] | [place], [place] | Insurance changed | | | | Mailcode: Center | [address] | | | | | for Health and | [phone] | | | | | [facility], [facility] 2 | | | | | | [place], [place] | | | | | | [address] | | | | | | [phone] | | | +--------+ + + + [...]
--- OUTSIDE RECORDS SUMMARY | ~2019-10-11 | XMS | Encounter Summary ---
Demographics + + + | Address | [address] | | | [place] [address] | + + + | Home Phone | | + + + | Preferred Language | Unknown | + + + | Marital Status | | + + + | Zoroastrian Affiliation | Unknown | + + + [...] [place] | | | | | [address] | | + + + + + Care Team Providers + +------+ + | Care College Sports Coach Name | Role | Phone | + [...] | 2018 | | Center at [facility] [address] | [address] | Authorization | | | | [address] | [place], [place] | (Remicade approval - | | | | Mailcode: [place] | [phone] | [facility]) | | | | for Health and | [phone] | | | | | [address] [place] [address] | | | | | | [place], [place] | | | | | | [address] | | | | | | [phone] | | | +--------+ + + + [...]
--- OUTSIDE RECORDS SUMMARY | ~2019-10-11 | XMS | Clinical Summary ---
Demographics + + + | Address | [address] | | | [place] [address] | + + + | Home Phone | | + + + | Preferred Language | Unknown | + + + | Marital Status | Unknown | + + + | Confucianist Affiliation | Unknown | + + + | Race | Unknown | + + + | Ethnic Group | Unknown | + + + Author + + + | Author | [facility] (Historical as of | | | 12-30-18) | + + + | Organization | [facility] (Historical as of | | | 12-30-18) | + + + | Address | Unknown | + + + | Phone | Unavailable | + + + Support + + + + + | Name | Relationship | Address | Phone | + + + + + | Bob Benites | ECON | [address] | | | | | [place], [place] | | | | | [address] | | + + + + + | Angeline Izaguirre | ECON | [address] | | | | | [place], [place] | | | | | [address] | | + + + + + | Marifer Garay | [place] | Unknown | | + + + + + Care Team Providers + +------+ + | Care Clinical Science Consultant Name | Role | Phone | + +------+ + | Yoselin Garcia MD | PP | | + +------+ + Allergies Not on File Current Medications + + +-------+---------+------+------+-------+ | Prescription | Sig. | Disp. | Refills | Star | End | Statu | | | | | | t | Date | s | | | | | | Date | | | + + +-------+---------+------+------+-------+ | sertraline | Take 50 mg by mouth | | | | | Activ | | (ZOLOFT) 50 MG | daily. | | | | | e | | tablet | | | | | | | + + +-------+---------+------+------+-------+ | nortriptyline | Take 30 mg by mouth | | | | | Activ | | (PAMELOR) 10 MG | nightly. | | | | | e | | capsule | | | | | | | + + +-------+---------+------+------+-------+ | sumatriptan | Take 100 mg by mouth | | | | | Activ | | (IMITREX) 100 MG | as needed for | | | | | e | | tablet | Migraine. May repeat | | | | | | | | dose in 2 hours if | | | | | | | | no relief. Do not | | | | | | | | exceed 2 doses in 24 | | | | | | | | hours. | | | | | | + + +-------+---------+------+------+-------+ | | Take 1 tablet by | | | | | Activ | | oxyCODONE-acetaminop | mouth every 4 (four) | | | | | e | | hen (PERCOCET) 5-325 | hours as needed for | | | | | | | MG per tablet | Pain. | | | | | | + + +-------+---------+------+------+-------+ | inFLIXimab | Inject 800 mg into | | | | | Activ | | (REMICADE) 100 MG | the vein every 2 | | | | | e | | injection | (two) months. | | | | | | + + +-------+---------+------+------+-------+ | citric acid-sodium | Take 15 mLs by mouth | | | | | Activ | | citrate (BICITRA) | 2 (two) times | | | | | e | | 334-500 MG/5ML | daily. | | | | | | | solution | | | | | | | + + +-------+---------+------+------+-------+ Active Problems + + + | Problem | Noted Date | + + + | Nephrolithiasis | 09/01/2015 | + + + | Ulcerative rectosigmoiditis with rectal bleeding (HCC) | 09/01/2015 | + + + | Non morbid obesity due to excess calories | 09/01/2015 | + + + Family History + + +------+ + | Medical History | Relation | Name | Comments | + + +------+ + | Diabetes type II | Father | | | + + +------+ + | Diabetes type II | Maternal | | | | | Grandfath | | | | | er | | | + + +------+ + | Renal Disease | Maternal | | | | | [...] | | + + +------+ + | Kidney Stones | Sister | | | + + [...] | | + +-------+ +--------+------+ + + +---------+ + | Alcohol Use | Drinks/We | oz/Week | Comments | | | ek | | | + + +---------+ + | No | 0 | 0.0 | | | | Standard | | | | | drinks or | | | | | | | | | | equivalen | | | | | t | | | + + +---------+ + + + + | Sex Assigned at | Date Recorded | | | | + + + | Not on file | | + + + Last Filed Vital Signs + + + + | Vital Sign | Reading | Time Taken | + + + + | Blood Pressure | 127/82 | 10/08/2015 11:26 AM PDT | + + + + | Pulse | 91 | 10/08/2015 11:26 AM PDT | + + + + | Temperature | 36.4 C (97.5 F) | 10/08/2015 11:26 AM PDT | + + + + | Respiratory Rate | - | - | + + + + | Oxygen Saturation | 99% | 10/08/2015 11:26 AM PDT | + + + + | Inhaled Oxygen | - | - | | Concentration | | | + + + + | Weight | 95.7 kg (211 lb) | 10/08/2015 11:26 AM PDT | + + + + | Height | - | - | + + + + | Body Mass Index | - | - | + + + + Plan of Treatment + + + + + | Health Maintenance | Due Date | Last Done | Comments | + + + + + | Vaccine: | | | | | Dtap/Tdap/Td (1 - | 8 | | | | Tdap) | | [...] filefrom Last 3 Months Insurance + +--------+ +------+-------+---------+ | Payer | Benefi | Subscriber | Type | Phone | Address | | | t Plan | ID | | | | | | / | | | | | | | Group | | | | | + +--------+ +------+-------+---------+ | [employer] | ODS | [id number] | | | | | | HEALTH | | | | | | | PLAN | | | | | + +--------+ +------+-------+---------+ + +--------+ +--------+ + + | Guarantor Name | Accoun | Relation to | Date | Phone | Billing Address | | | t Type | Patient | of | | | | | | | | | | + +--------+ +--------+ + + | KAMI BENITES | Person | Self [birth year] Home: | [address] | | | al/Fam | | 1981 | [phone] | [place] | | | jarrett | | | 2034 | [address] | + +--------+ +--------+ + +"
--- OUTSIDE RECORDS SUMMARY | ~2019-10-11 | XMS | Encounter Summary ---
Demographics + + + | Address | [address] | | | [place] [address] | + + + | Home Phone | | + + + | Preferred Language | Unknown | + + + | Marital Status | | + + + | Yazidism Affiliation | Unknown | + + + | Race | Unknown | + + + | Ethnic Group | Unknown | + + + Author + + + | Author | [facility] | | | and [place] | + + + | Organization | [facility] | | | [...] Team Providers + +------+ + | Care Photographic Double Name | Role | Phone | + +------+ + | Rohit Olguin MD | PCP | | + +------+ + Encounter Details +--------+ + + + + | Date | Type | Department | Care Team | Description | +--------+ + + + + | 08/28/ | Orders Only | [facility] | Conversion | | | 2015 | | NEPRHOLOGY STEFFANY | Transaction, | | | | | [address] | Provider Unknown | | | | | [address] | [phone] | | | | | [address] | | | | | | [phone] | | | +--------+ + + + [...] + | URINALYSIS WITH | Routin | 08/29/2015 | | Results for this | | MICROSCOPIC WITH | e | 12:00 AM | | procedure are in the | | CULTURE IF INDICATED | | PDT | | results section. | + +--------+ + + + | PROTEIN/CREATININE | Routin | 08/29/2015 | | Results for this | | RATIO, URINE | e | 12:00 AM | | procedure are in the | | | | PDT | | results section. | + +--------+ + + + | URIC ACID | Routin | 08/29/2015 | | Results for this | | | e | 12:00 AM | | procedure are in the | | | | PDT | | results section. | + +--------+ + + + documented in this encounter Results Urinalysis with Microscopic with Culture if Indicated (08/29/2015 12:00 AM PDT) + + + + + + | Component | Value | Ref Range | Performed | Pathologist | | | | | At | Signature | + + + + + + | Color | Kirti | | EXTERNAL | | | | | | LAB | | + + + + + + | Clarity | Clear | | EXTERNAL | | | | | | LAB | | + + + + + + | Spec Grav, | 1.021 | | EXTERNAL | | | Fluid [...] + + + + | Ketones | 5 | | EXTERNAL | | [...] + + + + | Bacteria, | None Seen | | EXTERNAL | | | UA [...] + +---------+ + + Protein/Creatinine Ratio, Urine (08/29/2015 12:00 AM PDT) + +-------+ + + + | Component | Value | Ref Range | Performed | Pathologist | | | | | At | Signature | + +-------+ + + + | Protein/Cre | 71.0 | 0 - 150 | EXTERNAL | [...] | + +---------+ + + Uric Acid (08/29/2015 12:00 AM PDT) + +-------+ + + + | Component | Value | Ref Range | Performed | Pathologist | | | | | At | Signature | + +-------+ + + + | Uric Acid | 4.69 | 2.3 - 6.6 | EXTERNAL | [...]
--- OUTSIDE RECORDS SUMMARY | ~2019-10-11 | XMS | Encounter Summary ---
Demographics + + + | Address | [address] | | | [place] [address] | + + + | Home Phone [...] + | Bob Benites | ECON | [address] | | | | | [place] | | | | | [address] | | + + + + + Care Team Providers + +------+ + | Care Customs Brokerage Manager Name | Role | Phone | + +------+ + | Rohit Olguin MD | PCP | | + +------+ + Encounter Details +--------+ + + + + | Date | Type | Department | Care Team | Description | +--------+ + + + + | 08/02/ | MyChart | Digestive Health | Alcon Malcolm, | RE: Should I be | | 2020 | Encounter | Center at [facility] [address] | KEY ATTENDANT [address] | concerned? | | | | [address] | [place], [place] | | | | | Mailcode: Center | [address] | | | | | for Health and | [phone] | | | | | [facility] 2 | | | | | | [place], [place] | | | | | | [address] | | | | | | [phone] | | | +--------+ + + + [...]
--- OUTSIDE RECORDS SUMMARY | ~2019-10-11 | XMS | Encounter Summary ---
Demographics + + + | Address | [address] | | | [place] [address] | + + + | Home Phone | | + + + | Preferred Language | Unknown | + + + | Marital Status | | + + + | Catholic Affiliation | Unknown | + + + | Race | White | + + + | Ethnic Group | Not or | + + + Author + + + | Author | [facility] | + + + | Organization | [facility] | + + + | Address | Unknown | + + + | Phone | Unavailable | + + + Support + + + + + | Name | Relationship | Address | Phone | + + + + + | Bob Benites | ECON | [address] | | | | | [place] | | | | | [address] | | + + + + + Care Team Providers + +------+ + | Care Caltrans Equipment Operator Name | Role | Phone | + +------+ + | Rohit Olguin MD | PCP | | + +------+ + Encounter Details +--------+ + + + + | Date | Type | Department | Care Team | Description | +--------+ + + + + | 03/20/ | MyChart | Digestive Health | Zelda Hinojosa, | RE:RE: Colonoscopy | | 2013 | Encounter | Center at [facility] [address] | [address] | | | | | [address] | | | | | | Mailcode: Center | | | | | | for Health and | | | | | | Healing, Building 2 | | | | | | [place], [place] | | | | | | [address] | | | | | | [phone] | | | +--------+ + + + [...]
--- OUTSIDE RECORDS SUMMARY | ~2019-10-11 | XMS | Encounter Summary ---
Demographics + + + | Address | [address] | | | [place] [address] | + + + | Home Phone | | + + + | Preferred Language | Unknown | + + + | Marital Status | | + + + | Jew Affiliation | Unknown | + + + [...] [place] | | | | | [address] | | + + + + + Care Team Providers + +------+ + | Care Ophthalmic Pathologist Name | Role | Phone | + +------+ + | Rohit Olguin MD | PCP | | + +------+ + Encounter Details +--------+ + + + + | Date | Type | Department | Care Team | Description | +--------+ + + + + | 12/15/ | MyChart | Digestive Health | Alcon Malcolm, | RE: Claim denied | | 2018 | Encounter | Center at [facility] [address] | PROJECT CONTROLS SPECIALIST [address] | | | | | [address] | [place], [place] | | | | | Mailcode: Center | [address] | | | | | for Health and | [phone] | | | | | [facility] 2 | | | | | | [place], [place] | | | | | | [address] | | | | | | [phone] | | | +--------+ + + + [...]
--- OUTSIDE RECORDS SUMMARY | ~2019-10-11 | XMS | Encounter Summary ---
Demographics + + + | Address | [address] | | | [place] [address] | + + + | Home Phone [...] + | Bob Benites | ECON | [address] | | | | | [place] | | | | | [address] | | + + + + + Care Team Providers + +------+ + | Care Steel Buffer Name | Role | Phone | + [...] | | 2016 | | Center at [facility] 3485 | MD | (nortriptyline) | | | | [address] | | | | | | Mailcode: [place] | | | | | | [facility] Health and | | | | | | [facility], [place] [address] | | | | | | [place], [place] | | | | | | [address] | | | | | | [phone] | | | +--------+--------+ + + + [...]
--- OUTSIDE RECORDS SUMMARY | ~2019-10-11 | XMS | Encounter Summary ---
Demographics + + + | Address | [address] | | | [place] [address] | + + + | Home Phone [...] + | Bob Benites | ECON | [address] | | | | | [place] | | | | | [address] | | + + + + + Care Team Providers + +------+ + | Care Chromosomal Disorders Counselor Name | Role | Phone | + [...] | | 2015 | | Center at [facility] 3485 | MD | (Nortriptyline) | | | | [address] | | | | | | Mailcode: [place] | | | | | | [facility] Health and | | | | | | [facility], [place] [address] | | | | | | [place], [place] | | | | | | [address] | | | | | | [phone] | | | +--------+--------+ + + + [...]
--- OUTSIDE RECORDS SUMMARY | ~2019-10-11 | XMS | Encounter Summary ---
Demographics + + + | Address | [address] | | | [place] [address] | + + + | Home Phone | | + + + | Preferred Language | Unknown | + + + | Marital Status | | + + + | Cheondoism Affiliation | Unknown | + + + [...] + | Bob Benites | ECON | [address] | | | | | [place] | | | | | [address] | | + + + + + Care Team Providers + +------+ + | Care Gaming Associate Name | Role | Phone | [...] | | 2015 | | Center at [facility] 3485 | MD | Request - Medication | | | | [address] | | | | | | Mailcode: [place] | | | | | | [facility] Health and | | | | | | [facility] 2 | | | | | | [place], [place] | | | | | | [address] | | | | | | [phone] | | | +--------+ + + + [...]
--- OUTSIDE RECORDS SUMMARY | ~2019-10-11 | XMS | Encounter Summary ---
Demographics + + + | Address | [address] | | | [place] [address] | + + + | Home Phone [...] + | Bob Benites | ECON | [address] | | | | | [place] | | | | | [address] | | + + + + + Care Team Providers + +------+ + | Care Local Bulk Driver Name | Role | Phone | [...] | | 2017 | | Center at [facility] [address] | [address] | | | | | [address] | [place], [place] | | | | | Mailcode: [place] | [address] | | | | | for Health and | [phone] | | | | | [facility] 2 | | | | | | [place], [place] | | | | | | [address] | | | | | | [phone] | | | +--------+ + + + [...]
--- OUTSIDE RECORDS SUMMARY | ~2019-10-11 | XMS | Encounter Summary ---
Demographics + + + | Address | [address] | | | [place] [address] | + + + | Home Phone [...] [place] | | | | | [address] | | + + + + + Care Team Providers + +------+ + | Care Filer Metal Patterns Name | Role | Phone | + [...] | | 2013 | | Center at [facility] [address] | MD | (Nortriptyline) | | | | [address] | | | | | | Mailcode: [place] | | | | | | [facility] Health and | | | | | | [facility], [place] [address] | | | | | | [place], [place] | | | | | | [address] | | | | | | [phone] | | | +--------+--------+ + + + [...]
--- OUTSIDE RECORDS SUMMARY | ~2019-10-11 | XMS | Encounter Summary ---
Demographics + + + | Address | [address] | | | [place] [address] | + + + | Home Phone | | + + + | Preferred Language | Unknown | + + + | Marital Status | | + + + | Bahai Affiliation | Unknown | + + + | Race | Unknown | + + + | Ethnic Group | Unknown | + + + Author + + + | Author | [facility] | | | and [place] | + + + | Organization | [facility] | | | and [...] Team Providers + +------+ + | Care Purchasing Assistant Name | Role | Phone | + +------+ + | Rohit Olguin MD | PCP | | + +------+ + Encounter Details +--------+ + + + + | Date | Type | Department | Care Team | Description | +--------+ + + + + | 08/24/ | Orders Only | [facility] | Conversion | | | 2015 | | NEPRHOLOGY STEFFANY | Transaction, | | | | | [address] | Provider Unknown | | | | | [address] | [phone] | | | | | [address] | | | | | | [phone] | | | +--------+ + + + [...]
--- OUTSIDE RECORDS SUMMARY | ~2019-10-11 | XMS | Encounter Summary ---
Demographics + + + | Address | [address] | | | [place] [address] | + + + | Home Phone [...] + | Bob Benites | ECON | [address] | | | | | [place] | | | | | [address] | | + + + + + Care Team Providers + +------+ + | Care Bronzer Name | Role | Phone | + [...] Encounter | Center at [facility] [address] | [address] | | | | | [address] | [place], [place] | | | | | Mailcode: Center | [address] | | | | | for Health and | [phone] | | | | | Healing, Building [address] | | | | | | [place], [place] | | | | | | [address] | | | | | | [phone] | | | +--------+ + + + [...]
--- OUTSIDE RECORDS SUMMARY | ~2019-10-11 | XMS | Encounter Summary ---
Demographics + + + | Address | [address] | | | [place] [address] | + + + | Home Phone | | + + + | Preferred Language | Unknown | + + + | Marital Status | | + + + | Hindu Affiliation | Unknown | + + + | Race | Unknown | + + + | Ethnic Group | Unknown | + + + Author + + + | Author | [facility] | | | and [place] | + + + | Organization | [facility] | | [...] Team Providers + +------+ + | Care Sales Representative Livestock Name | Role | Phone | + +------+ + | Rohit Olguin MD | PCP | | + +------+ + Encounter Details +--------+ + + + + | Date | Type | Department | Care Team | Description | +--------+ + + + + | 10/02/ | Orders Only | [facility] | Conversion | | | 2015 | | NEPHROLOGY TANMAY | Transaction, | | | | | [address] | Provider Unknown | | | | | [address] | [phone] | | | | | [address] | | | | | | [phone] | | | +--------+ + + + [...]
--- OUTSIDE RECORDS SUMMARY | ~2019-10-11 | XMS | Encounter Summary ---
Demographics + + + | Address | [address] | | | [place] [address] | + + + | Home Phone | | + + + | Preferred Language | Unknown | + + + | Marital Status | | + + + | Anabaptist Affiliation | Unknown | + + + [...] + | Bob Benites | ECON | [address] | | | | | [place] | | | | | [address] | | + + + + + Care Team Providers + +------+ + | Care Automotive Service Technician Name | Role | Phone | + +------+ + | Rohit Olguin MD | PCP | | + +------+ + Encounter Details +--------+ + + + + | Date | Type | Department | Care Team | Description | +--------+ + + + + | 08/03/ | MyChart | Digestive Health | Stevo Hart, | RE: Abdomen pain | | 2015 | Encounter | Center at [facility] [address] | MD | | | | | [address] | | | | | | Mailcode: Center | | | | | | for Health and | | | | | | Healing, [address] | | | | | | [place], [place] | | | | | | [address] | | | | | | [phone] | | | +--------+ + + + [...]
--- OUTSIDE RECORDS SUMMARY | ~2019-10-11 | XMS | Encounter Summary ---
Demographics + + + | Address | [address] | | | [place] [address] | + + + | Home Phone | | + + + | Preferred Language | Unknown | + + + | Marital Status | | + + + | Zoroastrianism Affiliation | Unknown | + + + | Race | White | + + + | Ethnic Group | Not or | + + + Author + + + | Author | [facility] | + + + | Organization | [facility] | + + + | Address | Unknown | + + + | Phone | Unavailable | + + + Support + + + + + | Name | Relationship | Address | Phone | + + + + + | Bob Benites | ECON | [address] | | | | | [place] | | | | | [address] | | + + + + + Care Team Providers + +------+ + | Care Facilities Maintenance Supervisor Name | Role | Phone | [...] | +--------+ + + + + | 11/09/ | Abstract | Digestive Health | Stevo Hart, | Blood Test Results | | 2015 | | [place] at [facility] 3485 | MD | | | | | [address] | | | | | | Mailcode: [place] | | | | | | [facility] Health and | | | | | | [facility], [facility] 2 | | | | | | [place], [place] | | | | | | [address] | | | | | | [phone] | | | +--------+ + + + [...]
--- OUTSIDE RECORDS SUMMARY | ~2019-10-11 | XMS | Encounter Summary ---
Demographics + + + | Address | [address] | | | [place] [address] | + + + | Home Phone [...] + | Bob Benites | ECON | [address] | | | | | [place] | | | | | [address] | | + + + + + Care Team Providers + +------+ + | Care C S S Representative Name | Role | Phone | [...] 2018 | Encounter | Center at [facility] [address] | FOOD PRESERVATION SCIENTIST [address] | | | | | [address] | [facility] [place] | | | | | Mailcode: Center | [address] | | | | | for Health and | [phone] | | | | | [facility] 2 | | | | | | [place], [place] | | | | | | [address] | | | | | | [phone] | | | +--------+ + + + [...]
--- OUTSIDE RECORDS SUMMARY | ~2019-10-11 | XMS | Encounter Summary ---
Demographics + + + | Address | [address] | | | [place] [address] | + + + | Home Phone [...] + | Bob Benites | ECON | [address] | | | | | [place] | | | | | [address] | | + + + + + Care Team Providers + +------+ + | Care Medical Staff Specialist Name | Role | Phone | [...] | 2016 | Encounter | Center at [facility] 3485 | MD | Authorization | | | | [address] | | | | | | Mailcode: Center | | | | | | for Health and | | | | | | Healing, Building [address] | | | | | | [place], [place] | | | | | | [address] | | | | | | [phone] | | | +--------+ + + + [...]
--- OUTSIDE RECORDS SUMMARY | ~2019-10-11 | XMS | Encounter Summary ---
Demographics + + + | Address | [address] [place] [address] | | | [place] [address] | + + + | Home Phone [...] + | Bob Benites | ECON | [address] | | | | | [place] | | | | | [address] | | + + + + + Care Team Providers + +------+ + | Care Emergency Crew Supervisor Name | Role | Phone | [...] Center at [facility] 3485 | FILAMENT COIL WINDER [address] | Authorization | | | | [address] | [place], [place] | (Remicade approval - | | | | Mailcode: [place] | [phone] | [facility]) | | | | for Health and | [phone] | | | | | [place] [address] | | | | | | [place], [place] | | | | | | [address] | | | | | | [phone] | | | +--------+ + + + [...]
--- OUTSIDE RECORDS SUMMARY | ~2019-10-11 | XMS | Encounter Summary ---
Demographics + + + | Address | [address] | | | [place] [address] | + + + | Home Phone [...] + | Bob Benites | ECON | [address] | | | | | [place] | | | | | [address] | | + + + + + Care Team Providers + +------+ + | Care Personnel Associate Name | Role | Phone | [...] Description | +--------+--------+ + + + | 11/14/ | Refill | Digestive Health | Stevo Hart, | Refill Request | | 2016 | | Center at [facility] 3485 | MD | (Nortriptyline) | | | | [address] | | | | | | Mailcode: [place] | | | | | | [facility] Health and | | | | | | [facility], [place] [address] | | | | | | [place], [place] | | | | | | [address] | | | | | | [phone] | | | +--------+--------+ + + + [...]
--- OUTSIDE RECORDS SUMMARY | ~2019-10-11 | XMS | Encounter Summary ---
Demographics + + + | Address | [address] | | | [place] [address] | + + + | Home Phone [...] + | Bob Benites | ECON | [address] | | | | | [place] | | | | | [address] | | + + + + + Care Team Providers + +------+ + | Care Bog Worker Name | Role | Phone | + +------+ + | Rohit Olguin MD | PCP | | + +------+ + Reason for Visit + + + | Reason | Comments | + + + | Medical Records | 03/11/2016 Colonoscopy Consult, 03/25/2016 Colonoscopy | | Review | | + + + Encounter Details +--------+ + + + + | Date | Type | Department | Care Team | Description | +--------+ + + + + | 10/18/ | Abstract | Digestive Health | Stevo Hart, | Medical Records | | 2016 | | Center at [facility] 3485 | MD | Review (03/11/2016 | | | | [address] | | Colonoscopy Consult, | | | | Mailcode: Center | | 03/25/2016 | | | | for Health and | | Colonoscopy) | | | | Healing, Building [address] | | | | | | [place], [place] | | | | | | [address] | | | | | | [phone] | | | +--------+ + + + [...]
--- OUTSIDE RECORDS SUMMARY | ~2019-10-11 | XMS | Encounter Summary ---
Demographics + + + | Address | [address] | | | [place] [address] | + + + | Home Phone [...] + + + | Author | [facility] | + + + | Organization | [facility] | + + + | Address | Unknown | + + + | Phone | Unavailable | + + + Support + + + + + | Name | Relationship | Address | Phone | + + + + + | Bob Benites | ECON | [address] | | | | | [place] | | | | | [address] | | + + + + + Care Team Providers + +------+ + | Care Appraisal Technician Name | Role | Phone | [...] | 2016 | Encounter | Center at [facility] [address] | MD | Authorization and | | | | [address] | | orders | | | | Mailcode: Center | | | | | | for Health and | | | | | | Healing, Building [address] | | | | | | [place], [place] | | | | | | [address] | | | | | | [phone] | | | +--------+ + + + [...]
--- OUTSIDE RECORDS SUMMARY | ~2019-10-11 | XMS | Encounter Summary ---
Demographics + + + | Address | [address] | | | [place] [address] | + + + | Home Phone [...] + | Bob Benites | ECON | [address] | | | | | [place] | | | | | [address] | | + + + + + Care Team Providers + +------+ + | Care Desulphurizer Operator Name | Role | Phone | [...] | | 2014 | | Center at [facility] 1415 | MD | (nortriptyline) | | | | [address] | | | | | | Mailcode: [place] | | | | | | [facility] Health and | | | | | | [facility], [place] [address] | | | | | | [place], [place] | | | | | | [address] | | | | | | [phone] | | | +--------+--------+ + + + [...]
--- OUTSIDE RECORDS SUMMARY | ~2019-10-11 | XMS | Encounter Summary ---
Demographics + + + | Address | [address] | | | [place] [address] | + + + | Home Phone | | + + + | Preferred Language | Unknown | + + + | Marital Status | | + + + | Yazidi Affiliation | Unknown | + + + | Race | White | + + + | Ethnic Group | Not or | + + + Author + + + | Author | [facility] | + + + | Organization | [facility] | + + + | Address | Unknown | + + + | Phone | Unavailable | + + + Support + + + + + | Name | Relationship | Address | Phone | + + + + + | Bob Benites | ECON | [address] | | | | | [place] | | | | | [address] | | + + + + + Care Team Providers + +------+ + | Care Professor Of Political Science Name | Role | Phone | + +------+ + | Rohit Olguin MD | PCP | | + +------+ + Encounter Details +--------+---------+ + + + | Date | Type | Department | Care Team | Description | +--------+---------+ + + + | 02/09/ | Office | Digestive Health | Stevo Hart, | Other ulcerative | | 2016 | Visit | Center at [facility] 2431 | MD | colitis without | | | | [address] | | complication (HCC) | | | | Mailcode: Center | | (Primary Dx) | | | | for Health and | | | | | | Healing, [address] | | | | | | [place], [place] | | | | | | [address] | | | | | | [phone] | | | +--------+---------+ + + + [...]
--- OUTSIDE RECORDS SUMMARY | ~2019-10-11 | XMS | Encounter Summary ---
Demographics + + + | Address | [address] | | | [place] [address] | + + + | Home Phone [...] [place] | | | | | [address] | | + + + + + Care Team Providers + +------+ + | Care Newspaper Vendor Name | Role | Phone | + +------+ + | Rohit Olguin MD | PCP | | + +------+ + Encounter Details +--------+ + + + + | Date | Type | Department | Care Team | Description | +--------+ + + + + | 09/30/ | Telephone | Digestive Health | Stevo Hart, | | | 2015 | | [place] at [facility] 3485 | | | | | | [address] | | | | | | Mailcode: [place] | | | | | | for Health and | | | | | | [facility], [facility] 2 | | | | | | [place], [place] | | | | | | [address] | | | | | | [phone] | | | +--------+ + + + [...]
--- OUTSIDE RECORDS SUMMARY | ~2019-10-11 | XMS | Encounter Summary ---
Demographics + + + | Address | [address] | | | [place] [address] | + + + | Home Phone [...] [place] | | | | | [address] | | + + + + + Care Team Providers + +------+ + | Care Dredge Pipe Installer Name | Role | Phone | [...] | | 2017 | | Center at [facility] [address]055 | [address] | | | | | [address] | [place], [place] | | | | | Mailcode: [place] | [address] | | | | | for Health and | [phone] | | | | | [facility], [facility] 2 | | | | | | [place], [place] | | | | | | [address] | | | | | | [phone] | | | +--------+ + + + [...]
--- OUTSIDE RECORDS SUMMARY | ~2019-10-11 | XMS | Encounter Summary ---
Demographics + + + | Address | [address] | | | [place] [address] | + + + | Home Phone [...] [place] | | | | | [address] | | + + + + + Care Team Providers + +------+ + | Care Conservation Agent Name | Role | Phone | [...] W | | | | | ([facility]) | [address] | [address] | | | | | Abdominal | [place], [place] | [place] | | | | | pain | [address] | [address] | | | | | Irritable | [...] | | | | | Procedures | [address] | Mailcode: | | | | | CONSULT TO | [address] | Center for | | | | | GASTROENTERO | [place], | Health and | | | | | [place] | [place] [address] | Healing, | | | | | Consult for | Phone: | Building 2 | | | | | 2nd opinion | [phone] | [place], [place] | | | | | | Fax: | [address] | | | | | | [phone] | Phone: | | | | | | | [phone] | | | | | | | Fax: | | | | | | | [phone] | +--------+ + + + + + Encounter Details +--------+---------+ + + + | Date | Type | Department | Care Team | Description | +--------+---------+ + + + | 03/30/ | Office | Digestive Health | Zelda Hinojosa, | Abdominal pain | | 2012 | Visit | Center at [facility] 3485 | PA-C | (Primary Dx); | | | | [address] | | Ulcerative colitis | | | | Mailcode: Center | | ([facility]); Irritable | | | | for Health and | | bowel syndrome (IBS) | | | | [facility], [facility] 2 | | | | | | [place], [place] | | | | | | [address] | | | | | | [phone] | | | +--------+---------+ + + + [...] the original. [facility] ~ Follow-Up Visit Note Patient Identification: [...] weeks of vaginal bleedin g - seeing GENERAL TECHNICIAN for this. Other - Perianal, oral, etc.: [...] D&c (dilatation and curettage) 08/2011 Elbow surgery [id number] Relevant family or social history: no updates [...] and prior therapies. Current IBD Meds: Remicade [id number] (started in 04/2012, was initially on it [...] GI provider that she can see for [facility] GI care. Counseling Time: I spent a [...] + | [facility] | [address] | [place] [address] | | | [place] | | | [...] | + + + + + | [facility] | [address] | [place] [address] | | | SERVICES, CORE | PARK [...] + + + + + | [facility] | [address] | [place] [address] | | | JAH URBINA | GIOVANY [...]
--- OUTSIDE RECORDS SUMMARY | ~2019-10-11 | XMS | Encounter Summary ---
Demographics + + + | Address | [address] | | | [place] [address] | + + + | Home Phone [...] + | Bob Benites | ECON | [address] | | | | | [place] | | | | | [address] | | + + + + + Care Team Providers + +------+ + | Care Insurance Underwriter Sales Name | Role | Phone | + [...] | 2018 | Encounter | Center at [facility] [address]85 | [address] | for Remicade | | | | [address] | [place], [place] | | | | | Mailcode: Center | [address] | | | | | for Health and | [phone] | | | | | [facility] 2 | | | | | | [place], [place] | | | | | | [address] | | | | | | [phone] | | | +--------+ + + + [...]
--- OUTSIDE RECORDS SUMMARY | ~2019-10-11 | XMS | Encounter Summary ---
Demographics + + + | Address | [address] | | | [place] [address] | + + + | Home Phone [...] + | Bob Benites | ECON | [address] | | | | | [place] | | | | | [address] | | + + + + + Care Team Providers + +------+ + | Care Pharmacy Billing Adjudicator Name | Role | Phone | + [...] | Remicade) | | | | Mailcode: [place] | | | | | | for Health and | | | | | | [facility], [facility] 2 | | | | | | [place], [place] | | | | | | [address] | | | | | | [phone] | | | +--------+ + + + [...]
--- OUTSIDE RECORDS SUMMARY | ~2019-10-11 | XMS | Encounter Summary ---
Demographics + + + | Address | [address] | | | [place] [address] | + + + | Home Phone | | + + + | Preferred Language | Unknown | + + + | Marital Status | | + + + | Voodoo Affiliation | Unknown | + + + [...] + | Bob Benites | ECON | [address] | | | | | [place] | | | | | [address] | | + + + + + Care Team Providers + +------+ + | Care Housekeeping Director Name | Role | Phone | [...] Description | +--------+--------+ + + + | 01/21/ | Refill | Digestive Health | Stevo Hart, | Refill Request | | 2013 | | [place] at [facility] 8535 | [place] | | | | | [address] | | | | | | Mailcode: [place] | | | | | | for Health and | | | | | | [facility], [facility] 2 | | | | | | [place], [place] | | | | | | [address] | | | | | | [phone] | | | +--------+--------+ + + + [...]
--- OUTSIDE RECORDS SUMMARY | ~2019-10-11 | XMS | Encounter Summary ---
Demographics + + + | Address | [address] | | | [place] [address] | + + + | Home Phone [...] + | Bob Benites | ECON | [address] | | | | | [place] | | | | | [address] | | + + + + + Care Team Providers + +------+ + | Care Pie Bottomer Name | Role | Phone | + [...] 2020 | Encounter | Center at [facility] [address]40 | HEMODIALYSIS PATIENT CARE SPECIALIST [address] | | | | | [address] | [place], [place] | | | | | Mailcode: Center | [address] | | | | | for Health and | [phone] | | | | | Healing, Building [address] | | | | | | [place], [place] | | | | | | [address] | | | | | | [phone] | | | +--------+ + + + [...]
--- OUTSIDE RECORDS SUMMARY | ~2019-10-11 | XMS | Encounter Summary ---
Demographics + + + | Address | [address] | | | [place] [address] | + + + | Home Phone [...] + | Bob Benites | ECON | [address] | | | | | [place] | | | | | [address] | | + + + + + Care Team Providers + +------+ + | Care Conference Services Director Name | Role | Phone | [...] Medical Records | | 2016 | | [place] at [facility] 3485 | | Review | | | | [address] | | | | | | Mailcode: [place] | | | | | | for Health and | | | | | | [facility], [facility] 2 | | | | | | [place], [place] | | | | | | [address] | | | | | | [phone] | | | +--------+ + + + [...]
--- OUTSIDE RECORDS SUMMARY | ~2019-10-11 | XMS | Encounter Summary ---
Demographics + + + | Address | [address] | | | [place] [address] | + + + | Home Phone [...] + | Bob Benites | ECON | [address] | | | | | [place] | | | | | [address] | | + + + + + Care Team Providers + +------+ + | Care Supervisor Stripping Name | Role | Phone | + [...] | Gastroenterol | Diagnoses | Sharif, | Zelda Hinojosa | | | Services | ogy | Ulcerative | Rohit Aguilar, | VAIBHAV Goodman | | | Required | | colitis | MD [address] | [address] | | | | | Procedures | [place] | Ave | | | | | CONSULT TO | [address] | [place], [place] | | | | | GASTROENTERO | [place], | [address] | | | | | [place] | [place] [address] | | | | | | Consult for | Phone: | | | | | | 2nd opinion | [phone] | | | | | | | Fax: | | | | | | | [phone] | | +--------+ + + + + + Encounter Details +--------+---------+ + + + | Date | Type | Department | Care Team | Description | +--------+---------+ + + + | 05/03/ | Office | Digestive Health | Zelda Hinojosa, | Ulcerative colitis, | | 2014 | Visit | Center at [facility] [address] | PA-C | without | | | | [address] | | complications (HCC) | | | | Mailcode: Center | | (Primary Dx); | | | | for Health and | | Irritable bowel | | | | Healing, Building [address] | | syndrome (IBS) | | | | [place], [place] | | | | | | [address] | | | | | | [phone] | | | +--------+---------+ + + + [...] + + + | Blood Pressure | 135/87 | 05/03/2014 11:32 AM | | | | | PST | | + + + + + | Pulse | 95 | 05/03/2014 11:32 AM | | | | | PST | | + + + + + | Temperature | 36.9 C (98.4 F) | 05/03/2014 11:32 AM | | | | | PST | | + + + + + | Respiratory Rate | 16 | 05/03/2014 11:32 AM | | | | | PST | | + + + + + | Oxygen Saturation | - | - | | + + + + + | Inhaled Oxygen | - | - | | | Concentration | | | | + + + + + | Weight | 95.7 kg (211 lb) | 05/03/2014 11:32 AM | | | | | PST | | + + + + + | Height | 160 cm (5' 3") | 05/03/2014 11:32 AM | | | | | PST | | + + + + + | Body Mass Index | 37.38 | 05/03/2014 11:32 AM | | | | | PST | | + + + + + documented in this encounter Progress Notes Zelda Hinojosa PA-C - 05/03/2014 11:16 AM PSTFormatting of this note might be different fro m the original. Inflammatory Bowel Disease Clinic [facility] ~ Follow-Up Visit Note Patient Identification: Kami Benites is a 33 y.o. female with a history of ulcerative c olitis and IBS who presents to the Inflammatory Bowel Disease Clinic for routine follow up. History of Present Illness: Interval History: Kami was last seen 03/2013. She has since had a hysterectomy which has helped her tremendously in terms of bleeding, etc. She also has been on nortriptyline for her IBS and it has helped with the pain. It even regulated her BMs to the point of having o ne BM per day (she hadn't experienced this regularity in years). This past few months she h as been experiencing more symptoms. This is the first time her colitis has acted up since gavino loco placed on Remicade two years ago. She denies travels, antibiotics, NSAIDs. Current GI/IBD Symptoms reviewed with the patient today: Bowel Habits: For the past few months, 1-5 very loose BMs, no blood. No nocturnal sxs. iMlind randhawa is due for Remicade next week, so having some sxs just prior to the infusion is not uncomm on but current sxs have been present for 2-3 months. Abdominal Pain: cramps with BM but then the pain lingers (unlike IBS cramps). Pain not rel ated to meals. Weight loss: no N/V/F/C/Sweats: no Other - Perianal, oral, etc.: no NSAID Use: no Extraintestinal Symptoms (Joint, Eye,Skin): no Review of [...] D&c (dilatation and curettage) 08/2011 Elbow surgery [id number] Relevant family or social history: no changes [...] 7.5-325 mg Oral tablet nortriptyline 10 mg oral capsule OMEPRAZOLE 20 mg Oral capsule,delayed release(DR/EC) SERTRALINE 100 mg Oral tablet SUMATRIPTAN 100 mg Oral tablet No current facility-administered medications for this visit. Allergies: Allergies Allergen Reactions Sulfa (Sulfonamide Antibiotics) Physical Exam: BP 135/87 | Pulse 95 | Temp (Src) 36.9 C (98.4 F) (Oral) | RR 16 | Ht 1.6 m (5' 3") | W t 95.709 kg (211 lb) | BMI 37.39 kg/(m^2) Appearance: no apparent distress. Psychological: Appropriate mood and affect. Lymph: No neck lymphadenopathy. Eyes: Sclera anicteric [...] stic changes, negative for colitis and dypslasia 2. Current and prior therapies. Current IBD Meds: Remicade [id number] (started in 04/2012, was initially on it [...] up from 10mg) by Dr. Hart after las t visit. She contacted the office one month later stating she developed intense cramping and worsening diarrhea so she stopped it. She ultimately restarted it and has experienced great response from it in terms of IBS pain and it actually formed her chronically loose stools t o one formed BM / day (not currently, as she is in the midst of a minor flare). 3. Labs: None available for review. She does not think they draw labs during Remicade. Her PCP ord ers the Remicade. Assessment: Kami Benites is a 33 y.o. female, who returns to the Inflammatory Bowel Disease Clinic f or ongoing management of UC and IBS. Her IBS has been better controlled on nortriptyline, h owever this past 2-3 months she has been experiencing what sounds like a minor UC flare, wit h diarrhea and cramps that linger on long past the BM. This would coincide with some inflam mation seen on recent colonoscopy (done in [place]). This case was staffed with Dr. Jory hoskins, and then again with Dr. Francois (who was in clinic the day Kami was seen). Plan and Recommendations: A. IBD Diagnostics. 1. Remicade trough levels. If levels are normal, we will not change therapy though would consider adding Imuran in hopes of achieving mucosal healing and symptom improvement. If Re micade is low, we can increase the dose to 7.5mg/kg to start. 2. She does not want to take Prednisone. We may need to try at minimum a rectally adminis tered medication in hopes of improving her sxs and promoting tissue healing, but we'll wait to see how she does with this upcoming Remicade infusion. 2. Needs CBC, LFTs while on stable dose Remicade. These labs have not been drawn at all, so she needs these every other Remicade. Since her PCP does the orders, we'll call him and ask that he add these labs to the order in time for the next Remicade. B. IBD Therapy. 1. Continue Remicade. See above for possible changes/additions in near future. C. IBD-Specific Health Maintenance. 1. If Patient is Immunosuppressed - Recommendations for PCP: Vaccination: Pneumovax (2 shots by 5 years), Annual Flu Shot, and ensure up-t o-date on Tetanus. Strong consideration for Hep A/B vaccination. Avoid live vaccines. Recommend annual skin exam by PCP or biochemistry specialist, and use of sunscreen. If Female--> PAP screening per ACOG guidelines for immunosuppressed patients. 2. Need for dysplasia surveillance colonoscopies: up to date D. Other / non-IBD. 1. IBS is well-controlled. Continue nortriptyline. 2. Pt asks if her two kids need to be screened for IBD. I informed her we do not screen b ut she should contact their voice over artist if they develop any GI symptoms that could reflect underlying/early IBD. Follow-Up: 3-[address] Hart Counseling Time: I spent a total of 30 minutes with this patient, of which greater than 50 % of the time was spent in counseling. Specific issues that were discussed included possibl e changes to medication, fam hx risk. documented in this en counter Plan of Treatment Not on filedocumented as of this encounter Visit Diagnoses + + | Diagnosis | + + | Ulcerative colitis, without complications - Primary | + + | Irritable bowel syndrome (IBS) Irritable bowel syndrome | + + documented in this encounter
--- OUTSIDE RECORDS SUMMARY | ~2019-10-11 | XMS | Encounter Summary ---
Demographics + + + | Address | [address] | | | [place] [address] | + + + | Home Phone [...] [place] | | | | | [address] | | + + + + + Care Team Providers + +------+ + | Care Enginehouse Brakeman Name | Role | Phone | + [...] | 2017 | | Center at [address] | TIPPLE WORKER [address] | | | | | [address] | [place], [place] | | | | | Mailcode: [place] | [address] | | | | | for Health and | [phone] | | | | | Healing, Building [address] | | | | | | [place], [place] | | | | | | [address] | | | | | | [phone] | | | +--------+ + + + [...]
--- OUTSIDE RECORDS SUMMARY | ~2019-10-11 | XMS | Encounter Summary ---
Demographics + + + | Address | [address] | | | [place] [address] | + + + | Home Phone | | + + + | Preferred Language | Unknown | + + + | Marital Status | | + + + | Gnosticist Affiliation | Unknown | + + + [...] + | Bob Benites | ECON | [address] | | | | | [place] | | | | | [address] | | + + + + + Care Team Providers + +------+ + | Care Legal Billing Specialist Name | Role | Phone | [...] Medical Records | | 2014 | | [place] at [facility] [address] | | Review | | | | [address] | | | | | | Mailcode: [place] | | | | | | for Health and | | | | | | [facility] 2 | | | | | | [place], [place] | | | | | | [address] | | | | | | [phone] | | | +--------+ + + + [...]
--- OUTSIDE RECORDS SUMMARY | ~2019-10-11 | XMS | Encounter Summary ---
Demographics + + + | Address | [address] | | | [place] [address] | + + + | Home Phone | | + + + | Preferred Language | Unknown | + + + | Marital Status | | + + + | Confucianism Affiliation | Unknown | + + + [...] + | Bob Benites | ECON | [address] | | | | | [place] | | | | | [address] | | + + + + + Care Team Providers + +------+ + | Care Hat Body Sorter Name | Role | Phone | + [...] | | 2017 | | Center at [facility] [address] | MD | Request - Medication | | | | [address] | | | | | | Mailcode: [place] | | | | | | [facility] Health and | | | | | | [facility], [facility] 2 | | | | | | [place], [place] | | | | | | [address] | | | | | | [phone] | | | +--------+ + + + [...]
--- OUTSIDE RECORDS SUMMARY | ~2019-10-11 | XMS | Encounter Summary ---
Demographics + + + | Address | [address] | | | [place] [address] | + + + | Home Phone [...] + + + | Author | [facility] | + + + | Organization | [facility] | + + + | Address | Unknown | + + + | Phone | Unavailable | + + + Support + + + + + | Name | Relationship | Address | Phone | + + + + + | Bob Benites | ECON | [address] | | | | | [place] | | | | | [address] | | + + + + + Care Team Providers + +------+ + | Care Electronics Inspector Name | Role | Phone | + +------+ + | Rohit Olguin MD | PCP | | + +------+ + Reason for Visit + + + | Reason | Comments | + + + | Medical Records | C - OUTSIDE RECORD: Operative report 04/02/2014 | | Review | | + + + Encounter Details +--------+ + + + + | Date | Type | Department | Care Team | Description | +--------+ + + + + | 04/17/ | Abstract | Digestive Health | Stevo Hart, | Medical Records | | 2013 | | [place] at [facility] [address] | MD | Review ([facility] - | | | | [address] | | OUTSIDE RECORD: | | | | Mailcode: [place] | | Operative report | | | | for Health and | | 04/02/2014) | | | | Healing, Building [address] | | | | | | [place], [place] | | | | | | [address] | | | | | | [phone] | | | +--------+ + + + [...]
--- OUTSIDE RECORDS SUMMARY | ~2019-10-11 | XMS | Encounter Summary ---
Demographics + + + | Address | [address] | | | [place] [address] | + + + | Home Phone | | + + + | Preferred Language | Unknown | + + + | Marital Status | | + + + | Congregation Affiliation | Unknown | + + + | Race | Unknown | + + + | Ethnic Group | Unknown | + + + Author + + + | Author | [facility] | | | and [place] | + + + | Organization | [facility] | | | [...] Team Providers + +------+ + | Care Straw Hat Plunger Operator Name | Role | Phone | + +------+ + PCP | Unavailable | + +------+ + Encounter Details +--------+ + + + + | Date | Type | Department | Care Team | Description | +--------+ + + + + | 09/27/ | Hospital | [facility] | | | | 2007 | Encounter | MED CTR GENERIC OP | | | | | | CONV DEPT [address] | | | | | | [place], | | | | | | [place] [address] | | | | | | [phone] | | | +--------+ + + + [...]
--- OUTSIDE RECORDS SUMMARY | ~2019-10-11 | XMS | Encounter Summary ---
Demographics + + + | Address | [address] | | | [place] [address] | + + + | Home Phone [...] + | Bob Benites | ECON | [address] | | | | | [place] | | | | | [address] | | + + + + + Care Team Providers + +------+ + | Care Parking Patroller Name | Role | Phone | + [...] 2019 | Encounter | Center at [facility] [address] | HOT ROLL LAMINATOR [address] | | | | | [address] | [place], [place] | | | | | Mailcode: Center | [address] | | | | | for Health and | [phone] | | | | | [facility] 2 | | | | | | [place], [place] | | | | | | [address] | | | | | | [phone] | | | +--------+ + + + [...] [address] | [place] | [phone] | | [place] | | | | [...] [address] | [place], [place] | [phone] | | [place] | | | | [...] [address] | [place], [place] | [phone] | | [place] | | | | [...] [address] | [place] | [phone] | | [place] | | | | [...] [address] | [place], [place] | [phone] | | [place] | | | | [...] - | [address] | [place], [place] | [phone] | | [place] | | | | [...] [address] | [place] | [phone] | | [place] | | | | [...] + | [facility] | | | [phone] | | [facility]OSPITAL | | | | + +---------+ + + | [facility] | | [place], [place] | [phone] | | HOSPITAL | | | | [...] + | [facility] | | | [phone] | | HOSPITAL | | | | + +---------+ + + | [facility] | | [place] | [phone] | | HOSPITAL | | | | [...] + | [facility] | | | [phone] | | HOSPITAL | | | | + +---------+ + + | [facility] | | [place], [place] | [phone] | | HOSPITAL | | | | [...] + | [facility] | | | [phone] | | HOSPITAL | | | | + +---------+ + + | [facility] | | [place] | [phone] | | HOSPITAL | | | | [...] | 6 - 23 mg/dL | [facility] | | | (LAB) | | | [...] + | [facility] | | | [phone] | | HOSPITAL | | | | + +---------+ + + | [facility] | | [place], [place] | [phone] | | HOSPITAL | | | | [...] + | [facility] | | | [phone] | | HOSPITAL | | | | + +---------+ + + | [facility] | | [place] | [phone] | | HOSPITAL | | | | + +---------+ + + documented in this encounter Visit Diagnoses + + | Diagnosis | + + | Other ulcerative colitis without complication (HCC) - Primary | + + | Fatigue, unspecified type | + + documented in this encounter"
--- OUTSIDE RECORDS SUMMARY | ~2019-10-11 | XMS | Encounter Summary ---
Demographics + + + | Address | [address] | | | [place] [address] | + + + | Home Phone [...] + | Bob Benites | ECON | [address] | | | | | [place] | | | | | [address] | | + + + + + Care Team Providers + +------+ + | Care Range Master Name | Role | Phone | + [...] | | for Health and | | ([facility]); Irritable | | | | Healing, Building [address] | | bowel syndrome | | | | [place], [place] | | without diarrhea | | | | [address] | | | | | | [phone] | | | +--------+---------+ + + + [...] m the original. Inflammatory Bowel Disease Clinic [facility] ~ Follow-Up Visit Note Patient [...] sensitivity to touch, loss of appetite. Saw dental financial coordinator had transvaginal told normal, normal CT A/P [...] D&c (dilatation and curettage) 08/2011 Elbow surgery [id number] Relevant family or social history: no changes [...] and prior therapies. Current IBD Meds: Remicade [id number] (started in 04/2012, was initially on it [...] Recommend annual skin exam by PCP or helicopter dispatcher, and use of sunscreen. If Female--> PAP [...]
--- OUTSIDE RECORDS SUMMARY | ~2019-10-11 | XMS | Encounter Summary ---
Demographics + + + | Address | [address] | | | [place] [address] | + + + | Home Phone [...] + | Bob Benites | ECON | [address] | | | | | [place] | | | | | [address] | | + + + + + Care Team Providers + +------+ + | Care Office Technology Professor Name | Role | Phone | + [...] Description | +--------+--------+ + + + | 11/30/ | Refill | Digestive Health | Stevo Hart, | Refill Request | | 2013 | | Center at [facility] [address] | MD | (Nortriptyline) | | | | [address] | | | | | | Mailcode: [place] | | | | | | [facility] Health and | | | | | | [facility], [place] [address] | | | | | | [place], [place] | | | | | | [address] | | | | | | [phone] | | | +--------+--------+ + + + [...]
--- OUTSIDE RECORDS SUMMARY | ~2019-10-11 | XMS | Encounter Summary ---
Demographics + + + | Address | [address] | | | [place] [address] | + + + | Home Phone [...] + | Bob Benites | ECON | [address] | | | | | [place] | | | | | [address] | | + + + + + Care Team Providers + +------+ + | Care Director Of Corporate Sales Name | Role | Phone | [...] | | Center at [facility] | DIRECTOR HEDIS [address] | | | | | [address] | [place], [place] | | | | | Mailcode: Center | [address] | | | | | for Health and | [phone] | | | | | [place] [address] | | | | | | [place], [place] | | | | | | [address] | | | | | | [phone] | | | +--------+--------+ + + + [...]
--- OUTSIDE RECORDS SUMMARY | ~2019-10-11 | XMS | Encounter Summary ---
Demographics + + + | Address | [address] | | | [place] [address] | + + + | Home Phone [...] + | Bob Benites | ECON | [address] | | | | | [place] | | | | | [address] | | + + + + + Care Team Providers + +------+ + | Care Switch Crew Supervisor Name | Role | Phone [...] | | | | | Procedures | [address] | [address] | | | | | CONSULT TO | [address] | [place], [place] | | | | | GASTROENTERO | [place], | [address] | | | | | [place] | [place] [address] | | | | | | Consult for | Phone: | | | | | | 2nd opinion | [phone] | | | | | | | Fax: | | | | | | | [phone] | | +--------+ + + + + + Encounter Details +--------+---------+ + + + | Date | Type | Department | Care Team | Description | +--------+---------+ + + + | 09/28/ | Office | Digestive Health | Stevo Hart, | Other ulcerative | | 2016 | Visit | Center at [facility] [address] | MD | colitis without | | | | [address] | | complication (HCC) | | | | Mailcode: Center | | (Primary Dx); | | | | for Health and | | Encounter for | | | | Healing, Building [address] | | long-term (current) | | | | [place], [place] | | use of medications; | | | | [address] | | Flank pain | | | | [phone] | | | +--------+---------+ + + + [...] original. Inflammatory Bowel Disease Clinic [facility] ~ Follow-Up Visit Note Patient Identification: [...] D&c (dilatation and curettage) 08/2011 Elbow surgery [id number] Family History Problem Relation GI Neg Hx [...] and prior therapies. Current IBD Meds: Remicade [id number] (started in 04/2012, was initially on it [...] Recommend annual skin exam by PCP or budget officer, and use of sunscreen. PAP screening per [...]
--- OUTSIDE RECORDS SUMMARY | ~2019-10-11 | XMS | Encounter Summary ---
Demographics + + + | Address | [address] | | | [place] [address] | + + + | Home Phone [...] + | Bob Benites | ECON | [address] | | | | | [place] | | | | | [address] | | + + + + + Care Team Providers + +------+ + | Care Manager Recruitment Name | Role | Phone | + [...] | | 2019 | | Center at [facility] [address] | WEB SERVICES MANAGER [address] | | | | | [address] | [place], [place] | | | | | Mailcode: Center | [address] | | | | | for Health and | [phone] | | | | | [place] [address] | | | | | | [place], [place] | | | | | | [address] | | | | | | [phone] | | | +--------+--------+ + + + [...]
--- OUTSIDE RECORDS SUMMARY | ~2019-10-11 | XMS | Encounter Summary ---
Demographics + + + | Address | [address] | | | [place] [address] | + + + | Home Phone [...] + | Bob Benites | ECON | [address] | | | | | [place] | | | | | [address] | | + + + + + Care Team Providers + +------+ + | Care Awning Hanger Supervisor Name | Role | Phone | [...] 2019 | | Center at [facility] [address] | SHEEP AND WHEAT FARMER [address] | | | | | [address] | [place], [place] | | | | | Mailcode: Center | [address] | | | | | for Health and | [phone] | | | | | [place] [address] | | | | | | [place], [place] | | | | | | [address] | | | | | | [phone] | | | +--------+--------+ + + + [...]
--- OUTSIDE RECORDS SUMMARY | ~2019-10-11 | XMS | Encounter Summary ---
Demographics + + + | Address | [address] | | | [place] [address] | + + + | Home Phone [...] + | Bob Benites | ECON | [address] | | | | | [place] | | | | | [address] | | + + + + + Care Team Providers + +------+ + | Care Resource Room Special Education Teacher Name | Role | Phone | [...] | | 2012 | | Center at [facility] [address] | MD | (nortriptyline ) | | | | [address] | | | | | | Mailcode: [place] | | | | | | [facility] Health and | | | | | | [place] [address] | | | | | | [place], [place] | | | | | | [address] | | | | | | [phone] | | | +--------+--------+ + + + [...]
--- OUTSIDE RECORDS SUMMARY | ~2019-10-11 | XMS | Clinical Summary ---
Demographics + + + | Address | [address] | | | [place] [address] | + + + | Home Phone | | + + + | Preferred Language | Unknown | + + + | Marital Status | | + + + | Mandaeism Affiliation | Unknown | + + + | Race | White | + + + | Ethnic Group | Not or | + + + Author + + + | Author | [facility] | + + + | Organization | [facility] | + + + | Address | Unknown | + + + | Phone | Unavailable | + + + Support + + + + + | Name | Relationship | Address | Phone | + + + + + | Bob Benites | ECON | [address] | | | | | [place] | | | | | [address] | | + + + + + Care Team Providers + +------+ + | Care Burlap Bag Sewer Name | Role | Phone | + +------+ + | Rohit Olguin MD | PCP | | + +------+ + Source Comments ANNALISE is fully live on both EpicCare Ambulatory and EpicCare InPatient.[facility] Allergies + + + + + [...] Request | | 2020 | | | RIP MACHINE OPERATOR | | +--------+ + + + + | 08/23/ | Refill | Gastroenterology | Alcon Malcolm, | Refill Request | | 2020 | | | RIP MACHINE OPERATOR | | +--------+ + + + + | 08/02/ | MyChart | Gastroenterology | Alcon Malcolm, | RE: Should I be | | 2020 | Encounter | | RIP MACHINE OPERATOR | concerned? | +--------+ + + + [...] | x | 18-Pre | 1 | [address] | | | | [place] | | sent | | [place], | | | | [place] | | | | [place] [address] | | + +--------+ +--------+ + +------+ [...] Self | [birth year] | [address] | | | al/Fam | | 1981 | [phone] | [place] | | | jarrett | | | 2 (Home) | [address] | | | | | | [phone] | | | | | | | 4 (Work) | | + +--------+ +--------+ + +
--- OUTSIDE RECORDS SUMMARY | ~2019-10-11 | XMS | Encounter Summary ---
Demographics + + + | Address | [address] | | | [place] [address] | + + + | Home Phone | | + + + | Preferred Language | Unknown | + + + | Marital Status | | + + + | Denominational Affiliation | Unknown | + + + [...] + | Bob Benites | ECON | [address] | | | | | [place] | | | | | [address] | | + + + + + Care Team Providers + +------+ + | Care Polishing Wheel Setter Name | Role | Phone | [...] | | | | | Procedures | [address] | [address] | | | | | CONSULT TO | [address] | [place], [place] | | | | | GASTROENTERO | [place], | [address] | | | | | [place] | [place] [address] | | | | | | Consult for | Phone: | | | | | | 2nd opinion | [phone] | | | | | | | Fax: | | | | | | | [phone] | | +--------+ + + + + + Encounter Details +--------+---------+ + + + | Date | Type | Department | Care Team | Description | +--------+---------+ + + + | 05/03/ | Office | Digestive Health | Zelda Hinojosa, | Ulcerative colitis, | | 2014 | Visit | Center at [facility] 3485 | PA-C | without | | | | [address] | | complications (HCC) | | | | Mailcode: Center | | (Primary Dx); | | | | for Health and | | Irritable bowel | | | | Healing, Building 2 | | syndrome (IBS) | | | | [place], [place] | | | | | | [address] | | | | | | [phone] | | | +--------+---------+ + + + [...] [facility] ~ Follow-Up Visit Note Patient Identification: Kami [...] loose BMs, no blood. No nocturnal sxs. Milind randhawa is due for Remicade next week, [...] D&c (dilatation and curettage) 08/2011 Elbow surgery [id number] Relevant family or social history: no changes [...] and prior therapies. Current IBD Meds: Remicade [id number] (started in 04/2012, was initially on it [...] mation seen on recent colonoscopy (done in [place]). This case was staffed with Dr. Jory [...] Recommend annual skin exam by PCP or electrophysiologist, and use of sunscreen. If Female--> PAP screening per ACOG guidelines for immunosuppressed patients. 2. Need for dysplasia surveillance colonoscopies: up to date D. Other / non-IBD. 1. IBS is well-controlled. Continue nortriptyline. 2. Pt asks if her two kids need to be screened for IBD. I informed her we do not screen b ut she should contact their suction dredge dumping supervisor if they develop any GI symptoms that [...]
--- OUTSIDE RECORDS SUMMARY | ~2019-10-11 | XMS | Encounter Summary ---
Demographics + + + | Address | [address] | | | [place] [address] | + + + | Home Phone [...] [place] | | | | | [address] | | + + + + + Care Team Providers + +------+ + | Care Grass Farmer Name | Role | Phone | + [...]
--- OUTSIDE RECORDS SUMMARY | ~2019-10-11 | XMS | Encounter Summary ---
Demographics + + + | Address | [address] | | | [place] [address] | + + + | Home Phone [...] [place] | | | | | [address] | | + + + + + Care Team Providers + +------+ + | Care Soda Clerk Name | Role | Phone | + [...] | 2016 | Encounter | Center at [facility] 0657 | MD | Remicade? | | | | [address] | | | | | | Mailcode: Center | | | | | | for Health and | | | | | | Healing, Building [address] | | | | | | [place], [place] | | | | | | [address] | | | | | | [phone] | | | +--------+ + + + [...]
--- OUTSIDE RECORDS SUMMARY | ~2019-10-11 | XMS | Encounter Summary ---
Demographics + + + | Address | [address] | | | [place] [address] | + + + | Home Phone [...] + | Bob Benites | ECON | [address] | | | | | [place] | | | | | [address] | | + + + + + Care Team Providers + +------+ + | Care Em Physician Name | Role | Phone | + [...] 2018 | Encounter | Center at [facility] [address] | SAND AND GRAVEL PLANT OPERATOR [address] | | | | | [address] | [place], [place] | | | | | Mailcode: Center | [address] | | | | | for Health and | [phone] | | | | | [facility] 2 | | | | | | [place], [place] | | | | | | [address] | | | | | | [phone] | | | +--------+ + + + [...]
--- OUTSIDE RECORDS SUMMARY | ~2019-10-11 | XMS | Encounter Summary ---
Demographics + + + | Address | [address] | | | [place] [address] | + + + | Home Phone [...] [place] | | | | | [address] | | + + + + + Care Team Providers + +------+ + | Care Acid Tank Cleaner Name | Role | Phone | [...] [address] | | | | | [place] | | [place], [place] | | | | | OFFICE/OUTPT | | [address] | | | | | | | Phone: | | | | | VISIT,MATILDE WALKER | | [phone] | | | | | VL IV | | Fax: | | | | | | | [phone] | +--------+--------+ + + + + Encounter Details +--------+---------+ + + + | Date | Type | Department | Care Team | Description | +--------+---------+ + + + | 01/10/ | Office | Digestive Health | Gold, Alcon, | Other ulcerative | | 2019 | Visit | Center at [facility] [address] | NEON ELECTRICIAN [address] | colitis with rectal | | | | [address] | [place], [place] | bleeding (HCC) | | | | Mailcode: Center | [address] | (Primary Dx); | | | | for Health and | [phone] | Encounter for | | | | Healing, Building [address] | | long-term (current) | | | | [place], [place] | | use of high-risk | | | | [address] | | medication; | | | | [phone] | | Irritable bowel | | | [...] 1:00 PM PDT Inflammatory Bowel Disease Clinic [facility] ~ Follow-Up Visit Note 01/10/2019 Patient Identification: [...] manicure while visiting her fam jarrett in [place]. 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 2. Current IBD Meds: Remicade [id number] (started in 04/2012, was initially on it [...] Annual skin cancer screening by PCP or manager social services, recommend use of sunscreen and limi tation [...] recommendations for IBD patients. Glenn Malcolm DNP, NEON ELECTRICIAN-C Instructor, Division of Gastroenterology and Hepatology [facility] documented in this encounter Plan of [...] | | | | PDT | bleeding ([facility]) | results section. | | | | [...] | | | | PDT | bleeding ([facility]) | results section. | | | | [...] | | | | PDT | bleeding ([facility]) | results section. | | | | | Fatigue, unspecified | | | | | | type Generalized | | | | | | body aches | | + +--------+ + + + | CHAIN HOOKER AB | Routin | 01/10/2019 | Other ulcerative | Results for this | | | e | 2:00 PM | colitis with rectal | procedure are in the | | | | PDT | bleeding ([facility]) | results section. | | | | [...] | | | | PDT | bleeding ([facility]) | results section. | | | | [...] | | | | | | Laboratories,[address] [facility] | | | | | | [place] [address] | | | | | | [phone]. | | | | | | Adrian [...] [facility] | [address] | [place], [place] | | | UNIV PTH - INTFC | | [address] | | + + + + + [...] and | | | | | | U3-CHAIN HOOKER, PM/Scl, or Th/To | | | | | | antibodies.Performed by | | | | | | [facility],[address] | | | | | | [facility], [facility] | | | | | | [address] | | | | | | [phone]. | | | | | | Adrian [...] [facility] | [address] | [place], [place] | | | UNIV PTH - INTFC | | [address] | | + + + + + [...] | | | | | | Rahul, [place] [address] | | | | | | [phone].[email or web address]. | | | | | | Adrian [...] [facility] | [address] | [place], [place] | | | UNIV PTH - INTFC | | [address] | | + + + + + [...] by | | | | | | [facility],[address] | | | | | | [address] [facility],[place] | | | | | | [address] | | | | | | [phone].[employer]. | | | | | | Adrian [...] [facility] | [address] | [place], [place] | | | UNIV PTH - INTFC | | [address] | | + + + + + [...] by | | | | | | Friend [facility]er,[address] | | | | | | [address], [facility],[place] | | | | | | [address] | | | | | | [phone].[employer]. | | | | | | Adrian [...] [facility] | [address] | [place], [place] | | | UNIV PTH - INTFC | | [address] | | + + + + + [...] | | | | | | Laboratories,[address] [facility] | | | | | | [place] [address] | | | | | | [phone].[email or web address]. | | | | | | Adrian [...] [facility] | [address] | [place], [place] | | | UNIV PTH - INTFC | | [address] | | + + + + + CHAIN HOOKER AB (01/10/2019 2:00 PM PDT) + + + + + + | Component | Value | Ref Range | Performed | Pathologist | | | | | At | Signature | + + + + + + | TATE/CHAIN HOOKER | 1Comment: INTERPRETIVE | 0 - 40 AU/mL | [facility] | | | (GINGER) AB, | INFORMATION: Tate/CHAIN HOOKER | | REG UNIV | | | [...] | | | | | | Positive Tate/CHAIN HOOKER | | | | | | antibodies [...] | | | | | targeting the Tate/CHAIN HOOKER | | | | | | antigenic [...] [place] | | | | | | [address] | | | | | | [phone].[facility]. | | | | | | Adrian [...] [facility] | [address] | [place], [place] | | | UNIV PTH - INTFC | | [address] | | + + + + + [...] UNIV | | | | Antigen Antibodies (CHAIN HOOKER, | | PTH - INTFC | | [...] | | | | [address], [facility],[place] | | | | | | [address] | | | | | | [phone].Promoltauplab. | | | | | | Adrian [...] [facility] | [address] | [place], [place] | | | UNIV PTH - INTFC | | [address] | | + + + + + [...] | | | | | | Rahul, [facility] [address] | | | | | | [phone].[facility]. | | | | | | Adrian [...] [facility] | [address] | [place], [place] | | | UNIV PTH - INTFC | | [address] | | + + + + + [...] by | | | | | | Friend Traveler,[address] | | | | | | [address], [facility],[place] | | | | | | [address] | | | | | | [phone].[employer]. | | | | | | Adrian [...] REG | [address] | [place], [place] | | | UNIV PTH - INTFC | | [address] | | + + + + + [...] by | | | | | | [facility],[address] | | | | | | [address], [place] | | | | | | [address] | | | | | | [phone].aruplab. | | | | | | Adrian [...] [facility] | [address] | [place], [place] | | | UNIV PTH - INTFC | | [address] | | + + + + + [...] | | | | (MITRA), IgG by SHASHANK | | | | [...] | | | | | | Tate, Tate/CHAIN HOOKER, | | | | | | Scl-70, [...] | | | | | SARD.Performed by [facility] | | | | | | Laboratories,[address] | | | | | | Rahul, [facility] [address] | | | | | | [phone].[facility] [facility] [employer]. | | | | | | [facility] MD, | | | | | [...] [facility] | [address] | [place], [place] | | | CLAUDIO SCHWARZ - JADON | | [address] | | + + + + + [...]
--- OUTSIDE RECORDS SUMMARY | ~2019-10-11 | XMS | Encounter Summary ---
Demographics + + + | Address | [address] | | | [place] [address] | + + + | Home Phone [...] + | Bob Benites | ECON | [address] | | | | | [place] | | | | | [address] | | + + + + + Care Team Providers + +------+ + | Care Features Editor Name | Role | Phone | + [...] | | | | | Procedures | Mobile | Mailcode: | | | | | CONSULT TO | [address] | Center for | | | | | GASTROENTERO | [place], | [facility] and | | | | | [place] | [place] [address] | Healing, | | | | | Consult for | Phone: | Building 2 | | | | | 2nd opinion | [phone] | [place], [place] | | | | | | Fax: | [address] | | | | | | [phone] | Phone: | | | | | | | [phone] | | | | | | | Fax: | | | | | | | [phone] | +--------+ + + + + + Encounter Details +--------+---------+ + + + | Date | Type | Department | Care Team | Description | +--------+---------+ + + + | 11/06/ | Office | Digestive Health | Stevo Hart, | Irritable bowel | | 2012 | Visit | Center at [facility] 3485 | MD | syndrome (IBS) | | | | [address] | | (Primary Dx); | | | | Mailcode: Center | | Ulcerative colitis | | | | for Health and | | ([facility]); Encounter for | | | | Healing, Building 2 | | long-term (current) | | | | [place], [place] | | use of other | | | | [address] | | medications | | | | [phone] | | | +--------+---------+ + + + [...] m the original. Inflammatory Bowel Disease Clinic [facility] ~ Initial Consultation Referring Physician: Rohit Olguin MD Primary Glass Carrier: Joan Bhatia IV, MD Patient Identification: Kami [...] and prior therapies. Current IBD Meds: Remicade [id number] (started in 04/2012, last on 09/30/12; immediate [...] D&c (dilatation and curettage) 08/2011 Elbow surgery [id number] Family History Problem Relation GI Neg Hx [...] female, who presents to the Inflammatory Bowel [facility] for evaluation of persistent [...] y be reasonable to checks infliximab and razvhhnv-yx-oneenuazgl (ATI) levels before the next infusion. If [...] referral). 6. Nutrition. Given residence in the [facility], I would recommend periodic monitor ing of [...]
--- OUTSIDE RECORDS SUMMARY | ~2019-10-11 | XMS | Encounter Summary ---
Demographics + + + | Address | [address] | | | [place] [address] | + + + | Home Phone [...] + + + | Author | [facility] | + + + | Organization | [facility] | + + + | Address | Unknown | + + + | Phone | Unavailable | + + + Support + + + + + | Name | Relationship | Address | Phone | + + + + + | Bob Benites | ECON | [address] | | | | | [place] | | | | | [address] | | + + + + + Care Team Providers + +------+ + | Care Fuel Efficient Automobile Designer Name | Role | Phone | [...] | 2016 | Encounter | Center at [facility] 1967 | MD | Remicade | | | | [address] | | | | | | Mailcode: Center | | | | | | for Health and | | | | | | Healing, Building [address] | | | | | | [place], [place] | | | | | | [address] | | | | | | [phone] | | | +--------+ + + + [...]
--- OUTSIDE RECORDS SUMMARY | ~2019-10-11 | XMS | Encounter Summary ---
Demographics + + + | Address | [address] | | | [place] [address] | + + + | Home Phone | | + + + | Preferred Language | Unknown | + + + | Marital Status | | + + + | Oriental Orthodox Affiliation | Unknown | + + [...] + | Bob Benites | ECON | [address] | | | | | [place] | | | | | [address] | | + + + + + Care Team Providers + +------+ + | Care Gas Appliance Installer Name | Role | Phone | [...] Refill Request | | 2013 | | [place] [facility] [address] | [place] | | | | | [address] [place] | | | | | | Mailcode: [place] | | | | | | for Health and | | | | | | [facility], [facility] 2 | | | | | | [place], [place] | | | | | | [address] | | | | | | [phone] | | | +--------+--------+ + + + [...]
--- OUTSIDE RECORDS SUMMARY | ~2019-10-11 | XMS | Encounter Summary ---
Demographics + + + | Address | [address] | | | [place] [address] | + + + | Home Phone [...] + | Bob Benites | ECON | [address] | | | | | [place] | | | | | [address] | | + + + + + Care Team Providers + +------+ + | Care Fabrication Specialist Name | Role | Phone | [...] | | | [address] | [place], [place] | | | | | Mailcode: Center | [address] | | | | | for Health and | [phone] | | | | | [place] [address] | | | | | | [facility] [place] | | | | | | [address] | | | | | | [phone] | | | +--------+ + + + [...]
--- OUTSIDE RECORDS SUMMARY | ~2019-10-11 | XMS | Encounter Summary ---
Demographics + + + | Address | [address] | | | [place] [address] | + + + | Home Phone [...] [place] | | | | | [address] | | + + + + + Care Team Providers + +------+ + | Care Geospatial Image Analyst Name | Role | Phone | [...] 2018 | Encounter | Center at [facility] [address] | OSD CLERK [address] | results | | | | [address] | [place], [place] | | | | | Mailcode: [place] | [address] | | | | | for Health and | [phone] | | | | | [facility] 2 | | | | | | [place], [place] | | | | | | [address] | | | | | | [phone] | | | +--------+ + + + [...]
--- OUTSIDE RECORDS SUMMARY | ~2019-10-11 | XMS | Encounter Summary ---
Demographics + + + | Address | [address] | | | [place] [address] | + + + | Home Phone [...] + | Bob Benites | ECON | [address] | | | | | [place] | | | | | [address] | | + + + + + Care Team Providers + +------+ + | Care Government Program Manager Name | Role | Phone | + +------+ + | Rohit Olguin MD | PCP | | + +------+ + Encounter Details +--------+ + + + + | Date | Type | Department | Care Team | Description | +--------+ + + + + | 01/10/ | Telephone | Digestive Health | Alcon Malcolm, | | | 2019 | | Center at [facility] 8548 | BUYING INTERN [address] | | | | | [address] | [place], [place] | | | | | Mailcode: Center | [address] | | | | | for Health and | [phone] | | | | | [facility], [address] | | | | | | [place], [place] | | | | | | [address] | | | | | | [phone] | | | +--------+ + + + [...]
--- OUTSIDE RECORDS SUMMARY | ~2019-10-11 | XMS | Encounter Summary ---
Demographics + + + | Address | [address] | | | [place] [address] | + + + | Home Phone [...] + | Bob Benites | ECON | [address] | | | | | [place] | | | | | [address] | | + + + + + Care Team Providers + +------+ + | Care Roadway Technician Name | Role | Phone | [...] 2019 | Encounter | Center at [facility] [address] | KING MAKER [address] | | | | | [address] | [place], [place] | | | | | Mailcode: Center | [address] | | | | | for Health and | [phone] | | | | | [facility] 2 | | | | | | [place], [place] | | | | | | [address] | | | | | | [phone] | | | +--------+ + + + [...]
--- OUTSIDE RECORDS SUMMARY | ~2019-10-11 | XMS | Encounter Summary ---
Demographics + + + | Address | [address] | | | [place] [address] | + + + | Home Phone [...] + | Bob Benites | ECON | [address] | | | | | [place] | | | | | [address] | | + + + + + Care Team Providers + +------+ + | Care Coke Still Cleaner Name | Role | Phone | [...] | | 2015 | | Center at [facility] 3485 | MD | (nortriptyline) | | | | [address] | | | | | | Mailcode: [place] | | | | | | [facility] Health and | | | | | | [facility], [place] [address] | | | | | | [place], [place] | | | | | | [address] | | | | | | [phone] | | | +--------+--------+ + + + [...]
--- OUTSIDE RECORDS SUMMARY | ~2019-10-11 | XMS | Encounter Summary ---
Demographics + + + | Address | [address] | | | [place] [address] | + + + | Home Phone [...] + + + | Author | [facility] | + + + | Organization | [facility] | + + + | Address | Unknown | + + + | Phone | Unavailable | + + + Support + + + + + | Name | Relationship | Address | Phone | + + + + + | Bob Benites | ECON | [address] | | | | | [place] | | | | | [address] | | + + + + + Care Team Providers + +------+ + | Care Granulator Operator Name | Role | Phone | [...] | 2013 | | Center at [facility] 7705 | MD | (Nortriptyline) | | | | [address] | | | | | | Mailcode: [place] | | | | | | [facility] Health and | | | | | | [facility], [place] [address] | | | | | | [place], [place] | | | | | | [address] | | | | | | [phone] | | | +--------+--------+ + + + [...]
--- OUTSIDE RECORDS SUMMARY | ~2019-10-11 | XMS | Encounter Summary ---
Demographics + + + | Address | [address] | | | [place] [address] | + + + | Home Phone [...] + | Bob Benites | ECON | [address] | | | | | [place] | | | | | [address] | | + + + + + Care Team Providers + +------+ + | Care Shoe Cementer Name | Role | Phone | + [...] | 2015 | Encounter | Center at [facility] 6320 | MD | | | | | [address] | | | | | | Mailcode: Center | | | | | | for Health and | | | | | | Healing, Building [address] | | | | | | [place], [place] | | | | | | [address] | | | | | | [phone] | | | +--------+ + + + [...]
--- OUTSIDE RECORDS SUMMARY | ~2019-10-11 | XMS | Encounter Summary ---
Demographics + + + | Address | [address] | | | [place] [address] | + + + | Home Phone | | + + + | Preferred Language | Unknown | + + + | Marital Status | | + + + | Mandaeism Affiliation | Unknown | + + + | Race | Unknown | + + + | Ethnic Group | Unknown | + + + Author + + + | Author | [facility] | | | and [place] | + + + | Organization | [facility] | | | [...] Team Providers + +------+ + | Care Middleware Engineer Name | Role | Phone | + +------+ + | Rohit Olguin MD | PCP | | + +------+ + Encounter Details +--------+ + + + + | Date | Type | Department | Care Team | Description | +--------+ + + + + | 08/28/ | Orders Only | [facility] | Conversion | | | 2015 | | NEPRHOLOGY STEFFANY | Transaction, | | | | | [address] | Provider Unknown | | | | | [address] | [phone] | | | | | [address] | | | | | | [phone] | | | +--------+ + + + [...]
--- OUTSIDE RECORDS SUMMARY | ~2019-10-11 | XMS | Encounter Summary ---
Demographics + + + | Address | [address] | | | [place] [address] | + + + | Home Phone [...] [place] | | | | | [address] | | + + + + + Care Team Providers + +------+ + | Care Works Manager Name | Role | Phone | [...] Medical Records | | 2013 | | [place] [facility] 3485 | MD | Review ([facility] - | | | | [address] [place] | | OUTSIDE RECORD: | | | | Mailcode: [place] | | Operative report | | | | for Health and | | 04/02/2014) | | | | Healing, Building [address] | | | | | | [place], [place] | | | | | | [address] | | | | | | [phone] | | | +--------+ + + + [...]
--- OUTSIDE RECORDS SUMMARY | ~2019-10-11 | XMS | Encounter Summary ---
Demographics + + + | Address | [address] | | | [place] [address] | + + + | Home Phone | | + + + | Preferred Language | Unknown | + + + | Marital Status | | + + + | Jainism Affiliation | Unknown | + + + | Race | White | + + + | Ethnic Group | Not or | + + + Author + + + | Author | [facility] | + + + | Organization | [facility] | + + + | Address | Unknown | + + + | Phone | Unavailable | + + + Support + + + + + | Name | Relationship | Address | Phone | + + + + + | Bob Benites | ECON | [address] | | | | | [place] | | | | | [address] | | + + + + + Care Team Providers + +------+ + | Care Heavy Rail Train Operator Name | Role | Phone | [...] | 2015 | Encounter | Center at [facility] 3485 | MD | | | | | [address] | | | | | | Mailcode: Center | | | | | | for Health and | | | | | | Healing, Building [address] | | | | | | [place], [place] | | | | | | [address] | | | | | | [phone] | | | +--------+ + + + [...]
--- OUTSIDE RECORDS SUMMARY | ~2019-10-11 | XMS | Clinical Summary ---
Demographics + + + | Address | [address] | | | [place] [address] | + + + | Home Phone | | + + + | Preferred Language | Unknown | + + + | Marital Status | Unknown | + + + | Evangelical Affiliation | Unknown | + + + | Race | Unknown | + + + | Ethnic Group | Unknown | + + + Author + + + | Author | [facility] (Historical as of | | | 12-30-18) | + + + | Organization | [facility] (Historical as of | | | 12-30-18) | + + + | Address | Unknown | + + + | Phone | Unavailable | + + + Support + + + + + | Name | Relationship | Address | Phone | + + + + + | Bob Benites | ECON | [address] | | | | | [place], [place] | | | | | [address] | | + + + + + | Angeline Izaguirre | ECON | [address] | | | | | [place], [place] | | | | | [address] | | + + + + + | Marifer Garay | EVANS | Unknown | | + + + + + Care Team Providers + +------+ + | Care Mass Spectroscopist Name | Role | Phone | + [...] | [employer] PLAN | ODS | [id number] | | | | | | HEALTH [...] Self | [birth year] | Home: | [address] | | | al/Fam | | 1981 | [phone] [place] | | | [place] | | | [phone] | [phone] | + +--------+ +--------+ + +"
--- OUTSIDE RECORDS SUMMARY | ~2019-10-11 | XMS | Encounter Summary ---
Demographics + + + | Address | [address] | | | [place] [address] | + + + | Home Phone [...] + | Bob Benites | ECON | [address] | | | | | [place] | | | | | [address] | | + + + + + Care Team Providers + +------+ + | Care Car Greaser Name | Role | Phone | + [...] [facility] | MD | (Nortriptyline) | | | | [address] | | | | | | Mailcode: [place] | | | | | | [facility] Health and | | | | | | [facility], [place] [address] | | | | | | [place], [place] | | | | | | [address] | | | | | | [phone] | | | +--------+--------+ + + + [...]
--- OUTSIDE RECORDS SUMMARY | ~2019-10-11 | XMS | Encounter Summary ---
Demographics + + + | Address | [address] | | | [place] [address] | + + + | Home Phone [...] + | Bob Benites | ECON | [address] | | | | | [place] | | | | | [address] | | + + + + + Care Team Providers + +------+ + | Care It Desktop Support Technician Name | Role | Phone | + +------+ + | Rohit lOguin MD | PCP | | + +------+ [...] | | 2016 | | Center at [facility] 3485 | MD | Review (03/11/2016 | | | | [address] | | Colonoscopy Consult, | | | | Mailcode: Center | | 03/25/2016 | | | | for Health and | | Colonoscopy) | | | | Healing, Building [address] | | | | | | [place], [place] | | | | | | [address] | | | | | | [phone] | | | +--------+ + + + [...]
--- OUTSIDE RECORDS SUMMARY | ~2019-10-11 | XMS | Encounter Summary ---
Demographics + + + | Address | [address] | | | [place] [address] | + + + | Home Phone [...] [place] | | | | | [address] | | + + + + + Care Team Providers + +------+ + | Care County Bailiff Name | Role | Phone | + [...] | 2013 | Encounter | Center at [facility] 0684 | PAGopal | | | | | [address] | | | | | | Mailcode: Center | | | | | | for Health and | | | | | | Healing, [address] | | | | | | [place], [place] | | | | | | [address] | | | | | | [phone] | | | +--------+ + + + [...]
--- OUTSIDE RECORDS SUMMARY | ~2019-10-11 | XMS | Encounter Summary ---
Demographics + + + | Address | [address] | | | [place] [address] | + + + | Home Phone [...] + + + | Author | [facility] | + + + | Organization | [facility] | + + + | Address | Unknown | + + + | Phone | Unavailable | + + + Support + + + + + | Name | Relationship | Address | Phone | + + + + + | Bob Benites | ECON | [address] | | | | | [place] | | | | | [address] | | + + + + + Care Team Providers + +------+ + | Care Peripatologist Name | Role | Phone | + [...] Description | +--------+--------+ + + + | 05/27/ | Refill | Dig[facility]ive Health | Stevo Hart, | Refill Request | | 2014 | | Center at [facility] 3885 | MD | (Nortriptyline) | | | | [address] | | | | | | Mailcode: [place] | | | | | | [facility] Health and | | | | | | [facility], [place] [address] | | | | | | [place], [place] | | | | | | [address] | | | | | | [phone] | | | +--------+--------+ + + + [...]
--- OUTSIDE RECORDS SUMMARY | ~2019-10-11 | XMS | Clinical Summary ---
Demographics + + + | Address | [address] | | | [place] [address] | + + + | Home Phone | | + + + | Preferred Language | Unknown | + + + | Marital Status | | + + + | Amish Affiliation | Unknown | + + + | Race | Unknown | + + + | Ethnic Group | Unknown | + + + Author + + + | Author | [facility] | | | and [place] | + + + | Organization | [facility] | | | and [...] Team Providers + +------+ + | Care Field Supervisor Seed Production Name | Role | Phone | + [...] +--------+ +---------+------+ | PREMERA | PREMER | [id number] | 05/16/19 | [phone] | | PPO | | | A | 3 | 18-Pre | 0 | | | | | PREFER | | sent | | | | | | RED | | | | | | +---------+--------+ +--------+ +---------+------+ | BCBS | BCBS | [id number] | 05/16/19 | | | PPO | [...] [place] | | | 2 (Home) | [address] | + +--------+ +--------+ + + | Kami Benites | Person | Self | [birth year] | [address] | | | al/Fam | | 1980 | | [place] | | | [place] | | | 2 (Home) | [address] | | | | | | [phone] | | | | | | | 4 (Work) | | + +--------+ +--------+ + + Advance Directives + + + + + | Type | Date Recorded | Patient | Explanation | | | | Open Pit Quarry Supervisor | | + + + + + | Power of | | | | | Facilities Operator | | | | + + + + + | Advance | | | | | Directive | | | | + + + + +"
--- OUTSIDE RECORDS SUMMARY | ~2019-10-11 | XMS | Encounter Summary ---
Demographics + + + | Address | [address] | | | [place] [address] | + + + | Home Phone [...] + | Bob Benites | ECON | [address] | | | | | [place] | | | | | [address] | | + + + + + Care Team Providers + +------+ + | Care Machine Trimmer Name | Role | Phone | [...] | 2013 | Encounter | Center at [facility] 0380 | VAIBHAV | | | | | [address] | | | | | | Mailcode: Center | | | | | | for Health and | | | | | | Healing, [address] | | | | | | [place], [place] | | | | | | [address] | | | | | | [phone] | | | +--------+ + + + [...]
--- OUTSIDE RECORDS SUMMARY | ~2019-10-11 | XMS | Encounter Summary ---
Demographics + + + | Address | [address] | | | [place] [address] | + + + | Home Phone [...] [place] | | | | | [address] | | + + + + + Care Team Providers + +------+ + | Care Jalousies Installer Name | Role | Phone | [...] Test Results | | 2015 | | [facility] 3485 | MD | | | | | [address] | | | | | | Mailcode: [place] | | | | | | [facility] Health and | | | | | | [facility] 2 | | | | | | [place], [place] | | | | | | [address] | | | | | | [phone] | | | +--------+ + + + [...]
--- OUTSIDE RECORDS SUMMARY | ~2019-10-11 | XMS | Encounter Summary ---
Demographics + + + | Address | [address] | | | [place] [address] | + + + | Home Phone [...] + | Bob Benites | ECON | [address] | | | | | [place] | | | | | [address] | | + + + + + Care Team Providers + +------+ + | Care Correspondence Section Supervisor Name | Role | Phone | [...] Visit | Center at [facility] 3485 | VISUAL EDUCATION DIRECTOR [address] | colitis without | | | | [address] | [place], [place] | complication (HCC) | | | | Mailcode: Center | [address] | (Primary Dx); | | | | for Health and | [phone] | Encounter for | | | | Healing, Building [address] | | long-term (current) | | | | [place], [place] | | use of high-risk | | | | [address] | | medication; Fatigue, | | | | [phone] | | unspecified type | +--------+---------+ + [...] rom the original. Inflammatory Bowel Disease Clinic [facility] ~ Follow-Up Visit Note 09/19/2017 Patient Identification: [...] closer to home with Dr. 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 [...] extra things like exercise. 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 2. Current IBD Meds: Remicade [id number] (started in 04/2012, was initially on it [...] AUDELIA-C Instructor, Division of Gastroenterology and Hepatology [facility] documented in this encounter Plan of Treatment [...] | + + + + + | [facility] | [address] | [place] [address] | | | JAH URBINA | GIOVANY [...] | + + + + + | [facility] [employer] | [address] | [place] [address] | | | SERVICES, CORE | GIOVANY [...] | + + + + + | [facility] | [address] | [place] [address] | | | JAH URBINA | GIOVANY [...] and new reporting units as of | [facility] | | 10/17/2013. | LABORATORY | | | SERVICES, CORE | + + + + + + + + | Performing | Address | City/State/Zipcode | Phone Number | | Organization | | | | + + + + + | [facility] | [address] | [place] [address] | | | SERVICES, CORE | GIOVANY [...] ANNALISE CUNHA | [address] | [place] [address] | | | SERVICES, CORE | GIOVANY [...]
--- OUTSIDE RECORDS SUMMARY | ~2019-10-11 | XMS | Encounter Summary ---
Demographics + + + | Address | [address] | | | [place] [address] | + + + | Home Phone | | + + + | Preferred Language | Unknown | + + + | Marital Status | | + + + | Buddhist Affiliation | Unknown | + + + [...] + | Bob Benites | ECON | [address] | | | | | [place] | | | | | [address] | | + + + + + Care Team Providers + +------+ + | Care Yoke Setter Name | Role | Phone | [...] | 2015 | Encounter | Center at [facility] 1680 | MD | | | | | [address] | | | | | | Mailcode: Center | | | | | | for Health and | | | | | | Healing, [address] | | | | | | [facility] [place] | | | | | | [address] | | | | | | [phone] | | | +--------+ + + + [...]
--- OUTSIDE RECORDS SUMMARY | ~2019-10-11 | XMS | Encounter Summary ---
Demographics + + + | Address | [address] | | | [place] [address] | + + + | Home Phone | | + + + | Preferred Language | Unknown | + + + | Marital Status | | + + + | Mormonism Affiliation | Unknown | + + + [...] + | Bob Benites | ECON | [address] | | | | | [place] | | | | | [address] | | + + + + + Care Team Providers + +------+ + | Care Die Maintenance Name | Role | Phone | + [...] | | 2018 | | Center at [facility] 3485 | [place] [address] | | | | | [address] | [place], [place] | | | | | Mailcode: Center | [address] | | | | | for Health and | [phone] | | | | | [place] [address] | | | | | | [place], [place] | | | | | | [address] | | | | | | [phone] | | | +--------+--------+ + + + [...]
--- OUTSIDE RECORDS SUMMARY | ~2019-10-11 | XMS | Encounter Summary ---
Demographics + + + | Address | [address] | | | [place] [address] | + + + | Home Phone | | + + + | Preferred Language | Unknown | + + + | Marital Status | | + + + | Restorationism Affiliation | Unknown | + + + | Race | White | + + + | Ethnic Group | Not or | + + + Author + + + | Author | [facility] | + + + | Organization | [facility] | + + + | Address | Unknown | + + + | Phone | Unavailable | + + + Support + + + + + | Name | Relationship | Address | Phone | + + + + + | Bob Benites | ECON | [address] | | | | | [place] | | | | | [address] | | + + + + + Care Team Providers + +------+ + | Care Lacing Cutter Name | Role | Phone | [...] | 2020 | Encounter | Center at [facility] 2[address] | AUTO CUSTOMIZE PAINTER [address] | concerned? | | | | [address] | [place], [place] | | | | | Mailcode: Center | [address] | | | | | for Health and | [phone] | | | | | [facility] 2 | | | | | | [place], [place] | | | | | | [address] | | | | | | [phone] | | | +--------+ + + + [...]
--- OUTSIDE RECORDS SUMMARY | ~2019-10-11 | XMS | Encounter Summary ---
Demographics + + + | Address | [address] | | | [place] [address] | + + + | Home Phone [...] [place] | | | | | [address] | | + + + + + Care Team Providers + +------+ + | Care Roll Filler Name | Role | Phone | + [...] | | 2020 | | Center at [facility] 3485 | MOVIE EXTRA [address] | | | | | [address] | [place], [place] | | | | | Mailcode: Center | [address] | | | | | for Health and | [phone] | | | | | [place] [address] | | | | | | [place], [place] | | | | | | [address] | | | | | | [phone] | | | +--------+--------+ + + + [...]
--- OUTSIDE RECORDS SUMMARY | ~2019-10-11 | XMS | Encounter Summary ---
Demographics + + + | Address | [address] | | | [place] [address] | + + + | Home Phone | | + + + | Preferred Language | Unknown | + + + | Marital Status | | + + + | Taoist Affiliation | Unknown | + + + [...] + | Bob Benites | ECON | [address] | | | | | [place] | | | | | [address] | | + + + + + Care Team Providers + +------+ + | Care Health Safety Coordinator Name | Role | Phone | [...] | | 2014 | | Center at [facility] 3435 | MD | (Nortriptyline) | | | | [address] | | | | | | Mailcode: [place] | | | | | | [facility] Health and | | | | | | [facility], [place] [address] | | | | | | [place], [place] | | | | | | [address] | | | | | | [phone] | | | +--------+--------+ + + + [...]
--- OUTSIDE RECORDS SUMMARY | ~2019-10-11 | XMS | Encounter Summary ---
Demographics + + + | Address | [address] | | | [place] [address] | + + + | Home Phone [...] + | Bob Benites | ECON | [address] | | | | | [place] | | | | | [address] | | + + + + + Care Team Providers + +------+ + | Care Sheet Metal Duct Worker Supervisor Name | Role | Phone | [...] | | Center at [facility] [address] | APPLICATION SERVICES MANAGER [address] | | | | | [address] | [place], [place] | | | | | Mailcode: Center | [address] | | | | | for Health and | [phone] | | | | | [address] [place] [address] | | | | | | [place], [place] | | | | | | [address] | | | | | | [phone] | | | +--------+--------+ + + + [...]
--- OUTSIDE RECORDS SUMMARY | ~2019-10-11 | XMS | Encounter Summary ---
Demographics + + + | Address | [address] | | | [place] [address] | + + + | Home Phone [...] [place] | | | | | [address] | | + + + + + Care Team Providers + +------+ + | Care Inspector Eyeglass Frames Name | Role | Phone | + [...] | | 2015 | | Center at [facility] 3485 | MD | (nortriptyline 10 mg | | | | [address] | | oral capsule) | | | | Mailcode: [place] | | | | | | [facility] Health and | | | | | | [facility], [place] [address] | | | | | | [place], [place] | | | | | | [address] | | | | | | [phone] | | | +--------+--------+ + + + [...]
[~2019-10-11 08:36] MED LIST changes: +CLIMARA1 EAC1 TD; +MOTRIN IB200 MG PO; +OXYCODONE HCL5 MG PO; +PROMETRIUM200 MG PO; +ZOFRAN ODT4 MG PO
[2019-10-11] MEDS ORDERED: FLOMAX0.4 MG PO (10:03)
[2019-10-11] MEDS ORDERED: NORCO 7.5-3251 EACH PO (10:03)
[2019-10-11] MEDS ORDERED: ONDANSETRON ODT8 MG PO (10:03)
== END 2019-10-11 10:20 | disposition home or self-care (01) ==
LOC: ED 08:36
DX: N20.0 Calculus of kidney (principal); Z88.2 Allergy status to sulfonamides; Z79.899 Other long term (current) drug therapy; Z90.710 Acquired absence of both cervix and uterus
CPT/HCPCS: 80053; 81001; 85025; 96361; 96374; 96375; 99284-25; J1885; J2405; J7030